=== PATIENT | male | born 1930 | race American Indian/Alaskan Native ===

== ENCOUNTER 2020-01-29 14:45 | Inpatient (IN) | payer MEDICARE, OTHER ==
[2020-01-29] MEDS ORDERED: SODIUM CHLORIDE 0.9% 1000 ML 1,000 ML IV ONE (16:26)
--- NOTE | 2020-01-29 16:28 | Emergency Department Report ---
HPI - General Chief Complaint: Dyspnea/Respdistress Time Seen by Provider: 01/29/20 16:16 - HPI HPI: This is an 89-year-old male, who is known to be positive for Covid 19, who presents to the emergency department with a two-week history of some lightheade dness, generalized weakness, and exertional shortness of breath. The patient's son previously was positive for Covid 19 and lives with the patient. The patient has a history of diabetes. He denies any recent fever but does present with a low-grade fever here. He denies any resting shortness of breath, chest pain, cough, abdominal pain, nausea, vomiting, headache, vision change, numbness or paresthesias. Patient says that he cannot stand for very long or walk far distances as he feels like he will pass out. He denies any tobacco or illicit drug use. ED Past Medical Hx - Past Medical History Previous Medical History?: Yes Hx Diabetes: Yes - Surgical History Past Surgical History?: No - Social History Smoking Status: Never Smoker Substance Use Type: None ED Review of Systems ROS: Stated complaint: PUI Other details as noted in HPI Comment: All other systems reviewed and negative Constitutional: chills, weakness Eyes: denies: eye pain, vision change ENT: denies: ear pain, throat pain Respiratory: SOB with exertion. denies: cough Cardiovascular: denies: chest pain, palpitations Gastrointestinal: denies: abdominal pain, vomiting Genitourinary: denies: dysuria, discharge Musculoskeletal: denies: back pain, joint swelling Skin: denies: rash, lesions Neurological: other (Lightheadedness, dizziness). denies: headache, numbness, paresthesias Physical Exam - Physical Exam Vital Signs: Vital Signs 01/29/20 15:29 Temperature 100.6 F H Pulse Rate 79 Respiratory 16 Rate Blood Pressure 142/68 Blood Pressure 142/68 [Left] O2 Sat by Pulse 91 Oximetry Physical Exam: GENERAL: The patient is well-developed well-nourished. HENT: Normocephalic. Atraumatic. Patient has moist mucous membranes. EYES: Extraocular motions are intact. Pupils equal reactive to light bilaterally. No nystagmus. NECK: Supple. Trachea is midline. CHEST/LUNGS: Rhonchi throughout the chest. There is some tachypnea but no accessory muscle use. There is no respiratory distress noted. HEART/CARDIOVASCULAR: Regular. There is no tachycardia. ABDOMEN: Abdomen is soft, nontender. Patient has normal bowel sounds. There is no abdominal distention. SKIN: Skin is warm and dry. NEURO: The patient is awake, alert, and oriented. The patient is cooperative. The patient has no focal neurologic deficits. Normal speech. Cranial nerves II through XII grossly intact. MUSCULOSKELETAL: There is no tenderness or deformity. There is no evidence of acute injury. ED Course Vital Signs 01/29/20 15:29 Temperature 100.6 F H Pulse Rate 79 Respiratory 16 Rate Blood Pressure 142/68 Blood Pressure 142/68 [Left] O2 Sat by Pulse 91 Oximetry ED Medical Decision Making - Lab Data Result diagrams: 01/29/20 17:03 01/29/20 18:33 - Radiology Data Radiology results: report reviewed CHEST 1 VIEW 01/29/2020 3:59 PM INDICATION / CLINICAL INFORMATION: SOB. COMPARISON: None available. FINDINGS: SUPPORT DEVICES: None. HEART / MEDIASTINUM: No significant abnormality. LUNGS / PLEURA: Suboptimal inspiration with low lung volumes. Patchy parenchymal densities in the right midlung and left lung base. No pneumothorax. ADDITIONAL FINDINGS: No significant additional findings. IMPRESSION: 1. Patchy bilateral pulmonary opacities which may represent pneumonia. - Medical Decision Making This patient presents to the emergency department with complaint of shortness of breath with exertion, lightheadedness/dizziness and increased fatigue and generalized weakness. Also, the patient is noted to be positive for Covid 19. Chest x-ray shows some patchy bilateral opacities concerning for pneumonia. His labs show multiple elevated inflammatory markers. The patient has hypoxia on room air. Patient was given IV steroids, IV fluid resuscitation, IV anti biotics. He will be admitted to the hospital for further evaluation and treatment and was accepted for admission by the hospitalist, Dr. Boswell. Critical Care Time: Yes Critical care time in (mins) excluding proc time.: 35 Critical care attestation.: If time is entered above; I have spent that time in minutes in the direct care of this critically ill patient, excluding procedure time. Due to the immediate potential for life-threatening deterioration due to underlying pulmonary condition, I spent 35 minutes of critical care time with the patient. Critical Care Time: 35 minutes ED Disposition Clinical Impression: COVID-19, Hypoxia Pneumonia Qualifiers: Pneumonia type: due to unspecified organism Laterality: bilateral Lung location: unspecified part of lung Qualified Code(s): J18.9 - Pneumonia, unspecified organism Disposition: -09 OP ADMIT IP TO THIS HOSP Is pt being admited?: Yes Condition: Serious Time of Disposition: 22:55
--- NOTE | 2020-01-29 17:10 | XRay Report ---
CHEST 1 VIEW 01/29/2020 3:59 PM INDICATION / CLINICAL INFORMATION: SOB. COMPARISON: None available. FINDINGS: SUPPORT DEVICES: None. HEART / MEDIASTINUM: No significant abnormality. LUNGS / PLEURA: Suboptimal inspiration with low lung volumes. Patchy parenchymal densities in the rig ht midlung and left lung base. No pneumothorax. ADDITIONAL FINDINGS: No significant additional findings. IMPRESSION: 1. Patchy bilateral pulmonary opacities which may represent pneumonia. Signer Name: Farzana Robertson MD Signed: 01/29/2020 5:05 PM Workstation Name: [id number]
[2020-01-29] MEDS ORDERED: ACETAMINOPHEN 325 MG TAB PO ONE (17:15)
[2020-01-29] MEDS ORDERED: cefTRIAXone/NS 1 GM/50 ML 1 GM/50 ML BAG IV ONE (17:23)
[2020-01-29 17:25] LABS: Basophils % (Auto) 0.2 % (0.0-1.8); Hematocrit 35.5 % (35.5-45.6); Hemoglobin 12.2 gm/dl (11.8-15.2); Lymphocytes # (Auto) 0.5 K/mm3 (1.2-5.4); Lymphocytes % (Auto) 14.9 % (13.4-35.0); Mean Corpuscular HGB Conc 34 % (32-34); Mean Corpuscular Volume 96 fl (84-94); Monocytes # (Auto) 0.2 K/mm3 (0.0-0.8); Monocytes % (Auto) 5.3 % (0.0-7.3); Platelet Count 142 K/mm3 (140-440); Red Cell Distribution Width 13.4 % (13.2-15.2)
[2020-01-29 17:33] LABS: INR 1.09 (0.87-1.13)
[2020-01-29 17:37] LABS: Alanine Aminotransferase 31 units/L (7-56); BUN/Creatinine Ratio 18; Blood Urea Nitrogen 18 mg/dL (9-20); Calcium 8.4 mg/dL (8.4-10.2); Hemolysis Index 69
[2020-01-29 19:08] LABS: C-Reactive Protein 10.2 mg/dL (0.00-1.30)
[2020-01-29] MEDS ORDERED: AZITHROMYCIN 500 MG in SODIUM CHLORIDE 0.9% 250ML 250 ML IV ONE (20:00)
--- NOTE | 2020-01-29 20:32 | History and Physical Report ---
History of Present Illness Date of examination: 01/29/20 Date of admission: 01/29/20 17:53 Chief complaint: Shortness of breath for 1 week History of present illness: 89-year-old male with history of diabetes and recently diagnosed with COVID-19 comes in for 2-week history of lightheadedness generalized weakness and exertional dyspnea. Patient son previously was positive for COVID-19 and lives with his father. Patient with history of diabetes. No recent fever. No resting shortness of breath. No chest pain or cough. Patient states that he cannot stand for a long. Or or walk more than 10-20 steps. He feels as if he is going to pass out. Exposure to coronavirus present. No syncope. No recent travel. Past Medical History Previous Medical History?: Yes Diabetes: Yes Surgical History Past Surgical History?: No Social History Smoking Status: Never Smoker Substance Use Type: None Family history son has coronavirus Review of Systems ROS: Stated complaint: PUI Other details as noted in HPI Comment: All other systems reviewed and negative Constitutional: chills, weakness Eyes: denies: eye pain, vision change ENT: denies: ear pain, throat pain Respiratory: SOB with exertion. denies: cough Cardiovascular: denies: chest pain, palpitations Gastrointestinal: denies: abdominal pain, vomiting Genitourinary: denies: dysuria, discharge Musculoskeletal: denies: back pain, joint swelling Skin: denies: rash, lesions Neurological: other (Lightheadedness, dizziness). denies: headache, numbness, paresthesias Medications and Allergies Allergies Allergy/AdvReac Type Severity Reaction Status Date / Time No Known Allergies Allergy Unverified 01/29/20 18:36 Active Meds: Active Medications Sodium Chloride (Nacl 0.9% 1000 Ml) 1,000 mls @ 125 mls/hr IV ONCE ONE Stop: 01/30/20 00:25 Last Admin: 01/29/20 18:00 Dose: 125 mls/hr Documented by: Azithromycin 500 mg/ Sodium (Chloride) 250 mls @ 250 mls/hr IV ONCE ONE; Protocol Stop: 01/29/20 20:59 Exam - Constitutional Vitals: Temp Pulse Resp BP Pulse Ox 100.6 F H 76 24 146/68 97 01/29/20 15:29 01/29/20 18:16 01/29/20 18:16 01/29/20 18:16 01/29/20 18:16 General appearance: Present: mild distress, well-nourished - EENT Eyes: Present: PERRL ENT: hearing intact, clear oral mucosa - Neck Neck: Present: supple, normal ROM - Respiratory Respiratory effort: normal Respiratory: bilateral: CTA, rales - Cardiovascular Heart rate: 86 Rhythm: regular Heart Sounds: Present: S1 & S2. Absent: rub, click - Extremities Extremities: no ischemia, pulses intact, pulses symmetrical, No edema Peripheral Pulses: within normal limits - Abdominal General gastrointestinal: Present: soft, non-tender, non-distended, normal bowel sounds Male genitourinary: Present: normal - Integumentary Integumentary: Present: clear, warm, dry - Musculoskeletal Musculoskeletal: gait normal, strength equal bilaterally - Psychiatric Psychiatric: appropriate mood/affect, intact judgment & insight - Neurologic Neurologic: CNII-XII intact, moves all extremities HEART Score - HEART Score Troponin: Troponin T 0.014 ng/mL (0.00-0.029) 01/29/20 17:03 Results - Labs CBC & Chem 7: 01/30/20 05:41 01/30/20 05:41 Labs: Laboratory Last Values WBC 3.6 K/mm3 (4.5-11.0) L 01/29/20 17:03 RBC 3.70 M/mm3 (3.65-5.03) 01/29/20 17:03 Hgb 12.2 gm/dl (11.8-15.2) 01/29/20 17:03 Hct 35.5 % (35.5-45.6) 01/29/20 17:03 MCV 96 fl (84-94) H 01/29/20 17:03 MCH 33 pg (28-32) H 01/29/20 17:03 MCHC 34 % (32-34) 01/29/20 17:03 RDW 13.4 % (13.2-15.2) 01/29/20 17:03 Plt Count 142 K/mm3 (140-440) 01/29/20 17:03 Lymph % (Auto) 14.9 % (13.4-35.0) 01/29/20 17:03 [place] % (Auto) 5.3 % (0.0-7.3) 01/29/20 17:03 Eos % (Auto) 0.0 % (0.0-4.3) 01/29/20 17:03 Baso % (Auto) 0.2 % (0.0-1.8) 01/29/20 17:03 Lymph # 0.5 K/mm3 (1.2-5.4) L 01/29/20 17:03 [place] # 0.2 K/mm3 (0.0-0.8) 01/29/20 17:03 Eos # 0.0 K/mm3 (0.0-0.4) 01/29/20 17:03 Baso # 0.0 K/mm3 (0.0-0.1) 01/29/20 17:03 Seg Neutrophils % 79.6 % (40.0-70.0) H 01/29/20 17:03 Seg Neutrophils # 2.9 K/mm3 (1.8-7.7) 01/29/20 17:03 PT 13.9 Sec. (12.2-14.9) 01/29/20 17:03 INR 1.09 (0.87-1.13) 01/29/20 17:03 D-Dimer 2573.78 ng/mlDDU (0-234) H 01/29/20 17:03 Sodium 137 mmol/L (137-145) 01/29/20 17:03 Potassium 4.4 mmol/L (3.6-5.0) 01/29/20 17:03 Chloride 102.2 mmol/L (98-107) 01/29/20 17:03 Carbon Dioxide 22 mmol/L (22-30) 01/29/20 17:03 Anion Gap 17 mmol/L 01/29/20 17:03 BUN 18 mg/dL (9-20) 01/29/20 17:03 Creatinine 1.0 mg/dL (0.8-1.5) 01/29/20 17:03 Estimated GFR > 60 ml/min 01/29/20 17:03 BUN/Creatinine Ratio 18 % 01/29/20 17:03 Glucose 230 mg/dL (75-100) H 01/29/20 18:33 Calcium 8.4 mg/dL (8.4-10.2) 01/29/20 17:03 Ferritin > 2000.0 ng/mL (13.0-400.0) H 01/29/20 18:33 Total Bilirubin 0.80 mg/dL (0.1-1.2) 01/29/20 17:03 AST 76 units/L (5-40) H 01/29/20 17:03 ALT 31 units/L (7-56) 01/29/20 17:03 Alkaline Phosphatase 59 units/L (35-129) 01/29/20 17:03 Lactate Dehydrogenase 930 units/L (91-180) H 01/29/20 18:33 Troponin T 0.014 ng/mL (0.00-0.029) 01/29/20 17:03 C-Reactive Protein 10.20 mg/dL (0.00-1.30) H 01/29/20 18:33 NT-Pro-B Natriuret Pep 497.5 pg/mL (0-900) 01/29/20 17:03 Total Protein 6.6 g/dL (6.3-8.2) 01/29/20 17:03 Albumin 3.0 g/dL (3.9-5) L 01/29/20 17:03 Albumin/Globulin Ratio 0.8 % 01/29/20 17:03 TSH 2.050 mlU/mL (0.270-4.200) 01/29/20 17:03 Microbiology: Microbiology 01/29/20 18:33 Peripheral/Venous Blood Culture - Preliminary Culture in Progress 01/29/20 18:38 Peripheral/Venous Blood Culture - Preliminary Culture in Progress - Imaging and Cardiology EKG: report reviewed (Sinus tachycardia) Imaging and Cardiology: Chest x-ray LUNGS / PLEURA: Suboptimal inspiration with low lung volumes. Patchy parenchymal densities in the right midlung and left lung base. No pneumothorax. ADDITIONAL FINDINGS: No significant additional findings. IMPRESSION: 1. Patchy bilateral pulmonary opacities which may represent pneumonia. Assessment and Plan Advance Directives: Yes (Full code) VTE prophylaxis?: Chemical Plan of care discussed with patient/family: Yes - Patient Problems (1) Bilateral pneumonia Current Visit: Yes Status: Acute Qualifiers: Lung location: unspecified part of lung Plan to address problem: Patient says he is COVID positive Patient started on Rocephin and azithromycin ID consult requested Coronavirus stat ordered Isolation IV Decadron 4 mg every 12 Inflammatory markers are very high (2) COVID-19 Current Visit: Yes Status: Acute Plan to address problem: Patient claims that his COVID-19 positive We will repeat code coronavirus PCR Patient exposed to his son who had coronavirus Not hypoxic at this point of time 2 L nasal cannula oxygen Patient isolated (3) Elevated d-dimer Current Visit: Yes Status: Acute Plan to address problem: Lovenox initiated (4) T2DM (type 2 diabetes mellitus) Current Visit: Yes Status: Chronic Qualifiers: Diabetes mellitus prison insulin use: unspecified 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
[2020-01-29] MEDS ORDERED: ONDANSETRON 4 MG/2 ML INJ IV PRN (20:46)
[2020-01-29] MEDS ORDERED: ACETAMINOPHEN 325 MG TAB PO PRN (20:46)
[2020-01-29] MEDS ORDERED: METOCLOPRAMIDE 10 MG/2 ML INJ IV PRN (20:48)
[2020-01-29] MEDS ORDERED: SODIUM CHLORIDE 0.9% 1000 ML 1,000 ML IV SCH (21:00)
[2020-01-29] MEDS ORDERED: SODIUM CHLORIDE 0.9% 1000 ML 1,000 ML ONE (21:00)
[2020-01-29] MEDS ORDERED: ENOXAPARIN 120 MG/0.8 ML INJ SUB-Q SCH (23:00)
[2020-01-29] MEDS: dexAMETHasone 4 MG/ML VIAL IV SCH (23:28)
[2020-01-29] MEDS: FAMOTIDINE 20 MG TAB PO SCH (23:29)
[2020-01-29] MEDS: INSULIN LISPRO 100 UNIT/ML SUB-Q SCH (23:29)
[2020-01-29] MEDS: oxyCODONE /ACETAMINOPHEN 5-325MG TAB PO PRN (23:29)
[2020-01-29] MEDS: ZINC SULFATE 220 MG CAP PO SCH (23:30)
[2020-01-29] MEDS: AZITHROMYCIN 500 MG in SODIUM CHLORIDE 0.9% 250ML 250 ML IV SCH (23:31)
[2020-01-29] MEDS: cefTRIAXone/NS 2 GM/100 ML 2 GM/100 ML BAG IV SCH (23:31)
[2020-01-30 06:23] LABS: Basophils % (Auto) 0.1 % (0.0-1.8); Hematocrit 35.2 % (35.5-45.6); Hemoglobin 11.7 gm/dl (11.8-15.2); Lymphocytes # (Auto) 0.4 K/mm3 (1.2-5.4); Lymphocytes % (Auto) 8.1 % (13.4-35.0); Mean Corpuscular HGB Conc 33 % (32-34); Mean Corpuscular Volume 94 fl (84-94); Monocytes # (Auto) 0.3 K/mm3 (0.0-0.8); Platelet Count 150 K/mm3 (140-440); Red Blood Count 3.75 M/mm3 (3.65-5.03); Red Cell Distribution Width 13.2 % (13.2-15.2)
[2020-01-30 06:41] LABS: Alanine Aminotransferase 34 units/L (7-56); Albumin 2.9 g/dL (3.9-5); BUN/Creatinine Ratio 20; Blood Urea Nitrogen 18 mg/dL (9-20); Calcium 7.7 mg/dL (8.4-10.2); Hemolysis Index 78
[2020-01-30] MEDS ORDERED: ENOXAPARIN 120 MG/0.8 ML INJ SUB-Q SCH (08:00)
[2020-01-30] MEDS: INSULIN LISPRO 100 UNIT/ML SUB-Q SCH ×4 (08:31→22:12)
[2020-01-30] MEDS: dexAMETHasone 4 MG/ML VIAL IV SCH (09:15)
[2020-01-30] MEDS: FAMOTIDINE 20 MG TAB PO SCH ×2 (09:16→21:29)
[2020-01-30] MEDS: ZINC SULFATE 220 MG CAP PO SCH ×2 (09:16→21:29)
[2020-01-30] MEDS: ENOXAPARIN 100 MG/1 ML INJ SUB-Q SCH ×2 (09:16→21:29)
[2020-01-30] MEDS: AZITHROMYCIN 500 MG in SODIUM CHLORIDE 0.9% 250ML 250 ML IV SCH (09:20)
[2020-01-30] MEDS ORDERED: methylPREDNISolone Sod Succinate 40 MG/1 ML INJ IV SCH (15:00)
--- NOTE | 2020-01-30 15:44 | Consultation ---
History of Present Illness - Reason for Consult Consult date: 01/30/20 COVID Requesting physician: LEIGH DILL - History of Present Illness 89 years old male with history of diabetes mellitus, admitted on 01/29/2020 due to 2-week history of generalized weakness, mild cough, dyspnea on exertion. Patient tested positive for COVID-19 recently. Patient's son also was positive for COVID-19 initially. Patient states that he cannot stand for a long. On arrival, temperature 100.6, HR 77, RR 21, sats down to 91, BP 142/68. Initial WBC 3.6. Hemoglobin 12.2. Platelets 142. D-dimer 2573. Ferritin 2000, CRP 10.2. LDH 930. Procalcitonin 0.18. AST 76. Chest x-ray shows bilateral interstitial infiltrate. Review of Systems: positive in bold print General: fever, chills, malaise, generalized weakness Cutaneous: rash, pruritus Head: headaches or injury Eyes: changes in vision, eye pain, double vision Ears: ear pain, ear discharge, ringing or hearing loss Nose: nose bleeding, stuffiness Mouth & throat: bleeding gums, horseness, no dental problems, or swollen glands Neck: no pain, node enlargement/lumps, tyroid enlargement or tenderness Respiratory: SOB, cough, ORDAZ, wheezing, sputum, hemoptysis, pleuritic chest pain Cardiovascular: chest pain, leg edema, cyanosis, ORDAZ, orthopnea Musculoskeletal: edema, deformities, pain Gastrointestinal: nausea, vomiting, hematemesis, diarrhea, constipation, melena, bright red blood in stools, fecal incontinence, jaundice Genitourinary/Reproductive: frequent urination, dysuria, hematuria, incontinence Neurogical: seizures, headaches, weakness, paresthesias, loss of speech or vision; memory loss, vertigo, tremors, numbness Psychiatric: stable mood; excessive anxiety, sadness or moodiness Medications and Allergies Allergies Allergy/AdvReac Type Severity Reaction Status Date / Time No Known Allergies Allergy Unverified 01/29/20 18:36 Active Meds: Active Medications Acetaminophen (Tylenol) 650 mg PO Q4H PRN PRN Reason: Pain MILD(1-3)/Fever >100.5/GALINDO Enoxaparin Sodium (Enoxaparin) 100 mg SUB-Q Q12HR JUNE Last Admin: 01/30/20 09:16 Dose: 100 mg Documented by: Famotidine (Pepcid) 20 mg PO BID [facility] Last Admin: 01/30/20 09:16 Dose: 20 mg Documented by: Hydromorphone HCl (Dilaudid) 0.5 mg IV Q3H PRN PRN Reason: Pain , Severe (7-10) Ceftriaxone Sodium (Rocephin/Ns 2 Gm/100 Ml) 2 gm in 100 mls @ 200 mls/hr IV Q24H [facility]; Protocol Last Infusion: 01/30/20 04:56 Dose: Infused Documented by: Azithromycin 500 mg/ Sodium (Chloride) 250 mls @ 250 mls/hr IV Q24HR [facility]; Protocol Last Admin: 01/30/20 09:20 Dose: 250 mls/hr Documented by: Insulin Human Lispro (Humalog) 0 unit SUB-Q ACHS [facility]; Protocol Last Admin: 01/30/20 13:18 Dose: 3 unit Documented by: Methylprednisolone Sodium Succinate (Solu-Medrol) 40 mg IV Q8HR [facility] Metoclopramide HCl (Reglan) 10 mg IV Q6H PRN PRN Reason: Nausea And Vomiting Ondansetron HCl (Zofran) 4 mg IV Q8H PRN PRN Reason: Nausea And Vomiting Last Admin: 01/29/20 23:28 Dose: 4 mg Documented by: Oxycodone/Acetaminophen (Percocet 5/325) 1 tab PO Q6H PRN PRN Reason: Pain, Moderate (4-6) Last Admin: 01/29/20 23:29 Dose: 1 tab Documented by: Sodium Chloride (Sodium Chloride Flush Syringe 10 Ml) 10 ml IV BID [facility] Last Admin: 01/30/20 09:17 Dose: 10 ml Documented by: Sodium Chloride (Sodium Chloride Flush Syringe 10 Ml) 10 ml IV PRN PRN PRN Reason: LINE FLUSH Zinc Sulfate (Zinc Sulfate) 220 mg PO BID [facility] Last Admin: 01/30/20 09:16 Dose: 220 mg Documented by: Physical Examination - Physical Exam Narrative exam: Limited given conservation of PPE - Constitutional Vitals: Vital Signs Temp Pulse Resp BP Pulse Ox 98.7 F 78 16 149/73 90 01/30/20 12:42 01/30/20 12:42 01/30/20 12:42 01/30/20 12:42 01/30/20 12:42 Temperature -Last 24 Hours Temperature 98.7 F Temperature 97.4 F Temperature 97.4 F Temperature 98.3 F Results - Labs CBC & Chem 7: 01/30/20 05:41 01/30/20 05:41 Labs: Abnormal lab results 01/29/20 01/29/20 01/29/20 Range/Units 17:03 17:03 17:03 WBC 3.6 L (4.5-11.0) K/mm3 Hgb (11.8-15.2) gm/dl Hct (35.5-45.6) % MCV 96 H (84-94) fl MCH 33 H (28-32) pg Lymph % (Auto) (13.4-35.0) % Lymph # 0.5 L (1.2-5.4) K/mm3 Seg Neutrophils % 79.6 H (40.0-70.0) % D-Dimer 2573.78 H (0-234) ng/mlDDU Carbon Dioxide (22-30) mmol/L Glucose 240 H (75-100) mg/dL POC Glucose (70-105) Hemoglobin A1c (4-6) % Calcium (8.4-10.2) mg/dL Ferritin (13.0-400.0) ng/mL AST 76 H (5-40) units/L Lactate Dehydrogenase (91-180) units/L C-Reactive Protein (0.00-1.30) mg/dL Albumin 3.0 L (3.9-5) g/dL Coronavirus (PCR) (Negative) 01/29/20 01/29/20 01/29/20 Range/Units 18:33 18:33 23:28 WBC (4.5-11.0) K/mm3 Hgb (11.8-15.2) gm/dl Hct (35.5-45.6) % MCV (84-94) fl MCH (28-32) pg Lymph % (Auto) (13.4-35.0) % Lymph # (1.2-5.4) K/mm3 Seg Neutrophils % (40.0-70.0) % D-Dimer (0-234) ng/mlDDU Carbon Dioxide (22-30) mmol/L Glucose 230 H (75-100) mg/dL POC Glucose 253 H (70-105) Hemoglobin A1c (4-6) % Calcium (8.4-10.2) mg/dL Ferritin > 2000.0 H (13.0-400.0) ng/mL AST (5-40) units/L Lactate Dehydrogenase 930 H (91-180) units/L C-Reactive Protein 10.20 H (0.00-1.30) mg/dL Albumin (3.9-5) g/dL Coronavirus (PCR) (Negative) 01/29/20 01/30/20 01/30/20 Range/Units Unknown 05:41 05:41 WBC (4.5-11.0) K/mm3 Hgb 11.7 L (11.8-15.2) gm/dl Hct 35.2 L (35.5-45.6) % MCV (84-94) fl MCH (28-32) pg Lymph % (Auto) 8.1 L (13.4-35.0) % Lymph # 0.4 L (1.2-5.4) K/mm3 Seg Neutrophils % 85.8 H (40.0-70.0) % D-Dimer (0-234) ng/mlDDU Carbon Dioxide 19 L (22-30) mmol/L Glucose 242 H (75-100) mg/dL POC Glucose (70-105) Hemoglobin A1c (4-6) % Calcium 7.7 L (8.4-10.2) mg/dL Ferritin (13.0-400.0) ng/mL AST 79 H (5-40) units/L Lactate Dehydrogenase (91-180) units/L C-Reactive Protein (0.00-1.30) mg/dL Albumin 2.9 L (3.9-5) g/dL Coronavirus (PCR) Positive A (Negative) 01/30/20 01/30/20 01/30/20 Range/Units 05:41 07:55 12:54 WBC (4.5-11.0) K/mm3 Hgb (11.8-15.2) gm/dl Hct (35.5-45.6) % MCV (84-94) fl MCH (28-32) pg Lymph % (Auto) (13.4-35.0) % Lymph # (1.2-5.4) K/mm3 Seg Neutrophils % (40.0-70.0) % D-Dimer (0-234) ng/mlDDU Carbon Dioxide (22-30) mmol/L Glucose (75-100) mg/dL POC Glucose 262 H 232 H (70-105) Hemoglobin A1c 7.3 H (4-6) % Calcium (8.4-10.2) mg/dL Ferritin (13.0-400.0) ng/mL AST (5-40) units/L Lactate Dehydrogenase (91-180) units/L C-Reactive Protein (0.00-1.30) mg/dL Albumin (3.9-5) g/dL Coronavirus (PCR) (Negative) Assessment and Plan Cultures: Blood cultures no growth Assessment: 89 years old male with history of diabetes mellitus, admitted on 01/29/2020 due to 2-week history of generalized weakness, mild cough, dyspnea on exertion: #Sepsis: present on admission with fever, hypoxia; source COVID-19 infection #COVID-19 pneumonia: Admission sats down to 91%. Noted market elevated biom arkers. D-dimer 2573. Ferritin 2000, CRP 10.2. LDH 930. 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 #Mild hypoxia: Currently on room air however drops with activity. Recommendations: No indication for Remdesivir for now, patient without sustained hypoxia Continue Solu-Medrol 40 mg IV every 8 hours Start Tocilizumab IV x1 Consent for convalescent plasma, type and screen Daily markers Stop abx, procal normal Overall prognosis guarded Will follow. Elda Khan MD Infectious Diseases Club Attendant [facility] M [phone] O [phone]
--- NOTE | 2020-01-30 16:30 | Progress Note ---
Assessment and Plan /Sepsis: present on admission with fever, hypoxia; source COVID-19 infection due to COVID-19 pneumonia: /Bilateral pneumonia s/p Rocephin and azithromycin ID consult requested Coronavirus positive cont Isolation IV solumedrol 40mg q8h Inflammatory markers are very high - con to follow / COVID-19 PNA Patient exposed to his son who had coronavirus nasal cannula oxygen to keep O2 sat >94% Patient isolated, ID following follow inflammatory markers /Acute hypoxic Respiratory failure - O2 sat drops with activity - cont nebs, solumedrol, supplemental O2 / Elevated d-dimer Lovenox initiated /Hyperlipidemia, cont statin /T2DM (type 2 diabetes mellitus) consistent carb diet, SSI Coverage for now /DVT prophylaxis Patient on Lovenox and GI prophylaxis 01/29: Positive for COVID 19, follow inflammatory markers, start on iv winifred umedrol. Start Tocilizumab IV x1 Subjective Date of service: 01/30/20 Interval history: Patient seen and examined c/o dry cough and SOB on exertion afebrile, tolerating diet but has nausea Objective - Constitutional Vitals: Vital Signs - 12hr 01/30/20 01/30/20 01/30/20 04:50 04:52 12:42 Temperature 97.4 F L 97.4 F L 98.7 F Pulse Rate 83 77 78 Respiratory 16 16 16 Rate Blood Pressure 130/63 149/73 O2 Sat by Pulse 91 92 90 Oximetry General appearance: Present: no acute distress, well-nourished, other (elderly AAM) - EENT Eyes: PERRL, EOM intact ENT: hearing intact, clear oral mucosa Ears: bilateral: normal - Neck Neck: supple, normal ROM - Respiratory Respiratory effort: normal Respiratory: bilateral: rhonchi - Cardiovascular Rhythm: regular Heart Sounds: Present: S1 & S2. Absent: gallop, rub Extremities: pulses intact, No edema, normal color, Full ROM - Gastrointestinal General gastrointestinal: Present: soft, non-tender, non-distended, normal bowel sounds - Integumentary Integumentary: clear, warm, dry - Musculoskeletal Musculoskeletal: generalized weakness - Neurologic Neurologic: moves all extremities - Psychiatric Psychiatric: memory intact, appropriate mood/affect, intact judgment & insight - Labs CBC & Chem 7: 01/30/20 05:41 01/31/20 12:44 Labs: Abnormal lab results 01/29/20 01/29/20 01/29/20 Range/Units 17:03 17:03 17:03 WBC 3.6 L (4.5-11.0) K/mm3 Hgb (11.8-15.2) gm/dl Hct (35.5-45.6) % MCV 96 H (84-94) fl MCH 33 H (28-32) pg Lymph % (Auto) (13.4-35.0) % Lymph # 0.5 L (1.2-5.4) K/mm3 Seg Neutrophils % 79.6 H (40.0-70.0) % D-Dimer 2573.78 H (0-234) ng/mlDDU Carbon Dioxide (22-30) mmol/L Glucose 240 H (75-100) mg/dL POC Glucose (70-105) Hemoglobin A1c (4-6) % Calcium (8.4-10.2) mg/dL Ferritin (13.0-400.0) ng/mL AST 76 H (5-40) units/L Lactate Dehydrogenase (91-180) units/L C-Reactive Protein (0.00-1.30) mg/dL Albumin 3.0 L (3.9-5) g/dL Coronavirus (PCR) (Negative) 01/29/20 01/29/20 01/29/20 Range/Units 18:33 18:33 23:28 WBC (4.5-11.0) K/mm3 Hgb (11.8-15.2) gm/dl Hct (35.5-45.6) % MCV (84-94) fl MCH (28-32) pg Lymph % (Auto) (13.4-35.0) % Lymph # (1.2-5.4) K/mm3 Seg Neutrophils % (40.0-70.0) % D-Dimer (0-234) ng/mlDDU Carbon Dioxide (22-30) mmol/L Glucose 230 H (75-100) mg/dL POC Glucose 253 H (70-105) Hemoglobin A1c (4-6) % Calcium (8.4-10.2) mg/dL Ferritin > 2000.0 H (13.0-400.0) ng/mL AST (5-40) units/L Lactate Dehydrogenase 930 H (91-180) units/L C-Reactive Protein 10.20 H (0.00-1.30) mg/dL Albumin (3.9-5) g/dL Coronavirus (PCR) (Negative) 01/29/20 01/30/20 01/30/20 Range/Units Unknown 05:41 05:41 WBC (4.5-11.0) K/mm3 Hgb 11.7 L (11.8-15.2) gm/dl Hct 35.2 L (35.5-45.6) % MCV (84-94) fl MCH (28-32) pg Lymph % (Auto) 8.1 L (13.4-35.0) % Lymph # 0.4 L (1.2-5.4) K/mm3 Seg Neutrophils % 85.8 H (40.0-70.0) % D-Dimer (0-234) ng/mlDDU Carbon Dioxide 19 L (22-30) mmol/L Glucose 242 H (75-100) mg/dL POC Glucose (70-105) Hemoglobin A1c (4-6) % Calcium 7.7 L (8.4-10.2) mg/dL Ferritin (13.0-400.0) ng/mL AST 79 H (5-40) units/L Lactate Dehydrogenase (91-180) units/L C-Reactive Protein (0.00-1.30) mg/dL Albumin 2.9 L (3.9-5) g/dL Coronavirus (PCR) Positive A (Negative) 01/30/20 01/30/20 01/30/20 Range/Units 05:41 07:55 12:54 WBC (4.5-11.0) K/mm3 Hgb (11.8-15.2) gm/dl Hct (35.5-45.6) % MCV (84-94) fl MCH (28-32) pg Lymph % (Auto) (13.4-35.0) % Lymph # (1.2-5.4) K/mm3 Seg Neutrophils % (40.0-70.0) % D-Dimer (0-234) ng/mlDDU Carbon Dioxide (22-30) mmol/L Glucose (75-100) mg/dL POC Glucose 262 H 232 H (70-105) Hemoglobin A1c 7.3 H (4-6) % Calcium (8.4-10.2) mg/dL Ferritin (13.0-400.0) ng/mL AST (5-40) units/L Lactate Dehydrogenase (91-180) units/L C-Reactive Protein (0.00-1.30) mg/dL Albumin (3.9-5) g/dL Coronavirus (PCR) (Negative) 01/30/20 Range/Units 16:07 WBC (4.5-11.0) K/mm3 Hgb (11.8-15.2) gm/dl Hct (35.5-45.6) % MCV (84-94) fl MCH (28-32) pg Lymph % (Auto) (13.4-35.0) % Lymph # (1.2-5.4) K/mm3 Seg Neutrophils % (40.0-70.0) % D-Dimer (0-234) ng/mlDDU Carbon Dioxide (22-30) mmol/L Glucose (75-100) mg/dL POC Glucose 211 H (70-105) Hemoglobin A1c (4-6) % Calcium (8.4-10.2) mg/dL Ferritin (13.0-400.0) ng/mL AST (5-40) units/L Lactate Dehydrogenase (91-180) units/L C-Reactive Protein (0.00-1.30) mg/dL Albumin (3.9-5) g/dL Coronavirus (PCR) (Negative) HEART Score - HEART Score Troponin: Troponin T 0.014 ng/mL (0.00-0.029) 01/29/20 17:03
[2020-01-30] MEDS: cefTRIAXone/NS 2 GM/100 ML 2 GM/100 ML BAG IV SCH (21:29)
[2020-01-30] MEDS: methylPREDNISolone Sod Succinate 125 MG/2 ML INJ IV SCH (22:12)
[2020-01-31] MEDS: methylPREDNISolone Sod Succinate 125 MG/2 ML INJ IV SCH ×3 (05:21→21:57)
[2020-01-31] MEDS: INSULIN LISPRO 100 UNIT/ML SUB-Q SCH ×4 (08:54→23:59)
[2020-01-31] MEDS ORDERED: TOCILIZUMAB 400 MG in SODIUM CHLORIDE 0.9% 100 ML IV ONE (10:00)
[2020-01-31] MEDS ORDERED: dexAMETHasone 4 MG/ML VIAL IV SCH (10:00)
[2020-01-31] MEDS: ZINC SULFATE 220 MG CAP PO SCH ×2 (10:15→21:57)
[2020-01-31] MEDS: ENOXAPARIN 100 MG/1 ML INJ SUB-Q SCH ×2 (10:15→21:57)
[2020-01-31] MEDS: FAMOTIDINE 20 MG TAB PO SCH ×2 (10:15→21:57)
--- NOTE | 2020-01-31 10:41 | Progress Note ---
Assessment and Plan Cultures: Blood cultures no growth Assessment: 89 years old male with history of diabetes mellitus, admitted on 01/29/2020 due to 2-week history of generalized weakness, mild cough, dyspnea on exertion: #Sepsis: present on admission with fever, hypoxia; source COVID-19 infection #COVID-19 pneumonia: Admission sats down to 91%. Noted market elevated biomarkers. D-dimer 2573. Ferritin 2000, CRP 10.2. LDH 930. 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 #Acute hypoxemic respiratory failure: Now on 2 L, sats 89 to 90% Recommendations: Start Remdesivir 200 mg IV x1 then 100 g IV x4 days Continue Solu-Medrol 40 mg IV every 8 hours day 2 Start Tocilizumab IV x1 given today Consent for convalescent plasma, type and screen if clinically not better Daily markers, ordered today Continue anticoagulation Dr. Keller will be covering tomorrow until Tuesday, Dr. Calhoun will be covering Tuesday Overall prognosis guarded Will follow. Elda Khan MD Infectious Diseases Membership Director [facility] ([facility]) M [phone] O [phone] Subjective Date of service: 01/31/20 Principal diagnosis: COVID Interval history: Patient feels about the same, still dyspnea on exertion, on nasal cannula 2 L sats 89 to 90%. No fever. Objective - Exam Narrative Exam: Limited given conservation of PPE - Constitutional Vitals: Vital Signs Temp Pulse Resp BP Pulse Ox 98.0 F 62 20 142/75 95 01/31/20 04:52 01/31/20 04:52 01/31/20 04:52 01/31/20 04:52 01/31/20 08:30 Temperature -Last 24 Hours Temperature 98.0 F Temperature 98.7 F Temperature 99.0 F Temperature 98.7 F - Labs CBC & Chem 7: 01/30/20 05:41 01/30/20 05:41 Labs: Abnormal lab results 01/29/20 01/30/20 01/30/20 Range/Units Unknown 12:54 16:07 POC Glucose 232 H 211 H (70-105) Coronavirus (PCR) Positive A (Negative) 01/30/20 01/31/20 Range/Units 21:15 08:42 POC Glucose 285 H 328 H (70-105) Coronavirus (PCR) (Negative)
[2020-01-31] MEDS ORDERED: REMDESIVIR 200 MG in SODIUM CHLORIDE 0.9% 250ML 250 ML IV ONE (12:05)
[2020-01-31] MEDS: SODIUM CHLORIDE 0.9% 50 ML IVPB IV SCH (14:34)
[2020-01-31 15:09] LABS: C-Reactive Protein 5.8 mg/dL (0.00-1.30)
--- NOTE | 2020-02-01 00:06 | Progress Note ---
Assessment and Plan /Sepsis: present on admission with fever, hypoxia; source COVID-19 infection due to COVID-19 pneumonia: /Bilateral pneumonia s/p Rocephin and azithromycin ID consult requested Coronavirus positive cont Isolation Inflammatory markers are very high - con to follow / COVID-19 PNA Patient exposed to his son who had coronavirus nasal cannula oxygen to keep O2 sat >94% Patient isolated, ID following follow inflammatory markers Started Remdesivir Continue Solu-Medrol 40 mg IV every 8 hours. S/p Tocilizumab IV x1 /Acute hypoxic Respiratory failure - O2 sat drops with activity - cont nebs, solumedrol, supplemental O2 / Elevated d-dimer Lovenox initiated /Hyperlipidemia, cont statin /T2DM (type 2 diabetes mellitus) consistent carb diet, SSI Coverage for now /DVT prophylaxis Patient on Lovenox and GI prophylaxis 01/29: Positive for COVID 19, follow inflammatory markers, start on iv solumedrol. Start Tocilizumab IV x1 01/30; Start Remdesivir, Continue Solu-Medrol 40 mg IV every 8 hours. S/p Tocilizumab IV x1. follow inflammatory markers Subjective Date of service: 01/31/20 Principal diagnosis: COVID Interval history: Patient seen and examined c/o dry cough and SOB on exertion afebrile, tolerating diet but has nausea apperas more hypoxic today Objective - Exam Narrative Exam: Limited physical exam due to COVID 19 pandemic and limited PPE Constitutional:alert in NAD Neck: limited due to lack of PPE Oral:limited due to lack of PPE Cardiovascular: limited due to lack of PPE Respiratory: mae rhonchi per NS GI: limited due to lack of PPE Musculoskeletal: limited due to lack of PPE Skin: No rash or abscess Hem/Lymphatic: limited due to lack of PPE Psych: no agitated Neurological: no agitated - Constitutional Vitals: Vital Signs - 12hr 01/31/20 01/31/20 20:00 22:00 Respiratory 20 Rate O2 Sat by Pulse 94 90 Oximetry - Labs CBC & Chem 7: 01/30/20 05:41 01/31/20 12:44 Labs: Abnormal lab results 01/31/20 01/31/20 01/31/20 Range/Units 08:42 12:44 12:44 D-Dimer 795.52 H (0-234) ng/mlDDU Glucose 384 H (75-100) mg/dL POC Glucose 328 H (70-105) Ferritin (13.0-400.0) ng/mL Lactate Dehydrogenase 1393 H (91-180) units/L C-Reactive Protein 5.80 H (0.00-1.30) mg/dL 01/31/20 01/31/20 01/31/20 Range/Units 12:44 16:36 23:46 D-Dimer (0-234) ng/mlDDU Glucose (75-100) mg/dL POC Glucose 384 H 322 H (70-105) Ferritin > 2000.0 H (13.0-400.0) ng/mL Lactate Dehydrogenase (91-180) units/L C-Reactive Protein (0.00-1.30) mg/dL HEART Score - HEART Score Troponin: Troponin T 0.014 ng/mL (0.00-0.029) 01/29/20 17:03
[2020-02-01] MEDS: methylPREDNISolone Sod Succinate 125 MG/2 ML INJ IV SCH ×3 (05:11→23:06)
[2020-02-01] MEDS: INSULIN LISPRO 100 UNIT/ML SUB-Q SCH ×4 (09:14→23:22)
[2020-02-01] MEDS: ENOXAPARIN 100 MG/1 ML INJ SUB-Q SCH ×2 (10:58→23:05)
[2020-02-01] MEDS: FAMOTIDINE 20 MG TAB PO SCH ×2 (10:59→23:04)
[2020-02-01] MEDS: ZINC SULFATE 220 MG CAP PO SCH ×2 (10:59→22:00)
[2020-02-01] MEDS: REMDESIVIR 100 MG in SODIUM CHLORIDE 0.9% 250ML 250 ML IV SCH (12:35)
[2020-02-01] MEDS: SODIUM CHLORIDE 0.9% 50 ML IVPB IV SCH (14:08)
--- NOTE | 2020-02-02 00:24 | Progress Note ---
Assessment and Plan /Sepsis: present on admission with fever, hypoxia; source COVID-19 infection due to COVID-19 pneumonia: /Bilateral pneumonia s/p Rocephin and azithromycin ID consult requested Coronavirus positive cont Isolation Inflammatory markers are very high - con to follow / COVID-19 PNA Patient exposed to his son who had coronavirus nasal cannula oxygen to keep O2 sat >94% Patient isolated, ID following follow inflammatory markers Started Remdesivir Continue Solu-Medrol 40 mg IV every 8 hours. S/p Tocilizumab IV x1 /Acute hypoxic Respiratory failure - O2 sat drops with activity - cont nebs, solumedrol, supplemental O2 / Elevated d-dimer Lovenox initiated /Hyperlipidemia, cont statin /T2DM (type 2 diabetes mellitus) consistent carb diet, SSI Coverage for now /DVT prophylaxis Patient on Lovenox and GI prophylaxis 01/29: Positive for COVID 19, follow inflammatory markers, start on iv solumedrol. Start Tocilizumab IV x1 01/30; Start Remdesivir, Continue Solu-Medrol 40 mg IV every 8 hours. S/p Tocilizumab IV x1. follow inflammatory markers 01/31: cont Remdesivir day 2, Solu-Medrol 40 mg IV every 8 hours. S/p Tocilizum ab IV x1. follow inflammatory markers Brief History: 89 years old male with history of diabetes mellitus, admitted on 01/29/2020 due to 2-week history of generalized weakness, mild cough, dyspnea on exertion. Patient tested positive for COVID-19 recently. Patient's son also was positive for COVID-19 initially. Initial WBC 3.6. Hemoglobin 12.2. Platelets 142. D- dimer 2573. Ferritin 2000, CRP 10.2. LDH 930. Procalcitonin 0.18. AST 76. Chest x-ray shows bilateral interstitial infiltrate. ID following Subjective Date of service: 02/01/20 Principal diagnosis: COVID Interval history: Patient seen and examined c/o dry cough and SOB on exertion afebrile, tolerating diet O2 sat stable with 2L O2 Objective - Exam Narrative Exam: Limited physical exam due to COVID 19 pandemic and limited PPE Constitutional:alert in NAD Neck: limited due to lack of PPE Oral:limited due to lack of PPE Cardiovascular: limited due to lack of PPE Respiratory: mae rhonchi per NS GI: limited due to lack of PPE Musculoskeletal: limited due to lack of PPE Skin: No rash or abscess Hem/Lymphatic: limited due to lack of PPE Psych: no agitated Neurological: no agitated - Constitutional Vitals: Vital Signs - 12hr 02/01/20 02/01/20 02/01/20 16:42 17:03 23:17 Temperature 97.6 F 97.8 F Pulse Rate 70 72 Respiratory 22 18 Rate Blood Pressure 133/69 151/79 O2 Sat by Pulse 85 91 85 Oximetry 02/01/20 02/01/20 23:28 23:34 Temperature 99.9 F H 97.9 F Pulse Rate 123 H 49 L Respiratory 18 18 Rate Blood Pressure 152/97 163/98 O2 Sat by Pulse 98 98 Oximetry - Labs CBC & Chem 7: 01/30/20 05:41 01/31/20 12:44 Labs: Abnormal lab results 02/01/20 02/01/20 02/01/20 Range/Units 08:00 12:48 16:53 POC Glucose 287 H 309 H 362 H (70-105) 02/01/20 Range/Units 23:25 POC Glucose 264 H (70-105) HEART Score - HEART Score Troponin: Troponin T 0.014 ng/mL (0.00-0.029) 01/29/20 17:03
[2020-02-02] MEDS: methylPREDNISolone Sod Succinate 125 MG/2 ML INJ IV SCH ×3 (05:32→22:52)
[2020-02-02 06:04] LABS: Hematocrit 40.7 % (35.5-45.6); Hemoglobin 13.5 gm/dl (11.8-15.2); Mean Corpuscular HGB Conc 33 % (32-34); Mean Corpuscular Volume 94 fl (84-94); Platelet Count 234 K/mm3 (140-440); Red Blood Count 4.35 M/mm3 (3.65-5.03); Red Cell Distribution Width 13.4 % (13.2-15.2)
[2020-02-02 06:18] LABS: BUN/Creatinine Ratio 28; Blood Urea Nitrogen 25 mg/dL (9-20); Calcium 8.2 mg/dL (8.4-10.2); Hemolysis Index 13
[2020-02-02 06:29] LABS: C-Reactive Protein 2.2 mg/dL (0.00-1.30)
[2020-02-02] MEDS: LORazepam 2 MG/ML VIAL IV PRN (08:12)
[2020-02-02] MEDS: FAMOTIDINE 20 MG TAB PO SCH ×2 (09:11→22:53)
[2020-02-02] MEDS: ENOXAPARIN 100 MG/1 ML INJ SUB-Q SCH ×2 (09:11→22:52)
[2020-02-02] MEDS: ZINC SULFATE 220 MG CAP PO SCH (09:12)
[2020-02-02] MEDS: INSULIN LISPRO 100 UNIT/ML SUB-Q SCH ×4 (09:13→22:52)
[2020-02-02] MEDS ORDERED: TERAZOSIN 1 MG PO SCH (10:00)
--- NOTE | 2020-02-02 11:50 | Progress Note ---
Subjective Date of service: 02/02/20 Principal diagnosis: COVID Interval history: A/P: SIRS: present on admission with fever, hypoxia; source COVID-19 infection Blood cultures no growth COVID-19 pneumonia s/p Rocephin and azithromycin ID note reviewed cont. enhanced isolation Inflammatory markers results reviewed - improving Patient exposed to his son who had coronavirus Continue Remdesivir Continue Solu-Medrol 40 mg IV every 8 hours. S/p Tocilizumab IV x1 Acute hypoxic Respiratory failure - O2 sat drops with activity -Patient now on nonrebreather venti mask -We will do a stat ABG - cont nebs, solumedrol, Elevated d-dimer secondary to COVID-19 infection Continue therapeutic Lovenox Hyperlipidemia, cont statin T2DM (type 2 diabetes mellitus) consistent carb diet Accu-Cheks reviewed Poorly controlled Likely worsened by IV steroids Start on basal insulin Continue insulin sliding scale coverage DVT prophylaxis Patient on therapeutic Lovenox and GI prophylaxis 01/29: Positive for COVID 19, follow inflammatory markers, start on iv solumedrol. Start Tocilizumab IV x1 01/30; Start Remdesivir, Continue Solu-Medrol 40 mg IV every 8 hours. S/p Tocilizumab IV x1. follow inflammatory markers 01/31: cont Remdesivir day 2, Solu-Medrol 40 mg IV every 8 hours. S/p Tocili zumab IV x1. follow inflammatory markers 02/01 patient is awake and alert, moderately short of breath, he denies any fever, chills, chest pain and has occasional dry cough. Denies nausea or abdominal p ain. vital signs deteriorated this morning with worsening hypoxemia, now on nonrebreather Ventimask ID note reviewed, lab results reviewed Brief History: 89 years old male with history of diabetes mellitus, admitted on 01/29/2020 due to 2-week history of generalized weakness, mild cough, dyspnea on exertion. Patient tested positive for COVID-19 recently. Patient's son also was positive for COVID-19 initially. Initial WBC 3.6. Hemoglobin 12.2. Platelets 142. D-dimer 2573. Ferritin 2000, CRP 10.2. LDH 930. Procalcitonin 0.18. AST 76. Chest x-ray shows bilateral interstitial infiltrate. ID following Patient seen and examined c/o dry cough and SOB with minimal effort afebrile, tolerating diet 12 point review of systems is essentially unremarkable except as stated above in the history of present illness Objective - Exam Narrative Exam: Constitutional:alert in NAD, on nonrebreather Ventimask Neck: Supple, no JVD Oral: Throat is clear Cardiovascular: Regular rate and rhythm, Respiratory: Diminished breath sounds, no rhonchi or rails GI: Benign Musculoskeletal: Moves all extremities Skin: No rash or abscess Psych: Alert and oriented Neurological: Alert and oriented x 3, moves all extremities, no focal deficit Objective - Constitutional Vitals: Vital Signs - 12hr 02/02/20 02/02/20 02/02/20 05:00 05:16 08:39 Temperature 98.6 F Pulse Rate 49 L Respiratory 20 Rate Blood Pressure 115/76 O2 Sat by Pulse 94 80 L 97 Oximetry - Labs CBC & Chem 7: 02/02/20 05:31 02/02/20 05:31 Labs: Abnormal lab results 02/01/20 02/01/20 02/01/20 Range/Units 12:48 16:53 23:25 D-Dimer (0-234) ng/mlDDU Chloride (98-107) mmol/L BUN (9-20) mg/dL Glucose (75-100) mg/dL POC Glucose 309 H 362 H 264 H (70-105) Calcium (8.4-10.2) mg/dL Ferritin (13.0-400.0) ng/mL Lactate Dehydrogenase (91-180) units/L C-Reactive Protein (0.00-1.30) mg/dL 02/02/20 02/02/20 02/02/20 Range/Units 05:31 05:31 05:31 D-Dimer 416.36 H (0-234) ng/mlDDU Chloride 107.2 H (98-107) mmol/L BUN 25 H (9-20) mg/dL Glucose 304 H (75-100) mg/dL POC Glucose (70-105) Calcium 8.2 L (8.4-10.2) mg/dL Ferritin > 2000.0 H (13.0-400.0) ng/mL Lactate Dehydrogenase (91-180) units/L C-Reactive Protein (0.00-1.30) mg/dL 02/02/20 02/02/20 Range/Units 05:31 09:14 D-Dimer (0-234) ng/mlDDU Chloride (98-107) mmol/L BUN (9-20) mg/dL Glucose (75-100) mg/dL POC Glucose 334 H (70-105) Calcium (8.4-10.2) mg/dL Ferritin (13.0-400.0) ng/mL Lactate Dehydrogenase 1297 H (91-180) units/L C-Reactive Protein 2.20 H (0.00-1.30) mg/dL HEART Score - HEART Score Troponin: Troponin T 0.014 ng/mL (0.00-0.029) 01/29/20 17:03
[2020-02-02] MEDS: PRAZOSIN 1 MG CAP PO SCH ×2 (12:06→22:53)
[2020-02-02] MEDS: REMDESIVIR 100 MG in SODIUM CHLORIDE 0.9% 250ML 250 ML IV SCH (12:06)
[2020-02-02 13:13] LABS: ABG Base Excess -2.7 mmol/L (-2.0-3.0); ABG Methemoglobin 0.8 % (0.0-1.5); ABG Oxygen Saturation 93.6 % (95.0-99.0); ABG PCO2 28.4 mm Hg; ABG PH 7.466 pH Units (7.350-7.450); ABG PO2 60.9 mm Hg (80.0-90.0)
[2020-02-02] MEDS: SODIUM CHLORIDE 0.9% 50 ML IVPB IV SCH (13:27)
--- NOTE | 2020-02-02 18:48 | Progress Note ---
Assessment and Plan Cultures: Blood cultures no growth Assessment: 89 years old male with history of diabetes mellitus, admitted on 01/29/2020 due to 2-week history of generalized weakness, mild cough, dyspnea on exertion: #Sepsis: present on admission with fever, hypoxia; source COVID-19 infection #COVID-19 pneumonia: Admission sats down to 91%. Noted market elevated biomarkers. D-dimer 2573. Ferritin 2000, CRP 10.2. LDH 930. 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 #Acute hypoxemic respiratory failure: Now on nonrebreather Recommendations: Continue Remdesivir to complete 5 days Continue Solu-Medrol 40 mg IV every 8 hours day 4 Completed Actemra 01/31/2020 Recommend getting convalescent plasma if available Daily markers, ordered today -improving despite worsening respiratory status Continue anticoagulation Dr. Calhoun will be covering Tuesday Overall prognosis guarded Will follow. Miller Keller MD [facility] ([facility]) M: [phone] O: [phone] F: [phone] Subjective Date of service: 02/02/20 Principal diagnosis: COVID Interval history: Afebrile with a slightly lower white count. Now on nonrebreather 15 L/min. Objective - Exam Narrative Exam: Physical exam deferred due to PPE conservation strategy. Reviewed in chart. - Constitutional Vitals: Vital Signs Temp Pulse Resp BP Pulse Ox 97.4 F L 57 L 24 111/66 84 02/02/20 11:12 02/02/20 11:12 02/02/20 11:12 02/02/20 12:06 02/02/20 11:12 Temperature -Last 24 Hours Temperature 97.4 F Temperature 98.6 F Temperature 97.9 F Temperature 99.9 F Temperature 97.8 F - Labs CBC & Chem 7: 02/02/20 05:31 02/02/20 05:31 Labs: Abnormal lab results 02/01/20 02/02/20 02/02/20 Range/Units 23:25 05:31 05:31 D-Dimer 416.36 H (0-234) ng/mlDDU ABG pH (7.350-7.450) pH Units ABG pO2 (80.0-90.0) mm Hg ABG O2 Saturation (95.0-99.0) % ABG Base Excess (-2.0-3.0) mmol/L ABG Hemoglobin (14.0-18.0) gm/dl Oxyhemoglobin (95.0-99.0) % Chloride 107.2 H (98-107) mmol/L BUN 25 H (9-20) mg/dL Glucose 304 H (75-100) mg/dL POC Glucose 264 H (70-105) Calcium 8.2 L (8.4-10.2) mg/dL Ferritin (13.0-400.0) ng/mL Lactate Dehydrogenase (91-180) units/L C-Reactive Protein (0.00-1.30) mg/dL 02/02/20 02/02/20 02/02/20 Range/Units 05:31 05:31 09:14 D-Dimer (0-234) ng/mlDDU ABG pH (7.350-7.450) pH Units ABG pO2 (80.0-90.0) mm Hg ABG O2 Saturation (95.0-99.0) % ABG Base Excess (-2.0-3.0) mmol/L ABG Hemoglobin (14.0-18.0) gm/dl Oxyhemoglobin (95.0-99.0) % Chloride (98-107) mmol/L BUN (9-20) mg/dL Glucose (75-100) mg/dL POC Glucose 334 H (70-105) Calcium (8.4-10.2) mg/dL Ferritin > 2000.0 H (13.0-400.0) ng/mL Lactate Dehydrogenase 1297 H (91-180) units/L C-Reactive Protein 2.20 H (0.00-1.30) mg/dL 02/02/20 02/02/20 02/02/20 Range/Units 11:57 12:44 16:35 D-Dimer (0-234) ng/mlDDU ABG pH 7.466 H (7.350-7.450) pH Units ABG pO2 60.9 L (80.0-90.0) mm Hg ABG O2 Saturation 93.6 L (95.0-99.0) % ABG Base Excess -2.7 L (-2.0-3.0) mmol/L ABG Hemoglobin 11.8 L (14.0-18.0) gm/dl Oxyhemoglobin 91.4 L (95.0-99.0) % Chloride (98-107) mmol/L BUN (9-20) mg/dL Glucose (75-100) mg/dL POC Glucose 429 H 300 H (70-105) Calcium (8.4-10.2) mg/dL Ferritin (13.0-400.0) ng/mL Lactate Dehydrogenase (91-180) units/L C-Reactive Protein (0.00-1.30) mg/dL
[2020-02-02] MEDS: INSULIN GLARGINE 100 UNITS/ML SUB-Q SCH (22:53)
[2020-02-03] MEDS: methylPREDNISolone Sod Succinate 125 MG/2 ML INJ IV SCH ×3 (06:15→22:00)
[2020-02-03 07:28] LABS: Hematocrit 41.8 % (35.5-45.6); Hemoglobin 13.8 gm/dl (11.8-15.2); Mean Corpuscular HGB Conc 33 % (32-34); Mean Corpuscular Volume 94 fl (84-94); Platelet Count 247 K/mm3 (140-440); Red Blood Count 4.45 M/mm3 (3.65-5.03); Red Cell Distribution Width 13.4 % (13.2-15.2)
[2020-02-03 07:50] LABS: Alanine Aminotransferase 27 units/L (7-56); BUN/Creatinine Ratio 27; Blood Urea Nitrogen 27 mg/dL (9-20); Calcium 8.1 mg/dL (8.4-10.2); Hemolysis Index 2
[2020-02-03] MEDS: ZINC SULFATE 220 MG CAP PO SCH (09:40)
[2020-02-03] MEDS: PRAZOSIN 1 MG CAP PO SCH ×2 (09:41→22:00)
[2020-02-03] MEDS: LORazepam 2 MG/ML VIAL IV PRN (09:45)
[2020-02-03] MEDS: ENOXAPARIN 100 MG/1 ML INJ SUB-Q SCH ×2 (09:48→22:00)
[2020-02-03] MEDS: FAMOTIDINE 20 MG TAB PO SCH ×2 (09:51→22:00)
[2020-02-03] MEDS: INSULIN LISPRO 100 UNIT/ML SUB-Q SCH ×4 (09:59→23:26)
[2020-02-03 11:51] LABS: Basophils % (Manual) 0 % (0.0-1.8); Eosinophils % (Manual) 0 % (0.0-4.3); Total Cells Counted 100
[2020-02-03 11:52] LABS: Anisocytosis 1+; Macrocytosis 1+; Platelet Estimate Consistent w Auto
--- NOTE | 2020-02-03 12:54 | Progress Note ---
Subjective Date of service: 02/03/20 Principal diagnosis: COVID Interval history: A/P: SIRS: present on admission with fever, hypoxia; source COVID-19 infection Blood cultures no growth COVID-19 pneumonia s/p Rocephin and azithromycin ID note reviewed cont. enhanced isolation Inflammatory markers results reviewed - improving Patient exposed to his son who had coronavirus Continue Remdesivir Continue Solu-Medrol 40 mg IV every 8 hours. S/p Tocilizumab IV x1 Acute hypoxic Respiratory failure - O2 sat drops with activity -Patient is on high flow via nasal cannula Oxygen saturation is 94% - cont nebs, solumedrol, Elevated d-dimer secondary to COVID-19 infection Continue therapeutic Lovenox D-dimer is improving Hyperlipidemia, cont statin T2DM (type 2 diabetes mellitus) consistent carb diet Accu-Cheks reviewed Poorly controlled Likely worsened by IV steroids Start on basal insulin Continue insulin sliding scale coverage DVT prophylaxis Patient on therapeutic Lovenox and GI prophylaxis 01/29: Positive for COVID 19, follow inflammatory markers, start on iv solumedrol. Start Tocilizumab IV x1 01/30; Start Remdesivir, Continue Solu-Medrol 40 mg IV every 8 hours. S/p Tocilizumab IV x1. follow inflammatory markers 01/31: cont Remdesivir day 2, Solu-Medrol 40 mg IV every 8 hours. S/p Tocilizumab IV x1. follow inflammatory markers 02/01 patient is awake and alert, moderately short of breath, he denies any fever, chills, chest pain and has occasional dry cough. Denies nausea or abdominal pain. vital signs deteriorated this morning with worsening hypoxemia, now on nonrebreather Ventimask ID note reviewed, lab results reviewed 02/02 patient was not seen [id number] today, he is now on high flow nasal cannula, no acute events overnight and discussed with RN, lab results reviewed ID note reviewed Brief History: 89 years old male with history of diabetes mellitus, admitted on 01/29/2020 due to 2-week history of generalized weakness, mild cough, dyspnea on exertion. Patient tested positive for COVID-19 recently. Patient's son also was positive for COVID-19 initially. Initial WBC 3.6. Hemoglobin 12.2. Platelets 142. D- dimer 2573. Ferritin 2000, CRP 10.2. LDH 930. Procalcitonin 0.18. AST 76. Chest x-ray shows bilateral interstitial infiltrate. ID following Patient seen and examined c/o dry cough and SOB with minimal effort afebrile, tolerating diet 12 point review of systems is essentially unremarkable except as stated above in the history of present illness Objective - Exam Narrative Exam: Physical examination of the patient was not done today Objective - Constitutional Vitals: Vital Signs - 12hr 02/03/20 02/03/20 02/03/20 03:42 08:17 09:00 Temperature 97.6 F Pulse Rate 65 Respiratory 16 18 Rate Blood Pressure 110/75 O2 Sat by Pulse 94 94 Oximetry 02/03/20 02/03/20 09:41 11:39 Temperature 98.5 F Pulse Rate 60 Respiratory Rate Blood Pressure 112/66 109/57 O2 Sat by Pulse 91 Oximetry - Labs CBC & Chem 7: 02/03/20 06:09 02/03/20 06:09 Labs: Abnormal lab results 02/02/20 02/02/20 02/02/20 Range/Units 12:44 16:35 22:55 Seg Neuts % (Manual) (40.0-70.0) % Lymphocytes % (Manual) (13.4-35.0) % Nucleated RBC % (0.0-0.9) % Lymphocytes # (Manual) (1.2-5.4) K/mm3 ABG pH 7.466 H (7.350-7.450) pH Units ABG pO2 60.9 L (80.0-90.0) mm Hg ABG O2 Saturation 93.6 L (95.0-99.0) % ABG Base Excess -2.7 L (-2.0-3.0) mmol/L ABG Hemoglobin 11.8 L (14.0-18.0) gm/dl Oxyhemoglobin 91.4 L (95.0-99.0) % BUN (9-20) mg/dL Glucose (75-100) mg/dL POC Glucose 300 H 339 H (70-105) Calcium (8.4-10.2) mg/dL Magnesium (1.7-2.3) mg/dL Total Protein (6.3-8.2) g/dL Albumin (3.9-5) g/dL 02/03/20 02/03/20 02/03/20 Range/Units 01:06 06:09 06:09 Seg Neuts % (Manual) 92.0 H (40.0-70.0) % Lymphocytes % (Manual) 3.0 L (13.4-35.0) % Nucleated RBC % 2.0 H (0.0-0.9) % Lymphocytes # (Manual) 0.3 L (1.2-5.4) K/mm3 ABG pH (7.350-7.450) pH Units ABG pO2 (80.0-90.0) mm Hg ABG O2 Saturation (95.0-99.0) % ABG Base Excess (-2.0-3.0) mmol/L ABG Hemoglobin (14.0-18.0) gm/dl Oxyhemoglobin (95.0-99.0) % BUN 27 H (9-20) mg/dL Glucose 348 H (75-100) mg/dL POC Glucose (70-105) Calcium 8.1 L (8.4-10.2) mg/dL Magnesium 2.50 H 2.50 H (1.7-2.3) mg/dL Total Protein 5.4 L (6.3-8.2) g/dL Albumin 3.0 L (3.9-5) g/dL 02/03/20 02/03/20 Range/Units 08:42 11:50 Seg Neuts % (Manual) (40.0-70.0) % Lymphocytes % (Manual) (13.4-35.0) % Nucleated RBC % (0.0-0.9) % Lymphocytes # (Manual) (1.2-5.4) K/mm3 ABG pH (7.350-7.450) pH Units ABG pO2 (80.0-90.0) mm Hg ABG O2 Saturation (95.0-99.0) % ABG Base Excess (-2.0-3.0) mmol/L ABG Hemoglobin (14.0-18.0) gm/dl Oxyhemoglobin (95.0-99.0) % BUN (9-20) mg/dL Glucose (75-100) mg/dL POC Glucose 355 H 345 H (70-105) Calcium (8.4-10.2) mg/dL Magnesium (1.7-2.3) mg/dL Total Protein (6.3-8.2) g/dL Albumin (3.9-5) g/dL HEART Score - HEART Score Troponin: Troponin T 0.014 ng/mL (0.00-0.029) 01/29/20 17:03
[2020-02-03] MEDS: REMDESIVIR 100 MG in SODIUM CHLORIDE 0.9% 250ML 250 ML IV SCH (13:08)
[2020-02-03] MEDS: SODIUM CHLORIDE 0.9% 50 ML IVPB IV SCH (14:33)
[2020-02-03 22:13] LABS: ABG Base Excess -2.4 mmol/L (-2.0-3.0); ABG HCO3 19.1 mmol/L (20.0-26.0); ABG Methemoglobin 0.8 % (0.0-1.5); ABG PCO2 24.7 mm Hg; ABG PH 7.505 pH Units (7.350-7.450); ABG PO2 59.1 mm Hg (80.0-90.0)
[2020-02-03] MEDS: INSULIN GLARGINE 100 UNITS/ML SUB-Q SCH (23:25)
[2020-02-04] MEDS ORDERED: SODIUM CHLORIDE 0.9% 250ML 250 ML IV ONE (02:12)
[2020-02-04] MEDS: methylPREDNISolone Sod Succinate 125 MG/2 ML INJ IV SCH ×2 (05:42→15:03)
[2020-02-04 06:36] LABS: Basophils % (Auto) 0.2 % (0.0-1.8); Eosinophils # (Auto) 0.1 K/mm3 (0.0-0.4); Hematocrit 42.6 % (35.5-45.6); Hemoglobin 13.8 gm/dl (11.8-15.2); Lymphocytes # (Auto) 0.5 K/mm3 (1.2-5.4); Lymphocytes % (Auto) 4.3 % (13.4-35.0); Mean Corpuscular HGB Conc 32 % (32-34); Mean Corpuscular Volume 95 fl (84-94); Monocytes # (Auto) 0.7 K/mm3 (0.0-0.8); Platelet Count 269 K/mm3 (140-440); Red Blood Count 4.47 M/mm3 (3.65-5.03); Red Cell Distribution Width 13.7 % (13.2-15.2)
[2020-02-04 06:48] LABS: BUN/Creatinine Ratio 30; Blood Urea Nitrogen 30 mg/dL (9-20); Calcium 7.8 mg/dL (8.4-10.2); Hemolysis Index 40
[2020-02-04] MEDS: INSULIN LISPRO 100 UNIT/ML SUB-Q SCH ×3 (09:15→18:30)
[2020-02-04] MEDS: FAMOTIDINE 20 MG TAB PO SCH (09:16)
[2020-02-04] MEDS: PRAZOSIN 1 MG CAP PO SCH (09:16)
[2020-02-04] MEDS: ZINC SULFATE 220 MG CAP PO SCH (09:18)
[2020-02-04] MEDS: ENOXAPARIN 100 MG/1 ML INJ SUB-Q SCH (09:19)
[2020-02-04] MEDS: LORazepam 2 MG/ML VIAL IV PRN (10:21)
--- NOTE | 2020-02-04 11:08 | Consultation ---
History of Present Illness Consult date: 02/04/20 Consult reason: other (Abnormal EKG) History of present illness: The patient is an 89-year-old man admitted a week ago with shortness of breath, low-grade pyrexia, bilateral pulmonary infiltrates and a positive coronavirus infection. His current medications include Remdesivir and methylprednisolone. Cardiology consultation is requested for the finding of an abnormal ECG. No cardiac complaints have been reported. A review of the serial ECGs show that his baseline is in normal sinus rhythm with an occasional PVC, narrow QRS complexes, otherwise no acute ST or T wave abnormalities. Subsequently, there was an ECG on February 01, 2 days ago that showed a brief sinus pause, with accelerated junctional or ventricular rhythm with right bundle branch morphology. A review of the patient's laboratory values show a normal TSH at 0. 8. The potassium level was normal, and the patient is not on AV hawa blocking agents. There is no report of past cardiac history or significant prior cardiac work-up in the hospital records. Past History Past Medical History: diabetes, hypertension Medications and Allergies Allergies Allergy/AdvReac Type Severity Reaction Status Date / Time No Known Allergies Allergy Unverified 01/29/20 18:36 Home Medications Medication Instructions Recorded Confirmed Last Taken Type AtorvaSTATin [Lipitor] 40 mg PO QHS 01/31/20 01/31/20 Unknown History Terazosin [Hytrin] 1 mg PO BID 01/31/20 01/31/20 Unknown History glipiZIDE [Glucotrol] 5 mg PO BID 01/31/20 01/31/20 Unknown History metFORMIN [Glucophage] 500 mg PO BID 01/31/20 01/31/20 Unknown History Active Meds: Active Medications Acetaminophen (Tylenol) 650 mg PO Q4H PRN PRN Reason: Pain MILD(1-3)/Fever >100.5/GALINDO Atorvastatin Calcium (Lipitor) 40 mg PO QHS [facility] Last Admin: 02/03/20 22:00 Dose: 40 mg Documented by: Enoxaparin Sodium (Enoxaparin) 100 mg SUB-Q Q12HR [facility] Last Admin: 02/04/20 09:19 Dose: 100 mg Documented by: Famotidine (Pepcid) 20 mg PO BID [facility] Last Admin: 02/04/20 09:16 Dose: 20 mg Documented by: Hydromorphone HCl (Dilaudid) 0.5 mg IV Q3H PRN PRN Reason: Pain , Severe (7-10) REMDESIVIR 100 mg/ Sodium (Chloride) 250 mls @ 500 mls/hr IV Q24H [facility] Stop: 02/04/20 12:29 Last Admin: 02/03/20 13:08 Dose: 500 mls/hr Documented by: Insulin Glargine (Lantus) 10 units SUB-Q QHS [facility] Last Admin: 02/03/20 23:25 Dose: 10 units Documented by: Insulin Human Lispro (Humalog) 0 unit SUB-Q ACHS [facility]; Protocol Last Admin: 02/04/20 09:15 Dose: 8 unit Documented by: Insulin Human Regular (Humulin R) 5 units SUB-Q AC [facility] Lorazepam (Ativan) 1 mg IV Q4H PRN PRN Reason: Anxiety Last Admin: 02/04/20 10:21 Dose: 1 mg Documented by: Methylprednisolone Sodium Succinate (Solu-Medrol) 40 mg IV Q8HR [facility] Last Admin: 02/04/20 05:42 Dose: 40 mg Documented by: Metoclopramide HCl (Reglan) 10 mg IV Q6H PRN PRN Reason: Nausea And Vomiting Ondansetron HCl (Zofran) 4 mg IV Q8H PRN PRN Reason: Nausea And Vomiting Last Admin: 01/29/20 23:28 Dose: 4 mg Documented by: Oxycodone/Acetaminophen (Percocet 5/325) 1 tab PO Q6H PRN PRN Reason: Pain, Moderate (4-6) Last Admin: 01/29/20 23:29 Dose: 1 tab Documented by: Prazosin HCl (Prazosin) 1 mg PO BID [facility] Last Admin: 02/04/20 09:16 Dose: 1 mg Documented by: Sodium Chloride (Sodium Chloride Flush Syringe 10 Ml) 10 ml IV BID [facility] Last Admin: 02/04/20 09:18 Dose: 10 ml Documented by: Sodium Chloride (Sodium Chloride Flush Syringe 10 Ml) 10 ml IV PRN PRN PRN Reason: LINE FLUSH Sodium Chloride (Nacl 0.9%) 50 ml IV Q24H [facility] Stop: 02/04/20 13:01 Last Admin: 02/03/20 14:33 Dose: 50 ml Documented by: Zinc Sulfate (Zinc Sulfate) 220 mg PO QDAY [facility] Last Admin: 02/04/20 09:18 Dose: 220 mg Documented by: Review of Systems Cardiovascular: shortness of breath, no chest pain, no orthopnea, no palpitations, no rapid/irregular heart beat, no edema, no syncope, no lightheadedness Physical Examination Vital Signs Pulse Resp Pulse Ox 77 21 97 01/29/20 15:26 01/29/20 15:26 01/29/20 15:26 Narrative exam: Full physical exam is deferred due to the patient's COVID positive infection. Results 02/04/20 06:06 02/04/20 06:06 Cardiac Enzymes 02/04/20 Range/Units 06:06 Lactate Dehydrogenase 919 H (91-180) units/L CBC 02/04/20 Range/Units 06:06 WBC 10.6 (4.5-11.0) K/mm3 RBC 4.47 (3.65-5.03) M/mm3 Hgb 13.8 (11.8-15.2) gm/dl Hct 42.6 (35.5-45.6) % Plt Count 269 (140-440) K/mm3 Lymph # 0.5 L (1.2-5.4) K/mm3 Jack # 0.7 (0.0-0.8) K/mm3 Eos # 0.1 (0.0-0.4) K/mm3 Baso # 0.0 (0.0-0.1) K/mm3 Comprehensive Metabolic Panel 02/04/20 Range/Units 06:06 Sodium 142 (137-145) mmol/L Potassium 3.8 (3.6-5.0) mmol/L Chloride 107.0 (98-107) mmol/L Carbon Dioxide 21 L (22-30) mmol/L BUN 30 H (9-20) mg/dL Creatinine 1.0 (0.8-1.5) mg/dL Glucose 393 H (75-100) mg/dL Calcium 7.8 L (8.4-10.2) mg/dL EKG interpretations - Telemetry EKG Rhythm: Sinus Rhythm Assessment and Plan - Patient Problems (1) Abnormal ECG Current Visit: Yes Status: Acute Plan to address problem: Patient had a transient sinus pause with accelerated junctional or ventricular rhythm and right bundle branch block morphology. We will continue telemetry monitoring, and conservative cardiac approach to management of this transient bradycardia.
[2020-02-04] MEDS: INSULIN REGULAR, HUMAN 100 UNITS/1 ML SUB-Q SCH ×2 (13:14→18:31)
[2020-02-04] MEDS: REMDESIVIR 100 MG in SODIUM CHLORIDE 0.9% 250ML 250 ML IV SCH (13:15)
--- NOTE | 2020-02-04 14:16 | Progress Note ---
Assessment and Plan Cultures: Blood cultures no growth Assessment: 89 years old male with history of diabetes mellitus, admitted on 01/29/2020 due to 2-week history of generalized weakness, mild cough, dyspnea on exertion: #Sepsis: present on admission with fever, hypoxia; source COVID-19 infection. #COVID-19 pneumonia: elevated biomarkers. D-dimer 2573. Ferritin 2000, CRP 10.2. LDH 930. 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 Completed 5 days of Remdesivir, completed Actemra 01/31/2020. #Acute hypoxemic respiratory failure: on high flow. Recommendations: Completed 5 days of Remdesivir, completed Actemra 01/31/2020 Continue steroids, day 6, consider weaning from tomorrow onwards May consider convalescent plasma monitor markers every 2 days Km Calhoun MD, FACP [facility] C: [phone] O: [phone] F: [phone] Subjective Date of service: 02/04/20 Principal diagnosis: COVID Interval history: No fever. Remains on high flow oxygen. Continues on steroids. Objective - Exam Narrative Exam: Physical Exam (reviewed in chart due to PPE conservation) Constitutional: limited due to PPE conservation strategy Head, Ears, Nose: limited due to PPE conservation strategy Eyes: limited due to PPE conservation strategy Neck: limited due to PPE conservation strategy Oral: limited due to PPE conservation strategy Cardiovascular: limited due to PPE conservation strategy Respiratory: limited due to PPE conservation strategy GI: limited due to PPE conservation strategy Musculoskeletal: limited due to PPE conservation strategy Skin: limited due to PPE conservation strategy Hem/Lymphatic: limited due to PPE conservation strategy Psych: limited due to PPE conservation strategy Neurological: limited due to PPE conservation strategy - Constitutional Vitals: Vital Signs Temp Pulse Resp BP Pulse Ox 97.2 F L 82 18 129/57 93 02/04/20 13:16 02/04/20 13:16 02/04/20 13:16 02/04/20 13:16 02/04/20 13:16 Temperature -Last 24 Hours Temperature 97.2 F Temperature 97.4 F Temperature 97.0 F Temperature 97.3 F Temperature 98.0 F Temperature 98.6 F - Labs CBC & Chem 7: 02/04/20 06:06 02/04/20 06:06 Labs: Abnormal lab results 02/03/20 02/03/20 02/03/20 Range/Units 16:18 22:00 22:04 MCV (84-94) fl Lymph % (Auto) (13.4-35.0) % Lymph # (1.2-5.4) K/mm3 Seg Neutrophils % (40.0-70.0) % Seg Neutrophils # (1.8-7.7) K/mm3 ABG pH 7.505 H (7.350-7.450) pH Units ABG pO2 59.1 L (80.0-90.0) mm Hg ABG HCO3 19.1 L (20.0-26.0) mmol/L ABG O2 Saturation 93.0 L (95.0-99.0) % ABG Base Excess -2.4 L (-2.0-3.0) mmol/L ABG Hemoglobin 13.3 L (14.0-18.0) gm/dl Oxyhemoglobin 91.1 L (95.0-99.0) % Carbon Dioxide (22-30) mmol/L BUN (9-20) mg/dL Glucose (75-100) mg/dL POC Glucose 382 H 309 H (70-105) Calcium (8.4-10.2) mg/dL Magnesium (1.7-2.3) mg/dL Ferritin (13.0-400.0) ng/mL Lactate Dehydrogenase (91-180) units/L 02/04/20 02/04/20 02/04/20 Range/Units 06:06 06:06 06:06 MCV (84-94) fl Lymph % (Auto) (13.4-35.0) % Lymph # (1.2-5.4) K/mm3 Seg Neutrophils % (40.0-70.0) % Seg Neutrophils # (1.8-7.7) K/mm3 ABG pH (7.350-7.450) pH Units ABG pO2 (80.0-90.0) mm Hg ABG HCO3 (20.0-26.0) mmol/L ABG O2 Saturation (95.0-99.0) % ABG Base Excess (-2.0-3.0) mmol/L ABG Hemoglobin (14.0-18.0) gm/dl Oxyhemoglobin (95.0-99.0) % Carbon Dioxide 21 L (22-30) mmol/L BUN 30 H (9-20) mg/dL Glucose 393 H (75-100) mg/dL POC Glucose (70-105) Calcium 7.8 L (8.4-10.2) mg/dL Magnesium 2.70 H (1.7-2.3) mg/dL Ferritin 4214.0 H (13.0-400.0) ng/mL Lactate Dehydrogenase 919 H (91-180) units/L 02/04/20 02/04/20 Range/Units 06:06 08:57 MCV 95 H (84-94) fl Lymph % (Auto) 4.3 L (13.4-35.0) % Lymph # 0.5 L (1.2-5.4) K/mm3 Seg Neutrophils % 87.5 H (40.0-70.0) % Seg Neutrophils # 9.3 H (1.8-7.7) K/mm3 ABG pH (7.350-7.450) pH Units ABG pO2 (80.0-90.0) mm Hg ABG HCO3 (20.0-26.0) mmol/L ABG O2 Saturation (95.0-99.0) % ABG Base Excess (-2.0-3.0) mmol/L ABG Hemoglobin (14.0-18.0) gm/dl Oxyhemoglobin (95.0-99.0) % Carbon Dioxide (22-30) mmol/L BUN (9-20) mg/dL Glucose (75-100) mg/dL POC Glucose 353 H (70-105) Calcium (8.4-10.2) mg/dL Magnesium (1.7-2.3) mg/dL Ferritin (13.0-400.0) ng/mL Lactate Dehydrogenase (91-180) units/L
[2020-02-04] MEDS: SODIUM CHLORIDE 0.9% 50 ML IVPB IV SCH (15:05)
--- NOTE | 2020-02-04 15:12 | Progress Note ---
Assessment and Plan /Acute toxic encephalopathy -Likely due to severe hypoxia and COVID-19 infection -Continue to monitor, provide supportive care -Haldol as needed, sitter in place, placed on restraint /Sepsis: present on admission with fever, hypoxia; source COVID-19 infection due to COVID-19 pneumonia: /Bilateral pneumonia s/p Rocephin and azithromycin ID consult requested Coronavirus positive cont Isolation Inflammatory markers are very high - con to follow / COVID-19 PNA Patient exposed to his son who had coronavirus nasal cannula oxygen to keep O2 sat >94% Patient isolated, ID following follow inflammatory markers Started Remdesivir Continue Solu-Medrol 40 mg IV every 8 hours. S/p Tocilizumab IV x1 /Acute hypoxic Respiratory failure - O2 sat drops with activity - cont nebs, solumedrol, supplemental O2 / Elevated d-dimer Lovenox initiated /Hyperlipidemia, cont statin /T2DM (type 2 diabetes mellitus) consistent carb diet, SSI Coverage for now /DVT prophylaxis Patient on Lovenox and GI prophylaxis 01/29: Positive for COVID 19, follow inflammatory markers, start on iv solumedrol. Start Tocilizumab IV x1 01/30; Start Remdesivir, Continue Solu-Medrol 40 mg IV every 8 hours. S/p Tocilizumab IV x1. follow inflammatory markers 01/31: cont Remdesivir day 2, Solu-Medrol 40 mg IV every 8 hours. S/p Tocilizumab IV x1. follow inflammatory markers 02/01 patient is awake and alert, moderately short of breath, he denies any fever, chills, chest pain and has occasional dry cough. Denies nausea or abdominal pain. vital signs deteriorated this morning with worsening hypoxemia, now on nonrebreather Ventimask ID note reviewed, lab results reviewed 02/02 patient was not seen [id number] today, he is now on high flow nasal cannu la, no acute events overnight and discussed with RN, lab results reviewed ID note reviewed 02/03: appears agitated, ferritin trended up. completed Remdesivir today, completed Tocilizumab IV x1. cont solumedrol iv q8h. transfer to [facility], patient on 100% FiO2 today. cont to follow inflammatory markers Brief History: 89 years old male with history of diabetes mellitus, admitted on 01/29/2020 due to 2-week history of generalized weakness, mild cough, dyspnea on exertion. P atient tested positive for COVID-19 recently. Patient's son also was positive for COVID-19 initially. Initial WBC 3.6. Hemoglobin 12.2. Platelets 142. D- dimer 2573. Ferritin 2000, CRP 10.2. LDH 930. Procalcitonin 0.18. AST 76. Chest x-ray shows bilateral interstitial infiltrate. ID following Subjective Date of service: 02/04/20 Principal diagnosis: COVID Interval history: Patient seen and examined patient is very agitated and wants to get out from bed Remains on high flow o2 Objective - Exam Narrative Exam: Constitutional:alert but confused Neck: supple Oral:no ulcer, dry Cardiovascular: s1 s2 positive Respiratory: mae rhonchi per NS GI: BS positive Musculoskeletal: no joint swelling Skin: No rash or abscess Psych: agitated Neurological: agitated on restraint - Constitutional Vitals: Vital Signs - 12hr 02/04/20 02/04/20 02/04/20 04:56 05:40 09:16 Temperature 97.4 F L Pulse Rate 45 L 55 L 55 L Respiratory 16 18 Rate Blood Pressure 121/59 121/69 O2 Sat by Pulse 93 94 Oximetry 02/04/20 13:16 Temperature 97.2 F L Pulse Rate 82 Respiratory 18 Rate Blood Pressure 129/57 O2 Sat by Pulse 93 Oximetry - Labs CBC & Chem 7: 02/08/20 10:46 02/10/20 12:30 Labs: Abnormal lab results 02/03/20 02/03/20 02/03/20 Range/Units 16:18 22:00 22:04 MCV (84-94) fl Lymph % (Auto) (13.4-35.0) % Lymph # (1.2-5.4) K/mm3 Seg Neutrophils % (40.0-70.0) % Seg Neutrophils # (1.8-7.7) K/mm3 ABG pH 7.505 H (7.350-7.450) pH Units ABG pO2 59.1 L (80.0-90.0) mm Hg ABG HCO3 19.1 L (20.0-26.0) mmol/L ABG O2 Saturation 93.0 L (95.0-99.0) % ABG Base Excess -2.4 L (-2.0-3.0) mmol/L ABG Hemoglobin 13.3 L (14.0-18.0) gm/dl Oxyhemoglobin 91.1 L (95.0-99.0) % Carbon Dioxide (22-30) mmol/L BUN (9-20) mg/dL Glucose (75-100) mg/dL POC Glucose 382 H 309 H (70-105) Calcium (8.4-10.2) mg/dL Magnesium (1.7-2.3) mg/dL Ferritin (13.0-400.0) ng/mL Lactate Dehydrogenase (91-180) units/L 02/04/20 02/04/20 02/04/20 Range/Units 06:06 06:06 06:06 MCV (84-94) fl Lymph % (Auto) (13.4-35.0) % Lymph # (1.2-5.4) K/mm3 Seg Neutrophils % (40.0-70.0) % Seg Neutrophils # (1.8-7.7) K/mm3 ABG pH (7.350-7.450) pH Units ABG pO2 (80.0-90.0) mm Hg ABG HCO3 (20.0-26.0) mmol/L ABG O2 Saturation (95.0-99.0) % ABG Base Excess (-2.0-3.0) mmol/L ABG Hemoglobin (14.0-18.0) gm/dl Oxyhemoglobin (95.0-99.0) % Carbon Dioxide 21 L (22-30) mmol/L BUN 30 H (9-20) mg/dL Glucose 393 H (75-100) mg/dL POC Glucose (70-105) Calcium 7.8 L (8.4-10.2) mg/dL Magnesium 2.70 H (1.7-2.3) mg/dL Ferritin 4214.0 H (13.0-400.0) ng/mL Lactate Dehydrogenase 919 H (91-180) units/L 02/04/20 02/04/20 Range/Units 06:06 08:57 MCV 95 H (84-94) fl Lymph % (Auto) 4.3 L (13.4-35.0) % Lymph # 0.5 L (1.2-5.4) K/mm3 Seg Neutrophils % 87.5 H (40.0-70.0) % Seg Neutrophils # 9.3 H (1.8-7.7) K/mm3 ABG pH (7.350-7.450) pH Units ABG pO2 (80.0-90.0) mm Hg ABG HCO3 (20.0-26.0) mmol/L ABG O2 Saturation (95.0-99.0) % ABG Base Excess (-2.0-3.0) mmol/L ABG Hemoglobin (14.0-18.0) gm/dl Oxyhemoglobin (95.0-99.0) % Carbon Dioxide (22-30) mmol/L BUN (9-20) mg/dL Glucose (75-100) mg/dL POC Glucose 353 H (70-105) Calcium (8.4-10.2) mg/dL Magnesium (1.7-2.3) mg/dL Ferritin (13.0-400.0) ng/mL Lactate Dehydrogenase (91-180) units/L HEART Score - HEART Score Troponin: Troponin T 0.014 ng/mL (0.00-0.029) 01/29/20 17:03
[2020-02-05] MEDS: PRAZOSIN 1 MG CAP PO SCH ×3 (00:17→23:08)
[2020-02-05] MEDS: FAMOTIDINE 20 MG TAB PO SCH ×3 (00:17→22:41)
[2020-02-05] MEDS: INSULIN LISPRO 100 UNIT/ML SUB-Q SCH ×5 (00:18→23:39)
[2020-02-05] MEDS: methylPREDNISolone Sod Succinate 125 MG/2 ML INJ IV SCH ×4 (00:18→23:42)
[2020-02-05] MEDS: INSULIN GLARGINE 100 UNITS/ML SUB-Q SCH (00:18)
[2020-02-05] MEDS: LORazepam 2 MG/ML VIAL IV PRN ×3 (00:19→14:40)
[2020-02-05] MEDS: ENOXAPARIN 100 MG/1 ML INJ SUB-Q SCH ×3 (08:46→22:41)
[2020-02-05] MEDS: INSULIN REGULAR, HUMAN 100 UNITS/1 ML SUB-Q SCH ×3 (10:09→17:50)
[2020-02-05] MEDS: METOPROLOL TARTRATE 5 MG/5 ML INJ IV SCH ×3 (10:12→18:21)
[2020-02-05] MEDS: ZINC SULFATE 220 MG CAP PO SCH (10:12)
--- NOTE | 2020-02-05 13:28 | Progress Note ---
Assessment and Plan (1) Abnormal ECG Current Visit: Yes Status: Acute Plan to address problem: Pt noted to have frequent PVCs and transient sinus bradycardia which has now improved. Will continue to monitor heart rhythm. Subjective Date of service: 02/05/20 Principal diagnosis: COVID Interval history: Pt not personally examined due to ongoing Covid 19 infection Objective Vital Signs Temp Pulse Pulse Resp BP Pulse Ox 02/05/20 12:00 98.0 F 02/05/20 10:21 89 13 136/61 86 02/05/20 10:12 95 H 131/61 02/05/20 10:11 105 H 21 136/61 81 L 02/05/20 10:01 106 H 15 136/61 96 02/05/20 09:51 96 H 22 129/79 79 L 02/05/20 09:41 103 H 21 131/73 96 02/05/20 09:31 108 H 35 H 131/73 89 02/05/20 09:21 95 H 15 131/73 97 02/05/20 09:11 103 H 16 129/79 91 02/05/20 09:00 97.9 F 96 H 18 129/79 95 02/05/20 08:51 109 H 17 131/73 99 02/05/20 08:41 129 H 28 H 131/73 97 02/05/20 08:31 123 H 29 H 131/73 83 L 02/05/20 08:21 120 H 34 H 131/73 85 02/05/20 08:11 116 H 17 131/73 85 02/05/20 08:01 119 H 18 131/73 82 L 02/05/20 07:51 120 H 19 100/70 85 02/05/20 07:41 121 H 26 H 100/70 86 02/05/20 07:31 131 H 11 L 100/70 84 02/05/20 07:21 117 H 26 H 100/70 83 L 02/05/20 07:11 108 H 23 100/70 82 L 02/05/20 07:01 125 H 15 120/67 82 L 02/05/20 06:51 130 H 13 120/67 89 02/05/20 06:41 123 H 25 H 120/67 73 L 02/05/20 06:31 114 H 19 120/67 66 L 02/05/20 06:21 106 H 19 120/67 68 L 02/05/20 06:10 95 H 17 120/67 68 L 02/05/20 06:01 111 H 18 120/67 67 L 02/05/20 05:51 82 16 120/67 98 02/05/20 05:41 70 15 120/67 97 02/05/20 05:31 76 15 120/67 98 02/05/20 05:21 80 21 120/67 97 02/05/20 05:11 85 18 120/67 93 02/05/20 05:01 84 13 120/67 96 02/05/20 04:51 78 18 101/64 95 02/05/20 04:41 82 16 101/64 97 02/05/20 04:31 80 19 101/64 97 02/05/20 04:21 80 20 101/64 96 02/05/20 04:11 97 H 16 101/64 97 02/05/20 04:01 90 16 121/64 96 02/05/20 04:00 112 H 28 H 95 02/05/20 03:51 83 17 101/64 96 02/05/20 03:41 80 19 101/64 97 02/05/20 03:31 80 24 101/64 96 02/05/20 03:21 83 17 101/64 96 02/05/20 03:11 78 21 101/64 97 02/05/20 03:01 77 17 101/64 97 02/05/20 02:51 77 16 120/69 97 02/05/20 02:41 84 19 120/69 98 02/05/20 02:31 81 13 120/69 96 02/05/20 02:26 96 02/05/20 02:21 89 18 120/69 97 02/05/20 02:11 88 22 120/69 98 02/05/20 00:17 125 H 141/96 02/05/20 00:10 97.5 F L 02/04/20 22:42 97.8 F 02/04/20 21:00 112 H 28 H 95 02/04/20 19:43 97 02/04/20 15:00 97 - Physical Examination Narrative exam: Not personally examined - Imaging and Cardiology EKG: report reviewed (Sinus tachycardia)
--- NOTE | 2020-02-05 13:39 | Consultation ---
History of Present Illness Consult date: 02/05/20 Reason for consult: dyspnea, hypoxemia, pneumonia History of present illness: 89-year-old male with history of diabetes and recently diagnosed with COVID-19 comes in for 2-week history of lightheadedness generalized weakness and exertional dyspnea. Patients son was positive for COVID-19 and lives with his father. Patient with history of diabetes. No recent fever. shortness of breath on exertion. No chest pain or cough. Patient states that he cannot stand for a long. Or or walk more than 10-20 steps. He feels as if he is going to pass out. Patient sleeping. Not responding to verbal stimuli. Patient is on Vapotherm, FIO2 100% and o2 saturation running 93%. Patient afebrile. No leukocytosis. Chest xray done on 01/29/20 reported Patchy bilateral pulmonary opacities which may represent pneumonia. OVID-19 pneumonia: elevated biomarkers. D-dimer 2573. Ferritin 2000, CRP 10.2. LDH 930. 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 Completed 5 days of Remdesivir, completed Actemra 01/31/2020 Patients smoking history and alcohol history not known at this time. Past History Past Medical History: diabetes, hypertension Medications and Allergies Allergies Allergy/AdvReac Type Severity Reaction Status Date / Time No Known Allergies Allergy Unverified 01/29/20 18:36 Home Medications Medication Instructions Recorded Confirmed Last Taken Type AtorvaSTATin [Lipitor] 40 mg PO QHS 01/31/20 01/31/20 Unknown History Terazosin [Hytrin] 1 mg PO BID 01/31/20 01/31/20 Unknown History glipiZIDE [Glucotrol] 5 mg PO BID 01/31/20 01/31/20 Unknown History metFORMIN [Glucophage] 500 mg PO BID 01/31/20 01/31/20 Unknown History Active Meds: Active Medications Acetaminophen (Tylenol) 650 mg PO Q4H PRN PRN Reason: Pain MILD(1-3)/Fever >100.5/GALINDO Atorvastatin Calcium (Lipitor) 40 mg PO QHS [facility] Last Admin: 02/05/20 08:46 Dose: Not Given Documented by: Enoxaparin Sodium (Enoxaparin) 100 mg SUB-Q Q12HR [facility] Last Admin: 02/05/20 10:12 Dose: 100 mg Documented by: Famotidine (Pepcid) 20 mg PO BID [facility] Last Admin: 02/05/20 10:11 Dose: 20 mg Documented by: Hydromorphone HCl (Dilaudid) 0.5 mg IV Q3H PRN PRN Reason: Pain , Severe (7-10) Insulin Glargine (Lantus) 14 units SUB-Q QHS [facility] Insulin Human Lispro (Humalog) 0 unit SUB-Q ACHS [facility]; Protocol Last Admin: 02/05/20 09:00 Dose: 6 unit Documented by: Insulin Human Regular (Humulin R) 5 units SUB-Q AC [facility] Last Admin: 02/05/20 10:09 Dose: 5 units Documented by: Lorazepam (Ativan) 1 mg IV Q4H PRN PRN Reason: Anxiety Last Admin: 02/05/20 10:09 Dose: 1 mg Documented by: Methylprednisolone Sodium Succinate (Solu-Medrol) 40 mg IV Q8HR [facility] Metoclopramide HCl (Reglan) 10 mg IV Q6H PRN PRN Reason: Nausea And Vomiting Metoprolol Tartrate (Metoprolol) 5 mg IV Q6HR [facility] Last Admin: 02/05/20 10:12 Dose: 5 mg Documented by: Ondansetron HCl (Zofran) 4 mg IV Q8H PRN PRN Reason: Nausea And Vomiting Last Admin: 01/29/20 23:28 Dose: 4 mg Documented by: Oxycodone/Acetaminophen (Percocet 5/325) 1 tab PO Q6H PRN PRN Reason: Pain, Moderate (4-6) Last Admin: 01/29/20 23:29 Dose: 1 tab Documented by: Prazosin HCl (Prazosin) 1 mg PO BID [facility] Last Admin: 02/05/20 10:11 Dose: 1 mg Documented by: Sodium Chloride (Sodium Chloride Flush Syringe 10 Ml) 10 ml IV BID [facility] Last Admin: 02/05/20 10:12 Dose: 10 ml Documented by: Sodium Chloride (Sodium Chloride Flush Syringe 10 Ml) 10 ml IV PRN PRN PRN Reason: LINE FLUSH Zinc Sulfate (Zinc Sulfate) 220 mg PO QDAY [facility] Last Admin: 02/05/20 10:12 Dose: 220 mg Documented by: Review of Systems All systems: negative Physical Examination Vital signs: Vital Signs Pulse Resp Pulse Ox 77 21 97 01/29/20 15:26 01/29/20 15:26 01/29/20 15:26 General appearance: lethargic, asleep, appears uncomfortable Eyes: non-icteric ENT: oropharynx dry Neck: supple, no JVD Ascultation: Bilateral: rhonchi Cardiovascular: regular rate and rhythm Gastrointestinal: hypoactive bowel sounds, soft, non-tender Integumentary: normal Extremities: no cyanosis, no edema Musculoskeletal: no deformities Gait: other (Is in the bed at this time.) unable to assess other (Unable to assess due to mental status at this time.) Results - Laboratory Findings CBC and BMP: 02/04/20 06:06 02/04/20 06:06 ABG ABG pH 7.505 pH Units (7.350-7.450) H 02/03/20 22:00 ABG pCO2 24.7 mm Hg 02/03/20 22:00 ABG pO2 59.1 mm Hg (80.0-90.0) L 02/03/20 22:00 ABG O2 Saturation 93.0 % (95.0-99.0) L 02/03/20 22:00 PT/INR, D-dimer PT 13.9 Sec. (12.2-14.9) 01/29/20 17:03 INR 1.09 (0.87-1.13) 01/29/20 17:03 D-Dimer 416.36 ng/mlDDU (0-234) H 02/02/20 05:31 Abnormal lab findings: Abnormal Labs 01/29/20 01/29/20 01/29/20 17:03 17:03 17:03 WBC 3.6 L Hgb Hct MCV 96 H MCH 33 H Lymph % (Auto) Lymph # 0.5 L Seg Neutrophils % 79.6 H Seg Neuts % (Manual) Lymphocytes % (Manual) Nucleated RBC % Seg Neutrophils # Lymphocytes # (Manual) D-Dimer 2573.78 H ABG pH ABG pO2 ABG HCO3 ABG O2 Saturation ABG Base Excess ABG Hemoglobin Oxyhemoglobin Chloride Carbon Dioxide BUN Glucose 240 H POC Glucose Hemoglobin A1c Calcium Magnesium Ferritin AST 76 H Lactate Dehydrogenase C-Reactive Protein Total Protein Albumin 3.0 L Coronavirus (PCR) 01/29/20 01/29/20 01/29/20 18:33 18:33 23:28 WBC Hgb Hct MCV MCH Lymph % (Auto) Lymph # Seg Neutrophils % Seg Neuts % (Manual) Lymphocytes % (Manual) Nucleated RBC % Seg Neutrophils # Lymphocytes # (Manual) D-Dimer ABG pH ABG pO2 ABG HCO3 ABG O2 Saturation ABG Base Excess ABG Hemoglobin Oxyhemoglobin Chloride Carbon Dioxide BUN Glucose 230 H POC Glucose 253 H Hemoglobin A1c Calcium Magnesium Ferritin > 2000.0 H AST Lactate Dehydrogenase 930 H C-Reactive Protein 10.20 H Total Protein Albumin Coronavirus (PCR) 01/29/20 01/30/20 01/30/20 Unknown 05:41 05:41 WBC Hgb 11.7 L Hct 35.2 L MCV MCH Lymph % (Auto) 8.1 L Lymph # 0.4 L Seg Neutrophils % 85.8 H Seg Neuts % (Manual) Lymphocytes % (Manual) Nucleated RBC % Seg Neutrophils # Lymphocytes # (Manual) D-Dimer ABG pH ABG pO2 ABG HCO3 ABG O2 Saturation ABG Base Excess ABG Hemoglobin Oxyhemoglobin Chloride Carbon Dioxide 19 L BUN Glucose 242 H POC Glucose Hemoglobin A1c Calcium 7.7 L Magnesium Ferritin AST 79 H Lactate Dehydrogenase C-Reactive Protein Total Protein Albumin 2.9 L Coronavirus (PCR) Positive A 01/30/20 01/30/20 01/30/20 05:41 07:55 12:54 WBC Hgb Hct MCV MCH Lymph % (Auto) Lymph # Seg Neutrophils % Seg Neuts % (Manual) Lymphocytes % (Manual) Nucleated RBC % Seg Neutrophils # Lymphocytes # (Manual) D-Dimer ABG pH ABG pO2 ABG HCO3 ABG O2 Saturation ABG Base Excess ABG Hemoglobin Oxyhemoglobin Chloride Carbon Dioxide BUN Glucose POC Glucose 262 H 232 H Hemoglobin A1c 7.3 H Calcium Magnesium Ferritin AST Lactate Dehydrogenase C-Reactive Protein Total Protein Albumin Coronavirus (PCR) 01/30/20 01/30/20 01/31/20 16:07 21:15 08:42 WBC Hgb Hct MCV MCH Lymph % (Auto) Lymph # Seg Neutrophils % Seg Neuts % (Manual) Lymphocytes % (Manual) Nucleated RBC % Seg Neutrophils # Lymphocytes # (Manual) D-Dimer ABG pH ABG pO2 ABG HCO3 ABG O2 Saturation ABG Base Excess ABG Hemoglobin Oxyhemoglobin Chloride Carbon Dioxide BUN Glucose POC Glucose 211 H 285 H 328 H Hemoglobin A1c Calcium Magnesium Ferritin AST Lactate Dehydrogenase C-Reactive Protein Total Protein Albumin Coronavirus (PCR) 01/31/20 01/31/20 01/31/20 12:44 12:44 12:44 WBC Hgb Hct MCV MCH Lymph % (Auto) Lymph # Seg Neutrophils % Seg Neuts % (Manual) Lymphocytes % (Manual) Nucleated RBC % Seg Neutrophils # Lymphocytes # (Manual) D-Dimer 795.52 H ABG pH ABG pO2 ABG HCO3 ABG O2 Saturation ABG Base Excess ABG Hemoglobin Oxyhemoglobin Chloride Carbon Dioxide BUN Glucose 384 H POC Glucose Hemoglobin A1c Calcium Magnesium Ferritin > 2000.0 H AST Lactate Dehydrogenase 1393 H C-Reactive Protein 5.80 H Total Protein Albumin Coronavirus (PCR) 01/31/20 01/31/20 02/01/20 16:36 23:46 08:00 WBC Hgb Hct MCV MCH Lymph % (Auto) Lymph # Seg Neutrophils % Seg Neuts % (Manual) Lymphocytes % (Manual) Nucleated RBC % Seg Neutrophils # Lymphocytes # (Manual) D-Dimer ABG pH ABG pO2 ABG HCO3 ABG O2 Saturation ABG Base Excess ABG Hemoglobin Oxyhemoglobin Chloride Carbon Dioxide BUN Glucose POC Glucose 384 H 322 H 287 H Hemoglobin A1c Calcium Magnesium Ferritin AST Lactate Dehydrogenase C-Reactive Protein Total Protein Albumin Coronavirus (PCR) 02/01/20 02/01/20 02/01/20 12:48 16:53 23:25 WBC Hgb Hct MCV MCH Lymph % (Auto) Lymph # Seg Neutrophils % Seg Neuts % (Manual) Lymphocytes % (Manual) Nucleated RBC % Seg Neutrophils # Lymphocytes # (Manual) D-Dimer ABG pH ABG pO2 ABG HCO3 ABG O2 Saturation ABG Base Excess ABG Hemoglobin Oxyhemoglobin Chloride Carbon Dioxide BUN Glucose POC Glucose 309 H 362 H 264 H Hemoglobin A1c Calcium Magnesium Ferritin AST Lactate Dehydrogenase C-Reactive Protein Total Protein Albumin Coronavirus (PCR) 02/02/20 02/02/20 02/02/20 05:31 05:31 05:31 WBC Hgb Hct MCV MCH Lymph % (Auto) Lymph # Seg Neutrophils % Seg Neuts % (Manual) Lymphocytes % (Manual) Nucleated RBC % Seg Neutrophils # Lymphocytes # (Manual) D-Dimer 416.36 H ABG pH ABG pO2 ABG HCO3 ABG O2 Saturation ABG Base Excess ABG Hemoglobin Oxyhemoglobin Chloride 107.2 H Carbon Dioxide BUN 25 H Glucose 304 H POC Glucose Hemoglobin A1c Calcium 8.2 L Magnesium Ferritin > 2000.0 H AST Lactate Dehydrogenase C-Reactive Protein Total Protein Albumin Coronavirus (PCR) 02/02/20 02/02/20 02/02/20 05:31 09:14 11:57 WBC Hgb Hct MCV MCH Lymph % (Auto) Lymph # Seg Neutrophils % Seg Neuts % (Manual) Lymphocytes % (Manual) Nucleated RBC % Seg Neutrophils # Lymphocytes # (Manual) D-Dimer ABG pH ABG pO2 ABG HCO3 ABG O2 Saturation ABG Base Excess ABG Hemoglobin Oxyhemoglobin Chloride Carbon Dioxide BUN Glucose POC Glucose 334 H 429 H Hemoglobin A1c Calcium Magnesium Ferritin AST Lactate Dehydrogenase 1297 H C-Reactive Protein 2.20 H Total Protein Albumin Coronavirus (PCR) 02/02/20 02/02/20 02/02/20 12:44 16:35 22:55 WBC Hgb Hct MCV MCH Lymph % (Auto) Lymph # Seg Neutrophils % Seg Neuts % (Manual) Lymphocytes % (Manual) Nucleated RBC % Seg Neutrophils # Lymphocytes # (Manual) D-Dimer ABG pH 7.466 H ABG pO2 60.9 L ABG HCO3 ABG O2 Saturation 93.6 L ABG Base Excess -2.7 L ABG Hemoglobin 11.8 L Oxyhemoglobin 91.4 L Chloride Carbon Dioxide BUN Glucose POC Glucose 300 H 339 H Hemoglobin A1c Calcium Magnesium Ferritin AST Lactate Dehydrogenase C-Reactive Protein Total Protein Albumin Coronavirus (PCR) 02/03/20 02/03/20 02/03/20 01:06 06:09 06:09 WBC Hgb Hct MCV MCH Lymph % (Auto) Lymph # Seg Neutrophils % Seg Neuts % (Manual) 92.0 H Lymphocytes % (Manual) 3.0 L Nucleated RBC % 2.0 H Seg Neutrophils # Lymphocytes # (Manual) 0.3 L D-Dimer ABG pH ABG pO2 ABG HCO3 ABG O2 Saturation ABG Base Excess ABG Hemoglobin Oxyhemoglobin Chloride Carbon Dioxide BUN 27 H Glucose 348 H POC Glucose Hemoglobin A1c Calcium 8.1 L Magnesium 2.50 H 2.50 H Ferritin AST Lactate Dehydrogenase C-Reactive Protein Total Protein 5.4 L Albumin 3.0 L Coronavirus (PCR) 02/03/20 02/03/20 02/03/20 08:42 11:50 16:18 WBC Hgb Hct MCV MCH Lymph % (Auto) Lymph # Seg Neutrophils % Seg Neuts % (Manual) Lymphocytes % (Manual) Nucleated RBC % Seg Neutrophils # Lymphocytes # (Manual) D-Dimer ABG pH ABG pO2 ABG HCO3 ABG O2 Saturation ABG Base Excess ABG Hemoglobin Oxyhemoglobin Chloride Carbon Dioxide BUN Glucose POC Glucose 355 H 345 H 382 H Hemoglobin A1c Calcium Magnesium Ferritin AST Lactate Dehydrogenase C-Reactive Protein Total Protein Albumin Coronavirus (PCR) 02/03/20 02/03/20 02/04/20 22:00 22:04 06:06 WBC Hgb Hct MCV MCH Lymph % (Auto) Lymph # Seg Neutrophils % Seg Neuts % (Manual) Lymphocytes % (Manual) Nucleated RBC % Seg Neutrophils # Lymphocytes # (Manual) D-Dimer ABG pH 7.505 H ABG pO2 59.1 L ABG HCO3 19.1 L ABG O2 Saturation 93.0 L ABG Base Excess -2.4 L ABG Hemoglobin 13.3 L Oxyhemoglobin 91.1 L Chloride Carbon Dioxide BUN Glucose POC Glucose 309 H Hemoglobin A1c Calcium Magnesium Ferritin 4214.0 H AST Lactate Dehydrogenase C-Reactive Protein Total Protein Albumin Coronavirus (PCR) 02/04/20 02/04/20 02/04/20 06:06 06:06 06:06 WBC Hgb Hct MCV 95 H MCH Lymph % (Auto) 4.3 L Lymph # 0.5 L Seg Neutrophils % 87.5 H Seg Neuts % (Manual) Lymphocytes % (Manual) Nucleated RBC % Seg Neutrophils # 9.3 H Lymphocytes # (Manual) D-Dimer ABG pH ABG pO2 ABG HCO3 ABG O2 Saturation ABG Base Excess ABG Hemoglobin Oxyhemoglobin Chloride Carbon Dioxide 21 L BUN 30 H Glucose 393 H POC Glucose Hemoglobin A1c Calcium 7.8 L Magnesium 2.70 H Ferritin AST Lactate Dehydrogenase 919 H C-Reactive Protein Total Protein Albumin Coronavirus (PCR) 02/04/20 02/04/20 02/04/20 08:57 13:12 17:45 WBC Hgb Hct MCV MCH Lymph % (Auto) Lymph # Seg Neutrophils % Seg Neuts % (Manual) Lymphocytes % (Manual) Nucleated RBC % Seg Neutrophils # Lymphocytes # (Manual) D-Dimer ABG pH ABG pO2 ABG HCO3 ABG O2 Saturation ABG Base Excess ABG Hemoglobin Oxyhemoglobin Chloride Carbon Dioxide BUN Glucose POC Glucose 353 H 364 H 292 H Hemoglobin A1c Calcium Magnesium Ferritin AST Lactate Dehydrogenase C-Reactive Protein Total Protein Albumin Coronavirus (PCR) 02/04/20 02/05/20 22:36 08:44 WBC Hgb Hct MCV MCH Lymph % (Auto) Lymph # Seg Neutrophils % Seg Neuts % (Manual) Lymphocytes % (Manual) Nucleated RBC % Seg Neutrophils # Lymphocytes # (Manual) D-Dimer ABG pH ABG pO2 ABG HCO3 ABG O2 Saturation ABG Base Excess ABG Hemoglobin Oxyhemoglobin Chloride Carbon Dioxide BUN Glucose POC Glucose 255 H 313 H Hemoglobin A1c Calcium Magnesium Ferritin AST Lactate Dehydrogenase C-Reactive Protein Total Protein Albumin Coronavirus (PCR) - Diagnostic Findings Chest x-ray: report reviewed, image reviewed Additional studies: CHEST 1 VIEW 01/29/2020 3:59 PM INDICATION / CLINICAL INFORMATION: SOB. COMPARISON: None available. FINDINGS: SUPPORT DEVICES: None. HEART / MEDIASTINUM: No significant abnormality. LUNGS / PLEURA: Suboptimal inspiration with low lung volumes. Patchy parenchymal densities in the right midlung and left lung base. No pneumothorax. ADDITIONAL FINDINGS: No significant additional findings. IMPRESSION: 1. Patchy bilateral pulmonary opacities which may represent pneumonia. Assessment and Plan 89-year-old male with history of diabetes and recently diagnosed with COVID-19 comes in for 2-week history of lightheadedness generalized weakness and exertional dyspnea. Patients son was positive for COVID-19 and lives with his father. Patient with history of diabetes. No recent fever. shortness of breath on exertion. No chest pain or cough. Patient states that he cannot stand for a long. Or or walk more than 10-20 steps. He feels as if he is going to pass out. Patient sleeping. Not responding to verbal stimuli. Patient is on Vapotherm, FIO2 100% and o2 saturation running 93%. Patient afebrile. No leukocytosis. Chest xray done on 01/29/20 reported Patchy bilateral pulmonary opacities which may represent pneumonia. OVID-19 pneumonia: elevated biomarkers. D-dimer 2573. Ferritin 2000, CRP 10.2. LDH 930. 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 Completed 5 days of Remdesivir, completed Actemra 01/31/2020 Patients smoking history and alcohol history not known at this time. I spent direct critical care time of 50 minutes for reviewing the chart, examine the patient, review chest xray, lab work, talking to the nursing staff, respiratory therapy and work out plan of treatment on this critically ill patient. - Patient Problems (1) Acute respiratory failure with hypoxia Current Visit: Yes Status: Acute Plan to address problem: Vapotherm FIO2 100%. Continue Solumedrol. Continue Lovenox. Continue famotidine. (2) Bilateral pneumonia Current Visit: Yes Status: Acute Qualifiers: Lung location: unspecified part of lung Plan to address problem: Antibiotics as per infectious diseases. (3) COVID-19 Current Visit: Yes Status: Acute Plan to address problem: Vapotherm FIO2 100%. Continue Solumedrol. Continue Lovenox. Continue famotidine. Management as per infectious diseases. (4) Elevated d-dimer Current Visit: Yes Status: Acute Plan to address problem: Patient is on S/C Lovenox 100mg S/C q 12 hours. 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
--- NOTE | 2020-02-05 14:07 | Progress Note ---
Assessment and Plan Cultures: Blood cultures no growth Assessment: 89 years old male with history of diabetes mellitus, admitted on 01/29/2020 due to 2-week history of generalized weakness, mild cough, dyspnea on exertion: #Sepsis: present on admission with fever, hypoxia; source COVID-19 infection. #COVID-19 pneumonia: elevated biomarkers. D-dimer 2573. Ferritin 2000, CRP 10.2. LDH 930. 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 Completed 5 days of Remdesivir, completed Actemra 01/31/2020. #Acute hypoxemic respiratory failure: on high flow. Recommendations: Continue steroids, day 7, consider weaning from tomorrow onwards May consider convalescent plasma monitor markers every 2 days continue with anticoagulation given the severe hypoxia and elevated d-dimer Prognosis appears guarded. Km Calhoun MD, FACP [facility] ([facility]) C: [phone] O: [phone] F: [phone] Subjective Date of service: 02/05/20 Principal diagnosis: COVID Interval history: No fever. Remains on high flow oxygen. Moved to [facility]. Objective - Exam Narrative Exam: Physical Exam (reviewed in chart due to PPE conservation) Constitutional: limited due to PPE conservation strategy Head, Ears, Nose: limited due to PPE conservation strategy Eyes: limited due to PPE conservation strategy Neck: limited due to PPE conservation strategy Oral: limited due to PPE conservation strategy Cardiovascular: limited due to PPE conservation strategy Respiratory: limited due to PPE conservation strategy GI: limited due to PPE conservation strategy Musculoskeletal: limited due to PPE conservation strategy Skin: limited due to PPE conservation strategy Hem/Lymphatic: limited due to PPE conservation strategy Psych: limited due to PPE conservation strategy Neurological: limited due to PPE conservation strategy - Constitutional Vitals: Vital Signs Temp Pulse Resp BP Pulse Ox 98.0 F 89 13 136/61 86 02/05/20 12:00 02/05/20 10:21 02/05/20 10:21 02/05/20 10:21 02/05/20 10:21 Temperature -Last 24 Hours Temperature 98.0 F Temperature 97.9 F Temperature 97.5 F Temperature 97.8 F - Labs CBC & Chem 7: 02/04/20 06:06 02/04/20 06:06 Labs: Abnormal lab results 02/04/20 02/04/20 02/04/20 Range/Units 13:12 17:45 22:36 POC Glucose 364 H 292 H 255 H (70-105) 02/05/20 Range/Units 08:44 POC Glucose 313 H (70-105)
--- NOTE | 2020-02-05 17:05 | Progress Note ---
Assessment and Plan /Acute toxic encephalopathy -Likely due to severe hypoxia and COVID-19 infection -Continue to monitor, provide supportive care -Haldol as needed, sitter in place, placed on restraint /Sepsis: present on admission with fever, hypoxia; source COVID-19 infection due to COVID-19 pneumonia: /Bilateral pneumonia s/p Rocephin and azithromycin ID consult requested Coronavirus positive cont Isolation Inflammatory markers are very high - con to follow / COVID-19 PNA Patient exposed to his son who had coronavirus nasal cannula oxygen to keep O2 sat >94% Patient isolated, ID following follow inflammatory markers Started Remdesivir Continue Solu-Medrol 40 mg IV every 8 hours. S/p Tocilizumab IV x1 /Acute hypoxic Respiratory failure - O2 sat drops with activity - cont nebs, solumedrol, supplemental O2 / Elevated d-dimer Lovenox initiated /Hyperlipidemia, cont statin /T2DM (type 2 diabetes mellitus) consistent carb diet, SSI Coverage for now /DVT prophylaxis Patient on Lovenox and GI prophylaxis 01/29: Positive for COVID 19, follow inflammatory markers, start on iv solumedrol. Start Tocilizumab IV x1 01/30; Start Remdesivir, Continue Solu-Medrol 40 mg IV every 8 hours. S/p Tocilizumab IV x1. follow inflammatory markers 01/31: cont Remdesivir day 2, Solu-Medrol 40 mg IV every 8 hours. S/p Tocilizumab IV x1. follow inflammatory markers 02/01 patient is awake and alert, moderately short of breath, he denies any fever, chills, chest pain and has occasional dry cough. Denies nausea or abdominal pain. vital signs deteriorated this morning with worsening hypoxemia, now on nonrebreather Ventimask ID note reviewed, lab results reviewed 02/02 patient was not seen [id number] today, he is now on high flow nasal cannu la, no acute events overnight and discussed with RN, lab results reviewed ID note reviewed 02/03: appears agitated, ferritin trended up. completed Remdesivir today, completed Tocilizumab IV x1. cont solumedrol iv q8h. transfer to [facility], patient on 100% FiO2 today 02/04 patient remains on 90% FiO2, appears very confused and unable to give any consent. Continue IV steroid, will try to get consent for convalescent plasma from family Brief History: 89 years old male with history of diabetes mellitus, admitted on 01/29/2020 due to 2-week history of generalized weakness, mild cough, dyspnea on exertion. Patient tested positive for COVID-19 recently. Patient's son also was positive for COVID-19 initially. Initial WBC 3.6. Hemoglobin 12.2. Platelets 142. D- dimer 2573. Ferritin 2000, CRP 10.2. LDH 930. Procalcitonin 0.18. AST 76. Chest x-ray shows bilateral interstitial infiltrate. ID following Subjective Date of service: 02/05/20 Principal diagnosis: COVID Interval history: Patient seen and examined patient is very agitated and restrained Remains on high flow o2 Objective - Exam Narrative Exam: Constitutional:alert but confused Neck: supple Oral:no ulcer, dry Cardiovascular: s1 s2 positive Respiratory: mae rhonchi per NS GI: BS positive Musculoskeletal: no joint swelling Skin: No rash or abscess Psych: agitated Neurological: agitated on restraint - Constitutional Vitals: Vital Signs - 12hr 02/05/20 02/05/20 02/05/20 05:11 05:21 05:31 Temperature Pulse Rate 85 80 76 Respiratory 18 21 15 Rate Blood Pressure 120/67 120/67 120/67 O2 Sat by Pulse 93 97 98 Oximetry 02/05/20 02/05/20 02/05/20 05:41 05:51 06:01 Temperature Pulse Rate 70 82 111 H Respiratory 15 16 18 Rate Blood Pressure 120/67 120/67 120/67 O2 Sat by Pulse 97 98 67 L Oximetry 02/05/20 02/05/20 02/05/20 06:10 06:21 06:31 Temperature Pulse Rate 95 H 106 H 114 H Respiratory 17 19 19 Rate Blood Pressure 120/67 120/67 120/67 O2 Sat by Pulse 68 L 68 L 66 L Oximetry 02/05/20 02/05/20 02/05/20 06:41 06:51 07:01 Temperature Pulse Rate 123 H 130 H 125 H Respiratory 25 H 13 15 Rate Blood Pressure 120/67 120/67 120/67 O2 Sat by Pulse 73 L 89 82 L Oximetry 02/05/20 02/05/20 02/05/20 07:11 07:21 07:31 Temperature Pulse Rate 108 H 117 H 131 H Respiratory 23 26 H 11 L Rate Blood Pressure 100/70 100/70 100/70 O2 Sat by Pulse 82 L 83 L 84 Oximetry 02/05/20 02/05/20 02/05/20 07:41 07:51 08:01 Temperature Pulse Rate 121 H 120 H 119 H Respiratory 26 H 19 18 Rate Blood Pressure 100/70 100/70 131/73 O2 Sat by Pulse 86 85 82 L Oximetry 02/05/20 02/05/20 02/05/20 08:11 08:21 08:31 Temperature Pulse Rate 116 H 120 H 123 H Respiratory 17 34 H 29 H Rate Blood Pressure 131/73 131/73 131/73 O2 Sat by Pulse 85 85 83 L Oximetry 02/05/20 02/05/20 02/05/20 08:41 08:51 09:00 Temperature 97.9 F Pulse Rate 129 H 109 H 96 H Respiratory 28 H 17 18 Rate Blood Pressure 131/73 131/73 129/79 O2 Sat by Pulse 97 99 95 Oximetry 02/05/20 02/05/20 02/05/20 09:11 09:21 09:25 Temperature Pulse Rate 103 H 95 H Respiratory 16 15 Rate Blood Pressure 129/79 131/73 O2 Sat by Pulse 91 97 88 Oximetry 02/05/20 02/05/20 02/05/20 09:31 09:41 09:51 Temperature Pulse Rate 108 H 103 H 96 H Respiratory 35 H 21 22 Rate Blood Pressure 131/73 131/73 129/79 O2 Sat by Pulse 89 96 79 L Oximetry 02/05/20 02/05/20 02/05/20 10:01 10:11 10:12 Temperature Pulse Rate 106 H 105 H 95 H Respiratory 15 21 Rate Blood Pressure 136/61 136/61 131/61 O2 Sat by Pulse 96 81 L Oximetry 02/05/20 02/05/20 02/05/20 10:21 10:31 10:41 Temperature Pulse Rate 89 83 77 Respiratory 13 16 16 Rate Blood Pressure 136/61 136/61 136/61 O2 Sat by Pulse 86 93 99 Oximetry 02/05/20 02/05/20 02/05/20 10:51 11:00 11:01 Temperature Pulse Rate 66 70 Respiratory 20 19 Rate Blood Pressure 136/61 136/61 O2 Sat by Pulse 84 94 Oximetry 02/05/20 02/05/20 02/05/20 11:11 11:21 11:31 Temperature Pulse Rate 67 67 73 Respiratory 17 20 22 Rate Blood Pressure 129/64 129/64 129/64 O2 Sat by Pulse 99 Oximetry 02/05/20 02/05/20 02/05/20 11:41 11:51 12:00 Temperature 98.0 F Pulse Rate 69 72 Respiratory 27 H 17 Rate Blood Pressure 129/64 129/64 O2 Sat by Pulse 100 100 Oximetry 02/05/20 02/05/20 02/05/20 12:01 12:11 12:20 Temperature Pulse Rate 70 72 70 Respiratory 16 16 15 Rate Blood Pressure 128/66 128/66 128/66 O2 Sat by Pulse 100 98 99 Oximetry 02/05/20 02/05/20 02/05/20 12:30 12:41 12:51 Temperature Pulse Rate 70 70 68 Respiratory 14 14 14 Rate Blood Pressure 128/66 128/66 128/66 O2 Sat by Pulse 100 100 99 Oximetry 02/05/20 02/05/20 02/05/20 13:01 13:11 13:21 Temperature Pulse Rate 72 73 72 Respiratory 14 14 13 Rate Blood Pressure 112/69 112/69 112/69 O2 Sat by Pulse 100 100 100 Oximetry 02/05/20 02/05/20 02/05/20 13:31 13:41 13:51 Temperature Pulse Rate 73 73 79 Respiratory 13 22 16 Rate Blood Pressure 112/69 112/69 112/69 O2 Sat by Pulse 100 100 97 Oximetry 02/05/20 02/05/20 02/05/20 14:01 14:11 14:21 Temperature Pulse Rate 89 93 H 86 Respiratory 22 14 11 L Rate Blood Pressure 112/69 98/73 98/73 O2 Sat by Pulse 84 77 L 98 Oximetry 02/05/20 02/05/20 02/05/20 14:31 14:41 14:51 Temperature Pulse Rate 86 93 H 83 Respiratory 13 20 22 Rate Blood Pressure 98/73 98/73 98/73 O2 Sat by Pulse 92 88 99 Oximetry 02/05/20 15:01 Temperature Pulse Rate 81 Respiratory 19 Rate Blood Pressure 105/73 O2 Sat by Pulse 78 L Oximetry - Labs CBC & Chem 7: 02/08/20 10:46 02/10/20 12:30 Labs: Abnormal lab results 02/04/20 02/04/20 02/04/20 Range/Units 13:12 17:45 22:36 POC Glucose 364 H 292 H 255 H (70-105) 02/05/20 Range/Units 08:44 POC Glucose 313 H (70-105) HEART Score - HEART Score Troponin: Troponin T 0.014 ng/mL (0.00-0.029) 01/29/20 17:03
[2020-02-06] MEDS: METOPROLOL TARTRATE 5 MG/5 ML INJ IV SCH ×3 (06:26→18:24)
[2020-02-06] MEDS: methylPREDNISolone Sod Succinate 125 MG/2 ML INJ IV SCH (06:27)
[2020-02-06] MEDS: INSULIN GLARGINE 100 UNITS/ML SUB-Q SCH ×2 (06:28→22:25)
[2020-02-06] MEDS: FAMOTIDINE 20 MG TAB PO SCH ×2 (09:38→22:28)
[2020-02-06] MEDS: ZINC SULFATE 220 MG CAP PO SCH (09:38)
[2020-02-06] MEDS: INSULIN LISPRO 100 UNIT/ML SUB-Q SCH ×4 (09:38→22:25)
[2020-02-06] MEDS: PRAZOSIN 1 MG CAP PO SCH ×2 (09:38→22:29)
[2020-02-06] MEDS: INSULIN REGULAR, HUMAN 100 UNITS/1 ML SUB-Q SCH ×3 (09:39→18:07)
[2020-02-06] MEDS: ENOXAPARIN 100 MG/1 ML INJ SUB-Q SCH ×2 (09:40→22:26)
--- NOTE | 2020-02-06 11:39 | Progress Note ---
Assessment and Plan - Patient Problems (1) Abnormal ECG Current Visit: Yes Status: Acute Plan to address problem: Abnormal ECG Pt noted to have frequent PVCs and transient sinus bradycardia which has now improved. normal TSH at 0.8 Will continue to monitor heart rhythm. (2) COVID-19 Current Visit: Yes Status: Acute Plan to address problem: positive COVID 19 test Subjective Date of service: 02/06/20 Principal diagnosis: COVID Interval history: Sinus rhythm with occasional PVCs on monitoring and evaluation advisor. Objective Vital Signs Temp Pulse Pulse Resp BP Pulse Ox 02/06/20 11:30 93 H 23 83/57 98 02/06/20 11:20 91 H 16 83/57 100 02/06/20 11:10 86 15 83/57 98 02/06/20 11:00 90 19 108/63 99 02/06/20 10:50 84 15 108/63 98 02/06/20 10:40 83 20 108/63 97 02/06/20 10:30 83 18 108/63 97 02/06/20 10:20 91 H 19 108/63 98 02/06/20 10:10 94 H 21 108/63 98 02/06/20 10:00 99 H 15 123/70 98 02/06/20 09:50 81 18 123/70 89 02/06/20 09:40 93 H 23 123/70 96 02/06/20 09:38 89 123/70 02/06/20 09:30 84 23 123/70 96 02/06/20 09:20 85 24 123/70 96 02/06/20 09:10 84 20 123/70 94 02/06/20 09:00 85 20 134/82 97 02/06/20 08:50 78 16 134/82 98 02/06/20 08:40 86 16 134/82 96 02/06/20 08:30 70 15 134/82 99 02/06/20 08:20 67 14 134/82 99 02/06/20 08:10 68 13 134/82 99 02/06/20 08:00 77 15 130/88 99 02/06/20 07:50 130/88 100 02/06/20 07:40 130/88 99 02/06/20 07:30 130/88 99 02/06/20 07:20 130/88 99 02/06/20 07:10 74 16 130/88 100 02/06/20 07:00 78 14 102/74 98 02/06/20 06:50 78 21 102/74 99 08 06:40 77 16 102/74 96 02/06/20 06:30 87 19 102/74 97 08 06:26 75 102/74 02/06/20 06:20 88 29 H 102/74 86 08 06:10 97 H 16 102/74 89 08 06:00 81 16 66/36 95 02/06/20 05:50 83 22 66/36 94 02/06/20 05:40 91 H 14 66/36 91 02/06/20 05:30 85 19 66/36 93 02/06/20 05:20 84 12 66/36 93 02/06/20 05:10 85 21 66/36 95 02/06/20 05:00 78 17 69/42 90 02/06/20 04:50 85 15 64/26 93 02/06/20 04:40 88 20 64/26 93 02/06/20 04:30 85 18 64/26 96 02/06/20 04:20 79 22 96 02/06/20 04:10 75 15 97 02/06/20 04:00 78 14 L 17 118/52 96 02/06/20 03:51 80 16 118/52 96 02/06/20 03:41 74 16 118/52 94 02/06/20 03:31 80 17 118/52 97 02/06/20 03:21 63 16 118/52 98 02/06/20 03:11 72 16 118/52 97 02/06/20 03:01 75 15 47/29 95 02/06/20 02:51 72 17 47/29 96 02/06/20 02:41 71 14 47/29 95 02/06/20 02:31 70 15 47/29 96 08 02:21 76 16 47/29 95 02/06/20 02:11 72 17 47/29 98 02/06/20 02:01 78 24 112/83 96 02/06/20 01:51 77 15 112/83 97 02/06/20 01:48 99 02/06/20 01:41 75 16 112/83 98 02/06/20 01:31 74 17 112/83 100 02/06/20 01:21 79 18 112/83 99 02/06/20 01:10 80 17 112/83 98 02/06/20 01:01 77 18 112/83 96 02/06/20 00:51 85 22 110/73 98 02/06/20 00:41 80 22 110/73 100 02/06/20 00:31 73 18 110/73 97 02/06/20 00:21 83 17 110/73 97 02/06/20 00:11 78 19 110/73 93 02/06/20 00:01 76 17 110/73 97 02/06/20 00:00 79 18 92 02/05/20 23:51 91 H 18 127/75 94 02/05/20 23:41 85 19 127/75 93 02/05/20 23:31 89 12 127/75 91 02/05/20 23:21 90 16 127/75 86 02/05/20 23:11 89 17 127/75 83 L 02/05/20 23:08 84 127/75 02/05/20 23:01 84 26 H 92/64 02/05/20 22:51 84 15 133/87 91 02/05/20 22:41 84 31 H 133/87 92 02/05/20 22:31 86 22 133/87 02/05/20 22:21 88 28 H 133/87 96 02/05/20 22:11 80 23 133/87 90 02/05/20 22:01 79 16 133/87 100 02/05/20 21:51 87 16 133/87 94 02/05/20 21:41 73 12 133/87 98 02/05/20 21:31 75 18 133/87 89 02/05/20 21:21 79 27 H 133/87 88 02/05/20 21:11 74 15 133/87 97 02/05/20 21:01 79 22 133/87 94 02/05/20 20:51 71 14 146/78 92 02/05/20 20:41 74 17 146/78 95 07 20:31 76 10 L 146/78 100 02/05/20 20:30 100 02/05/20 20:21 64 14 138/70 95 02/05/20 20:11 66 13 138/70 99 02/05/20 20:01 71 13 146/78 89 02/05/20 20:00 67 14 99 02/05/20 19:51 69 14 146/78 99 02/05/20 19:41 68 14 146/78 97 02/05/20 18:21 71 138/104 02/05/20 18:01 85 15 138/104 92 02/05/20 17:51 76 14 135/75 93 02/05/20 17:41 70 15 135/75 88 02/05/20 17:31 66 14 135/75 100 02/05/20 17:21 72 15 135/75 99 02/05/20 17:11 68 15 135/75 100 02/05/20 17:01 77 16 101/64 96 02/05/20 16:51 74 19 101/64 98 02/05/20 16:41 82 16 101/64 72 L 02/05/20 16:31 74 18 101/64 100 02/05/20 16:21 73 18 101/64 92 02/05/20 16:11 80 14 101/64 99 02/05/20 16:01 86 21 105/73 70 L 02/05/20 15:51 80 24 105/73 82 L 02/05/20 15:41 78 21 105/73 79 L 02/05/20 15:31 75 19 105/73 85 07 15:21 77 29 H 105/73 88 02/05/20 15:11 83 15 105/73 86 02/05/20 15:01 81 19 105/73 78 L 02/05/20 14:51 83 22 98/73 99 02/05/20 14:41 93 H 20 98/73 88 02/05/20 14:31 86 13 98/73 92 02/05/20 14:21 86 11 L 98/73 98 02/05/20 14:11 93 H 14 98/73 77 L 02/05/20 14:01 89 22 112/69 84 07 13:51 79 16 112/69 97 07 13:41 73 22 112/69 100 0707 13:31 73 13 112/69 100 07/02/17 13:21 72 13 112/69 100 07/0720 13:11 73 14 112/69 100 07/07 13:01 72 14 112/69 100 07/07/20 12:51 68 14 128/66 99 02/05/20 12:41 70 14 128/66 100 02/05/20 12:30 70 14 128/66 100 02/05/20 12:20 70 15 128/66 99 02/05/20 12:11 72 16 128/66 98 02/05/20 12:01 70 16 128/66 100 02/05/20 12:00 98.0 F 02/05/20 11:51 72 17 129/64 100 02/05/20 11:41 69 27 H 129/64 100 - Physical Examination Narrative exam: Deferred due to COVID isolation protocol. Cardiac: Positive: Irregularly Regular - Imaging and Cardiology EKG: report reviewed (Sinus tachycardia)
--- NOTE | 2020-02-06 12:36 | Progress Note ---
Assessment and Plan 89-year-old male with history of diabetes and recently diagnosed with COVID-19 comes in for 2-week history of lightheadedness generalized weakness and exertional dyspnea. Patients son was positive for COVID-19 and lives with his father. Patient with history of diabetes. No recent fever. shortness of breath on exertion. No chest pain or cough. Patient states that he cannot stand for a long. Or or walk more than 10-20 steps. He feels as if he is going to pass out. Patient sleeping. Not responding to verbal stimuli. Patient is on Vapotherm, FIO2 100% and o2 saturation running 93%. Patient afebrile. No leukocytosis. Chest xray done on 01/29/20 reported Patchy bilateral pulmonary opacities which may represent pneumonia. OVID-19 pneumonia: elevated biomarkers. D-dimer 2573. Ferritin 2000, CRP 10.2. LDH 930. 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 Completed 5 days of Remdesivir, completed Actemra 01/31/2020 Patients smoking history and alcohol history not known at this time. 02/06/20 Patient not responding to verbal stimuli. Patient still on Vapotherm, FIO2 100%. O2 saturation 94%. Weak, No acute respiratory distress. Patient afebrile. No leukocytosis. I spent direct critical care time of 40 minutes for reviewing the chart, examine the patient, review chest xray, lab work, talking to the nursing staff, respiratory therapy and work out plan of treatment on this critically ill patient. - Patient Problems (1) Acute respiratory failure with hypoxia Current Visit: Yes Status: Acute Plan to address problem: Vapotherm FIO2 100%. Continue Solumedrol. Continue Lovenox. Continue famotidine. (2) Bilateral pneumonia Current Visit: Yes Status: Acute Qualifiers: Lung location: unspecified part of lung Plan to address problem: Antibiotics as per infectious diseases. (3) COVID-19 Current Visit: Yes Status: Acute Plan to address problem: Vapotherm FIO2 100%. Continue Solumedrol. Continue Lovenox. Continue famotidine. Management as per infectious diseases. (4) Elevated d-dimer Current Visit: Yes Status: Acute Plan to address problem: Patient is on S/C Lovenox 100mg S/C q 12 hours. 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 Subjective Date of service: 02/06/20 Principal diagnosis: COVID Interval history: Patient not responding to verbal stimuli. Patient still on Vapotherm, FIO2 100%. O2 saturation 94%. Weak, No acute respiratory distress. Patient afebrile. No leukocytosis. Objective Vital Signs - 12hr 02/06/20 02/06/20 02/06/20 00:41 00:51 01:01 Pulse Rate 80 85 77 Pulse Rate [ From Monitor] Respiratory 22 22 18 Rate Blood Pressure 110/73 110/73 112/83 O2 Sat by Pulse 100 98 96 Oximetry 02/06/20 02/06/20 02/06/20 01:10 01:21 01:31 Pulse Rate 80 79 74 Pulse Rate [ From Monitor] Respiratory 17 18 17 Rate Blood Pressure 112/83 112/83 112/83 O2 Sat by Pulse 98 99 100 Oximetry 02/06/20 02/06/20 02/06/20 01:41 01:48 01:51 Pulse Rate 75 77 Pulse Rate [ From Monitor] Respiratory 16 15 Rate Blood Pressure 112/83 112/83 O2 Sat by Pulse 98 99 97 Oximetry 02/06/20 02/06/20 02/06/20 02:01 02:11 02:21 Pulse Rate 78 72 76 Pulse Rate [ From Monitor] Respiratory 24 17 16 Rate Blood Pressure 112/83 47/29 47/29 O2 Sat by Pulse 96 98 95 Oximetry 02/06/20 02/06/20 02/06/20 02:31 02:41 02:51 Pulse Rate 70 71 72 Pulse Rate [ From Monitor] Respiratory 15 14 17 Rate Blood Pressure 47/29 47/29 47/29 O2 Sat by Pulse 96 95 96 Oximetry 02/06/20 02/06/20 02/06/20 03:01 03:11 03:21 Pulse Rate 75 72 63 Pulse Rate [ From Monitor] Respiratory 15 16 16 Rate Blood Pressure 47/29 118/52 118/52 O2 Sat by Pulse 95 97 98 Oximetry 02/06/20 02/06/20 02/06/20 03:31 03:41 03:51 Pulse Rate 80 74 80 Pulse Rate [ From Monitor] Respiratory 17 16 16 Rate Blood Pressure 118/52 118/52 118/52 O2 Sat by Pulse 97 94 96 Oximetry 02/06/20 02/06/20 02/06/20 04:00 04:10 04:20 Pulse Rate 78 75 79 Pulse Rate [ 14 L From Monitor] Respiratory 17 15 22 Rate Blood Pressure 118/52 O2 Sat by Pulse 96 97 96 Oximetry 02/06/20 02/06/20 02/06/20 04:30 04:40 04:50 Pulse Rate 85 88 85 Pulse Rate [ From Monitor] Respiratory 18 20 15 Rate Blood Pressure 64/26 64/26 64/26 O2 Sat by Pulse 96 93 93 Oximetry 02/06/20 02/06/20 02/06/20 05:00 05:10 05:20 Pulse Rate 78 85 84 Pulse Rate [ From Monitor] Respiratory 17 21 12 Rate Blood Pressure 69/42 66/36 66/36 O2 Sat by Pulse 90 95 93 Oximetry 02/06/20 02/06/20 02/06/20 05:30 05:40 05:50 Pulse Rate 85 91 H 83 Pulse Rate [ From Monitor] Respiratory 19 14 22 Rate Blood Pressure 66/36 66/36 66/36 O2 Sat by Pulse 93 91 94 Oximetry 02/06/20 02/06/20 02/06/20 06:00 06:10 06:20 Pulse Rate 81 97 H 88 Pulse Rate [ From Monitor] Respiratory 16 16 29 H Rate Blood Pressure 66/36 102/74 102/74 O2 Sat by Pulse 95 89 86 Oximetry 02/06/20 02/06/20 02/06/20 06:26 06:30 06:40 Pulse Rate 75 87 77 Pulse Rate [ From Monitor] Respiratory 19 16 Rate Blood Pressure 102/74 102/74 102/74 O2 Sat by Pulse 97 96 Oximetry 02/06/20 02/06/20 02/06/20 06:50 07:00 07:10 Pulse Rate 78 78 74 Pulse Rate [ From Monitor] Respiratory 21 14 16 Rate Blood Pressure 102/74 102/74 130/88 O2 Sat by Pulse 99 98 100 Oximetry 02/06/20 02/06/20 02/06/20 07:20 07:30 07:40 Pulse Rate Pulse Rate [ From Monitor] Respiratory Rate Blood Pressure 130/88 130/88 130/88 O2 Sat by Pulse 99 99 99 Oximetry 02/06/20 02/06/20 02/06/20 07:50 08:00 08:10 Pulse Rate 77 68 Pulse Rate [ From Monitor] Respiratory 15 13 Rate Blood Pressure 130/88 130/88 134/82 O2 Sat by Pulse 100 99 99 Oximetry 02/06/20 02/06/20 02/06/20 08:20 08:30 08:40 Pulse Rate 67 70 86 Pulse Rate [ From Monitor] Respiratory 14 15 16 Rate Blood Pressure 134/82 134/82 134/82 O2 Sat by Pulse 99 99 96 Oximetry 02/06/20 02/06/20 02/06/20 08:50 09:00 09:10 Pulse Rate 78 85 84 Pulse Rate [ From Monitor] Respiratory 16 20 20 Rate Blood Pressure 134/82 134/82 123/70 O2 Sat by Pulse 98 97 94 Oximetry 02/06/20 02/06/20 02/06/20 09:20 09:30 09:38 Pulse Rate 85 84 89 Pulse Rate [ From Monitor] Respiratory 24 23 Rate Blood Pressure 123/70 123/70 123/70 O2 Sat by Pulse 96 96 Oximetry 02/06/20 02/06/20 02/06/20 09:40 09:50 10:00 Pulse Rate 93 H 81 99 H Pulse Rate [ From Monitor] Respiratory 23 18 15 Rate Blood Pressure 123/70 123/70 123/70 O2 Sat by Pulse 96 89 98 Oximetry 02/06/20 02/06/20 02/06/20 10:10 10:20 10:30 Pulse Rate 94 H 91 H 83 Pulse Rate [ From Monitor] Respiratory 21 19 18 Rate Blood Pressure 108/63 108/63 108/63 O2 Sat by Pulse 98 98 97 Oximetry 02/06/20 02/06/20 02/06/20 10:40 10:50 11:00 Pulse Rate 83 84 90 Pulse Rate [ From Monitor] Respiratory 20 15 19 Rate Blood Pressure 108/63 108/63 108/63 O2 Sat by Pulse 97 98 99 Oximetry 02/06/20 02/06/20 02/06/20 11:10 11:20 11:30 Pulse Rate 86 91 H 93 H Pulse Rate [ From Monitor] Respiratory 15 16 23 Rate Blood Pressure 83/57 83/57 83/57 O2 Sat by Pulse 98 100 98 Oximetry 02/06/20 02/06/20 02/06/20 11:40 11:50 12:00 Pulse Rate 87 84 82 Pulse Rate [ From Monitor] Respiratory 15 34 H 17 Rate Blood Pressure 83/57 83/57 83/57 O2 Sat by Pulse 100 98 100 Oximetry Constitutional: lethargic, asleep, appears uncomfortable Eyes: non-icteric ENT: oropharynx dry Neck: supple, no JVD Ascultation: Bilateral: rhonchi Cardiovascular: regular rate and rhythm Gastrointestinal: hypoactive bowel sounds, soft, non-tender Integumentary: normal Extremities: no cyanosis, no edema Neurologic: unable to assess Psychiatric: other (Unable to assess due to mental status at this time.) CBC and BMP: 02/04/20 06:06 02/04/20 06:06 ABG, PT/INR, D-dimer: ABG ABG pH 7.505 pH Units (7.350-7.450) H 02/03/20 22:00 ABG pCO2 24.7 mm Hg 02/03/20 22:00 ABG pO2 59.1 mm Hg (80.0-90.0) L 02/03/20 22:00 ABG O2 Saturation 93.0 % (95.0-99.0) L 02/03/20 22:00 PT/INR, D-dimer PT 13.9 Sec. (12.2-14.9) 01/29/20 17:03 INR 1.09 (0.87-1.13) 01/29/20 17:03 D-Dimer 416.36 ng/mlDDU (0-234) H 02/02/20 05:31 Abnormal lab findings: Abnormal Labs 01/29/20 01/29/20 01/29/20 17:03 17:03 17:03 WBC 3.6 L Hgb Hct MCV 96 H MCH 33 H Lymph % (Auto) Lymph # 0.5 L Seg Neutrophils % 79.6 H Seg Neuts % (Manual) Lymphocytes % (Manual) Nucleated RBC % Seg Neutrophils # Lymphocytes # (Manual) D-Dimer 2573.78 H ABG pH ABG pO2 ABG HCO3 ABG O2 Saturation ABG Base Excess ABG Hemoglobin Oxyhemoglobin Chloride Carbon Dioxide BUN Glucose 240 H POC Glucose Hemoglobin A1c Calcium Magnesium Ferritin AST 76 H Lactate Dehydrogenase C-Reactive Protein Total Protein Albumin 3.0 L Coronavirus (PCR) 01/29/20 01/29/20 01/29/20 18:33 18:33 23:28 WBC Hgb Hct MCV MCH Lymph % (Auto) Lymph # Seg Neutrophils % Seg Neuts % (Manual) Lymphocytes % (Manual) Nucleated RBC % Seg Neutrophils # Lymphocytes # (Manual) D-Dimer ABG pH ABG pO2 ABG HCO3 ABG O2 Saturation ABG Base Excess ABG Hemoglobin Oxyhemoglobin Chloride Carbon Dioxide BUN Glucose 230 H POC Glucose 253 H Hemoglobin A1c Calcium Magnesium Ferritin > 2000.0 H AST Lactate Dehydrogenase 930 H C-Reactive Protein 10.20 H Total Protein Albumin Coronavirus (PCR) 01/29/20 01/30/20 01/30/20 Unknown 05:41 05:41 WBC Hgb 11.7 L Hct 35.2 L MCV MCH Lymph % (Auto) 8.1 L Lymph # 0.4 L Seg Neutrophils % 85.8 H Seg Neuts % (Manual) Lymphocytes % (Manual) Nucleated RBC % Seg Neutrophils # Lymphocytes # (Manual) D-Dimer ABG pH ABG pO2 ABG HCO3 ABG O2 Saturation ABG Base Excess ABG Hemoglobin Oxyhemoglobin Chloride Carbon Dioxide 19 L BUN Glucose 242 H POC Glucose Hemoglobin A1c Calcium 7.7 L Magnesium Ferritin AST 79 H Lactate Dehydrogenase C-Reactive Protein Total Protein Albumin 2.9 L Coronavirus (PCR) Positive A 01/30/20 01/30/20 01/30/20 05:41 07:55 12:54 WBC Hgb Hct MCV MCH Lymph % (Auto) Lymph # Seg Neutrophils % Seg Neuts % (Manual) Lymphocytes % (Manual) Nucleated RBC % Seg Neutrophils # Lymphocytes # (Manual) D-Dimer ABG pH ABG pO2 ABG HCO3 ABG O2 Saturation ABG Base Excess ABG Hemoglobin Oxyhemoglobin Chloride Carbon Dioxide BUN Glucose POC Glucose 262 H 232 H Hemoglobin A1c 7.3 H Calcium Magnesium Ferritin AST Lactate Dehydrogenase C-Reactive Protein Total Protein Albumin Coronavirus (PCR) 01/30/20 01/30/20 01/31/20 16:07 21:15 08:42 WBC Hgb Hct MCV MCH Lymph % (Auto) Lymph # Seg Neutrophils % Seg Neuts % (Manual) Lymphocytes % (Manual) Nucleated RBC % Seg Neutrophils # Lymphocytes # (Manual) D-Dimer ABG pH ABG pO2 ABG HCO3 ABG O2 Saturation ABG Base Excess ABG Hemoglobin Oxyhemoglobin Chloride Carbon Dioxide BUN Glucose POC Glucose 211 H 285 H 328 H Hemoglobin A1c Calcium Magnesium Ferritin AST Lactate Dehydrogenase C-Reactive Protein Total Protein Albumin Coronavirus (PCR) 01/31/20 01/31/20 01/31/20 12:44 12:44 12:44 WBC Hgb Hct MCV MCH Lymph % (Auto) Lymph # Seg Neutrophils % Seg Neuts % (Manual) Lymphocytes % (Manual) Nucleated RBC % Seg Neutrophils # Lymphocytes # (Manual) D-Dimer 795.52 H ABG pH ABG pO2 ABG HCO3 ABG O2 Saturation ABG Base Excess ABG Hemoglobin Oxyhemoglobin Chloride Carbon Dioxide BUN Glucose 384 H POC Glucose Hemoglobin A1c Calcium Magnesium Ferritin > 2000.0 H AST Lactate Dehydrogenase 1393 H C-Reactive Protein 5.80 H Total Protein Albumin Coronavirus (PCR) 01/31/20 01/31/20 02/01/20 16:36 23:46 08:00 WBC Hgb Hct MCV MCH Lymph % (Auto) Lymph # Seg Neutrophils % Seg Neuts % (Manual) Lymphocytes % (Manual) Nucleated RBC % Seg Neutrophils # Lymphocytes # (Manual) D-Dimer ABG pH ABG pO2 ABG HCO3 ABG O2 Saturation ABG Base Excess ABG Hemoglobin Oxyhemoglobin Chloride Carbon Dioxide BUN Glucose POC Glucose 384 H 322 H 287 H Hemoglobin A1c Calcium Magnesium Ferritin AST Lactate Dehydrogenase C-Reactive Protein Total Protein Albumin Coronavirus (PCR) 02/01/20 02/01/20 02/01/20 12:48 16:53 23:25 WBC Hgb Hct MCV MCH Lymph % (Auto) Lymph # Seg Neutrophils % Seg Neuts % (Manual) Lymphocytes % (Manual) Nucleated RBC % Seg Neutrophils # Lymphocytes # (Manual) D-Dimer ABG pH ABG pO2 ABG HCO3 ABG O2 Saturation ABG Base Excess ABG Hemoglobin Oxyhemoglobin Chloride Carbon Dioxide BUN Glucose POC Glucose 309 H 362 H 264 H Hemoglobin A1c Calcium Magnesium Ferritin AST Lactate Dehydrogenase C-Reactive Protein Total Protein Albumin Coronavirus (PCR) 02/02/20 02/02/20 02/02/20 05:31 05:31 05:31 WBC Hgb Hct MCV MCH Lymph % (Auto) Lymph # Seg Neutrophils % Seg Neuts % (Manual) Lymphocytes % (Manual) Nucleated RBC % Seg Neutrophils # Lymphocytes # (Manual) D-Dimer 416.36 H ABG pH ABG pO2 ABG HCO3 ABG O2 Saturation ABG Base Excess ABG Hemoglobin Oxyhemoglobin Chloride 107.2 H Carbon Dioxide BUN 25 H Glucose 304 H POC Glucose Hemoglobin A1c Calcium 8.2 L Magnesium Ferritin > 2000.0 H AST Lactate Dehydrogenase C-Reactive Protein Total Protein Albumin Coronavirus (PCR) 02/02/20 02/02/20 02/02/20 05:31 09:14 11:57 WBC Hgb Hct MCV MCH Lymph % (Auto) Lymph # Seg Neutrophils % Seg Neuts % (Manual) Lymphocytes % (Manual) Nucleated RBC % Seg Neutrophils # Lymphocytes # (Manual) D-Dimer ABG pH ABG pO2 ABG HCO3 ABG O2 Saturation ABG Base Excess ABG Hemoglobin Oxyhemoglobin Chloride Carbon Dioxide BUN Glucose POC Glucose 334 H 429 H Hemoglobin A1c Calcium Magnesium Ferritin AST Lactate Dehydrogenase 1297 H C-Reactive Protein 2.20 H Total Protein Albumin Coronavirus (PCR) 02/02/20 02/02/20 02/02/20 12:44 16:35 22:55 WBC Hgb Hct MCV MCH Lymph % (Auto) Lymph # Seg Neutrophils % Seg Neuts % (Manual) Lymphocytes % (Manual) Nucleated RBC % Seg Neutrophils # Lymphocytes # (Manual) D-Dimer ABG pH 7.466 H ABG pO2 60.9 L ABG HCO3 ABG O2 Saturation 93.6 L ABG Base Excess -2.7 L ABG Hemoglobin 11.8 L Oxyhemoglobin 91.4 L Chloride Carbon Dioxide BUN Glucose POC Glucose 300 H 339 H Hemoglobin A1c Calcium Magnesium Ferritin AST Lactate Dehydrogenase C-Reactive Protein Total Protein Albumin Coronavirus (PCR) 02/03/20 02/03/20 02/03/20 01:06 06:09 06:09 WBC Hgb Hct MCV MCH Lymph % (Auto) Lymph # Seg Neutrophils % Seg Neuts % (Manual) 92.0 H Lymphocytes % (Manual) 3.0 L Nucleated RBC % 2.0 H Seg Neutrophils # Lymphocytes # (Manual) 0.3 L D-Dimer ABG pH ABG pO2 ABG HCO3 ABG O2 Saturation ABG Base Excess ABG Hemoglobin Oxyhemoglobin Chloride Carbon Dioxide BUN 27 H Glucose 348 H POC Glucose Hemoglobin A1c Calcium 8.1 L Magnesium 2.50 H 2.50 H Ferritin AST Lactate Dehydrogenase C-Reactive Protein Total Protein 5.4 L Albumin 3.0 L Coronavirus (PCR) 02/03/20 02/03/20 02/03/20 08:42 11:50 16:18 WBC Hgb Hct MCV MCH Lymph % (Auto) Lymph # Seg Neutrophils % Seg Neuts % (Manual) Lymphocytes % (Manual) Nucleated RBC % Seg Neutrophils # Lymphocytes # (Manual) D-Dimer ABG pH ABG pO2 ABG HCO3 ABG O2 Saturation ABG Base Excess ABG Hemoglobin Oxyhemoglobin Chloride Carbon Dioxide BUN Glucose POC Glucose 355 H 345 H 382 H Hemoglobin A1c Calcium Magnesium Ferritin AST Lactate Dehydrogenase C-Reactive Protein Total Protein Albumin Coronavirus (PCR) 02/03/20 02/03/20 02/04/20 22:00 22:04 06:06 WBC Hgb Hct MCV MCH Lymph % (Auto) Lymph # Seg Neutrophils % Seg Neuts % (Manual) Lymphocytes % (Manual) Nucleated RBC % Seg Neutrophils # Lymphocytes # (Manual) D-Dimer ABG pH 7.505 H ABG pO2 59.1 L ABG HCO3 19.1 L ABG O2 Saturation 93.0 L ABG Base Excess -2.4 L ABG Hemoglobin 13.3 L Oxyhemoglobin 91.1 L Chloride Carbon Dioxide BUN Glucose POC Glucose 309 H Hemoglobin A1c Calcium Magnesium Ferritin 4214.0 H AST Lactate Dehydrogenase C-Reactive Protein Total Protein Albumin Coronavirus (PCR) 02/04/20 02/04/20 02/04/20 06:06 06:06 06:06 WBC Hgb Hct MCV 95 H MCH Lymph % (Auto) 4.3 L Lymph # 0.5 L Seg Neutrophils % 87.5 H Seg Neuts % (Manual) Lymphocytes % (Manual) Nucleated RBC % Seg Neutrophils # 9.3 H Lymphocytes # (Manual) D-Dimer ABG pH ABG pO2 ABG HCO3 ABG O2 Saturation ABG Base Excess ABG Hemoglobin Oxyhemoglobin Chloride Carbon Dioxide 21 L BUN 30 H Glucose 393 H POC Glucose Hemoglobin A1c Calcium 7.8 L Magnesium 2.70 H Ferritin AST Lactate Dehydrogenase 919 H C-Reactive Protein Total Protein Albumin Coronavirus (PCR) 02/04/20 02/04/20 02/04/20 08:57 13:12 17:45 WBC Hgb Hct MCV MCH Lymph % (Auto) Lymph # Seg Neutrophils % Seg Neuts % (Manual) Lymphocytes % (Manual) Nucleated RBC % Seg Neutrophils # Lymphocytes # (Manual) D-Dimer ABG pH ABG pO2 ABG HCO3 ABG O2 Saturation ABG Base Excess ABG Hemoglobin Oxyhemoglobin Chloride Carbon Dioxide BUN Glucose POC Glucose 353 H 364 H 292 H Hemoglobin A1c Calcium Magnesium Ferritin AST Lactate Dehydrogenase C-Reactive Protein Total Protein Albumin Coronavirus (PCR) 02/04/20 02/05/20 02/05/20 22:36 08:44 12:53 WBC Hgb Hct MCV MCH Lymph % (Auto) Lymph # Seg Neutrophils % Seg Neuts % (Manual) Lymphocytes % (Manual) Nucleated RBC % Seg Neutrophils # Lymphocytes # (Manual) D-Dimer ABG pH ABG pO2 ABG HCO3 ABG O2 Saturation ABG Base Excess ABG Hemoglobin Oxyhemoglobin Chloride Carbon Dioxide BUN Glucose POC Glucose 255 H 313 H 346 H Hemoglobin A1c Calcium Magnesium Ferritin AST Lactate Dehydrogenase C-Reactive Protein Total Protein Albumin Coronavirus (PCR) 02/05/20 02/05/20 02/06/20 16:55 22:38 01:04 WBC Hgb Hct MCV MCH Lymph % (Auto) Lymph # Seg Neutrophils % Seg Neuts % (Manual) Lymphocytes % (Manual) Nucleated RBC % Seg Neutrophils # Lymphocytes # (Manual) D-Dimer ABG pH ABG pO2 ABG HCO3 ABG O2 Saturation ABG Base Excess ABG Hemoglobin Oxyhemoglobin Chloride Carbon Dioxide BUN Glucose POC Glucose 270 H 106 H 122 H Hemoglobin A1c Calcium Magnesium Ferritin AST Lactate Dehydrogenase C-Reactive Protein Total Protein Albumin Coronavirus (PCR) 02/06/20 02/06/20 09:21 12:27 WBC Hgb Hct MCV MCH Lymph % (Auto) Lymph # Seg Neutrophils % Seg Neuts % (Manual) Lymphocytes % (Manual) Nucleated RBC % Seg Neutrophils # Lymphocytes # (Manual) D-Dimer ABG pH ABG pO2 ABG HCO3 ABG O2 Saturation ABG Base Excess ABG Hemoglobin Oxyhemoglobin Chloride Carbon Dioxide BUN Glucose POC Glucose 227 H 295 H Hemoglobin A1c Calcium Magnesium Ferritin AST Lactate Dehydrogenase C-Reactive Protein Total Protein Albumin Coronavirus (PCR)
[2020-02-06] MEDS: methylPREDNISolone Sod Succinate 40 MG/1 ML INJ IV SCH ×2 (13:23→22:26)
--- NOTE | 2020-02-06 14:04 | Progress Note ---
Assessment and Plan Cultures: Blood cultures no growth Assessment: 89 years old male with history of diabetes mellitus, admitted on 01/29/2020 due to 2-week history of generalized weakness, mild cough, dyspnea on exertion: #Sepsis: present on admission with fever, hypoxia; source COVID-19 infection. #COVID-19 pneumonia: elevated biomarkers. D-dimer 2573. Ferritin 2000, CRP 10.2. LDH 930. 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 Completed 5 days of Remdesivir, completed Actemra 01/31/2020. #Acute hypoxemic respiratory failure: on high flow. Recommendations: Continue steroids, day 8, consider slow weaning Consider enrollment in convalescent plasma study monitor markers every 2 days continue with anticoagulation given the severe hypoxia and elevated d-dimer Prognosis appears guarded. Km Calhoun MD, FACP [facility] C: [phone] O: [phone] F: [phone] Subjective Date of service: 02/06/20 Principal diagnosis: COVID Interval history: No fever. Remains on high flow oxygen in IMCU. Objective - Exam Narrative Exam: Physical Exam (reviewed in chart due to PPE conservation) Constitutional: limited due to PPE conservation strategy Head, Ears, Nose: limited due to PPE conservation strategy Eyes: limited due to PPE conservation strategy Neck: limited due to PPE conservation strategy Oral: limited due to PPE conservation strategy Cardiovascular: limited due to PPE conservation strategy Respiratory: limited due to PPE conservation strategy GI: limited due to PPE conservation strategy Musculoskeletal: limited due to PPE conservation strategy Skin: limited due to PPE conservation strategy Hem/Lymphatic: limited due to PPE conservation strategy Psych: limited due to PPE conservation strategy Neurological: limited due to PPE conservation strategy - Constitutional Vitals: Vital Signs Temp Pulse Resp BP Pulse Ox 98.0 F 83 19 96/58 97 02/05/20 12:00 02/06/20 13:22 02/06/20 13:00 02/06/20 13:22 02/06/20 13:00 - Labs CBC & Chem 7: 02/04/20 06:06 02/04/20 06:06 Labs: Abnormal lab results 02/05/20 02/05/20 02/05/20 Range/Units 12:53 16:55 22:38 POC Glucose 346 H 270 H 106 H (70-105) 02/06/20 02/06/20 02/06/20 Range/Units 01:04 09:21 12:27 POC Glucose 122 H 227 H 295 H (70-105)
[2020-02-06] MEDS: LORazepam 2 MG/ML VIAL IV PRN (15:05)
[2020-02-06 15:51] LABS: C-Reactive Protein 0.5 mg/dL (0.00-1.30)
--- NOTE | 2020-02-06 17:15 | Progress Note ---
Assessment and Plan /Acute toxic encephalopathy -Likely due to severe hypoxia and COVID-19 infection -Continue to monitor, provide supportive care -Haldol as needed, sitter in place, placed on restraint /Sepsis: present on admission with fever, hypoxia; source COVID-19 infection due to COVID-19 pneumonia: /Bilateral pneumonia s/p Rocephin and azithromycin ID consult requested Coronavirus positive cont Isolation Inflammatory markers are very high - con to follow / COVID-19 PNA Patient exposed to his son who had coronavirus nasal cannula oxygen to keep O2 sat >94% Patient isolated, ID following follow inflammatory markers s/p Remdesivir x 5 days, S/p Tocilizumab IV x1 Continue Solu-Medrol 40 mg IV every 8 hours - will wean off ID now recommended for convalescent plasma -waiting on family consent /Acute hypoxic Respiratory failure - O2 sat drops with activity - cont nebs, solumedrol, supplemental O2 / Elevated d-dimer Lovenox initiated /Hyperlipidemia, cont statin /T2DM (type 2 diabetes mellitus) consistent carb diet, SSI Coverage for now /DVT prophylaxis Patient on Lovenox and GI prophylaxis 01/29: Positive for COVID 19, follow inflammatory markers, start on iv solumedrol. Start Tocilizumab IV x1 01/30; Start Remdesivir, Continue Solu-Medrol 40 mg IV every 8 hours. follow inflammatory markers 01/31: cont Remdesivir day 2, Solu-Medrol 40 mg IV every 8 hours. follow inflammatory markers 02/01 patient is awake and alert, moderately short of breath, he denies any fever, chills, chest pain and has occasional dry cough. Denies nausea or abdominal pain. vital signs deteriorated this morning with worsening hypoxemia, now on nonrebreather Ventimask ID note reviewed, lab results reviewed 02/02 patient was not seen [id number] today, he is now on high flow nasal cannula, no acute events overnight and discussed with RN, lab results reviewed ID note reviewed 02/03: appears agitated, ferritin trended up. completed Remdesivir today. cont solumedrol iv q8h. transfer to [facility], patient on 100% FiO2 today 02/04 patient remains on 90% FiO2, appears very confused and unable to give any consent. Continue IV steroid, will try to get consent for convalescent plasma from family 02/05 patient on 70% Fio2 today, waiting on family consent for for convalescent plasma Brief History: 89 years old male with history of diabetes mellitus, admitted on 01/29/2020 due to 2-week history of generalized weakness, mild cough, dyspnea on exertion. Patient tested positive for COVID-19 recently. Patient's son also was positive for COVID-19 initially. Initial WBC 3.6. Hemoglobin 12.2. Platelets 142. D- dimer 2573. Ferritin 2000, CRP 10.2. LDH 930. Procalcitonin 0.18. AST 76. Chest x-ray shows bilateral interstitial infiltrate. ID following Subjective Date of service: 02/06/20 Principal diagnosis: COVID Interval history: Patient seen and examined patient is very agitated and restrained Remains on high flow o2 Objective - Exam Narrative Exam: Constitutional:alert but confused Neck: supple Oral:no ulcer, dry Cardiovascular: s1 s2 positive Respiratory: mae rhonchi per NS GI: BS positive Musculoskeletal: no joint swelling Skin: No rash or abscess Psych: agitated Neurological: agitated on restraint - Constitutional Vitals: Vital Signs - 12hr 02/06/20 02/06/20 02/06/20 05:20 05:30 05:40 Pulse Rate 84 85 91 H Pulse Rate [ From Monitor] Respiratory 12 19 14 Rate Blood Pressure 66/36 66/36 66/36 O2 Sat by Pulse 93 93 91 Oximetry 02/06/20 02/06/20 02/06/20 05:50 06:00 06:10 Pulse Rate 83 81 97 H Pulse Rate [ From Monitor] Respiratory 22 16 16 Rate Blood Pressure 66/36 66/36 102/74 O2 Sat by Pulse 94 95 89 Oximetry 02/06/20 02/06/20 02/06/20 06:20 06:26 06:30 Pulse Rate 88 75 87 Pulse Rate [ From Monitor] Respiratory 29 H 19 Rate Blood Pressure 102/74 102/74 102/74 O2 Sat by Pulse 86 97 Oximetry 02/06/20 02/06/20 02/06/20 06:40 06:50 07:00 Pulse Rate 77 78 78 Pulse Rate [ From Monitor] Respiratory 16 21 14 Rate Blood Pressure 102/74 102/74 102/74 O2 Sat by Pulse 96 99 98 Oximetry 02/06/20 02/06/20 02/06/20 07:10 07:20 07:30 Pulse Rate 74 Pulse Rate [ From Monitor] Respiratory 16 Rate Blood Pressure 130/88 130/88 130/88 O2 Sat by Pulse 100 99 99 Oximetry 02/06/20 02/06/20 02/06/20 07:40 07:50 08:00 Pulse Rate 77 Pulse Rate [ 77 From Monitor] Respiratory 15 Rate Blood Pressure 130/88 130/88 130/88 O2 Sat by Pulse 99 100 90 Oximetry 02/06/20 02/06/20 02/06/20 08:10 08:20 08:30 Pulse Rate 68 67 70 Pulse Rate [ From Monitor] Respiratory 13 14 15 Rate Blood Pressure 134/82 134/82 134/82 O2 Sat by Pulse 99 99 99 Oximetry 02/06/20 02/06/20 02/06/20 08:40 08:50 09:00 Pulse Rate 86 78 85 Pulse Rate [ From Monitor] Respiratory 16 16 20 Rate Blood Pressure 134/82 134/82 134/82 O2 Sat by Pulse 96 98 97 Oximetry 02/06/20 02/06/20 02/06/20 09:10 09:20 09:30 Pulse Rate 84 85 84 Pulse Rate [ From Monitor] Respiratory 20 24 23 Rate Blood Pressure 123/70 123/70 123/70 O2 Sat by Pulse 94 96 96 Oximetry 02/06/20 02/06/20 02/06/20 09:38 09:40 09:50 Pulse Rate 89 93 H 81 Pulse Rate [ From Monitor] Respiratory 23 18 Rate Blood Pressure 123/70 123/70 123/70 O2 Sat by Pulse 96 89 Oximetry 02/06/20 02/06/20 02/06/20 10:00 10:10 10:20 Pulse Rate 99 H 94 H 91 H Pulse Rate [ From Monitor] Respiratory 15 21 19 Rate Blood Pressure 123/70 108/63 108/63 O2 Sat by Pulse 98 98 98 Oximetry 02/06/20 02/06/20 02/06/20 10:30 10:40 10:50 Pulse Rate 83 83 84 Pulse Rate [ From Monitor] Respiratory 18 20 15 Rate Blood Pressure 108/63 108/63 108/63 O2 Sat by Pulse 97 97 98 Oximetry 02/06/20 02/06/20 02/06/20 11:00 11:10 11:20 Pulse Rate 90 86 91 H Pulse Rate [ From Monitor] Respiratory 19 15 16 Rate Blood Pressure 108/63 83/57 83/57 O2 Sat by Pulse 99 98 100 Oximetry 02/06/20 02/06/20 02/06/20 11:30 11:40 11:50 Pulse Rate 93 H 87 84 Pulse Rate [ From Monitor] Respiratory 23 15 34 H Rate Blood Pressure 83/57 83/57 83/57 O2 Sat by Pulse 98 100 98 Oximetry 02/06/20 02/06/20 02/06/20 12:00 12:10 12:20 Pulse Rate 82 89 84 Pulse Rate [ From Monitor] Respiratory 17 21 17 Rate Blood Pressure 83/57 83/57 83/57 O2 Sat by Pulse 100 99 99 Oximetry 02/06/20 02/06/20 02/06/20 12:30 12:40 12:50 Pulse Rate 82 87 80 Pulse Rate [ From Monitor] Respiratory 18 19 19 Rate Blood Pressure 83/57 83/57 83/57 O2 Sat by Pulse 97 96 98 Oximetry 02/06/20 02/06/20 02/06/20 13:00 13:10 13:20 Pulse Rate 81 90 94 H Pulse Rate [ From Monitor] Respiratory 19 21 15 Rate Blood Pressure 83/57 78/62 78/62 O2 Sat by Pulse 97 100 95 Oximetry 02/06/20 02/06/20 02/06/20 13:22 13:30 13:40 Pulse Rate 83 80 77 Pulse Rate [ From Monitor] Respiratory 14 19 Rate Blood Pressure 96/58 96/58 65/24 O2 Sat by Pulse 97 97 Oximetry 02/06/20 02/06/20 02/06/20 13:50 14:00 14:10 Pulse Rate 80 85 101 H Pulse Rate [ 85 From Monitor] Respiratory 18 24 21 Rate Blood Pressure 116/63 116/63 115/70 O2 Sat by Pulse 97 90 95 Oximetry 02/06/20 02/06/20 02/06/20 14:20 14:30 14:40 Pulse Rate 103 H 96 H 118 H Pulse Rate [ From Monitor] Respiratory 21 19 19 Rate Blood Pressure 104/67 104/67 110/67 O2 Sat by Pulse 95 87 74 L Oximetry 02/06/20 02/06/20 02/06/20 14:50 15:00 15:10 Pulse Rate 129 H 129 H 98 H Pulse Rate [ From Monitor] Respiratory 19 10 L 21 Rate Blood Pressure 110/67 110/67 O2 Sat by Pulse 84 94 97 Oximetry 02/06/20 02/06/20 02/06/20 15:20 15:30 15:40 Pulse Rate 96 H 101 H 84 Pulse Rate [ From Monitor] Respiratory 21 19 12 Rate Blood Pressure 109/77 109/77 128/68 O2 Sat by Pulse 95 100 98 Oximetry 02/06/20 02/06/20 02/06/20 15:50 16:00 16:10 Pulse Rate 101 H 86 85 Pulse Rate [ From Monitor] Respiratory 13 15 14 Rate Blood Pressure 118/74 118/74 119/65 O2 Sat by Pulse 99 96 98 Oximetry 02/06/20 02/06/20 02/06/20 16:20 16:30 16:40 Pulse Rate 84 87 104 H Pulse Rate [ From Monitor] Respiratory 17 14 25 H Rate Blood Pressure 118/74 118/74 123/77 O2 Sat by Pulse 95 97 85 Oximetry 02/06/20 02/06/20 16:50 17:00 Pulse Rate 93 H 98 H Pulse Rate [ From Monitor] Respiratory 20 25 H Rate Blood Pressure 129/91 129/91 O2 Sat by Pulse 87 87 Oximetry - Labs CBC & Chem 7: 02/08/20 10:46 02/10/20 12:30 Labs: Abnormal lab results 02/05/20 02/05/20 02/06/20 Range/Units 16:55 22:38 01:04 D-Dimer (0-234) ng/mlDDU Glucose (75-100) mg/dL POC Glucose 270 H 106 H 122 H (70-105) Lactate Dehydrogenase (91-180) units/L 02/06/20 02/06/20 02/06/20 Range/Units 09:21 12:27 15:20 D-Dimer 328.02 H (0-234) ng/mlDDU Glucose (75-100) mg/dL POC Glucose 227 H 295 H (70-105) Lactate Dehydrogenase (91-180) units/L 02/06/20 02/06/20 Range/Units 15:20 16:50 D-Dimer (0-234) ng/mlDDU Glucose 311 H (75-100) mg/dL POC Glucose 258 H (70-105) Lactate Dehydrogenase 719 H (91-180) units/L HEART Score - HEART Score Troponin: Troponin T 0.014 ng/mL (0.00-0.029) 01/29/20 17:03
[2020-02-07] MEDS: METOPROLOL TARTRATE 5 MG/5 ML INJ IV SCH ×4 (06:19→17:00)
[2020-02-07] MEDS: methylPREDNISolone Sod Succinate 40 MG/1 ML INJ IV SCH ×3 (06:22→23:44)
[2020-02-07] MEDS: PRAZOSIN 1 MG CAP PO SCH (09:09)
[2020-02-07] MEDS: ENOXAPARIN 100 MG/1 ML INJ SUB-Q SCH ×2 (09:09→23:45)
[2020-02-07] MEDS: FAMOTIDINE 20 MG TAB PO SCH ×2 (09:10→23:44)
[2020-02-07] MEDS: ZINC SULFATE 220 MG CAP PO SCH (09:10)
[2020-02-07] MEDS: INSULIN REGULAR, HUMAN 100 UNITS/1 ML SUB-Q SCH ×3 (09:12→16:37)
[2020-02-07] MEDS: INSULIN LISPRO 100 UNIT/ML SUB-Q SCH ×4 (09:12→23:46)
--- NOTE | 2020-02-07 12:18 | Progress Note ---
Assessment and Plan - Patient Problems (1) Abnormal ECG Current Visit: Yes Status: Acute Plan to address problem: Abnormal ECG Pt noted to have frequent PVCs and transient sinus bradycardia which has now improved. normal TSH at 0.8 Conservative cardiac management. We will follow intermittently. (2) COVID-19 Current Visit: Yes Status: Acute Plan to address problem: positive COVID 19 test Subjective Date of service: 02/07/20 Principal diagnosis: COVID Interval history: Sinus rhythm with occasional PVCs on stock tracer. Objective Vital Signs Temp Pulse Pulse Resp BP Pulse Ox 02/07/20 11:00 86 15 152/87 98 02/07/20 10:50 85 14 152/87 98 02/07/20 10:40 93 H 14 148/59 96 02/07/20 10:30 85 15 144/68 96 02/07/20 10:20 86 15 144/68 97 02/07/20 10:10 84 15 131/86 100 02/07/20 10:00 89 14 154/85 99 02/07/20 09:50 82 15 154/85 100 02/07/20 09:40 82 14 142/73 100 02/07/20 09:30 84 15 137/68 100 02/07/20 09:20 80 13 137/68 100 02/07/20 09:10 86 15 160/80 100 02/07/20 09:09 92 H 160/80 02/07/20 09:00 85 16 150/89 100 02/07/20 08:50 98 H 16 150/89 100 02/07/20 08:40 106 H 15 133/74 100 02/07/20 08:30 95 H 17 72/37 87 02/07/20 08:20 92 H 20 72/37 100 02/07/20 08:10 83 22 72/37 02/07/20 08:00 97.4 F L 84 84 20 63/34 100 02/07/20 07:50 88 16 63/34 02/07/20 07:40 83 19 83/54 02/07/20 07:30 85 22 90/57 85 02/07/20 07:20 106 H 16 90/57 97 02/07/20 07:10 75 20 98/63 97 02/07/20 07:00 81 18 144/78 96 02/07/20 06:50 69 18 144/78 96 02/07/20 06:40 88 15 97/66 95 02/07/20 06:30 89 18 97/66 92 02/07/20 06:21 83 97/66 02/07/20 06:20 97 H 22 97/66 92 02/07/20 06:19 76 108/52 02/07/20 06:10 93 H 16 69/20 97 02/07/20 06:00 121 H 31 H 67/46 92 02/07/20 05:50 74 19 67/46 95 02/07/20 05:40 98 H 24 84/53 95 02/07/20 05:30 121 H 18 156/70 95 02/07/20 05:20 116 H 16 156/70 95 02/07/20 05:10 88 19 142/83 95 02/07/20 05:00 93 H 26 H 150/90 83 L 02/07/20 04:50 88 17 150/90 94 02/07/20 04:40 77 13 132/82 96 02/07/20 04:30 77 17 132/82 95 02/07/20 04:20 70 15 132/82 95 02/07/20 04:10 79 15 129/72 97 02/07/20 04:00 97.7 F 84 12 118/64 95 02/07/20 03:50 79 13 118/64 96 02/07/20 03:40 83 19 153/72 95 02/07/20 03:30 96 H 15 123/81 94 02/07/20 03:20 108 H 21 123/81 93 02/07/20 03:10 86 19 182/111 92 02/07/20 03:00 101 H 23 117/88 95 02/07/20 02:50 93 H 27 H 125/78 88 02/07/20 02:40 113 H 16 125/78 91 02/07/20 02:30 122 H 21 182/111 95 02/07/20 02:20 108 H 24 182/111 74 L 02/07/20 02:10 80 20 113/77 98 02/07/20 02:00 77 20 125/78 96 02/07/20 01:50 73 15 123/81 97 02/07/20 01:40 77 17 113/77 97 02/07/20 01:30 77 14 103/67 98 02/07/20 01:20 84 20 103/67 96 02/07/20 01:10 105 H 16 98/64 95 02/07/20 01:00 91 H 20 76/16 02/07/20 00:50 107 H 19 76/16 02/07/20 00:40 90 15 147/81 78 L 02/07/20 00:30 110 H 16 147/81 77 L 02/07/20 00:23 97.7 F 02/07/20 00:20 95 H 23 131/72 02/07/20 00:10 89 20 142/100 02/07/20 00:00 111 H 20 140/90 88 02/06/20 23:50 86 41 H 140/90 02/06/20 23:40 94 H 18 166/82 02/06/20 23:30 88 16 166/82 02/06/20 23:20 96 H 22 142/73 02/06/20 23:10 86 23 195/155 02/06/20 23:00 78 16 173/127 02/06/20 22:50 94 H 24 173/127 02/06/20 22:40 101 H 17 139/66 02/06/20 22:30 83 22 112/69 02/06/20 22:29 91 H 121/76 02/06/20 22:20 88 22 121/76 91 02/06/20 22:10 89 23 115/75 81 L 02/06/20 22:00 91 H 90 22 115/75 91 02/06/20 21:50 80 15 112/69 99 02/06/20 21:40 77 17 105/77 98 02/06/20 21:30 76 17 105/77 97 02/06/20 21:20 79 18 103/78 98 02/06/20 21:10 79 19 40/25 93 02/06/20 21:00 85 25 H 40/25 83 L 02/06/20 20:50 82 19 40/17 86 02/06/20 20:40 79 20 138/65 99 02/06/20 20:30 73 15 127/80 100 02/06/20 20:00 97.5 F L 100 02/06/20 19:10 86 14 107/65 02/06/20 19:00 93 H 15 107/65 02/06/20 18:50 83 15 101/65 02/06/20 18:40 125 H 15 96/72 02/06/20 18:30 109 H 24 162/65 02/06/20 18:24 92 H 162/65 02/06/20 18:20 86 17 162/65 02/06/20 18:10 85 15 155/80 02/06/20 18:00 84 18 155/80 02/06/20 17:50 94 H 15 140/98 02/06/20 17:40 92 H 18 99/62 02/06/20 17:30 89 19 123/77 02/06/20 17:20 90 16 123/77 02/06/20 17:10 125 H 17 93/71 02/06/20 17:00 98 H 25 H 129/91 87 02/06/20 16:50 93 H 20 129/91 87 02/06/20 16:40 104 H 25 H 123/77 85 02/06/20 16:30 87 14 118/74 97 02/06/20 16:20 84 17 118/74 95 02/06/20 16:10 85 14 119/65 98 02/06/20 16:00 86 15 118/74 96 02/06/20 15:50 101 H 13 118/74 99 02/06/20 15:40 84 12 128/68 98 02/06/20 15:30 101 H 19 109/77 100 02/06/20 15:20 96 H 21 109/77 95 02/06/20 15:10 98 H 21 97 02/06/20 15:00 129 H 10 L 110/67 94 02/06/20 14:50 129 H 19 110/67 84 02/06/20 14:40 118 H 19 110/67 74 L 02/06/20 14:30 96 H 19 104/67 87 02/06/20 14:20 103 H 21 104/67 95 02/06/20 14:10 101 H 21 115/70 95 02/06/20 14:00 85 85 24 116/63 90 02/06/20 13:50 80 18 116/63 97 02/06/20 13:40 77 19 65/24 97 02/06/20 13:30 80 14 96/58 97 02/06/20 13:22 83 96/58 02/06/20 13:20 94 H 15 78/62 95 02/06/20 13:10 90 21 78/62 100 02/06/20 13:00 81 19 83/57 97 02/06/20 12:50 80 19 83/57 98 02/06/20 12:40 87 19 83/57 96 02/06/20 12:30 82 18 83/57 97 02/06/20 12:20 84 17 83/57 99 - Physical Examination Narrative exam: Deferred due to COVID isolation protocol. - Labs and Meds Cardiac Enzymes 02/06/20 Range/Units 15:20 Lactate Dehydrogenase 719 H (91-180) units/L Comprehensive Metabolic Panel 02/06/20 Range/Units 15:20 Glucose 311 H (75-100) mg/dL - Imaging and Cardiology EKG: report reviewed (Sinus tachycardia)
--- NOTE | 2020-02-07 13:09 | Progress Note ---
Assessment and Plan -Sepsis: present on admission with fever, hypoxia; source COVID-19 infection due to COVID-19 pneumonia: -Acute hypoxic Respiratory failure on HFOT -COVID-19 PNA, elevated inflammatory markers -Bilateral pneumonia -Type2 DM (type 2 diabetes mellitus) -Acute toxic- metabolic encephalopathy on dementia -ABG in am, CXR in am - Wean supplemental oxygen for target O2 sats > 92% - Awake Proning per facility protocol and Lateral decubitus positioning -Fluid conservative measures as tolerated by hemodynamics and renal function - Bronchodilators with pulmonary hygiene per RT - Accuchecks with glycemic control per SSI (Target blood glucose of 140-180 mg/dL; avoid hypoglycemia) - Avoid benzodiazepines, reduce the possibility of delirium - prn analgesia per CPOT score - Maintenance of sleep-wake cycle, avoid delirium -Avoid nephrotoxins, closely monitor renal function - s/p Empiric antibiotics( Ceftriaxone and Azithromycin for CAP ) - Stress ulcer ( while on high flow oxygen adn steroids) & VTE prophylaxis ( Enoxaparin Famotidine) - Mobility protocol, off loading and skin assessment for pressure ulcer prevention - Monitor hemodynamics closely -Supportive transfusions as indicated to keep HgB >7g/dL -Fall precautions -Modified diet with aspiration precautions, needs assistance with feeding -Chronic home medications as clinically indicated COVID SPECIFIC INTERVENTIONS -Airborne, contact isolation for COVID per facility protocols -s/p Remdesivir - On IV solumedrol 40mg Q8h -Markers also significantly elevated and with high flow oxygen, S/p Tocilizumab IV x1 - Continue to trend inflammatory markers per facility protocol -On weight based Enoxaparin -Continue all supportive care -Contact tracing and testing of his contacts -Awaiting consent for COVID convalescent plasma therapy- Primary to obtain consent from family Life threatening condition- COVID 19 infection with acute hypoxemic respiratory failure Mortality/Morbidity- High secondary to comorbid conditions and age Complexity of medical decision making- High CONDITION: CRITICAL PROGNOSIS: GUARDED CODE STATUS: FULL CODE The high probability of a clinically significant, sudden or life-threatening deterioration of the [respiratory & cardiovascular, renal] system(s) required my full and direct attention, intervention and personal management. The aggregate critical care time was [31] minutes without overlap. Time includes spent on; [x] Data Review and interpretation [x] Patient assessment and monitoring of vital signs [x] Documentation [x] Medication orders and management Subjective Date of service: 02/07/20 Principal diagnosis: COVID Interval history: Follow up for; Sepsis, acute hypoxemic resp failure; Bilateral PNA; COVID positive; acute toxic-metabolic encephalopathy Patient seen and examined. Vitals, labs, medications, chart and imaging rev iewed. Respiratory and nursing staff consulted. Remains on high flow oxygen therapy, Vapotherm 30L and 50% with oxygen saturations of 94% Being fed by Tech, On going confusion. No fevers Objective Vital Signs - 12hr 02/07/20 02/07/20 02/07/20 01:10 01:20 01:30 Temperature Pulse Rate 105 H 84 77 Pulse Rate [ From Monitor] Respiratory 16 20 14 Rate Blood Pressure 98/64 103/67 103/67 O2 Sat by Pulse 95 96 98 Oximetry 02/07/20 02/07/20 02/07/20 01:40 01:50 02:00 Temperature Pulse Rate 77 73 77 Pulse Rate [ From Monitor] Respiratory 17 15 20 Rate Blood Pressure 113/77 123/81 125/78 O2 Sat by Pulse 97 97 96 Oximetry 02/07/20 02/07/20 02/07/20 02:10 02:20 02:30 Temperature Pulse Rate 80 108 H 122 H Pulse Rate [ From Monitor] Respiratory 20 24 21 Rate Blood Pressure 113/77 182/111 182/111 O2 Sat by Pulse 98 74 L 95 Oximetry 02/07/20 02/07/20 02/07/20 02:40 02:50 03:00 Temperature Pulse Rate 113 H 93 H 101 H Pulse Rate [ From Monitor] Respiratory 16 27 H 23 Rate Blood Pressure 125/78 125/78 117/88 O2 Sat by Pulse 91 88 95 Oximetry 02/07/20 02/07/20 02/07/20 03:10 03:20 03:30 Temperature Pulse Rate 86 108 H 96 H Pulse Rate [ From Monitor] Respiratory 19 21 15 Rate Blood Pressure 182/111 123/81 123/81 O2 Sat by Pulse 92 93 94 Oximetry 02/07/20 02/07/20 02/07/20 03:40 03:50 04:00 Temperature 97.7 F Pulse Rate 83 79 84 Pulse Rate [ From Monitor] Respiratory 19 13 12 Rate Blood Pressure 153/72 118/64 118/64 O2 Sat by Pulse 95 96 95 Oximetry 02/07/20 02/07/20 02/07/20 04:10 04:20 04:30 Temperature Pulse Rate 79 70 77 Pulse Rate [ From Monitor] Respiratory 15 15 17 Rate Blood Pressure 129/72 132/82 132/82 O2 Sat by Pulse 97 95 95 Oximetry 02/07/20 02/07/20 02/07/20 04:40 04:50 05:00 Temperature Pulse Rate 77 88 93 H Pulse Rate [ From Monitor] Respiratory 13 17 26 H Rate Blood Pressure 132/82 150/90 150/90 O2 Sat by Pulse 96 94 83 L Oximetry 02/07/20 02/07/20 02/07/20 05:10 05:20 05:30 Temperature Pulse Rate 88 116 H 121 H Pulse Rate [ From Monitor] Respiratory 19 16 18 Rate Blood Pressure 142/83 156/70 156/70 O2 Sat by Pulse 95 95 95 Oximetry 02/07/20 02/07/20 02/07/20 05:40 05:50 06:00 Temperature Pulse Rate 98 H 74 121 H Pulse Rate [ From Monitor] Respiratory 24 19 31 H Rate Blood Pressure 84/53 67/46 67/46 O2 Sat by Pulse 95 95 92 Oximetry 02/07/20 02/07/20 02/07/20 06:10 06:19 06:20 Temperature Pulse Rate 93 H 76 97 H Pulse Rate [ From Monitor] Respiratory 16 22 Rate Blood Pressure 69/20 108/52 97/66 O2 Sat by Pulse 97 92 Oximetry 02/07/20 02/07/20 02/07/20 06:21 06:30 06:40 Temperature Pulse Rate 83 89 88 Pulse Rate [ From Monitor] Respiratory 18 15 Rate Blood Pressure 97/66 97/66 97/66 O2 Sat by Pulse 92 95 Oximetry 02/07/20 02/07/20 02/07/20 06:50 07:00 07:10 Temperature Pulse Rate 69 81 75 Pulse Rate [ From Monitor] Respiratory 18 18 20 Rate Blood Pressure 144/78 144/78 98/63 O2 Sat by Pulse 96 96 97 Oximetry 02/07/20 02/07/20 02/07/20 07:20 07:30 07:40 Temperature Pulse Rate 106 H 85 83 Pulse Rate [ From Monitor] Respiratory 16 22 19 Rate Blood Pressure 90/57 90/57 83/54 O2 Sat by Pulse 97 85 Oximetry 02/07/20 02/07/20 02/07/20 07:50 08:00 08:10 Temperature 97.4 F L Pulse Rate 88 84 83 Pulse Rate [ 84 From Monitor] Respiratory 16 20 22 Rate Blood Pressure 63/34 63/34 72/37 O2 Sat by Pulse 100 Oximetry 02/07/20 02/07/20 02/07/20 08:20 08:30 08:40 Temperature Pulse Rate 92 H 95 H 106 H Pulse Rate [ From Monitor] Respiratory 20 17 15 Rate Blood Pressure 72/37 72/37 133/74 O2 Sat by Pulse 100 87 100 Oximetry 02/07/20 02/07/20 02/07/20 08:50 09:00 09:09 Temperature Pulse Rate 98 H 85 92 H Pulse Rate [ From Monitor] Respiratory 16 16 Rate Blood Pressure 150/89 150/89 160/80 O2 Sat by Pulse 100 100 Oximetry 02/07/20 02/07/20 02/07/20 09:10 09:20 09:30 Temperature Pulse Rate 86 80 84 Pulse Rate [ From Monitor] Respiratory 15 13 15 Rate Blood Pressure 160/80 137/68 137/68 O2 Sat by Pulse 100 100 100 Oximetry 02/07/20 02/07/20 02/07/20 09:40 09:50 10:00 Temperature Pulse Rate 82 82 89 Pulse Rate [ From Monitor] Respiratory 14 15 14 Rate Blood Pressure 142/73 154/85 154/85 O2 Sat by Pulse 100 100 99 Oximetry 02/07/20 02/07/20 02/07/20 10:10 10:20 10:30 Temperature Pulse Rate 84 86 85 Pulse Rate [ From Monitor] Respiratory 15 15 15 Rate Blood Pressure 131/86 144/68 144/68 O2 Sat by Pulse 100 97 96 Oximetry 02/07/20 02/07/20 02/07/20 10:40 10:50 11:00 Temperature Pulse Rate 93 H 85 86 Pulse Rate [ From Monitor] Respiratory 14 14 15 Rate Blood Pressure 148/59 152/87 152/87 O2 Sat by Pulse 96 98 98 Oximetry 02/07/20 02/07/20 02/07/20 11:10 11:20 11:30 Temperature Pulse Rate 83 91 H 87 Pulse Rate [ From Monitor] Respiratory 15 14 16 Rate Blood Pressure 135/63 128/57 128/57 O2 Sat by Pulse 100 99 96 Oximetry 02/07/20 02/07/20 02/07/20 11:40 11:50 12:00 Temperature Pulse Rate 82 93 H 96 H Pulse Rate [ From Monitor] Respiratory 14 13 14 Rate Blood Pressure 123/66 129/71 129/71 O2 Sat by Pulse 99 99 97 Oximetry 02/07/20 02/07/20 02/07/20 12:10 12:20 12:30 Temperature Pulse Rate 92 H 82 86 Pulse Rate [ From Monitor] Respiratory 15 14 24 Rate Blood Pressure 131/88 120/55 120/55 O2 Sat by Pulse 98 99 96 Oximetry 02/07/20 12:40 Temperature Pulse Rate 94 H Pulse Rate [ From Monitor] Respiratory 19 Rate Blood Pressure 120/55 O2 Sat by Pulse 97 Oximetry Constitutional: alert, appears uncomfortable, other (intermittent confusion) Eyes: non-icteric ENT: oropharynx dry Neck: supple, no JVD Effort: mildly labored Ascultation: Bilateral: rhonchi Cardiovascular: regular rate and rhythm, other (S1,S2) Gastrointestinal: normoactive bowel sounds, hypoactive bowel sounds, soft, non- tender Integumentary: normal Extremities: no cyanosis, no edema Neurologic: non-focal exam (grossly, moving all extremities), unable to assess Psychiatric: other (Unable to assess due to mental status at this time.) CBC and BMP: 02/08/20 10:46 02/08/20 10:46 ABG, PT/INR, D-dimer: ABG ABG pH 7.505 pH Units (7.350-7.450) H 02/03/20 22:00 ABG pCO2 24.7 mm Hg 02/03/20 22:00 ABG pO2 59.1 mm Hg (80.0-90.0) L 02/03/20 22:00 ABG O2 Saturation 93.0 % (95.0-99.0) L 02/03/20 22:00 PT/INR, D-dimer PT 13.9 Sec. (12.2-14.9) 01/29/20 17:03 INR 1.09 (0.87-1.13) 01/29/20 17:03 D-Dimer 328.02 ng/mlDDU (0-234) H 02/06/20 15:20 Abnormal lab findings: Abnormal Labs 01/29/20 01/29/20 01/29/20 17:03 17:03 17:03 WBC 3.6 L Hgb Hct MCV 96 H MCH 33 H Lymph % (Auto) Lymph # 0.5 L Seg Neutrophils % 79.6 H Seg Neuts % (Manual) Lymphocytes % (Manual) Nucleated RBC % Seg Neutrophils # Lymphocytes # (Manual) D-Dimer 2573.78 H ABG pH ABG pO2 ABG HCO3 ABG O2 Saturation ABG Base Excess ABG Hemoglobin Oxyhemoglobin Chloride Carbon Dioxide BUN Glucose 240 H POC Glucose Hemoglobin A1c Calcium Magnesium Ferritin AST 76 H Lactate Dehydrogenase C-Reactive Protein Total Protein Albumin 3.0 L Coronavirus (PCR) 01/29/20 01/29/20 01/29/20 18:33 18:33 23:28 WBC Hgb Hct MCV MCH Lymph % (Auto) Lymph # Seg Neutrophils % Seg Neuts % (Manual) Lymphocytes % (Manual) Nucleated RBC % Seg Neutrophils # Lymphocytes # (Manual) D-Dimer ABG pH ABG pO2 ABG HCO3 ABG O2 Saturation ABG Base Excess ABG Hemoglobin Oxyhemoglobin Chloride Carbon Dioxide BUN Glucose 230 H POC Glucose 253 H Hemoglobin A1c Calcium Magnesium Ferritin > 2000.0 H AST Lactate Dehydrogenase 930 H C-Reactive Protein 10.20 H Total Protein Albumin Coronavirus (PCR) 01/29/20 01/30/20 01/30/20 Unknown 05:41 05:41 WBC Hgb 11.7 L Hct 35.2 L MCV MCH Lymph % (Auto) 8.1 L Lymph # 0.4 L Seg Neutrophils % 85.8 H Seg Neuts % (Manual) Lymphocytes % (Manual) Nucleated RBC % Seg Neutrophils # Lymphocytes # (Manual) D-Dimer ABG pH ABG pO2 ABG HCO3 ABG O2 Saturation ABG Base Excess ABG Hemoglobin Oxyhemoglobin Chloride Carbon Dioxide 19 L BUN Glucose 242 H POC Glucose Hemoglobin A1c Calcium 7.7 L Magnesium Ferritin AST 79 H Lactate Dehydrogenase C-Reactive Protein Total Protein Albumin 2.9 L Coronavirus (PCR) Positive A 01/30/20 01/30/20 01/30/20 05:41 07:55 12:54 WBC Hgb Hct MCV MCH Lymph % (Auto) Lymph # Seg Neutrophils % Seg Neuts % (Manual) Lymphocytes % (Manual) Nucleated RBC % Seg Neutrophils # Lymphocytes # (Manual) D-Dimer ABG pH ABG pO2 ABG HCO3 ABG O2 Saturation ABG Base Excess ABG Hemoglobin Oxyhemoglobin Chloride Carbon Dioxide BUN Glucose POC Glucose 262 H 232 H Hemoglobin A1c 7.3 H Calcium Magnesium Ferritin AST Lactate Dehydrogenase C-Reactive Protein Total Protein Albumin Coronavirus (PCR) 01/30/20 01/30/20 01/31/20 16:07 21:15 08:42 WBC Hgb Hct MCV MCH Lymph % (Auto) Lymph # Seg Neutrophils % Seg Neuts % (Manual) Lymphocytes % (Manual) Nucleated RBC % Seg Neutrophils # Lymphocytes # (Manual) D-Dimer ABG pH ABG pO2 ABG HCO3 ABG O2 Saturation ABG Base Excess ABG Hemoglobin Oxyhemoglobin Chloride Carbon Dioxide BUN Glucose POC Glucose 211 H 285 H 328 H Hemoglobin A1c Calcium Magnesium Ferritin AST Lactate Dehydrogenase C-Reactive Protein Total Protein Albumin Coronavirus (PCR) 01/31/20 01/31/20 01/31/20 12:44 12:44 12:44 WBC Hgb Hct MCV MCH Lymph % (Auto) Lymph # Seg Neutrophils % Seg Neuts % (Manual) Lymphocytes % (Manual) Nucleated RBC % Seg Neutrophils # Lymphocytes # (Manual) D-Dimer 795.52 H ABG pH ABG pO2 ABG HCO3 ABG O2 Saturation ABG Base Excess ABG Hemoglobin Oxyhemoglobin Chloride Carbon Dioxide BUN Glucose 384 H POC Glucose Hemoglobin A1c Calcium Magnesium Ferritin > 2000.0 H AST Lactate Dehydrogenase 1393 H C-Reactive Protein 5.80 H Total Protein Albumin Coronavirus (PCR) 01/31/20 01/31/20 02/01/20 16:36 23:46 08:00 WBC Hgb Hct MCV MCH Lymph % (Auto) Lymph # Seg Neutrophils % Seg Neuts % (Manual) Lymphocytes % (Manual) Nucleated RBC % Seg Neutrophils # Lymphocytes # (Manual) D-Dimer ABG pH ABG pO2 ABG HCO3 ABG O2 Saturation ABG Base Excess ABG Hemoglobin Oxyhemoglobin Chloride Carbon Dioxide BUN Glucose POC Glucose 384 H 322 H 287 H Hemoglobin A1c Calcium Magnesium Ferritin AST Lactate Dehydrogenase C-Reactive Protein Total Protein Albumin Coronavirus (PCR) 02/01/20 02/01/20 02/01/20 12:48 16:53 23:25 WBC Hgb Hct MCV MCH Lymph % (Auto) Lymph # Seg Neutrophils % Seg Neuts % (Manual) Lymphocytes % (Manual) Nucleated RBC % Seg Neutrophils # Lymphocytes # (Manual) D-Dimer ABG pH ABG pO2 ABG HCO3 ABG O2 Saturation ABG Base Excess ABG Hemoglobin Oxyhemoglobin Chloride Carbon Dioxide BUN Glucose POC Glucose 309 H 362 H 264 H Hemoglobin A1c Calcium Magnesium Ferritin AST Lactate Dehydrogenase C-Reactive Protein Total Protein Albumin Coronavirus (PCR) 02/02/20 02/02/20 02/02/20 05:31 05:31 05:31 WBC Hgb Hct MCV MCH Lymph % (Auto) Lymph # Seg Neutrophils % Seg Neuts % (Manual) Lymphocytes % (Manual) Nucleated RBC % Seg Neutrophils # Lymphocytes # (Manual) D-Dimer 416.36 H ABG pH ABG pO2 ABG HCO3 ABG O2 Saturation ABG Base Excess ABG Hemoglobin Oxyhemoglobin Chloride 107.2 H Carbon Dioxide BUN 25 H Glucose 304 H POC Glucose Hemoglobin A1c Calcium 8.2 L Magnesium Ferritin > 2000.0 H AST Lactate Dehydrogenase C-Reactive Protein Total Protein Albumin Coronavirus (PCR) 02/02/20 02/02/20 02/02/20 05:31 09:14 11:57 WBC Hgb Hct MCV MCH Lymph % (Auto) Lymph # Seg Neutrophils % Seg Neuts % (Manual) Lymphocytes % (Manual) Nucleated RBC % Seg Neutrophils # Lymphocytes # (Manual) D-Dimer ABG pH ABG pO2 ABG HCO3 ABG O2 Saturation ABG Base Excess ABG Hemoglobin Oxyhemoglobin Chloride Carbon Dioxide BUN Glucose POC Glucose 334 H 429 H Hemoglobin A1c Calcium Magnesium Ferritin AST Lactate Dehydrogenase 1297 H C-Reactive Protein 2.20 H Total Protein Albumin Coronavirus (PCR) 02/02/20 02/02/20 02/02/20 12:44 16:35 22:55 WBC Hgb Hct MCV MCH Lymph % (Auto) Lymph # Seg Neutrophils % Seg Neuts % (Manual) Lymphocytes % (Manual) Nucleated RBC % Seg Neutrophils # Lymphocytes # (Manual) D-Dimer ABG pH 7.466 H ABG pO2 60.9 L ABG HCO3 ABG O2 Saturation 93.6 L ABG Base Excess -2.7 L ABG Hemoglobin 11.8 L Oxyhemoglobin 91.4 L Chloride Carbon Dioxide BUN Glucose POC Glucose 300 H 339 H Hemoglobin A1c Calcium Magnesium Ferritin AST Lactate Dehydrogenase C-Reactive Protein Total Protein Albumin Coronavirus (PCR) 02/03/20 02/03/20 02/03/20 01:06 06:09 06:09 WBC Hgb Hct MCV MCH Lymph % (Auto) Lymph # Seg Neutrophils % Seg Neuts % (Manual) 92.0 H Lymphocytes % (Manual) 3.0 L Nucleated RBC % 2.0 H Seg Neutrophils # Lymphocytes # (Manual) 0.3 L D-Dimer ABG pH ABG pO2 ABG HCO3 ABG O2 Saturation ABG Base Excess ABG Hemoglobin Oxyhemoglobin Chloride Carbon Dioxide BUN 27 H Glucose 348 H POC Glucose Hemoglobin A1c Calcium 8.1 L Magnesium 2.50 H 2.50 H Ferritin AST Lactate Dehydrogenase C-Reactive Protein Total Protein 5.4 L Albumin 3.0 L Coronavirus (PCR) 02/03/20 02/03/20 02/03/20 08:42 11:50 16:18 WBC Hgb Hct MCV MCH Lymph % (Auto) Lymph # Seg Neutrophils % Seg Neuts % (Manual) Lymphocytes % (Manual) Nucleated RBC % Seg Neutrophils # Lymphocytes # (Manual) D-Dimer ABG pH ABG pO2 ABG HCO3 ABG O2 Saturation ABG Base Excess ABG Hemoglobin Oxyhemoglobin Chloride Carbon Dioxide BUN Glucose POC Glucose 355 H 345 H 382 H Hemoglobin A1c Calcium Magnesium Ferritin AST Lactate Dehydrogenase C-Reactive Protein Total Protein Albumin Coronavirus (PCR) 02/03/20 02/03/20 02/04/20 22:00 22:04 06:06 WBC Hgb Hct MCV MCH Lymph % (Auto) Lymph # Seg Neutrophils % Seg Neuts % (Manual) Lymphocytes % (Manual) Nucleated RBC % Seg Neutrophils # Lymphocytes # (Manual) D-Dimer ABG pH 7.505 H ABG pO2 59.1 L ABG HCO3 19.1 L ABG O2 Saturation 93.0 L ABG Base Excess -2.4 L ABG Hemoglobin 13.3 L Oxyhemoglobin 91.1 L Chloride Carbon Dioxide BUN Glucose POC Glucose 309 H Hemoglobin A1c Calcium Magnesium Ferritin 4214.0 H AST Lactate Dehydrogenase C-Reactive Protein Total Protein Albumin Coronavirus (PCR) 02/04/20 02/04/20 02/04/20 06:06 06:06 06:06 WBC Hgb Hct MCV 95 H MCH Lymph % (Auto) 4.3 L Lymph # 0.5 L Seg Neutrophils % 87.5 H Seg Neuts % (Manual) Lymphocytes % (Manual) Nucleated RBC % Seg Neutrophils # 9.3 H Lymphocytes # (Manual) D-Dimer ABG pH ABG pO2 ABG HCO3 ABG O2 Saturation ABG Base Excess ABG Hemoglobin Oxyhemoglobin Chloride Carbon Dioxide 21 L BUN 30 H Glucose 393 H POC Glucose Hemoglobin A1c Calcium 7.8 L Magnesium 2.70 H Ferritin AST Lactate Dehydrogenase 919 H C-Reactive Protein Total Protein Albumin Coronavirus (PCR) 02/04/20 02/04/20 02/04/20 08:57 13:12 17:45 WBC Hgb Hct MCV MCH Lymph % (Auto) Lymph # Seg Neutrophils % Seg Neuts % (Manual) Lymphocytes % (Manual) Nucleated RBC % Seg Neutrophils # Lymphocytes # (Manual) D-Dimer ABG pH ABG pO2 ABG HCO3 ABG O2 Saturation ABG Base Excess ABG Hemoglobin Oxyhemoglobin Chloride Carbon Dioxide BUN Glucose POC Glucose 353 H 364 H 292 H Hemoglobin A1c Calcium Magnesium Ferritin AST Lactate Dehydrogenase C-Reactive Protein Total Protein Albumin Coronavirus (PCR) 02/04/20 02/05/20 02/05/20 22:36 08:44 12:53 WBC Hgb Hct MCV MCH Lymph % (Auto) Lymph # Seg Neutrophils % Seg Neuts % (Manual) Lymphocytes % (Manual) Nucleated RBC % Seg Neutrophils # Lymphocytes # (Manual) D-Dimer ABG pH ABG pO2 ABG HCO3 ABG O2 Saturation ABG Base Excess ABG Hemoglobin Oxyhemoglobin Chloride Carbon Dioxide BUN Glucose POC Glucose 255 H 313 H 346 H Hemoglobin A1c Calcium Magnesium Ferritin AST Lactate Dehydrogenase C-Reactive Protein Total Protein Albumin Coronavirus (PCR) 02/05/20 02/05/20 02/06/20 16:55 22:38 01:04 WBC Hgb Hct MCV MCH Lymph % (Auto) Lymph # Seg Neutrophils % Seg Neuts % (Manual) Lymphocytes % (Manual) Nucleated RBC % Seg Neutrophils # Lymphocytes # (Manual) D-Dimer ABG pH ABG pO2 ABG HCO3 ABG O2 Saturation ABG Base Excess ABG Hemoglobin Oxyhemoglobin Chloride Carbon Dioxide BUN Glucose POC Glucose 270 H 106 H 122 H Hemoglobin A1c Calcium Magnesium Ferritin AST Lactate Dehydrogenase C-Reactive Protein Total Protein Albumin Coronavirus (PCR) 02/06/20 02/06/20 02/06/20 09:21 12:27 15:20 WBC Hgb Hct MCV MCH Lymph % (Auto) Lymph # Seg Neutrophils % Seg Neuts % (Manual) Lymphocytes % (Manual) Nucleated RBC % Seg Neutrophils # Lymphocytes # (Manual) D-Dimer 328.02 H ABG pH ABG pO2 ABG HCO3 ABG O2 Saturation ABG Base Excess ABG Hemoglobin Oxyhemoglobin Chloride Carbon Dioxide BUN Glucose POC Glucose 227 H 295 H Hemoglobin A1c Calcium Magnesium Ferritin AST Lactate Dehydrogenase C-Reactive Protein Total Protein Albumin Coronavirus (PCR) 02/06/20 02/06/20 02/06/20 15:20 15:20 16:50 WBC Hgb Hct MCV MCH Lymph % (Auto) Lymph # Seg Neutrophils % Seg Neuts % (Manual) Lymphocytes % (Manual) Nucleated RBC % Seg Neutrophils # Lymphocytes # (Manual) D-Dimer ABG pH ABG pO2 ABG HCO3 ABG O2 Saturation ABG Base Excess ABG Hemoglobin Oxyhemoglobin Chloride Carbon Dioxide BUN Glucose 311 H POC Glucose 258 H Hemoglobin A1c Calcium Magnesium Ferritin < 2000.0 H AST Lactate Dehydrogenase 719 H C-Reactive Protein Total Protein Albumin Coronavirus (PCR) 02/06/20 02/07/20 21:23 10:51 WBC Hgb Hct MCV MCH Lymph % (Auto) Lymph # Seg Neutrophils % Seg Neuts % (Manual) Lymphocytes % (Manual) Nucleated RBC % Seg Neutrophils # Lymphocytes # (Manual) D-Dimer ABG pH ABG pO2 ABG HCO3 ABG O2 Saturation ABG Base Excess ABG Hemoglobin Oxyhemoglobin Chloride Carbon Dioxide BUN Glucose POC Glucose 334 H 309 H Hemoglobin A1c Calcium Magnesium Ferritin AST Lactate Dehydrogenase C-Reactive Protein Total Protein Albumin Coronavirus (PCR)
--- NOTE | 2020-02-07 15:17 | Progress Note ---
Assessment and Plan Cultures: Blood cultures no growth Assessment: 89 years old male with history of diabetes mellitus, admitted on 01/29/2020 due to 2-week history of generalized weakness, mild cough, dyspnea on exertion: #Sepsis: present on admission with fever, hypoxia; source COVID-19 infection. #COVID-19 pneumonia: elevated biomarkers. D-dimer 2573. Ferritin 2000, CRP 10.2. LDH 930. 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 Completed 5 days of Remdesivir, completed Actemra 01/31/2020. #Acute hypoxemic respiratory failure: on high flow. Recommendations: Continue steroids day 9 Awaiting consent from family for enrollment in convalescent plasma study per d/w Dr. López monitor markers every 2 days continue with anticoagulation given the severe hypoxia and elevated d-dimer Prognosis appears guarded. Km Calhoun MD, FACP [facility] ([facility]) C: [phone] O: [phone] F: [phone] Subjective Date of service: 02/07/20 Principal diagnosis: COVID Interval history: No fever. Remains on high flow oxygen in IMCU. Objective - Exam Narrative Exam: Physical Exam (reviewed in chart due to PPE conservation) Constitutional: limited due to PPE conservation strategy Head, Ears, Nose: limited due to PPE conservation strategy Eyes: limited due to PPE conservation strategy Neck: limited due to PPE conservation strategy Oral: limited due to PPE conservation strategy Cardiovascular: limited due to PPE conservation strategy Respiratory: limited due to PPE conservation strategy GI: limited due to PPE conservation strategy Musculoskeletal: limited due to PPE conservation strategy Skin: limited due to PPE conservation strategy Hem/Lymphatic: limited due to PPE conservation strategy Psych: limited due to PPE conservation strategy Neurological: limited due to PPE conservation strategy - Constitutional Vitals: Vital Signs Temp Pulse Resp BP Pulse Ox 97.4 F L 79 19 123/80 97 02/07/20 08:00 02/07/20 13:13 02/07/20 12:40 02/07/20 13:13 02/07/20 12:40 Temperature -Last 24 Hours Temperature 97.4 F Temperature 97.7 F Temperature 97.7 F Temperature 97.5 F - Labs CBC & Chem 7: 02/04/20 06:06 02/06/20 15:20 Labs: Abnormal lab results 07/03/2002/06/20 02/06/20 Range/Units 15:20 15:20 15:20 D-Dimer 328.02 H (0-234) ng/mlDDU Glucose 311 H (75-100) mg/dL POC Glucose (70-105) Ferritin < 2000.0 H (13.0-400.0) ng/mL Lactate Dehydrogenase 719 H (91-180) units/L 02/06/20 02/06/20 02/07/20 Range/Units 16:50 21:23 10:51 D-Dimer (0-234) ng/mlDDU Glucose (75-100) mg/dL POC Glucose 258 H 334 H 309 H (70-105) Ferritin (13.0-400.0) ng/mL Lactate Dehydrogenase (91-180) units/L
--- NOTE | 2020-02-07 15:57 | Progress Note ---
Assessment and Plan /Acute toxic encephalopathy -Likely due to severe hypoxia and COVID-19 infection -Continue to monitor, provide supportive care -Haldol as needed, sitter in place, placed on restraint /Sepsis: present on admission with fever, hypoxia; source COVID-19 infection due to COVID-19 pneumonia: /Bilateral pneumonia s/p Rocephin and azithromycin ID consult requested Coronavirus positive cont Isolation Inflammatory markers are very high - con to follow / COVID-19 PNA Patient exposed to his son who had coronavirus nasal cannula oxygen to keep O2 sat >94% Patient isolated, ID following follow inflammatory markers s/p Remdesivir x 5 days, S/p Tocilizumab IV x1 Continue Solu-Medrol 40 mg IV every 8 hours - will wean off ID now recommended for convalescent plasma -waiting on family consent /Acute hypoxic Respiratory failure - O2 sat drops with activity - cont nebs, solumedrol, supplemental O2 / Elevated d-dimer Lovenox initiated /Hyperlipidemia, cont statin /T2DM (type 2 diabetes mellitus) consistent carb diet, SSI Coverage for now /DVT prophylaxis Patient on Lovenox and GI prophylaxis 01/29: Positive for COVID 19, follow inflammatory markers, start on iv solumedrol. Start Tocilizumab IV x1 01/30; Start Remdesivir, Continue Solu-Medrol 40 mg IV every 8 hours. follow inflammatory markers 01/31: cont Remdesivir day 2, Solu-Medrol 40 mg IV every 8 hours. follow inflammatory markers 02/01 patient is awake and alert, moderately short of breath, he denies any fever, chills, chest pain and has occasional dry cough. Denies nausea or abdominal pain. vital signs deteriorated this morning with worsening hypoxemia, now on nonrebreather Ventimask ID note reviewed, lab results reviewed 02/02 patient was not seen [id number] today, he is now on high flow nasal cannula, no acute events overnight and discussed with RN, lab results reviewed ID note reviewed 02/03: appears agitated, ferritin trended up. completed Remdesivir today. cont solumedrol iv q8h. transfer to [facility], patient on 100% FiO2 today 02/04 patient remains on 90% FiO2, appears very confused and unable to give any consent. Continue IV steroid, will try to get consent for convalescent plasma from family 02/05 patient on 70% Fio2 today, waiting on family consent for for convalescent plasma 02/06 spoke with patient's son directly and he is not willing to give consent for convalescent plasma and requested that his sister who lives in [place] will give the consent. Waiting on patient daughter to call back to give the consent. We will order for type and screen. Patient on 50% FiO2 today. Brief History: 89 years old male with history of diabetes mellitus, admitted on 01/29/2020 due to 2-week history of generalized weakness, mild cough, dyspnea on exertion. Patient tested positive for COVID-19 recently. Patient's son also was positive for COVID-19 initially. Initial WBC 3.6. Hemoglobin 12.2. Platelets 142. D- dimer 2573. Ferritin 2000, CRP 10.2. LDH 930. Procalcitonin 0.18. AST 76. Chest x-ray shows bilateral interstitial infiltrate. ID following Subjective Date of service: 02/07/20 Principal diagnosis: COVID Interval history: Patient seen and examined patient is very agitated and restrained Remains on high flow o2 Objective - Exam Narrative Exam: Constitutional:alert but confused Neck: supple Oral:no ulcer, dry Cardiovascular: s1 s2 positive Respiratory: mae rhonchi per NS GI: BS positive Musculoskeletal: no joint swelling Skin: No rash or abscess Psych: agitated Neurological: agitated on restraint - Constitutional Vitals: Vital Signs - 12hr 02/07/20 02/07/20 02/07/20 04:00 04:10 04:20 Temperature 97.7 F Pulse Rate 84 79 70 Pulse Rate [ From Monitor] Respiratory 12 15 15 Rate Blood Pressure 118/64 129/72 132/82 O2 Sat by Pulse 95 97 95 Oximetry 02/07/20 02/07/20 02/07/20 04:30 04:40 04:50 Temperature Pulse Rate 77 77 88 Pulse Rate [ From Monitor] Respiratory 17 13 17 Rate Blood Pressure 132/82 132/82 150/90 O2 Sat by Pulse 95 96 94 Oximetry 02/07/20 02/07/20 02/07/20 05:00 05:10 05:20 Temperature Pulse Rate 93 H 88 116 H Pulse Rate [ From Monitor] Respiratory 26 H 19 16 Rate Blood Pressure 150/90 142/83 156/70 O2 Sat by Pulse 83 L 95 95 Oximetry 02/07/20 02/07/20 02/07/20 05:30 05:40 05:50 Temperature Pulse Rate 121 H 98 H 74 Pulse Rate [ From Monitor] Respiratory 18 24 19 Rate Blood Pressure 156/70 84/53 67/46 O2 Sat by Pulse 95 95 95 Oximetry 02/07/20 02/07/20 02/07/20 06:00 06:10 06:19 Temperature Pulse Rate 121 H 93 H 76 Pulse Rate [ From Monitor] Respiratory 31 H 16 Rate Blood Pressure 67/46 69/20 108/52 O2 Sat by Pulse 92 97 Oximetry 02/07/20 02/07/20 02/07/20 06:20 06:21 06:30 Temperature Pulse Rate 97 H 83 89 Pulse Rate [ From Monitor] Respiratory 22 18 Rate Blood Pressure 97/66 97/66 97/66 O2 Sat by Pulse 92 92 Oximetry 02/07/20 02/07/20 02/07/20 06:40 06:50 07:00 Temperature Pulse Rate 88 69 81 Pulse Rate [ From Monitor] Respiratory 15 18 18 Rate Blood Pressure 97/66 144/78 144/78 O2 Sat by Pulse 95 96 96 Oximetry 02/07/20 02/07/20 02/07/20 07:10 07:20 07:30 Temperature Pulse Rate 75 106 H 85 Pulse Rate [ From Monitor] Respiratory 20 16 22 Rate Blood Pressure 98/63 90/57 90/57 O2 Sat by Pulse 97 97 85 Oximetry 02/07/20 02/07/20 02/07/20 07:40 07:50 08:00 Temperature 97.4 F L Pulse Rate 83 88 84 Pulse Rate [ 84 From Monitor] Respiratory 19 16 20 Rate Blood Pressure 83/54 63/34 63/34 O2 Sat by Pulse 100 Oximetry 02/07/20 02/07/20 02/07/20 08:10 08:20 08:30 Temperature Pulse Rate 83 92 H 95 H Pulse Rate [ From Monitor] Respiratory 22 20 17 Rate Blood Pressure 72/37 72/37 72/37 O2 Sat by Pulse 100 87 Oximetry 02/07/20 02/07/20 02/07/20 08:40 08:50 09:00 Temperature Pulse Rate 106 H 98 H 85 Pulse Rate [ From Monitor] Respiratory 15 16 16 Rate Blood Pressure 133/74 150/89 150/89 O2 Sat by Pulse 100 100 100 Oximetry 02/07/20 02/07/20 02/07/20 09:09 09:10 09:20 Temperature Pulse Rate 92 H 86 80 Pulse Rate [ From Monitor] Respiratory 15 13 Rate Blood Pressure 160/80 160/80 137/68 O2 Sat by Pulse 100 100 Oximetry 02/07/20 02/07/20 02/07/20 09:30 09:40 09:50 Temperature Pulse Rate 84 82 82 Pulse Rate [ From Monitor] Respiratory 15 14 15 Rate Blood Pressure 137/68 142/73 154/85 O2 Sat by Pulse 100 100 100 Oximetry 02/07/20 02/07/20 02/07/20 10:00 10:10 10:20 Temperature Pulse Rate 89 84 86 Pulse Rate [ From Monitor] Respiratory 14 15 15 Rate Blood Pressure 154/85 131/86 144/68 O2 Sat by Pulse 99 100 97 Oximetry 02/07/20 02/07/20 02/07/20 10:30 10:40 10:50 Temperature Pulse Rate 85 93 H 85 Pulse Rate [ From Monitor] Respiratory 15 14 14 Rate Blood Pressure 144/68 148/59 152/87 O2 Sat by Pulse 96 96 98 Oximetry 02/07/20 02/07/20 02/07/20 11:00 11:10 11:20 Temperature Pulse Rate 86 83 91 H Pulse Rate [ From Monitor] Respiratory 15 15 14 Rate Blood Pressure 152/87 135/63 128/57 O2 Sat by Pulse 98 100 99 Oximetry 02/07/20 02/07/20 02/07/20 11:30 11:40 11:50 Temperature Pulse Rate 87 82 93 H Pulse Rate [ From Monitor] Respiratory 16 14 13 Rate Blood Pressure 128/57 123/66 129/71 O2 Sat by Pulse 96 99 99 Oximetry 02/07/20 02/07/20 02/07/20 12:00 12:10 12:20 Temperature 97.5 F L Pulse Rate 96 H 92 H 82 Pulse Rate [ From Monitor] Respiratory 14 15 14 Rate Blood Pressure 129/71 131/88 120/55 O2 Sat by Pulse 97 98 99 Oximetry 02/07/20 02/07/20 02/07/20 12:30 12:40 13:13 Temperature Pulse Rate 86 94 H 79 Pulse Rate [ From Monitor] Respiratory 24 19 Rate Blood Pressure 120/55 120/55 123/80 O2 Sat by Pulse 96 97 Oximetry - Labs CBC & Chem 7: 02/08/20 10:46 02/10/20 12:30 Labs: Abnormal lab results 02/06/20 02/06/20 02/06/20 Range/Units 15:20 16:50 21:23 POC Glucose 258 H 334 H (70-105) Ferritin < 2000.0 H (13.0-400.0) ng/mL 02/07/20 Range/Units 10:51 POC Glucose 309 H (70-105) Ferritin (13.0-400.0) ng/mL HEART Score - HEART Score Troponin: Troponin T 0.014 ng/mL (0.00-0.029) 01/29/20 17:03
[2020-02-07] MEDS: LORazepam 2 MG/ML VIAL IV PRN ×2 (16:35→23:45)
[2020-02-07] MEDS: oxyCODONE /ACETAMINOPHEN 5-325MG TAB PO PRN (16:54)
[2020-02-08] MEDS: INSULIN GLARGINE 100 UNITS/ML SUB-Q SCH ×2 (00:13→23:07)
[2020-02-08] MEDS: METOPROLOL TARTRATE 5 MG/5 ML INJ IV SCH ×3 (02:44→15:28)
[2020-02-08] MEDS: PRAZOSIN 1 MG CAP PO SCH ×3 (02:44→23:07)
[2020-02-08] MEDS: HYDROmorphone 1 MG/1 ML INJ IV PRN (06:09)
[2020-02-08] MEDS: methylPREDNISolone Sod Succinate 40 MG/1 ML INJ IV SCH ×3 (06:10→23:07)
[2020-02-08] MEDS: ZINC SULFATE 220 MG CAP PO SCH (10:14)
[2020-02-08] MEDS: FAMOTIDINE 20 MG TAB PO SCH ×2 (10:14→23:06)
[2020-02-08] MEDS: INSULIN LISPRO 100 UNIT/ML SUB-Q SCH ×4 (10:14→23:07)
[2020-02-08] MEDS: ENOXAPARIN 100 MG/1 ML INJ SUB-Q SCH ×2 (10:14→23:05)
[2020-02-08] MEDS: INSULIN REGULAR, HUMAN 100 UNITS/1 ML SUB-Q SCH ×3 (10:14→17:10)
--- NOTE | 2020-02-08 10:29 | Progress Note ---
Assessment and Plan - Patient Problems (1) Abnormal ECG Current Visit: Yes Status: Acute Plan to address problem: Abnormal ECG Pt noted to have frequent PVCs and transient sinus bradycardia which has now improved. normal TSH at 0.8 Conservative cardiac management. We will follow intermittently. (2) COVID-19 Current Visit: Yes Status: Acute Plan to address problem: positive COVID 19 test Subjective Date of service: 02/08/20 Principal diagnosis: COVID Interval history: No cardiac issues reported. Sinus rhythm with PVCs on pants maker. Objective Vital Signs Temp Pulse Resp BP Pulse Ox 02/08/20 10:15 134/70 02/08/20 08:00 96 02/08/20 06:51 99.0 F 85 20 162/84 92 02/07/20 21:05 99.0 F 79 16 110/66 99 02/07/20 18:07 72 20 131/90 95 02/07/20 17:30 78 29 H 143/116 96 02/07/20 17:15 87 20 121/74 95 02/07/20 17:00 93 H 39 H 130/92 96 02/07/20 16:46 93 H 17 86/42 02/07/20 16:31 114/87 02/07/20 16:16 91 H 19 121/92 97 02/07/20 16:00 111/84 96 02/07/20 15:45 111/84 100 02/07/20 15:30 127/76 99 02/07/20 15:16 127/76 99 02/07/20 15:00 79 16 136/68 99 02/07/20 14:46 80 22 129/76 100 02/07/20 14:30 77 18 157/73 100 02/07/20 14:16 74 17 132/79 100 02/07/20 14:00 156/76 99 02/07/20 13:46 156/76 93 02/07/20 13:30 88 20 131/71 100 02/07/20 13:15 84 13 131/71 100 02/07/20 13:13 79 123/80 02/07/20 13:00 82 17 130/65 99 02/07/20 12:45 85 22 130/65 99 02/07/20 12:40 94 H 19 120/55 97 02/07/20 12:30 86 24 120/55 96 02/07/20 12:20 82 14 120/55 99 02/07/20 12:10 92 H 15 131/88 98 02/07/20 12:00 97.5 F L 96 H 14 129/71 99 02/07/20 11:50 93 H 13 129/71 99 02/07/20 11:40 82 14 123/66 99 02/07/20 11:30 87 16 128/57 96 02/07/20 11:20 91 H 14 128/57 99 02/07/20 11:10 83 15 135/63 100 02/07/20 11:00 86 15 152/87 98 02/07/20 10:50 85 14 152/87 98 02/07/20 10:40 93 H 14 148/59 96 02/07/20 10:30 85 15 144/68 96 - Physical Examination Narrative exam: Deferred due to COVID isolation protocol. - Imaging and Cardiology EKG: report reviewed (Sinus tachycardia)
[2020-02-08 11:17] LABS: Hematocrit 45.5 % (35.5-45.6); Hemoglobin 14.5 gm/dl (11.8-15.2); Mean Corpuscular HGB Conc 32 % (32-34); Mean Corpuscular Volume 98 fl (84-94); Platelet Count 234 K/mm3 (140-440); Red Blood Count 4.64 M/mm3 (3.65-5.03); Red Cell Distribution Width 14.7 % (13.2-15.2)
[2020-02-08 11:36] LABS: BUN/Creatinine Ratio 36; Blood Urea Nitrogen 36 mg/dL (9-20); Calcium 8.3 mg/dL (8.4-10.2); Hemolysis Index 26
[2020-02-08 11:42] LABS: C-Reactive Protein 0.3 mg/dL (0.00-1.30)
--- NOTE | 2020-02-08 12:17 | Progress Note ---
Assessment and Plan -Sepsis: present on admission with fever, hypoxia; source COVID-19 infection due to COVID-19 pneumonia: -Acute hypoxic Respiratory failure on HFOT -COVID-19 PNA, elevated inflammatory markers -Bilateral pneumonia -Type2 DM (type 2 diabetes mellitus) -Acute toxic- metabolic encephalopathy on dementia -ABG prn CXRprn - Wean supplemental oxygen for target O2 sats > 92% - Awake Proning per facility protocol and Lateral decubitus positioning -Fluid conservative measures as tolerated by hemodynamics and renal function - Bronchodilators with pulmonary hygiene per RT - Accuchecks with glycemic control per SSI (Target blood glucose of 140-180 mg/dL; avoid hypoglycemia) - Avoid benzodiazepines, reduce the possibility of delirium - prn analgesia per CPOT score - Maintenance of sleep-wake cycle, avoid delirium -Avoid nephrotoxins, closely monitor renal function - s/p Empiric antibiotics( Ceftriaxone and Azithromycin for CAP ) - Stress ulcer ( while on high flow oxygen adn steroids) & VTE prophylaxis ( Enoxaparin Famotidine) - Mobility protocol, off loading and skin assessment for pressure ulcer pre vention - Monitor hemodynamics closely -Supportive transfusions as indicated to keep HgB >7g/dL -Fall precautions -Modified diet with aspiration precautions, needs assistance with feeding -Chronic home medications as clinically indicated COVID SPECIFIC INTERVENTIONS -Airborne, contact isolation for COVID per facility protocols -s/p Remdesivir - On IV solumedrol 40mg Q8h -Markers also significantly elevated and with high flow oxygen, S/p Tocilizumab IV x1 - Continue to trend inflammatory markers per facility protocol -On weight based Enoxaparin -Continue all supportive care -Contact tracing and testing of his contacts -Awaiting consent for COVID convalescent plasma therapy- Primary to obtain consent from family Life threatening condition- COVID 19 infection with acute hypoxemic respiratory failure Mortality/Morbidity- High secondary to comorbid conditions and age Complexity of medical decision making- High CONDITION: CRITICAL PROGNOSIS: GUARDED CODE STATUS: FULL CODE The high probability of a clinically significant, sudden or life-threatening deterioration of the [respiratory & cardiovascular, renal] system(s) required my full and direct attention, intervention and personal management. The aggregate critical care time was [31] minutes without overlap. Time includes spent on; [x] Data Review and interpretation [x] Patient assessment and monitoring of vital signs [x] Documentation [x] Medication orders and management Subjective Date of service: 02/08/20 Principal diagnosis: COVID Interval history: Follow up for; Sepsis, acute hypoxemic resp failure; Bilateral PNA; COVID positive; acute toxic-metabolic encephalopathy Patient seen and examined. Vitals, labs, medications, chart and imaging reviewed . Respiratory and nursing staff consulted. Remains on high flow oxygen therapy, Vapotherm 30L and 50% with oxygen saturations of 94% On going confusion, trying to get out of bed No fevers Objective Vital Signs - 12hr 02/08/20 02/08/20 02/08/20 06:51 08:00 10:15 Temperature 99.0 F Pulse Rate 85 Respiratory 20 Rate Blood Pressure 162/84 134/70 O2 Sat by Pulse 92 96 Oximetry Constitutional: alert, appears uncomfortable, other (intermittent confusion) Eyes: non-icteric ENT: oropharynx dry Neck: supple, no JVD Effort: mildly labored Ascultation: Bilateral: rhonchi Cardiovascular: regular rate and rhythm, other (S1,S2) Gastrointestinal: normoactive bowel sounds, hypoactive bowel sounds, soft, non- tender Integumentary: normal Extremities: no cyanosis, no edema Neurologic: non-focal exam (grossly, moving all extremities), unable to assess Psychiatric: other (Unable to assess due to mental status at this time.) CBC and BMP: 02/08/20 10:46 02/08/20 10:46 ABG, PT/INR, D-dimer: ABG ABG pH 7.505 pH Units (7.350-7.450) H 02/03/20 22:00 ABG pCO2 24.7 mm Hg 02/03/20 22:00 ABG pO2 59.1 mm Hg (80.0-90.0) L 02/03/20 22:00 ABG O2 Saturation 93.0 % (95.0-99.0) L 02/03/20 22:00 PT/INR, D-dimer PT 13.9 Sec. (12.2-14.9) 01/29/20 17:03 INR 1.09 (0.87-1.13) 01/29/20 17:03 D-Dimer 261.46 ng/mlDDU (0-234) H 02/08/20 10:46 Abnormal lab findings: Abnormal Labs 01/29/20 01/29/2001/28/20 17:03 17:03 17:03 WBC 3.6 L Hgb Hct MCV 96 H MCH 33 H Lymph % (Auto) Lymph # 0.5 L Seg Neutrophils % 79.6 H Seg Neuts % (Manual) Lymphocytes % (Manual) Nucleated RBC % Seg Neutrophils # Lymphocytes # (Manual) D-Dimer 2573.78 H ABG pH ABG pO2 ABG HCO3 ABG O2 Saturation ABG Base Excess ABG Hemoglobin Oxyhemoglobin Sodium Potassium Chloride Carbon Dioxide BUN Glucose 240 H POC Glucose Hemoglobin A1c Calcium Magnesium Ferritin AST 76 H Lactate Dehydrogenase C-Reactive Protein Total Protein Albumin 3.0 L Coronavirus (PCR) 01/29/20 01/29/20 01/29/20 18:33 18:33 23:28 WBC Hgb Hct MCV MCH Lymph % (Auto) Lymph # Seg Neutrophils % Seg Neuts % (Manual) Lymphocytes % (Manual) Nucleated RBC % Seg Neutrophils # Lymphocytes # (Manual) D-Dimer ABG pH ABG pO2 ABG HCO3 ABG O2 Saturation ABG Base Excess ABG Hemoglobin Oxyhemoglobin Sodium Potassium Chloride Carbon Dioxide BUN Glucose 230 H POC Glucose 253 H Hemoglobin A1c Calcium Magnesium Ferritin > 2000.0 H AST Lactate Dehydrogenase 930 H C-Reactive Protein 10.20 H Total Protein Albumin Coronavirus (PCR) 01/29/20 01/30/20 01/30/20 Unknown 05:41 05:41 WBC Hgb 11.7 L Hct 35.2 L MCV MCH Lymph % (Auto) 8.1 L Lymph # 0.4 L Seg Neutrophils % 85.8 H Seg Neuts % (Manual) Lymphocytes % (Manual) Nucleated RBC % Seg Neutrophils # Lymphocytes # (Manual) D-Dimer ABG pH ABG pO2 ABG HCO3 ABG O2 Saturation ABG Base Excess ABG Hemoglobin Oxyhemoglobin Sodium Potassium Chloride Carbon Dioxide 19 L BUN Glucose 242 H POC Glucose Hemoglobin A1c Calcium 7.7 L Magnesium Ferritin AST 79 H Lactate Dehydrogenase C-Reactive Protein Total Protein Albumin 2.9 L Coronavirus (PCR) Positive A 01/30/20 01/30/20 01/30/20 05:41 07:55 12:54 WBC Hgb Hct MCV MCH Lymph % (Auto) Lymph # Seg Neutrophils % Seg Neuts % (Manual) Lymphocytes % (Manual) Nucleated RBC % Seg Neutrophils # Lymphocytes # (Manual) D-Dimer ABG pH ABG pO2 ABG HCO3 ABG O2 Saturation ABG Base Excess ABG Hemoglobin Oxyhemoglobin Sodium Potassium Chloride Carbon Dioxide BUN Glucose POC Glucose 262 H 232 H Hemoglobin A1c 7.3 H Calcium Magnesium Ferritin AST Lactate Dehydrogenase C-Reactive Protein Total Protein Albumin Coronavirus (PCR) 01/30/20 01/30/20 01/31/20 16:07 21:15 08:42 WBC Hgb Hct MCV MCH Lymph % (Auto) Lymph # Seg Neutrophils % Seg Neuts % (Manual) Lymphocytes % (Manual) Nucleated RBC % Seg Neutrophils # Lymphocytes # (Manual) D-Dimer ABG pH ABG pO2 ABG HCO3 ABG O2 Saturation ABG Base Excess ABG Hemoglobin Oxyhemoglobin Sodium Potassium Chloride Carbon Dioxide BUN Glucose POC Glucose 211 H 285 H 328 H Hemoglobin A1c Calcium Magnesium Ferritin AST Lactate Dehydrogenase C-Reactive Protein Total Protein Albumin Coronavirus (PCR) 01/31/20 01/31/20 01/31/20 12:44 12:44 12:44 WBC Hgb Hct MCV MCH Lymph % (Auto) Lymph # Seg Neutrophils % Seg Neuts % (Manual) Lymphocytes % (Manual) Nucleated RBC % Seg Neutrophils # Lymphocytes # (Manual) D-Dimer 795.52 H ABG pH ABG pO2 ABG HCO3 ABG O2 Saturation ABG Base Excess ABG Hemoglobin Oxyhemoglobin Sodium Potassium Chloride Carbon Dioxide BUN Glucose 384 H POC Glucose Hemoglobin A1c Calcium Magnesium Ferritin > 2000.0 H AST Lactate Dehydrogenase 1393 H C-Reactive Protein 5.80 H Total Protein Albumin Coronavirus (PCR) 01/31/20 01/31/20 02/01/20 16:36 23:46 08:00 WBC Hgb Hct MCV MCH Lymph % (Auto) Lymph # Seg Neutrophils % Seg Neuts % (Manual) Lymphocytes % (Manual) Nucleated RBC % Seg Neutrophils # Lymphocytes # (Manual) D-Dimer ABG pH ABG pO2 ABG HCO3 ABG O2 Saturation ABG Base Excess ABG Hemoglobin Oxyhemoglobin Sodium Potassium Chloride Carbon Dioxide BUN Glucose POC Glucose 384 H 322 H 287 H Hemoglobin A1c Calcium Magnesium Ferritin AST Lactate Dehydrogenase C-Reactive Protein Total Protein Albumin Coronavirus (PCR) 02/01/20 02/01/20 02/01/20 12:48 16:53 23:25 WBC Hgb Hct MCV MCH Lymph % (Auto) Lymph # Seg Neutrophils % Seg Neuts % (Manual) Lymphocytes % (Manual) Nucleated RBC % Seg Neutrophils # Lymphocytes # (Manual) D-Dimer ABG pH ABG pO2 ABG HCO3 ABG O2 Saturation ABG Base Excess ABG Hemoglobin Oxyhemoglobin Sodium Potassium Chloride Carbon Dioxide BUN Glucose POC Glucose 309 H 362 H 264 H Hemoglobin A1c Calcium Magnesium Ferritin AST Lactate Dehydrogenase C-Reactive Protein Total Protein Albumin Coronavirus (PCR) 02/02/20 02/02/20 02/02/20 05:31 05:31 05:31 WBC Hgb Hct MCV MCH Lymph % (Auto) Lymph # Seg Neutrophils % Seg Neuts % (Manual) Lymphocytes % (Manual) Nucleated RBC % Seg Neutrophils # Lymphocytes # (Manual) D-Dimer 416.36 H ABG pH ABG pO2 ABG HCO3 ABG O2 Saturation ABG Base Excess ABG Hemoglobin Oxyhemoglobin Sodium Potassium Chloride 107.2 H Carbon Dioxide BUN 25 H Glucose 304 H POC Glucose Hemoglobin A1c Calcium 8.2 L Magnesium Ferritin > 2000.0 H AST Lactate Dehydrogenase C-Reactive Protein Total Protein Albumin Coronavirus (PCR) 02/02/20 02/02/20 02/02/20 05:31 09:14 11:57 WBC Hgb Hct MCV MCH Lymph % (Auto) Lymph # Seg Neutrophils % Seg Neuts % (Manual) Lymphocytes % (Manual) Nucleated RBC % Seg Neutrophils # Lymphocytes # (Manual) D-Dimer ABG pH ABG pO2 ABG HCO3 ABG O2 Saturation ABG Base Excess ABG Hemoglobin Oxyhemoglobin Sodium Potassium Chloride Carbon Dioxide BUN Glucose POC Glucose 334 H 429 H Hemoglobin A1c Calcium Magnesium Ferritin AST Lactate Dehydrogenase 1297 H C-Reactive Protein 2.20 H Total Protein Albumin Coronavirus (PCR) 02/02/20 02/02/20 02/02/20 12:44 16:35 22:55 WBC Hgb Hct MCV MCH Lymph % (Auto) Lymph # Seg Neutrophils % Seg Neuts % (Manual) Lymphocytes % (Manual) Nucleated RBC % Seg Neutrophils # Lymphocytes # (Manual) D-Dimer ABG pH 7.466 H ABG pO2 60.9 L ABG HCO3 ABG O2 Saturation 93.6 L ABG Base Excess -2.7 L ABG Hemoglobin 11.8 L Oxyhemoglobin 91.4 L Sodium Potassium Chloride Carbon Dioxide BUN Glucose POC Glucose 300 H 339 H Hemoglobin A1c Calcium Magnesium Ferritin AST Lactate Dehydrogenase C-Reactive Protein Total Protein Albumin Coronavirus (PCR) 02/03/20 02/03/20 02/03/20 01:06 06:09 06:09 WBC Hgb Hct MCV MCH Lymph % (Auto) Lymph # Seg Neutrophils % Seg Neuts % (Manual) 92.0 H Lymphocytes % (Manual) 3.0 L Nucleated RBC % 2.0 H Seg Neutrophils # Lymphocytes # (Manual) 0.3 L D-Dimer ABG pH ABG pO2 ABG HCO3 ABG O2 Saturation ABG Base Excess ABG Hemoglobin Oxyhemoglobin Sodium Potassium Chloride Carbon Dioxide BUN 27 H Glucose 348 H POC Glucose Hemoglobin A1c Calcium 8.1 L Magnesium 2.50 H 2.50 H Ferritin AST Lactate Dehydrogenase C-Reactive Protein Total Protein 5.4 L Albumin 3.0 L Coronavirus (PCR) 02/03/20 02/03/20 02/03/20 08:42 11:50 16:18 WBC Hgb Hct MCV MCH Lymph % (Auto) Lymph # Seg Neutrophils % Seg Neuts % (Manual) Lymphocytes % (Manual) Nucleated RBC % Seg Neutrophils # Lymphocytes # (Manual) D-Dimer ABG pH ABG pO2 ABG HCO3 ABG O2 Saturation ABG Base Excess ABG Hemoglobin Oxyhemoglobin Sodium Potassium Chloride Carbon Dioxide BUN Glucose POC Glucose 355 H 345 H 382 H Hemoglobin A1c Calcium Magnesium Ferritin AST Lactate Dehydrogenase C-Reactive Protein Total Protein Albumin Coronavirus (PCR) 02/03/20 02/03/20 02/04/20 22:00 22:04 06:06 WBC Hgb Hct MCV MCH Lymph % (Auto) Lymph # Seg Neutrophils % Seg Neuts % (Manual) Lymphocytes % (Manual) Nucleated RBC % Seg Neutrophils # Lymphocytes # (Manual) D-Dimer ABG pH 7.505 H ABG pO2 59.1 L ABG HCO3 19.1 L ABG O2 Saturation 93.0 L ABG Base Excess -2.4 L ABG Hemoglobin 13.3 L Oxyhemoglobin 91.1 L Sodium Potassium Chloride Carbon Dioxide BUN Glucose POC Glucose 309 H Hemoglobin A1c Calcium Magnesium Ferritin 4214.0 H AST Lactate Dehydrogenase C-Reactive Protein Total Protein Albumin Coronavirus (PCR) 02/04/20 02/04/20 02/04/20 06:06 06:06 06:06 WBC Hgb Hct MCV 95 H MCH Lymph % (Auto) 4.3 L Lymph # 0.5 L Seg Neutrophils % 87.5 H Seg Neuts % (Manual) Lymphocytes % (Manual) Nucleated RBC % Seg Neutrophils # 9.3 H Lymphocytes # (Manual) D-Dimer ABG pH ABG pO2 ABG HCO3 ABG O2 Saturation ABG Base Excess ABG Hemoglobin Oxyhemoglobin Sodium Potassium Chloride Carbon Dioxide 21 L BUN 30 H Glucose 393 H POC Glucose Hemoglobin A1c Calcium 7.8 L Magnesium 2.70 H Ferritin AST Lactate Dehydrogenase 919 H C-Reactive Protein Total Protein Albumin Coronavirus (PCR) 02/04/20 02/04/20 02/04/20 08:57 13:12 17:45 WBC Hgb Hct MCV MCH Lymph % (Auto) Lymph # Seg Neutrophils % Seg Neuts % (Manual) Lymphocytes % (Manual) Nucleated RBC % Seg Neutrophils # Lymphocytes # (Manual) D-Dimer ABG pH ABG pO2 ABG HCO3 ABG O2 Saturation ABG Base Excess ABG Hemoglobin Oxyhemoglobin Sodium Potassium Chloride Carbon Dioxide BUN Glucose POC Glucose 353 H 364 H 292 H Hemoglobin A1c Calcium Magnesium Ferritin AST Lactate Dehydrogenase C-Reactive Protein Total Protein Albumin Coronavirus (PCR) 02/04/20 02/05/20 02/05/20 22:36 08:44 12:53 WBC Hgb Hct MCV MCH Lymph % (Auto) Lymph # Seg Neutrophils % Seg Neuts % (Manual) Lymphocytes % (Manual) Nucleated RBC % Seg Neutrophils # Lymphocytes # (Manual) D-Dimer ABG pH ABG pO2 ABG HCO3 ABG O2 Saturation ABG Base Excess ABG Hemoglobin Oxyhemoglobin Sodium Potassium Chloride Carbon Dioxide BUN Glucose POC Glucose 255 H 313 H 346 H Hemoglobin A1c Calcium Magnesium Ferritin AST Lactate Dehydrogenase C-Reactive Protein Total Protein Albumin Coronavirus (PCR) 02/05/20 02/05/20 02/06/20 16:55 22:38 01:04 WBC Hgb Hct MCV MCH Lymph % (Auto) Lymph # Seg Neutrophils % Seg Neuts % (Manual) Lymphocytes % (Manual) Nucleated RBC % Seg Neutrophils # Lymphocytes # (Manual) D-Dimer ABG pH ABG pO2 ABG HCO3 ABG O2 Saturation ABG Base Excess ABG Hemoglobin Oxyhemoglobin Sodium Potassium Chloride Carbon Dioxide BUN Glucose POC Glucose 270 H 106 H 122 H Hemoglobin A1c Calcium Magnesium Ferritin AST Lactate Dehydrogenase C-Reactive Protein Total Protein Albumin Coronavirus (PCR) 02/06/20 02/06/20 02/06/20 09:21 12:27 15:20 WBC Hgb Hct MCV MCH Lymph % (Auto) Lymph # Seg Neutrophils % Seg Neuts % (Manual) Lymphocytes % (Manual) Nucleated RBC % Seg Neutrophils # Lymphocytes # (Manual) D-Dimer 328.02 H ABG pH ABG pO2 ABG HCO3 ABG O2 Saturation ABG Base Excess ABG Hemoglobin Oxyhemoglobin Sodium Potassium Chloride Carbon Dioxide BUN Glucose POC Glucose 227 H 295 H Hemoglobin A1c Calcium Magnesium Ferritin AST Lactate Dehydrogenase C-Reactive Protein Total Protein Albumin Coronavirus (PCR) 02/06/20 02/06/20 02/06/20 15:20 15:20 16:50 WBC Hgb Hct MCV MCH Lymph % (Auto) Lymph # Seg Neutrophils % Seg Neuts % (Manual) Lymphocytes % (Manual) Nucleated RBC % Seg Neutrophils # Lymphocytes # (Manual) D-Dimer ABG pH ABG pO2 ABG HCO3 ABG O2 Saturation ABG Base Excess ABG Hemoglobin Oxyhemoglobin Sodium Potassium Chloride Carbon Dioxide BUN Glucose 311 H POC Glucose 258 H Hemoglobin A1c Calcium Magnesium Ferritin < 2000.0 H AST Lactate Dehydrogenase 719 H C-Reactive Protein Total Protein Albumin Coronavirus (PCR) 02/06/20 02/07/20 02/07/20 21:23 08:22 10:51 WBC Hgb Hct MCV MCH Lymph % (Auto) Lymph # Seg Neutrophils % Seg Neuts % (Manual) Lymphocytes % (Manual) Nucleated RBC % Seg Neutrophils # Lymphocytes # (Manual) D-Dimer ABG pH ABG pO2 ABG HCO3 ABG O2 Saturation ABG Base Excess ABG Hemoglobin Oxyhemoglobin Sodium Potassium Chloride Carbon Dioxide BUN Glucose POC Glucose 334 H 281 H 309 H Hemoglobin A1c Calcium Magnesium Ferritin AST Lactate Dehydrogenase C-Reactive Protein Total Protein Albumin Coronavirus (PCR) 02/07/20 02/07/20 02/08/20 16:27 22:40 07:44 WBC Hgb Hct MCV MCH Lymph % (Auto) Lymph # Seg Neutrophils % Seg Neuts % (Manual) Lymphocytes % (Manual) Nucleated RBC % Seg Neutrophils # Lymphocytes # (Manual) D-Dimer ABG pH ABG pO2 ABG HCO3 ABG O2 Saturation ABG Base Excess ABG Hemoglobin Oxyhemoglobin Sodium Potassium Chloride Carbon Dioxide BUN Glucose POC Glucose 288 H 278 H 267 H Hemoglobin A1c Calcium Magnesium Ferritin AST Lactate Dehydrogenase C-Reactive Protein Total Protein Albumin Coronavirus (PCR) 02/08/20 02/08/20 02/08/20 10:46 10:46 10:46 WBC Hgb Hct MCV 98 H MCH Lymph % (Auto) Lymph # Seg Neutrophils % Seg Neuts % (Manual) Lymphocytes % (Manual) Nucleated RBC % Seg Neutrophils # Lymphocytes # (Manual) D-Dimer 261.46 H ABG pH ABG pO2 ABG HCO3 ABG O2 Saturation ABG Base Excess ABG Hemoglobin Oxyhemoglobin Sodium 148 H Potassium 3.5 L Chloride 112.2 H Carbon Dioxide BUN 36 H Glucose 356 H POC Glucose Hemoglobin A1c Calcium 8.3 L Magnesium Ferritin AST Lactate Dehydrogenase C-Reactive Protein Total Protein Albumin Coronavirus (PCR) 02/08/20 10:46 WBC Hgb Hct MCV MCH Lymph % (Auto) Lymph # Seg Neutrophils % Seg Neuts % (Manual) Lymphocytes % (Manual) Nucleated RBC % Seg Neutrophils # Lymphocytes # (Manual) D-Dimer ABG pH ABG pO2 ABG HCO3 ABG O2 Saturation ABG Base Excess ABG Hemoglobin Oxyhemoglobin Sodium Potassium Chloride Carbon Dioxide BUN Glucose 351 H POC Glucose Hemoglobin A1c Calcium Magnesium Ferritin AST Lactate Dehydrogenase 671 H C-Reactive Protein Total Protein Albumin Coronavirus (PCR)
--- NOTE | 2020-02-08 13:02 | XRay Report ---
CHEST 1 VIEW INDICATION / CLINICAL INFORMATION: COVID PNEumonia, Acute hypxic resp failure. COMPARISON: 01/29/2020 FINDINGS: SUPPORT DEVICES: None. HEART / MEDIASTINUM: Unchanged LUNGS / PLEURA: There is mild improvement in bilateral pulmonary opacities on the right. There is sli ght worsening on the left.. No pneumothorax. ADDITIONAL FINDINGS: No significant additional findings. IMPRESSION: There is some improvement in pulmonary opacities on the right and slight worsening on the left. Signer Name: Rohan Arcos MD Signed: 02/08/2020 12:58 PM Workstation Name: [id number]
[2020-02-08] MEDS: LORazepam 2 MG/ML VIAL IV PRN ×3 (13:05→23:06)
[2020-02-08 13:56] LABS: Band Neutrophils # (Manual) 0.1 K/mm3; Basophils % (Manual) 0 % (0.0-1.8); Eosinophils % (Manual) 0 % (0.0-4.3); Myelocytes # (Manual) 0.1 K/mm3; Platelet Estimate Consistent w Auto; RBC Morphology Normal; Total Cells Counted 100
[2020-02-08 14:50] LABS: ABG Base Excess 0.2 mmol/L (-2.0-3.0); ABG HCO3 23.8 mmol/L (20.0-26.0); ABG PCO2 35.9 mm Hg; ABG PH 7.44 pH Units (7.350-7.450); ABG PO2 65.3 mm Hg (80.0-90.0)
[2020-02-08 14:54] LABS: ABG Methemoglobin 0.4 % (0.0-1.5); ABG Oxygen Saturation 94.1 % (95.0-99.0)
--- NOTE | 2020-02-08 16:25 | Progress Note ---
Assessment and Plan /Acute toxic encephalopathy -Likely due to severe hypoxia and COVID-19 infection -Continue to monitor, provide supportive care -Haldol as needed, sitter in place, placed on restraint /Sepsis: present on admission with fever, hypoxia; source COVID-19 infection due to COVID-19 pneumonia: /Bilateral pneumonia s/p Rocephin and azithromycin ID consult requested Coronavirus positive cont Isolation Inflammatory markers are very high - con to follow / COVID-19 PNA Patient exposed to his son who had coronavirus nasal cannula oxygen to keep O2 sat >94% Patient isolated, ID following follow inflammatory markers s/p Remdesivir x 5 days, S/p Tocilizumab IV x1 Continue Solu-Medrol 40 mg IV every 8 hours - will wean off ID now recommended for convalescent plasma -waiting on family consent /Acute hypoxic Respiratory failure - O2 sat drops with activity - cont nebs, solumedrol, supplemental O2 / Elevated d-dimer Lovenox initiated /Hyperlipidemia, cont statin /T2DM (type 2 diabetes mellitus) consistent carb diet, SSI Coverage for now /DVT prophylaxis Patient on Lovenox and GI prophylaxis 01/29: Positive for COVID 19, follow inflammatory markers, start on iv solumedrol. Start Tocilizumab IV x1 01/30; Start Remdesivir, Continue Solu-Medrol 40 mg IV every 8 hours. follow inflammatory markers 01/31: cont Remdesivir day 2, Solu-Medrol 40 mg IV every 8 hours. follow inflammatory markers 02/01 patient is awake and alert, moderately short of breath, he denies any fever, chills, chest pain and has occasional dry cough. Denies nausea or abdominal pain. vital signs deteriorated this morning with worsening hypoxemia, now on nonrebreather Ventimask ID note reviewed, lab results reviewed 02/02 patient was not seen [id number] today, he is now on high flow nasal cannula, no acute events overnight and discussed with RN, lab results reviewed ID note reviewed 02/03: appears agitated, ferritin trended up. completed Remdesivir today. cont solumedrol iv q8h. transfer to [facility], patient on 100% FiO2 today 02/04 patient remains on 90% FiO2, appears very confused and unable to give any consent. Continue IV steroid, will try to get consent for convalescent plasma from family 02/05 patient on 70% Fio2 today, waiting on family consent for for convalescent plasma 02/06 spoke with patient's son directly and he is not willing to give consent for convalescent plasma and requested that his sister who lives in [place] will give the consent. Waiting on patient daughter to call back to give the consent. We will order for type and screen. Patient on 50% FiO2 today. 02/07: On 60% FiO2. obtained consent from daughter. requested for convalescent plasma Brief History: 89 years old male with history of diabetes mellitus, admitted on 01/29/2020 due to 2-week history of generalized weakness, mild cough, dyspnea on exertion. Patient tested positive for COVID-19 recently. Patient's son also was positive for COVID-19 initially. Initial WBC 3.6. Hemoglobin 12.2. Platelets 142. D- dimer 2573. Ferritin 2000, CRP 10.2. LDH 930. Procalcitonin 0.18. AST 76. Chest x-ray shows bilateral interstitial infiltrate. ID following Subjective Date of service: 02/08/20 Principal diagnosis: COVID Interval history: Patient seen and examined patient is very agitated and restrained Remains on high flow o2 Objective - Exam Narrative Exam: Constitutional:alert but confused Neck: supple Oral:no ulcer, dry Cardiovascular: s1 s2 positive Respiratory: mae rhonchi per NS GI: BS positive Musculoskeletal: no joint swelling Skin: No rash or abscess Psych: agitated Neurological: agitated on restraint - Constitutional Vitals: Vital Signs - 12hr 02/08/20 02/08/20 02/08/20 06:51 08:00 10:15 Temperature 99.0 F Pulse Rate 85 Respiratory 20 Rate Blood Pressure 162/84 134/70 O2 Sat by Pulse 92 96 Oximetry 02/08/20 12:04 Temperature 98.0 F Pulse Rate 80 Respiratory 20 Rate Blood Pressure 173/94 O2 Sat by Pulse 89 Oximetry - Labs CBC & Chem 7: 02/08/20 10:46 02/10/20 12:30 Labs: Abnormal lab results 02/07/20 02/07/20 02/07/20 Range/Units 08:22 16:27 22:40 MCV (84-94) fl Seg Neuts % (Manual) (40.0-70.0) % Lymphocytes % (Manual) (13.4-35.0) % Seg Neutrophils # Man (1.8-7.7) K/mm3 Lymphocytes # (Manual) (1.2-5.4) K/mm3 D-Dimer (0-234) ng/mlDDU ABG pO2 (80.0-90.0) mm Hg ABG O2 Saturation (95.0-99.0) % ABG Hemoglobin (14.0-18.0) gm/dl Oxyhemoglobin (95.0-99.0) % Sodium (137-145) mmol/L Potassium (3.6-5.0) mmol/L Chloride (98-107) mmol/L BUN (9-20) mg/dL Glucose (75-100) mg/dL POC Glucose 281 H 288 H 278 H (70-105) Calcium (8.4-10.2) mg/dL Lactate Dehydrogenase (91-180) units/L 02/08/20 02/08/20 02/08/20 Range/Units 07:44 10:46 10:46 MCV 98 H (84-94) fl Seg Neuts % (Manual) 97.0 H (40.0-70.0) % Lymphocytes % (Manual) 0 L (13.4-35.0) % Seg Neutrophils # Man 10.2 H (1.8-7.7) K/mm3 Lymphocytes # (Manual) 0.0 L (1.2-5.4) K/mm3 D-Dimer (0-234) ng/mlDDU ABG pO2 (80.0-90.0) mm Hg ABG O2 Saturation (95.0-99.0) % ABG Hemoglobin (14.0-18.0) gm/dl Oxyhemoglobin (95.0-99.0) % Sodium 148 H (137-145) mmol/L Potassium 3.5 L (3.6-5.0) mmol/L Chloride 112.2 H (98-107) mmol/L BUN 36 H (9-20) mg/dL Glucose 356 H (75-100) mg/dL POC Glucose 267 H (70-105) Calcium 8.3 L (8.4-10.2) mg/dL Lactate Dehydrogenase (91-180) units/L 02/08/20 02/08/20 02/08/20 Range/Units 10:46 10:46 12:22 MCV (84-94) fl Seg Neuts % (Manual) (40.0-70.0) % Lymphocytes % (Manual) (13.4-35.0) % Seg Neutrophils # Man (1.8-7.7) K/mm3 Lymphocytes # (Manual) (1.2-5.4) K/mm3 D-Dimer 261.46 H (0-234) ng/mlDDU ABG pO2 (80.0-90.0) mm Hg ABG O2 Saturation (95.0-99.0) % ABG Hemoglobin (14.0-18.0) gm/dl Oxyhemoglobin (95.0-99.0) % Sodium (137-145) mmol/L Potassium (3.6-5.0) mmol/L Chloride (98-107) mmol/L BUN (9-20) mg/dL Glucose 351 H (75-100) mg/dL POC Glucose 358 H (70-105) Calcium (8.4-10.2) mg/dL Lactate Dehydrogenase 671 H (91-180) units/L 02/08/20 Range/Units 14:00 MCV (84-94) fl Seg Neuts % (Manual) (40.0-70.0) % Lymphocytes % (Manual) (13.4-35.0) % Seg Neutrophils # Man (1.8-7.7) K/mm3 Lymphocytes # (Manual) (1.2-5.4) K/mm3 D-Dimer (0-234) ng/mlDDU ABG pO2 65.3 L (80.0-90.0) mm Hg ABG O2 Saturation 94.1 L (95.0-99.0) % ABG Hemoglobin 12.8 L (14.0-18.0) gm/dl Oxyhemoglobin 92.3 L (95.0-99.0) % Sodium (137-145) mmol/L Potassium (3.6-5.0) mmol/L Chloride (98-107) mmol/L BUN (9-20) mg/dL Glucose (75-100) mg/dL POC Glucose (70-105) Calcium (8.4-10.2) mg/dL Lactate Dehydrogenase (91-180) units/L HEART Score - HEART Score Troponin: Troponin T 0.014 ng/mL (0.00-0.029) 01/29/20 17:03
[2020-02-08] MEDS: oxyCODONE /ACETAMINOPHEN 5-325MG TAB PO PRN (23:06)
[2020-02-08] MEDS: METOPROLOL TARTRATE 50 MG TAB PO SCH (23:07)
[2020-02-09] MEDS: methylPREDNISolone Sod Succinate 40 MG/1 ML INJ IV SCH ×3 (05:07→22:04)
[2020-02-09] MEDS: LORazepam 2 MG/ML VIAL IV PRN ×3 (05:07→22:05)
[2020-02-09] MEDS: oxyCODONE /ACETAMINOPHEN 5-325MG TAB PO PRN ×2 (05:07→22:05)
--- NOTE | 2020-02-09 09:23 | Progress Note ---
Assessment and Plan 1. Abnormal resting EKG 2. Type 2 diabetes mellitus 3. Essential hypertension 4. COVID 19+ viral pneumonia Plan. Cardiac mcdonald stable rhythm sinus with occasional PVCs. Hemodynamically stable echocardiogram when more stable before discharge Subjective Date of service: 02/09/20 Principal diagnosis: COVID Interval history: No cardiac symptoms Objective Vital Signs Temp Pulse Resp BP Pulse Ox 02/09/20 05:20 96.8 F L 122 H 18 122/76 94 02/09/20 03:19 98 02/08/20 22:41 97.8 F 127 H 20 121/77 96 02/08/20 22:38 97 02/08/20 16:04 97.4 F L 85 20 141/72 94 02/08/20 12:04 98.0 F 80 20 173/94 89 02/08/20 10:15 134/70 - Physical Examination General: No Apparent Distress Neck: Positive: trachea midline. Negative: JVD/HJR Cardiac: Positive: Regular Rate, S1/S2, PMI, Laterally Displaced Lungs: Positive: clear to auscultation Extremities: Absent: edema - Labs and Meds Cardiac Enzymes 02/08/20 Range/Units 10:46 Lactate Dehydrogenase 671 H (91-180) units/L CBC 02/08/20 Range/Units 10:46 WBC 10.5 (4.5-11.0) K/mm3 RBC 4.64 (3.65-5.03) M/mm3 Hgb 14.5 (11.8-15.2) gm/dl Hct 45.5 (35.5-45.6) % Plt Count 234 (140-440) K/mm3 Comprehensive Metabolic Panel 02/08/20 02/08/20 Range/Units 10:46 10:46 Sodium 148 H (137-145) mmol/L Potassium 3.5 L (3.6-5.0) mmol/L Chloride 112.2 H (98-107) mmol/L Carbon Dioxide 24 (22-30) mmol/L BUN 36 H (9-20) mg/dL Creatinine 1.0 (0.8-1.5) mg/dL Glucose 356 H 351 H (75-100) mg/dL Calcium 8.3 L (8.4-10.2) mg/dL - Imaging and Cardiology EKG: report reviewed (Sinus tachycardia)
[2020-02-09] MEDS: INSULIN LISPRO 100 UNIT/ML SUB-Q SCH ×4 (11:15→23:53)
[2020-02-09] MEDS: INSULIN REGULAR, HUMAN 100 UNITS/1 ML SUB-Q SCH ×3 (11:15→17:33)
[2020-02-09] MEDS: ENOXAPARIN 100 MG/1 ML INJ SUB-Q SCH ×2 (13:15→22:04)
[2020-02-09] MEDS: FAMOTIDINE 20 MG TAB PO SCH ×2 (13:23→22:04)
[2020-02-09] MEDS: METOPROLOL TARTRATE 50 MG TAB PO SCH ×2 (13:23→23:59)
[2020-02-09] MEDS: PRAZOSIN 1 MG CAP PO SCH (13:24)
[2020-02-09] MEDS: ZINC SULFATE 220 MG CAP PO SCH (13:24)
--- NOTE | 2020-02-09 14:25 | Progress Note ---
Assessment and Plan /Acute toxic encephalopathy -Likely due to severe hypoxia and COVID-19 infection -Continue to monitor, provide supportive care -Haldol as needed, sitter in place, placed on restraint /Sepsis: present on admission with fever, hypoxia; source COVID-19 infection due to COVID-19 pneumonia: /Bilateral pneumonia s/p Rocephin and azithromycin ID consult requested Coronavirus positive cont Isolation Inflammatory markers are very high - con to follow / COVID-19 PNA Patient exposed to his son who had coronavirus nasal cannula oxygen to keep O2 sat >94% Patient isolated, ID following follow inflammatory markers s/p Remdesivir x 5 days, S/p Tocilizumab IV x1 Continue Solu-Medrol 40 mg IV every 8 hours - will wean off ID now recommended for convalescent plasma -waiting on family consent /Acute hypoxic Respiratory failure - O2 sat drops with activity - cont nebs, solumedrol, supplemental O2 / Elevated d-dimer Lovenox initiated /Hyperlipidemia, cont statin /T2DM (type 2 diabetes mellitus) consistent carb diet, SSI Coverage for now /DVT prophylaxis Patient on Lovenox and GI prophylaxis 01/29: Positive for COVID 19, follow inflammatory markers, start on iv solumedrol. Start Tocilizumab IV x1 01/30; Start Remdesivir, Continue Solu-Medrol 40 mg IV every 8 hours. follow inflammatory markers 01/31: cont Remdesivir day 2, Solu-Medrol 40 mg IV every 8 hours. follow inflammatory markers 02/01 patient is awake and alert, moderately short of breath, he denies any fever, chills, chest pain and has occasional dry cough. Denies nausea or abdominal pain. vital signs deteriorated this morning with worsening hypoxemia, now on nonrebreather Ventimask ID note reviewed, lab results reviewed 02/02 patient was not seen [id number] today, he is now on high flow nasal cannula, no acute events overnight and discussed with RN, lab results reviewed ID note reviewed 02/03: appears agitated, ferritin trended up. completed Remdesivir today. cont solumedrol iv q8h. transfer to [facility], patient on 100% FiO2 today 02/04 patient remains on 90% FiO2, appears very confused and unable to give any consent. Continue IV steroid, will try to get consent for convalescent plasma from family 02/05 patient on 70% Fio2 today, waiting on family consent for for convalescent plasma 02/06 spoke with patient's son directly and he is not willing to give consent for convalescent plasma and requested that his sister who lives in [place] will give the consent. Waiting on patient daughter to call back to give the consent. We will order for type and screen. Patient on 50% FiO2 today. 02/07: On 60% FiO2. obtained consent from daughter. requested for convalescent plasma 02/08: on 50% FiO2. requested for convalescent plasma - code [id number], waiting on shipment from [facility] Brief History: 89 years old male with history of diabetes mellitus, admitted on 01/29/2020 due to 2-week history of generalized weakness, mild cough, dyspnea on exertion. Patient tested positive for COVID-19 recently. Patient's son also was positive for COVID-19 initially. Initial WBC 3.6. Hemoglobin 12.2. Platelets 142. D- dimer 2573. Ferritin 2000, CRP 10.2. LDH 930. Procalcitonin 0.18. AST 76. Chest x-ray shows bilateral interstitial infiltrate. ID following Subjective Date of service: 02/09/20 Principal diagnosis: COVID Interval history: Patient seen and examined patient is very agitated and restrained Remains on high flow o2 Objective - Exam Narrative Exam: Constitutional:alert but confused Neck: supple Oral:no ulcer, dry Cardiovascular: s1 s2 positive Respiratory: mae rhonchi per NS GI: BS positive Musculoskeletal: no joint swelling Skin: No rash or abscess Psych: agitated Neurological: agitated on restraint - Constitutional Vitals: Vital Signs - 12hr 02/09/20 02/09/20 02/09/20 03:19 05:20 12:15 Temperature 96.8 F L 98.2 F Pulse Rate 122 H Respiratory 18 22 Rate Blood Pressure 122/76 160/86 O2 Sat by Pulse 98 94 91 Oximetry - Labs CBC & Chem 7: 02/08/20 10:46 02/10/20 12:30 Labs: Abnormal lab results 02/08/20 02/08/20 02/08/20 Range/Units 10:46 14:00 17:02 ABG pO2 65.3 L (80.0-90.0) mm Hg ABG O2 Saturation 94.1 L (95.0-99.0) % ABG Hemoglobin 12.8 L (14.0-18.0) gm/dl Oxyhemoglobin 92.3 L (95.0-99.0) % POC Glucose 331 H (70-105) Ferritin 1611.0 H (13.0-400.0) ng/mL 02/09/20 02/09/20 Range/Units 08:45 12:27 ABG pO2 (80.0-90.0) mm Hg ABG O2 Saturation (95.0-99.0) % ABG Hemoglobin (14.0-18.0) gm/dl Oxyhemoglobin (95.0-99.0) % POC Glucose 160 H 262 H (70-105) Ferritin (13.0-400.0) ng/mL HEART Score - HEART Score Troponin: Troponin T 0.014 ng/mL (0.00-0.029) 01/29/20 17:03
--- NOTE | 2020-02-09 16:00 | Progress Note ---
Assessment and Plan Cultures: Blood cultures no growth Assessment: 89 years old male with history of diabetes mellitus, admitted on 01/29/2020 due to 2-week history of generalized weakness, mild cough, dyspnea on exertion: #Sepsis: present on admission with fever, hypoxia; source COVID-19 infection. #COVID-19 pneumonia: elevated biomarkers. D-dimer 2573. Ferritin 2000, CRP 10.2. LDH 930. 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 Completed 5 days of Remdesivir, completed Actemra 01/31/2020. #Acute hypoxemic respiratory failure: on high flow. Recommendations: Continue steroids day 11, consider tapering Awaiting convalescent plasma, appreciate assistance of Dr. López monitor markers every 2 days continue with anticoagulation given the severe hypoxia and elevated d-dimer Prognosis appears guarded. Km Calhoun MD, FACP [facility] C: [phone] O: [phone] F: [phone] Subjective Date of service: 02/09/20 Principal diagnosis: COVID Interval history: No fever. Remains on oxygen. Awaiting plasma. Objective - Exam Narrative Exam: Physical Exam (reviewed in chart due to PPE conservation) Constitutional: limited due to PPE conservation strategy Head, Ears, Nose: limited due to PPE conservation strategy Eyes: limited due to PPE conservation strategy Neck: limited due to PPE conservation strategy Oral: limited due to PPE conservation strategy Cardiovascular: limited due to PPE conservation strategy Respiratory: limited due to PPE conservation strategy GI: limited due to PPE conservation strategy Musculoskeletal: limited due to PPE conservation strategy Skin: limited due to PPE conservation strategy Hem/Lymphatic: limited due to PPE conservation strategy Psych: limited due to PPE conservation strategy Neurological: limited due to PPE conservation strategy - Constitutional Vitals: Vital Signs Temp Pulse Resp BP Pulse Ox 98.2 F 122 H 22 160/86 91 02/09/20 12:15 02/09/20 05:20 02/09/20 12:15 02/09/20 12:15 02/09/20 12:15 Temperature -Last 24 Hours Temperature 98.2 F Temperature 96.8 F Temperature 97.8 F Temperature 97.4 F - Labs CBC & Chem 7: 02/08/20 10:46 02/08/20 10:46 Labs: Abnormal lab results 02/08/20 02/08/20 02/09/20 Range/Units 10:46 17:02 08:45 POC Glucose 331 H 160 H (70-105) Ferritin 1611.0 H (13.0-400.0) ng/mL 02/09/20 Range/Units 12:27 POC Glucose 262 H (70-105) Ferritin (13.0-400.0) ng/mL
--- NOTE | 2020-02-09 20:16 | Progress Note ---
Assessment and Plan Patient not responding to verbal stimuli. Patient still on high flow O2, FIO2 60%. O2 saturation 96%. Weak, No acute respiratory distress. Patient afebrile. No leukocytosis. Chest xray 02/08/20 reported There is some improvement in pulmonary opacities on the right and slight worsening on the left. Recommend to place him on Vapotherm, FIO2 50%. - Patient Problems (1) Acute respiratory failure with hypoxia Current Visit: Yes Status: Acute Plan to address problem: Recommend Vapotherm FIO2 50%. Continue Solumedrol. Continue Lovenox. Continue famotidine. (2) Bilateral pneumonia Current Visit: Yes Status: Acute Qualifiers: Lung location: unspecified part of lung Plan to address problem: Antibiotics as per infectious diseases. (3) COVID-19 Current Visit: Yes Status: Acute Plan to address problem: Vapotherm FIO2 100%. Continue Solumedrol. Continue Lovenox. Continue famotidine. Management as per infectious diseases. (4) Elevated d-dimer Current Visit: Yes Status: Acute Plan to address problem: Patient is on S/C Lovenox 100mg S/C q 12 hours. (5) T2DM (type 2 diabetes mellitus) Current Visit: Yes Status: Chronic Qualifiers: Diabetes mellitus long term care pharmacist insulin use: unspecified long term care pharmacist insulin use s tatus Plan to address problem: Management as per primary care. Subjective Date of service: 02/09/20 Principal diagnosis: COVID Interval history: Patient not responding to verbal stimuli. Patient still on high flow O2, FIO2 60%. O2 saturation 96%. Weak, No acute respiratory distress. Patient afebrile. No leukocytosis. Chest xray 02/08/20 reported There is some improvement in pulm onary opacities on the right and slight worsening on the left. Recommend to place him on Vapotherm, FIO2 50%. Objective Vital Signs - 12hr 02/09/20 02/09/20 12:15 17:08 Temperature 98.2 F 98.4 F Pulse Rate 86 Respiratory 22 19 Rate Blood Pressure 160/86 O2 Sat by Pulse 91 100 Oximetry Constitutional: no acute distress, lethargic Eyes: non-icteric ENT: oropharynx dry Neck: supple, no JVD Effort: mildly labored Ascultation: Bilateral: rhonchi Cardiovascular: regular rate and rhythm, other (S1,S2) Gastrointestinal: normoactive bowel sounds, hypoactive bowel sounds, soft, non- tender Integumentary: normal Extremities: no cyanosis, no edema Neurologic: non-focal exam (grossly, moving all extremities), unable to assess Psychiatric: other (Unable to assess due to mental status at this time.) CBC and BMP: 02/08/20 10:46 02/08/20 10:46 ABG, PT/INR, D-dimer: ABG ABG pH 7.440 pH Units (7.350-7.450) 02/08/20 14:00 ABG pCO2 35.9 mm Hg 02/08/20 14:00 ABG pO2 65.3 mm Hg (80.0-90.0) L 02/08/20 14:00 ABG O2 Saturation 94.1 % (95.0-99.0) L 02/08/20 14:00 PT/INR, D-dimer PT 13.9 Sec. (12.2-14.9) 01/29/20 17:03 INR 1.09 (0.87-1.13) 01/29/20 17:03 D-Dimer 261.46 ng/mlDDU (0-234) H 02/08/20 10:46 Abnormal lab findings: Abnormal Labs 01/29/20 01/29/20 01/29/20 17:03 17:03 17:03 WBC 3.6 L Hgb Hct MCV 96 H MCH 33 H Lymph % (Auto) Lymph # 0.5 L Seg Neutrophils % 79.6 H Seg Neuts % (Manual) Lymphocytes % (Manual) Nucleated RBC % Seg Neutrophils # Seg Neutrophils # Man Lymphocytes # (Manual) D-Dimer 2573.78 H ABG pH ABG pO2 ABG HCO3 ABG O2 Saturation ABG Base Excess ABG Hemoglobin Oxyhemoglobin Sodium Potassium Chloride Carbon Dioxide BUN Glucose 240 H POC Glucose Hemoglobin A1c Calcium Magnesium Ferritin AST 76 H Lactate Dehydrogenase C-Reactive Protein Total Protein Albumin 3.0 L Coronavirus (PCR) 01/29/20 01/29/20 01/29/20 18:33 18:33 23:28 WBC Hgb Hct MCV MCH Lymph % (Auto) Lymph # Seg Neutrophils % Seg Neuts % (Manual) Lymphocytes % (Manual) Nucleated RBC % Seg Neutrophils # Seg Neutrophils # Man Lymphocytes # (Manual) D-Dimer ABG pH ABG pO2 ABG HCO3 ABG O2 Saturation ABG Base Excess ABG Hemoglobin Oxyhemoglobin Sodium Potassium Chloride Carbon Dioxide BUN Glucose 230 H POC Glucose 253 H Hemoglobin A1c Calcium Magnesium Ferritin > 2000.0 H AST Lactate Dehydrogenase 930 H C-Reactive Protein 10.20 H Total Protein Albumin Coronavirus (PCR) 01/29/20 01/30/20 01/30/20 Unknown 05:41 05:41 WBC Hgb 11.7 L Hct 35.2 L MCV MCH Lymph % (Auto) 8.1 L Lymph # 0.4 L Seg Neutrophils % 85.8 H Seg Neuts % (Manual) Lymphocytes % (Manual) Nucleated RBC % Seg Neutrophils # Seg Neutrophils # Man Lymphocytes # (Manual) D-Dimer ABG pH ABG pO2 ABG HCO3 ABG O2 Saturation ABG Base Excess ABG Hemoglobin Oxyhemoglobin Sodium Potassium Chloride Carbon Dioxide 19 L BUN Glucose 242 H POC Glucose Hemoglobin A1c Calcium 7.7 L Magnesium Ferritin AST 79 H Lactate Dehydrogenase C-Reactive Protein Total Protein Albumin 2.9 L Coronavirus (PCR) Positive A 01/30/20 01/30/20 01/30/20 05:41 07:55 12:54 WBC Hgb Hct MCV MCH Lymph % (Auto) Lymph # Seg Neutrophils % Seg Neuts % (Manual) Lymphocytes % (Manual) Nucleated RBC % Seg Neutrophils # Seg Neutrophils # Man Lymphocytes # (Manual) D-Dimer ABG pH ABG pO2 ABG HCO3 ABG O2 Saturation ABG Base Excess ABG Hemoglobin Oxyhemoglobin Sodium Potassium Chloride Carbon Dioxide BUN Glucose POC Glucose 262 H 232 H Hemoglobin A1c 7.3 H Calcium Magnesium Ferritin AST Lactate Dehydrogenase C-Reactive Protein Total Protein Albumin Coronavirus (PCR) 01/30/20 01/30/20 01/31/20 16:07 21:15 08:42 WBC Hgb Hct MCV MCH Lymph % (Auto) Lymph # Seg Neutrophils % Seg Neuts % (Manual) Lymphocytes % (Manual) Nucleated RBC % Seg Neutrophils # Seg Neutrophils # Man Lymphocytes # (Manual) D-Dimer ABG pH ABG pO2 ABG HCO3 ABG O2 Saturation ABG Base Excess ABG Hemoglobin Oxyhemoglobin Sodium Potassium Chloride Carbon Dioxide BUN Glucose POC Glucose 211 H 285 H 328 H Hemoglobin A1c Calcium Magnesium Ferritin AST Lactate Dehydrogenase C-Reactive Protein Total Protein Albumin Coronavirus (PCR) 01/31/20 01/31/20 01/31/20 12:44 12:44 12:44 WBC Hgb Hct MCV MCH Lymph % (Auto) Lymph # Seg Neutrophils % Seg Neuts % (Manual) Lymphocytes % (Manual) Nucleated RBC % Seg Neutrophils # Seg Neutrophils # Man Lymphocytes # (Manual) D-Dimer 795.52 H ABG pH ABG pO2 ABG HCO3 ABG O2 Saturation ABG Base Excess ABG Hemoglobin Oxyhemoglobin Sodium Potassium Chloride Carbon Dioxide BUN Glucose 384 H POC Glucose Hemoglobin A1c Calcium Magnesium Ferritin > 2000.0 H AST Lactate Dehydrogenase 1393 H C-Reactive Protein 5.80 H Total Protein Albumin Coronavirus (PCR) 01/31/20 01/31/20 02/01/20 16:36 23:46 08:00 WBC Hgb Hct MCV MCH Lymph % (Auto) Lymph # Seg Neutrophils % Seg Neuts % (Manual) Lymphocytes % (Manual) Nucleated RBC % Seg Neutrophils # Seg Neutrophils # Man Lymphocytes # (Manual) D-Dimer ABG pH ABG pO2 ABG HCO3 ABG O2 Saturation ABG Base Excess ABG Hemoglobin Oxyhemoglobin Sodium Potassium Chloride Carbon Dioxide BUN Glucose POC Glucose 384 H 322 H 287 H Hemoglobin A1c Calcium Magnesium Ferritin AST Lactate Dehydrogenase C-Reactive Protein Total Protein Albumin Coronavirus (PCR) 02/01/20 02/01/20 02/01/20 12:48 16:53 23:25 WBC Hgb Hct MCV MCH Lymph % (Auto) Lymph # Seg Neutrophils % Seg Neuts % (Manual) Lymphocytes % (Manual) Nucleated RBC % Seg Neutrophils # Seg Neutrophils # Man Lymphocytes # (Manual) D-Dimer ABG pH ABG pO2 ABG HCO3 ABG O2 Saturation ABG Base Excess ABG Hemoglobin Oxyhemoglobin Sodium Potassium Chloride Carbon Dioxide BUN Glucose POC Glucose 309 H 362 H 264 H Hemoglobin A1c Calcium Magnesium Ferritin AST Lactate Dehydrogenase C-Reactive Protein Total Protein Albumin Coronavirus (PCR) 02/02/20 02/02/20 02/02/20 05:31 05:31 05:31 WBC Hgb Hct MCV MCH Lymph % (Auto) Lymph # Seg Neutrophils % Seg Neuts % (Manual) Lymphocytes % (Manual) Nucleated RBC % Seg Neutrophils # Seg Neutrophils # Man Lymphocytes # (Manual) D-Dimer 416.36 H ABG pH ABG pO2 ABG HCO3 ABG O2 Saturation ABG Base Excess ABG Hemoglobin Oxyhemoglobin Sodium Potassium Chloride 107.2 H Carbon Dioxide BUN 25 H Glucose 304 H POC Glucose Hemoglobin A1c Calcium 8.2 L Magnesium Ferritin > 2000.0 H AST Lactate Dehydrogenase C-Reactive Protein Total Protein Albumin Coronavirus (PCR) 02/02/20 02/02/20 02/02/20 05:31 09:14 11:57 WBC Hgb Hct MCV MCH Lymph % (Auto) Lymph # Seg Neutrophils % Seg Neuts % (Manual) Lymphocytes % (Manual) Nucleated RBC % Seg Neutrophils # Seg Neutrophils # Man Lymphocytes # (Manual) D-Dimer ABG pH ABG pO2 ABG HCO3 ABG O2 Saturation ABG Base Excess ABG Hemoglobin Oxyhemoglobin Sodium Potassium Chloride Carbon Dioxide BUN Glucose POC Glucose 334 H 429 H Hemoglobin A1c Calcium Magnesium Ferritin AST Lactate Dehydrogenase 1297 H C-Reactive Protein 2.20 H Total Protein Albumin Coronavirus (PCR) 02/02/20 02/02/20 02/02/20 12:44 16:35 22:55 WBC Hgb Hct MCV MCH Lymph % (Auto) Lymph # Seg Neutrophils % Seg Neuts % (Manual) Lymphocytes % (Manual) Nucleated RBC % Seg Neutrophils # Seg Neutrophils # Man Lymphocytes # (Manual) D-Dimer ABG pH 7.466 H ABG pO2 60.9 L ABG HCO3 ABG O2 Saturation 93.6 L ABG Base Excess -2.7 L ABG Hemoglobin 11.8 L Oxyhemoglobin 91.4 L Sodium Potassium Chloride Carbon Dioxide BUN Glucose POC Glucose 300 H 339 H Hemoglobin A1c Calcium Magnesium Ferritin AST Lactate Dehydrogenase C-Reactive Protein Total Protein Albumin Coronavirus (PCR) 02/03/20 02/03/20 02/03/20 01:06 06:09 06:09 WBC Hgb Hct MCV MCH Lymph % (Auto) Lymph # Seg Neutrophils % Seg Neuts % (Manual) 92.0 H Lymphocytes % (Manual) 3.0 L Nucleated RBC % 2.0 H Seg Neutrophils # Seg Neutrophils # Man Lymphocytes # (Manual) 0.3 L D-Dimer ABG pH ABG pO2 ABG HCO3 ABG O2 Saturation ABG Base Excess ABG Hemoglobin Oxyhemoglobin Sodium Potassium Chloride Carbon Dioxide BUN 27 H Glucose 348 H POC Glucose Hemoglobin A1c Calcium 8.1 L Magnesium 2.50 H 2.50 H Ferritin AST Lactate Dehydrogenase C-Reactive Protein Total Protein 5.4 L Albumin 3.0 L Coronavirus (PCR) 02/03/20 02/03/20 02/03/20 08:42 11:50 16:18 WBC Hgb Hct MCV MCH Lymph % (Auto) Lymph # Seg Neutrophils % Seg Neuts % (Manual) Lymphocytes % (Manual) Nucleated RBC % Seg Neutrophils # Seg Neutrophils # Man Lymphocytes # (Manual) D-Dimer ABG pH ABG pO2 ABG HCO3 ABG O2 Saturation ABG Base Excess ABG Hemoglobin Oxyhemoglobin Sodium Potassium Chloride Carbon Dioxide BUN Glucose POC Glucose 355 H 345 H 382 H Hemoglobin A1c Calcium Magnesium Ferritin AST Lactate Dehydrogenase C-Reactive Protein Total Protein Albumin Coronavirus (PCR) 02/03/20 02/03/20 02/04/20 22:00 22:04 06:06 WBC Hgb Hct MCV MCH Lymph % (Auto) Lymph # Seg Neutrophils % Seg Neuts % (Manual) Lymphocytes % (Manual) Nucleated RBC % Seg Neutrophils # Seg Neutrophils # Man Lymphocytes # (Manual) D-Dimer ABG pH 7.505 H ABG pO2 59.1 L ABG HCO3 19.1 L ABG O2 Saturation 93.0 L ABG Base Excess -2.4 L ABG Hemoglobin 13.3 L Oxyhemoglobin 91.1 L Sodium Potassium Chloride Carbon Dioxide BUN Glucose POC Glucose 309 H Hemoglobin A1c Calcium Magnesium Ferritin 4214.0 H AST Lactate Dehydrogenase C-Reactive Protein Total Protein Albumin Coronavirus (PCR) 02/04/20 02/04/20 02/04/20 06:06 06:06 06:06 WBC Hgb Hct MCV 95 H MCH Lymph % (Auto) 4.3 L Lymph # 0.5 L Seg Neutrophils % 87.5 H Seg Neuts % (Manual) Lymphocytes % (Manual) Nucleated RBC % Seg Neutrophils # 9.3 H Seg Neutrophils # Man Lymphocytes # (Manual) D-Dimer ABG pH ABG pO2 ABG HCO3 ABG O2 Saturation ABG Base Excess ABG Hemoglobin Oxyhemoglobin Sodium Potassium Chloride Carbon Dioxide 21 L BUN 30 H Glucose 393 H POC Glucose Hemoglobin A1c Calcium 7.8 L Magnesium 2.70 H Ferritin AST Lactate Dehydrogenase 919 H C-Reactive Protein Total Protein Albumin Coronavirus (PCR) 02/04/20 02/04/20 02/04/20 08:57 13:12 17:45 WBC Hgb Hct MCV MCH Lymph % (Auto) Lymph # Seg Neutrophils % Seg Neuts % (Manual) Lymphocytes % (Manual) Nucleated RBC % Seg Neutrophils # Seg Neutrophils # Man Lymphocytes # (Manual) D-Dimer ABG pH ABG pO2 ABG HCO3 ABG O2 Saturation ABG Base Excess ABG Hemoglobin Oxyhemoglobin Sodium Potassium Chloride Carbon Dioxide BUN Glucose POC Glucose 353 H 364 H 292 H Hemoglobin A1c Calcium Magnesium Ferritin AST Lactate Dehydrogenase C-Reactive Protein Total Protein Albumin Coronavirus (PCR) 02/04/20 02/05/20 02/05/20 22:36 08:44 12:53 WBC Hgb Hct MCV MCH Lymph % (Auto) Lymph # Seg Neutrophils % Seg Neuts % (Manual) Lymphocytes % (Manual) Nucleated RBC % Seg Neutrophils # Seg Neutrophils # Man Lymphocytes # (Manual) D-Dimer ABG pH ABG pO2 ABG HCO3 ABG O2 Saturation ABG Base Excess ABG Hemoglobin Oxyhemoglobin Sodium Potassium Chloride Carbon Dioxide BUN Glucose POC Glucose 255 H 313 H 346 H Hemoglobin A1c Calcium Magnesium Ferritin AST Lactate Dehydrogenase C-Reactive Protein Total Protein Albumin Coronavirus (PCR) 02/05/20 02/05/20 02/06/20 16:55 22:38 01:04 WBC Hgb Hct MCV MCH Lymph % (Auto) Lymph # Seg Neutrophils % Seg Neuts % (Manual) Lymphocytes % (Manual) Nucleated RBC % Seg Neutrophils # Seg Neutrophils # Man Lymphocytes # (Manual) D-Dimer ABG pH ABG pO2 ABG HCO3 ABG O2 Saturation ABG Base Excess ABG Hemoglobin Oxyhemoglobin Sodium Potassium Chloride Carbon Dioxide BUN Glucose POC Glucose 270 H 106 H 122 H Hemoglobin A1c Calcium Magnesium Ferritin AST Lactate Dehydrogenase C-Reactive Protein Total Protein Albumin Coronavirus (PCR) 02/06/20 02/06/20 02/06/20 09:21 12:27 15:20 WBC Hgb Hct MCV MCH Lymph % (Auto) Lymph # Seg Neutrophils % Seg Neuts % (Manual) Lymphocytes % (Manual) Nucleated RBC % Seg Neutrophils # Seg Neutrophils # Man Lymphocytes # (Manual) D-Dimer 328.02 H ABG pH ABG pO2 ABG HCO3 ABG O2 Saturation ABG Base Excess ABG Hemoglobin Oxyhemoglobin Sodium Potassium Chloride Carbon Dioxide BUN Glucose POC Glucose 227 H 295 H Hemoglobin A1c Calcium Magnesium Ferritin AST Lactate Dehydrogenase C-Reactive Protein Total Protein Albumin Coronavirus (PCR) 02/06/20 02/06/20 02/06/20 15:20 15:20 16:50 WBC Hgb Hct MCV MCH Lymph % (Auto) Lymph # Seg Neutrophils % Seg Neuts % (Manual) Lymphocytes % (Manual) Nucleated RBC % Seg Neutrophils # Seg Neutrophils # Man Lymphocytes # (Manual) D-Dimer ABG pH ABG pO2 ABG HCO3 ABG O2 Saturation ABG Base Excess ABG Hemoglobin Oxyhemoglobin Sodium Potassium Chloride Carbon Dioxide BUN Glucose 311 H POC Glucose 258 H Hemoglobin A1c Calcium Magnesium Ferritin < 2000.0 H AST Lactate Dehydrogenase 719 H C-Reactive Protein Total Protein Albumin Coronavirus (PCR) 02/06/20 02/07/20 02/07/20 21:23 08:22 10:51 WBC Hgb Hct MCV MCH Lymph % (Auto) Lymph # Seg Neutrophils % Seg Neuts % (Manual) Lymphocytes % (Manual) Nucleated RBC % Seg Neutrophils # Seg Neutrophils # Man Lymphocytes # (Manual) D-Dimer ABG pH ABG pO2 ABG HCO3 ABG O2 Saturation ABG Base Excess ABG Hemoglobin Oxyhemoglobin Sodium Potassium Chloride Carbon Dioxide BUN Glucose POC Glucose 334 H 281 H 309 H Hemoglobin A1c Calcium Magnesium Ferritin AST Lactate Dehydrogenase C-Reactive Protein Total Protein Albumin Coronavirus (PCR) 02/07/20 02/07/20 02/08/20 16:27 22:40 07:44 WBC Hgb Hct MCV MCH Lymph % (Auto) Lymph # Seg Neutrophils % Seg Neuts % (Manual) Lymphocytes % (Manual) Nucleated RBC % Seg Neutrophils # Seg Neutrophils # Man Lymphocytes # (Manual) D-Dimer ABG pH ABG pO2 ABG HCO3 ABG O2 Saturation ABG Base Excess ABG Hemoglobin Oxyhemoglobin Sodium Potassium Chloride Carbon Dioxide BUN Glucose POC Glucose 288 H 278 H 267 H Hemoglobin A1c Calcium Magnesium Ferritin AST Lactate Dehydrogenase C-Reactive Protein Total Protein Albumin Coronavirus (PCR) 02/08/20 02/08/20 02/08/20 10:46 10:46 10:46 WBC Hgb Hct MCV 98 H MCH Lymph % (Auto) Lymph # Seg Neutrophils % Seg Neuts % (Manual) 97.0 H Lymphocytes % (Manual) 0 L Nucleated RBC % Seg Neutrophils # Seg Neutrophils # Man 10.2 H Lymphocytes # (Manual) 0.0 L D-Dimer 261.46 H ABG pH ABG pO2 ABG HCO3 ABG O2 Saturation ABG Base Excess ABG Hemoglobin Oxyhemoglobin Sodium 148 H Potassium 3.5 L Chloride 112.2 H Carbon Dioxide BUN 36 H Glucose 356 H POC Glucose Hemoglobin A1c Calcium 8.3 L Magnesium Ferritin AST Lactate Dehydrogenase C-Reactive Protein Total Protein Albumin Coronavirus (PCR) 02/08/20 02/08/20 02/08/20 10:46 10:46 12:22 WBC Hgb Hct MCV MCH Lymph % (Auto) Lymph # Seg Neutrophils % Seg Neuts % (Manual) Lymphocytes % (Manual) Nucleated RBC % Seg Neutrophils # Seg Neutrophils # Man Lymphocytes # (Manual) D-Dimer ABG pH ABG pO2 ABG HCO3 ABG O2 Saturation ABG Base Excess ABG Hemoglobin Oxyhemoglobin Sodium Potassium Chloride Carbon Dioxide BUN Glucose 351 H POC Glucose 358 H Hemoglobin A1c Calcium Magnesium Ferritin 1611.0 H AST Lactate Dehydrogenase 671 H C-Reactive Protein Total Protein Albumin Coronavirus (PCR) 02/08/20 02/08/20 02/09/20 14:00 17:02 08:45 WBC Hgb Hct MCV MCH Lymph % (Auto) Lymph # Seg Neutrophils % Seg Neuts % (Manual) Lymphocytes % (Manual) Nucleated RBC % Seg Neutrophils # Seg Neutrophils # Man Lymphocytes # (Manual) D-Dimer ABG pH ABG pO2 65.3 L ABG HCO3 ABG O2 Saturation 94.1 L ABG Base Excess ABG Hemoglobin 12.8 L Oxyhemoglobin 92.3 L Sodium Potassium Chloride Carbon Dioxide BUN Glucose POC Glucose 331 H 160 H Hemoglobin A1c Calcium Magnesium Ferritin AST Lactate Dehydrogenase C-Reactive Protein Total Protein Albumin Coronavirus (PCR) 02/09/20 02/09/20 12:27 17:22 WBC Hgb Hct MCV MCH Lymph % (Auto) Lymph # Seg Neutrophils % Seg Neuts % (Manual) Lymphocytes % (Manual) Nucleated RBC % Seg Neutrophils # Seg Neutrophils # Man Lymphocytes # (Manual) D-Dimer ABG pH ABG pO2 ABG HCO3 ABG O2 Saturation ABG Base Excess ABG Hemoglobin Oxyhemoglobin Sodium Potassium Chloride Carbon Dioxide BUN Glucose POC Glucose 262 H 237 H Hemoglobin A1c Calcium Magnesium Ferritin AST Lactate Dehydrogenase C-Reactive Protein Total Protein Albumin Coronavirus (PCR) Chest x-ray: report reviewed, image reviewed Additional Studies: CHEST 1 VIEW 02/08/20 INDICATION / CLINICAL INFORMATION: COVID PNEumonia, Acute hypxic resp failure. COMPARISON: 01/29/2020 FINDINGS: SUPPORT DEVICES: None. HEART / MEDIASTINUM: Unchanged LUNGS / PLEURA: There is mild improvement in bilateral pulmonary opacities on the right. There is slight worsening on the left.. No pneumothorax. ADDITIONAL FINDINGS: No significant additional findings. IMPRESSION: There is some improvement in pulmonary opacities on the right and slight worsening on the left.
[2020-02-09] MEDS: INSULIN GLARGINE 100 UNITS/ML SUB-Q SCH (23:53)
[2020-02-10] MEDS: HYDROmorphone 1 MG/1 ML INJ IV PRN (05:10)
[2020-02-10] MEDS: methylPREDNISolone Sod Succinate 40 MG/1 ML INJ IV SCH ×3 (05:10→23:52)
[2020-02-10] MEDS: LORazepam 2 MG/ML VIAL IV PRN ×3 (05:10→23:52)
[2020-02-10] MEDS: INSULIN LISPRO 100 UNIT/ML SUB-Q SCH ×4 (09:00→23:54)
[2020-02-10] MEDS ORDERED: LIPASE 10,500/PROTEASE 25,000/AMYLASE 43,750 (UNITS) DR CAP FEEDTUBE PRN (09:27)
[2020-02-10] MEDS ORDERED: SODIUM BICARBONATE 325 MG TAB FEEDTUBE PRN (09:27)
[2020-02-10] MEDS ORDERED: SIMPLE SYRUP 15 ML FEEDTUBE PRN ×2 (09:27)
--- NOTE | 2020-02-10 09:58 | Progress Note ---
Assessment and Plan 1. Abnormal resting EKG 2. Type 2 diabetes mellitus 3. Essential hypertension 4. COVID 19+ viral pneumonia ( Patient not examined today ) Plan. Cardiac mcdonald stable rhythm sinus with occasional PVCs. Hemodynamically stable echocardiogram when more stable before discharge Subjective Date of service: 02/10/20 Principal diagnosis: COVID Interval history: No cardiac symptoms Objective Vital Signs Temp Pulse Resp BP Pulse Ox 02/10/20 02:00 96 02/09/20 23:48 96 02/09/20 22:59 99.5 F 76 20 152/73 97 02/09/20 17:30 96 02/09/20 17:08 98.4 F 86 19 100 02/09/20 12:30 97 02/09/20 12:15 98.2 F 22 160/86 91 - Physical Examination General: No Apparent Distress Neck: Positive: trachea midline. Negative: JVD/HJR Extremities: Absent: edema - Imaging and Cardiology EKG: report reviewed (Sinus tachycardia)
[2020-02-10] MEDS: INSULIN REGULAR, HUMAN 100 UNITS/1 ML SUB-Q SCH ×3 (12:52→18:32)
[2020-02-10] MEDS: ENOXAPARIN 100 MG/1 ML INJ SUB-Q SCH ×2 (12:53→23:52)
[2020-02-10] MEDS: METOPROLOL TARTRATE 50 MG TAB PO SCH ×2 (13:20→23:53)
[2020-02-10] MEDS: FAMOTIDINE 20 MG TAB PO SCH ×2 (13:21→23:52)
[2020-02-10] MEDS: PRAZOSIN 1 MG CAP PO SCH ×3 (13:21→23:55)
[2020-02-10] MEDS: ZINC SULFATE 220 MG CAP PO SCH (13:21)
--- NOTE | 2020-02-10 13:40 | Progress Note ---
Assessment and Plan Patient still confused.Patient not responding to verbal stimuli. Patient still on high flow O2, FIO2 60%. O2 saturation 93%. Weak, No acute respiratory distress. Patient afebrile. No leukocytosis. Chest xray 02/08/20 reported There is some improvement in pulmonary opacities on the right and slight worsening on the left. - Patient Problems (1) Acute respiratory failure with hypoxia Current Visit: Yes Status: Acute Plan to address problem: Continue High flow O2.. Continue Solumedrol. Continue Lovenox. Continue famotidine. (2) Bilateral pneumonia Current Visit: Yes Status: Acute Qualifiers: Lung location: unspecified part of lung Plan to address problem: Antibiotics as per infectious diseases. (3) COVID-19 Current Visit: Yes Status: Acute Plan to address problem: High flow O2, FIO2 60%.. Continue Solumedrol. Continue Lovenox. Continue famotidine. Management as per infectious diseases. (4) Elevated d-dimer Current Visit: Yes Status: Acute Plan to address problem: Patient is on S/C Lovenox 100mg S/C q 12 hours. (5) T2DM (type 2 diabetes mellitus) Current Visit: Yes Status: Chronic Qualifiers: Diabetes mellitus intermediate frame tender insulin use: unspecified intermediate frame tender insulin use status Plan to address problem: Management as per primary care. Subjective Date of service: 02/10/20 Principal diagnosis: COVID Interval history: Patient still confused.Patient not responding to verbal stimuli. Patient still on high flow O2, FIO2 60%. O2 saturation 93%. Weak, No acute respiratory distres s. Patient afebrile. No leukocytosis. Chest xray 02/08/20 reported There is some improvement in pulmonary opacities on the right and slight worsening on the left. Objective Vital Signs - 12hr 02/10/20 02/10/20 02/10/20 02:00 10:56 11:47 Temperature 98.3 F Pulse Rate 89 Respiratory 19 Rate Blood Pressure 152/79 O2 Sat by Pulse 96 93 94 Oximetry 02/10/20 02/10/20 13:20 13:21 Temperature Pulse Rate 89 89 Respiratory Rate Blood Pressure 152/79 152/79 O2 Sat by Pulse Oximetry Constitutional: no acute distress, lethargic Eyes: non-icteric ENT: oropharynx dry Neck: supple, no JVD Effort: mildly labored Ascultation: Bilateral: rhonchi Cardiovascular: regular rate and rhythm, other (S1,S2) Gastrointestinal: normoactive bowel sounds, hypoactive bowel sounds, soft, non- tender Integumentary: normal Extremities: no cyanosis, no edema Neurologic: non-focal exam (grossly, moving all extremities), unable to assess Psychiatric: other (Unable to assess due to mental status at this time.) CBC and BMP: 02/08/20 10:46 02/10/20 12:30 ABG, PT/INR, D-dimer: ABG ABG pH 7.440 pH Units (7.350-7.450) 02/08/20 14:00 ABG pCO2 35.9 mm Hg 02/08/20 14:00 ABG pO2 65.3 mm Hg (80.0-90.0) L 02/08/20 14:00 ABG O2 Saturation 94.1 % (95.0-99.0) L 02/08/20 14:00 PT/INR, D-dimer PT 13.9 Sec. (12.2-14.9) 01/29/20 17:03 INR 1.09 (0.87-1.13) 01/29/20 17:03 D-Dimer 261.46 ng/mlDDU (0-234) H 02/08/20 10:46 Abnormal lab findings: Abnormal Labs 01/29/20 01/29/20 01/29/20 17:03 17:03 17:03 WBC 3.6 L Hgb Hct MCV 96 H MCH 33 H Lymph % (Auto) Lymph # 0.5 L Seg Neutrophils % 79.6 H Seg Neuts % (Manual) Lymphocytes % (Manual) Nucleated RBC % Seg Neutrophils # Seg Neutrophils # Man Lymphocytes # (Manual) D-Dimer 2573.78 H ABG pH ABG pO2 ABG HCO3 ABG O2 Saturation ABG Base Excess ABG Hemoglobin Oxyhemoglobin Sodium Potassium Chloride Carbon Dioxide BUN Glucose 240 H POC Glucose Hemoglobin A1c Calcium Magnesium Ferritin AST 76 H Lactate Dehydrogenase C-Reactive Protein Total Protein Albumin 3.0 L Coronavirus (PCR) 01/29/20 01/29/20 01/29/20 18:33 18:33 23:28 WBC Hgb Hct MCV MCH Lymph % (Auto) Lymph # Seg Neutrophils % Seg Neuts % (Manual) Lymphocytes % (Manual) Nucleated RBC % Seg Neutrophils # Seg Neutrophils # Man Lymphocytes # (Manual) D-Dimer ABG pH ABG pO2 ABG HCO3 ABG O2 Saturation ABG Base Excess ABG Hemoglobin Oxyhemoglobin Sodium Potassium Chloride Carbon Dioxide BUN Glucose 230 H POC Glucose 253 H Hemoglobin A1c Calcium Magnesium Ferritin > 2000.0 H AST Lactate Dehydrogenase 930 H C-Reactive Protein 10.20 H Total Protein Albumin Coronavirus (PCR) 01/29/20 01/30/20 01/30/20 Unknown 05:41 05:41 WBC Hgb 11.7 L Hct 35.2 L MCV MCH Lymph % (Auto) 8.1 L Lymph # 0.4 L Seg Neutrophils % 85.8 H Seg Neuts % (Manual) Lymphocytes % (Manual) Nucleated RBC % Seg Neutrophils # Seg Neutrophils # Man Lymphocytes # (Manual) D-Dimer ABG pH ABG pO2 ABG HCO3 ABG O2 Saturation ABG Base Excess ABG Hemoglobin Oxyhemoglobin Sodium Potassium Chloride Carbon Dioxide 19 L BUN Glucose 242 H POC Glucose Hemoglobin A1c Calcium 7.7 L Magnesium Ferritin AST 79 H Lactate Dehydrogenase C-Reactive Protein Total Protein Albumin 2.9 L Coronavirus (PCR) Positive A 01/30/20 01/30/20 01/30/20 05:41 07:55 12:54 WBC Hgb Hct MCV MCH Lymph % (Auto) Lymph # Seg Neutrophils % Seg Neuts % (Manual) Lymphocytes % (Manual) Nucleated RBC % Seg Neutrophils # Seg Neutrophils # Man Lymphocytes # (Manual) D-Dimer ABG pH ABG pO2 ABG HCO3 ABG O2 Saturation ABG Base Excess ABG Hemoglobin Oxyhemoglobin Sodium Potassium Chloride Carbon Dioxide BUN Glucose POC Glucose 262 H 232 H Hemoglobin A1c 7.3 H Calcium Magnesium Ferritin AST Lactate Dehydrogenase C-Reactive Protein Total Protein Albumin Coronavirus (PCR) 01/30/20 01/30/20 01/31/20 16:07 21:15 08:42 WBC Hgb Hct MCV MCH Lymph % (Auto) Lymph # Seg Neutrophils % Seg Neuts % (Manual) Lymphocytes % (Manual) Nucleated RBC % Seg Neutrophils # Seg Neutrophils # Man Lymphocytes # (Manual) D-Dimer ABG pH ABG pO2 ABG HCO3 ABG O2 Saturation ABG Base Excess ABG Hemoglobin Oxyhemoglobin Sodium Potassium Chloride Carbon Dioxide BUN Glucose POC Glucose 211 H 285 H 328 H Hemoglobin A1c Calcium Magnesium Ferritin AST Lactate Dehydrogenase C-Reactive Protein Total Protein Albumin Coronavirus (PCR) 0701/31/20 01/31/20 12:44 12:44 12:44 WBC Hgb Hct MCV MCH Lymph % (Auto) Lymph # Seg Neutrophils % Seg Neuts % (Manual) Lymphocytes % (Manual) Nucleated RBC % Seg Neutrophils # Seg Neutrophils # Man Lymphocytes # (Manual) D-Dimer 795.52 H ABG pH ABG pO2 ABG HCO3 ABG O2 Saturation ABG Base Excess ABG Hemoglobin Oxyhemoglobin Sodium Potassium Chloride Carbon Dioxide BUN Glucose 384 H POC Glucose Hemoglobin A1c Calcium Magnesium Ferritin > 2000.0 H AST Lactate Dehydrogenase 1393 H C-Reactive Protein 5.80 H Total Protein Albumin Coronavirus (PCR) 01/31/20 01/31/20 02/01/20 16:36 23:46 08:00 WBC Hgb Hct MCV MCH Lymph % (Auto) Lymph # Seg Neutrophils % Seg Neuts % (Manual) Lymphocytes % (Manual) Nucleated RBC % Seg Neutrophils # Seg Neutrophils # Man Lymphocytes # (Manual) D-Dimer ABG pH ABG pO2 ABG HCO3 ABG O2 Saturation ABG Base Excess ABG Hemoglobin Oxyhemoglobin Sodium Potassium Chloride Carbon Dioxide BUN Glucose POC Glucose 384 H 322 H 287 H Hemoglobin A1c Calcium Magnesium Ferritin AST Lactate Dehydrogenase C-Reactive Protein Total Protein Albumin Coronavirus (PCR) 02/01/20 02/01/20 02/01/20 12:48 16:53 23:25 WBC Hgb Hct MCV MCH Lymph % (Auto) Lymph # Seg Neutrophils % Seg Neuts % (Manual) Lymphocytes % (Manual) Nucleated RBC % Seg Neutrophils # Seg Neutrophils # Man Lymphocytes # (Manual) D-Dimer ABG pH ABG pO2 ABG HCO3 ABG O2 Saturation ABG Base Excess ABG Hemoglobin Oxyhemoglobin Sodium Potassium Chloride Carbon Dioxide BUN Glucose POC Glucose 309 H 362 H 264 H Hemoglobin A1c Calcium Magnesium Ferritin AST Lactate Dehydrogenase C-Reactive Protein Total Protein Albumin Coronavirus (PCR) 02/02/20 02/02/20 02/02/20 05:31 05:31 05:31 WBC Hgb Hct MCV MCH Lymph % (Auto) Lymph # Seg Neutrophils % Seg Neuts % (Manual) Lymphocytes % (Manual) Nucleated RBC % Seg Neutrophils # Seg Neutrophils # Man Lymphocytes # (Manual) D-Dimer 416.36 H ABG pH ABG pO2 ABG HCO3 ABG O2 Saturation ABG Base Excess ABG Hemoglobin Oxyhemoglobin Sodium Potassium Chloride 107.2 H Carbon Dioxide BUN 25 H Glucose 304 H POC Glucose Hemoglobin A1c Calcium 8.2 L Magnesium Ferritin > 2000.0 H AST Lactate Dehydrogenase C-Reactive Protein Total Protein Albumin Coronavirus (PCR) 02/02/20 02/02/20 02/02/20 05:31 09:14 11:57 WBC Hgb Hct MCV MCH Lymph % (Auto) Lymph # Seg Neutrophils % Seg Neuts % (Manual) Lymphocytes % (Manual) Nucleated RBC % Seg Neutrophils # Seg Neutrophils # Man Lymphocytes # (Manual) D-Dimer ABG pH ABG pO2 ABG HCO3 ABG O2 Saturation ABG Base Excess ABG Hemoglobin Oxyhemoglobin Sodium Potassium Chloride Carbon Dioxide BUN Glucose POC Glucose 334 H 429 H Hemoglobin A1c Calcium Magnesium Ferritin AST Lactate Dehydrogenase 1297 H C-Reactive Protein 2.20 H Total Protein Albumin Coronavirus (PCR) 02/02/20 02/02/20 02/02/20 12:44 16:35 22:55 WBC Hgb Hct MCV MCH Lymph % (Auto) Lymph # Seg Neutrophils % Seg Neuts % (Manual) Lymphocytes % (Manual) Nucleated RBC % Seg Neutrophils # Seg Neutrophils # Man Lymphocytes # (Manual) D-Dimer ABG pH 7.466 H ABG pO2 60.9 L ABG HCO3 ABG O2 Saturation 93.6 L ABG Base Excess -2.7 L ABG Hemoglobin 11.8 L Oxyhemoglobin 91.4 L Sodium Potassium Chloride Carbon Dioxide BUN Glucose POC Glucose 300 H 339 H Hemoglobin A1c Calcium Magnesium Ferritin AST Lactate Dehydrogenase C-Reactive Protein Total Protein Albumin Coronavirus (PCR) 02/03/20 02/03/20 02/03/20 01:06 06:09 06:09 WBC Hgb Hct MCV MCH Lymph % (Auto) Lymph # Seg Neutrophils % Seg Neuts % (Manual) 92.0 H Lymphocytes % (Manual) 3.0 L Nucleated RBC % 2.0 H Seg Neutrophils # Seg Neutrophils # Man Lymphocytes # (Manual) 0.3 L D-Dimer ABG pH ABG pO2 ABG HCO3 ABG O2 Saturation ABG Base Excess ABG Hemoglobin Oxyhemoglobin Sodium Potassium Chloride Carbon Dioxide BUN 27 H Glucose 348 H POC Glucose Hemoglobin A1c Calcium 8.1 L Magnesium 2.50 H 2.50 H Ferritin AST Lactate Dehydrogenase C-Reactive Protein Total Protein 5.4 L Albumin 3.0 L Coronavirus (PCR) 02/03/20 02/03/20 02/03/20 08:42 11:50 16:18 WBC Hgb Hct MCV MCH Lymph % (Auto) Lymph # Seg Neutrophils % Seg Neuts % (Manual) Lymphocytes % (Manual) Nucleated RBC % Seg Neutrophils # Seg Neutrophils # Man Lymphocytes # (Manual) D-Dimer ABG pH ABG pO2 ABG HCO3 ABG O2 Saturation ABG Base Excess ABG Hemoglobin Oxyhemoglobin Sodium Potassium Chloride Carbon Dioxide BUN Glucose POC Glucose 355 H 345 H 382 H Hemoglobin A1c Calcium Magnesium Ferritin AST Lactate Dehydrogenase C-Reactive Protein Total Protein Albumin Coronavirus (PCR) 02/03/20 02/03/20 02/04/20 22:00 22:04 06:06 WBC Hgb Hct MCV MCH Lymph % (Auto) Lymph # Seg Neutrophils % Seg Neuts % (Manual) Lymphocytes % (Manual) Nucleated RBC % Seg Neutrophils # Seg Neutrophils # Man Lymphocytes # (Manual) D-Dimer ABG pH 7.505 H ABG pO2 59.1 L ABG HCO3 19.1 L ABG O2 Saturation 93.0 L ABG Base Excess -2.4 L ABG Hemoglobin 13.3 L Oxyhemoglobin 91.1 L Sodium Potassium Chloride Carbon Dioxide BUN Glucose POC Glucose 309 H Hemoglobin A1c Calcium Magnesium Ferritin 4214.0 H AST Lactate Dehydrogenase C-Reactive Protein Total Protein Albumin Coronavirus (PCR) 02/04/20 02/04/20 02/04/20 06:06 06:06 06:06 WBC Hgb Hct MCV 95 H MCH Lymph % (Auto) 4.3 L Lymph # 0.5 L Seg Neutrophils % 87.5 H Seg Neuts % (Manual) Lymphocytes % (Manual) Nucleated RBC % Seg Neutrophils # 9.3 H Seg Neutrophils # Man Lymphocytes # (Manual) D-Dimer ABG pH ABG pO2 ABG HCO3 ABG O2 Saturation ABG Base Excess ABG Hemoglobin Oxyhemoglobin Sodium Potassium Chloride Carbon Dioxide 21 L BUN 30 H Glucose 393 H POC Glucose Hemoglobin A1c Calcium 7.8 L Magnesium 2.70 H Ferritin AST Lactate Dehydrogenase 919 H C-Reactive Protein Total Protein Albumin Coronavirus (PCR) 02/04/20 02/04/20 02/04/20 08:57 13:12 17:45 WBC Hgb Hct MCV MCH Lymph % (Auto) Lymph # Seg Neutrophils % Seg Neuts % (Manual) Lymphocytes % (Manual) Nucleated RBC % Seg Neutrophils # Seg Neutrophils # Man Lymphocytes # (Manual) D-Dimer ABG pH ABG pO2 ABG HCO3 ABG O2 Saturation ABG Base Excess ABG Hemoglobin Oxyhemoglobin Sodium Potassium Chloride Carbon Dioxide BUN Glucose POC Glucose 353 H 364 H 292 H Hemoglobin A1c Calcium Magnesium Ferritin AST Lactate Dehydrogenase C-Reactive Protein Total Protein Albumin Coronavirus (PCR) 02/04/20 02/05/20 02/05/20 22:36 08:44 12:53 WBC Hgb Hct MCV MCH Lymph % (Auto) Lymph # Seg Neutrophils % Seg Neuts % (Manual) Lymphocytes % (Manual) Nucleated RBC % Seg Neutrophils # Seg Neutrophils # Man Lymphocytes # (Manual) D-Dimer ABG pH ABG pO2 ABG HCO3 ABG O2 Saturation ABG Base Excess ABG Hemoglobin Oxyhemoglobin Sodium Potassium Chloride Carbon Dioxide BUN Glucose POC Glucose 255 H 313 H 346 H Hemoglobin A1c Calcium Magnesium Ferritin AST Lactate Dehydrogenase C-Reactive Protein Total Protein Albumin Coronavirus (PCR) 02/05/20 02/05/20 02/06/20 16:55 22:38 01:04 WBC Hgb Hct MCV MCH Lymph % (Auto) Lymph # Seg Neutrophils % Seg Neuts % (Manual) Lymphocytes % (Manual) Nucleated RBC % Seg Neutrophils # Seg Neutrophils # Man Lymphocytes # (Manual) D-Dimer ABG pH ABG pO2 ABG HCO3 ABG O2 Saturation ABG Base Excess ABG Hemoglobin Oxyhemoglobin Sodium Potassium Chloride Carbon Dioxide BUN Glucose POC Glucose 270 H 106 H 122 H Hemoglobin A1c Calcium Magnesium Ferritin AST Lactate Dehydrogenase C-Reactive Protein Total Protein Albumin Coronavirus (PCR) 02/06/20 02/06/20 02/06/20 09:21 12:27 15:20 WBC Hgb Hct MCV MCH Lymph % (Auto) Lymph # Seg Neutrophils % Seg Neuts % (Manual) Lymphocytes % (Manual) Nucleated RBC % Seg Neutrophils # Seg Neutrophils # Man Lymphocytes # (Manual) D-Dimer 328.02 H ABG pH ABG pO2 ABG HCO3 ABG O2 Saturation ABG Base Excess ABG Hemoglobin Oxyhemoglobin Sodium Potassium Chloride Carbon Dioxide BUN Glucose POC Glucose 227 H 295 H Hemoglobin A1c Calcium Magnesium Ferritin AST Lactate Dehydrogenase C-Reactive Protein Total Protein Albumin Coronavirus (PCR) 02/06/20 02/06/20 02/06/20 15:20 15:20 16:50 WBC Hgb Hct MCV MCH Lymph % (Auto) Lymph # Seg Neutrophils % Seg Neuts % (Manual) Lymphocytes % (Manual) Nucleated RBC % Seg Neutrophils # Seg Neutrophils # Man Lymphocytes # (Manual) D-Dimer ABG pH ABG pO2 ABG HCO3 ABG O2 Saturation ABG Base Excess ABG Hemoglobin Oxyhemoglobin Sodium Potassium Chloride Carbon Dioxide BUN Glucose 311 H POC Glucose 258 H Hemoglobin A1c Calcium Magnesium Ferritin < 2000.0 H AST Lactate Dehydrogenase 719 H C-Reactive Protein Total Protein Albumin Coronavirus (PCR) 02/06/20 02/07/20 02/07/20 21:23 08:22 10:51 WBC Hgb Hct MCV MCH Lymph % (Auto) Lymph # Seg Neutrophils % Seg Neuts % (Manual) Lymphocytes % (Manual) Nucleated RBC % Seg Neutrophils # Seg Neutrophils # Man Lymphocytes # (Manual) D-Dimer ABG pH ABG pO2 ABG HCO3 ABG O2 Saturation ABG Base Excess ABG Hemoglobin Oxyhemoglobin Sodium Potassium Chloride Carbon Dioxide BUN Glucose POC Glucose 334 H 281 H 309 H Hemoglobin A1c Calcium Magnesium Ferritin AST Lactate Dehydrogenase C-Reactive Protein Total Protein Albumin Coronavirus (PCR) 02/07/20 02/07/20 02/08/20 16:27 22:40 07:44 WBC Hgb Hct MCV MCH Lymph % (Auto) Lymph # Seg Neutrophils % Seg Neuts % (Manual) Lymphocytes % (Manual) Nucleated RBC % Seg Neutrophils # Seg Neutrophils # Man Lymphocytes # (Manual) D-Dimer ABG pH ABG pO2 ABG HCO3 ABG O2 Saturation ABG Base Excess ABG Hemoglobin Oxyhemoglobin Sodium Potassium Chloride Carbon Dioxide BUN Glucose POC Glucose 288 H 278 H 267 H Hemoglobin A1c Calcium Magnesium Ferritin AST Lactate Dehydrogenase C-Reactive Protein Total Protein Albumin Coronavirus (PCR) 02/08/20 02/08/20 02/08/20 10:46 10:46 10:46 WBC Hgb Hct MCV 98 H MCH Lymph % (Auto) Lymph # Seg Neutrophils % Seg Neuts % (Manual) 97.0 H Lymphocytes % (Manual) 0 L Nucleated RBC % Seg Neutrophils # Seg Neutrophils # Man 10.2 H Lymphocytes # (Manual) 0.0 L D-Dimer 261.46 H ABG pH ABG pO2 ABG HCO3 ABG O2 Saturation ABG Base Excess ABG Hemoglobin Oxyhemoglobin Sodium 148 H Potassium 3.5 L Chloride 112.2 H Carbon Dioxide BUN 36 H Glucose 356 H POC Glucose Hemoglobin A1c Calcium 8.3 L Magnesium Ferritin AST Lactate Dehydrogenase C-Reactive Protein Total Protein Albumin Coronavirus (PCR) 02/08/20 02/08/20 02/08/20 10:46 10:46 12:22 WBC Hgb Hct MCV MCH Lymph % (Auto) Lymph # Seg Neutrophils % Seg Neuts % (Manual) Lymphocytes % (Manual) Nucleated RBC % Seg Neutrophils # Seg Neutrophils # Man Lymphocytes # (Manual) D-Dimer ABG pH ABG pO2 ABG HCO3 ABG O2 Saturation ABG Base Excess ABG Hemoglobin Oxyhemoglobin Sodium Potassium Chloride Carbon Dioxide BUN Glucose 351 H POC Glucose 358 H Hemoglobin A1c Calcium Magnesium Ferritin 1611.0 H AST Lactate Dehydrogenase 671 H C-Reactive Protein Total Protein Albumin Coronavirus (PCR) 02/08/20 02/08/20 02/09/20 14:00 17:02 08:45 WBC Hgb Hct MCV MCH Lymph % (Auto) Lymph # Seg Neutrophils % Seg Neuts % (Manual) Lymphocytes % (Manual) Nucleated RBC % Seg Neutrophils # Seg Neutrophils # Man Lymphocytes # (Manual) D-Dimer ABG pH ABG pO2 65.3 L ABG HCO3 ABG O2 Saturation 94.1 L ABG Base Excess ABG Hemoglobin 12.8 L Oxyhemoglobin 92.3 L Sodium Potassium Chloride Carbon Dioxide BUN Glucose POC Glucose 331 H 160 H Hemoglobin A1c Calcium Magnesium Ferritin AST Lactate Dehydrogenase C-Reactive Protein Total Protein Albumin Coronavirus (PCR) 02/09/20 02/09/20 02/09/20 12:27 17:22 23:11 WBC Hgb Hct MCV MCH Lymph % (Auto) Lymph # Seg Neutrophils % Seg Neuts % (Manual) Lymphocytes % (Manual) Nucleated RBC % Seg Neutrophils # Seg Neutrophils # Man Lymphocytes # (Manual) D-Dimer ABG pH ABG pO2 ABG HCO3 ABG O2 Saturation ABG Base Excess ABG Hemoglobin Oxyhemoglobin Sodium Potassium Chloride Carbon Dioxide BUN Glucose POC Glucose 262 H 237 H 140 H Hemoglobin A1c Calcium Magnesium Ferritin AST Lactate Dehydrogenase C-Reactive Protein Total Protein Albumin Coronavirus (PCR) 02/10/20 02/10/20 08:30 12:00 WBC Hgb Hct MCV MCH Lymph % (Auto) Lymph # Seg Neutrophils % Seg Neuts % (Manual) Lymphocytes % (Manual) Nucleated RBC % Seg Neutrophils # Seg Neutrophils # Man Lymphocytes # (Manual) D-Dimer ABG pH ABG pO2 ABG HCO3 ABG O2 Saturation ABG Base Excess ABG Hemoglobin Oxyhemoglobin Sodium Potassium Chloride Carbon Dioxide BUN Glucose POC Glucose 216 H 252 H Hemoglobin A1c Calcium Magnesium Ferritin AST Lactate Dehydrogenase C-Reactive Protein Total Protein Albumin Coronavirus (PCR)
[2020-02-10 13:51] LABS: C-Reactive Protein 0.3 mg/dL (0.00-1.30)
--- NOTE | 2020-02-10 21:22 | Progress Note ---
Assessment and Plan /Acute toxic encephalopathy -Likely due to severe hypoxia and COVID-19 infection -Continue to monitor, provide supportive care -Haldol as needed, sitter in place, placed on restraint /Sepsis: present on admission with fever, hypoxia; source COVID-19 infection due to COVID-19 pneumonia: /Bilateral pneumonia s/p Rocephin and azithromycin ID consult requested Coronavirus positive cont Isolation Inflammatory markers are very high - con to follow / COVID-19 PNA Patient exposed to his son who had coronavirus nasal cannula oxygen to keep O2 sat >94% Patient isolated, ID following follow inflammatory markers s/p Remdesivir x 5 days, S/p Tocilizumab IV x1 Continue Solu-Medrol 40 mg IV every 8 hours - will wean off ID now recommended for convalescent plasma -waiting on family consent /Acute hypoxic Respiratory failure - O2 sat drops with activity - cont nebs, solumedrol, supplemental O2 / Elevated d-dimer Lovenox initiated /Hyperlipidemia, cont statin /T2DM (type 2 diabetes mellitus) consistent carb diet, SSI Coverage for now /DVT prophylaxis Patient on Lovenox and GI prophylaxis 01/29: Positive for COVID 19, follow inflammatory markers, start on iv solumedrol. Start Tocilizumab IV x1 01/30; Start Remdesivir, Continue Solu-Medrol 40 mg IV every 8 hours. follow inflammatory markers 01/31: cont Remdesivir day 2, Solu-Medrol 40 mg IV every 8 hours. follow inflammatory markers 02/01 patient is awake and alert, moderately short of breath, he denies any fever, chills, chest pain and has occasional dry cough. Denies nausea or abdominal pain. vital signs deteriorated this morning with worsening hypoxemia, now on nonrebreather Ventimask ID note reviewed, lab results reviewed 02/02 patient was not seen [id number] today, he is now on high flow nasal cannula, no acute events overnight and discussed with RN, lab results reviewed ID note reviewed 02/03: appears agitated, ferritin trended up. completed Remdesivir today. cont solumedrol iv q8h. transfer to [facility], patient on 100% FiO2 today 02/04 patient remains on 90% FiO2, appears very confused and unable to give any consent. Continue IV steroid, will try to get consent for convalescent plasma from family 02/05 patient on 70% Fio2 today, waiting on family consent for for convalescent plasma 02/06 spoke with patient's son directly and he is not willing to give consent for convalescent plasma and requested that his sister who lives in [place] will give the consent. Waiting on patient daughter to call back to give the consent. We will order for type and screen. Patient on 50% FiO2 today. 02/07: On 60% FiO2. obtained consent from daughter. requested for convalescent plasma 02/08: on 50% FiO2. requested for convalescent plasma - code [id number], waiting on shipment from [facility] 02/09: waiting on convalescent plasma - waiting on shipment from [facility], patient on 60% FiO2, remains confused Brief History: 89 years old male with history of diabetes mellitus, admitted on 01/29/2020 due to 2-week history of generalized weakness, mild cough, dyspnea on exertion. Patient tested positive for COVID-19 recently. Patient's son also was positive for COVID-19 initially. Initial WBC 3.6. Hemoglobin 12.2. Platelets 142. D- dimer 2573. Ferritin 2000, CRP 10.2. LDH 930. Procalcitonin 0.18. AST 76. Chest x-ray shows bilateral interstitial infiltrate. ID following Subjective Date of service: 02/10/20 Principal diagnosis: COVID Interval history: Patient seen and examined patient is very agitated and restrained Remains on high flow o2 Objective - Exam Narrative Exam: Constitutional:alert but confused Neck: supple Oral:no ulcer, dry Cardiovascular: s1 s2 positive Respiratory: mae rhonchi per NS GI: BS positive Musculoskeletal: no joint swelling Skin: No rash or abscess Psych: agitated Neurological: agitated on restraint - Constitutional Vitals: Vital Signs - 12hr 02/10/20 02/10/20 02/10/20 10:56 11:47 13:20 Temperature 98.3 F Pulse Rate 89 89 Respiratory 19 Rate Blood Pressure 152/79 152/79 O2 Sat by Pulse 93 94 Oximetry 02/10/20 02/10/20 02/10/20 13:21 14:00 16:18 Temperature 98.0 F Pulse Rate 89 126 H Respiratory 20 Rate Blood Pressure 152/79 119/72 O2 Sat by Pulse 92 90 Oximetry - Labs CBC & Chem 7: 02/08/20 10:46 02/10/20 12:30 Labs: Abnormal lab results 02/09/20 02/10/20 02/10/20 Range/Units 23:11 08:30 12:00 Glucose (75-100) mg/dL POC Glucose 140 H 216 H 252 H (70-105) Ferritin (13.0-400.0) ng/mL Lactate Dehydrogenase (91-180) units/L 02/10/20 02/10/20 02/10/20 Range/Units 12:30 12:30 16:32 Glucose 330 H (75-100) mg/dL POC Glucose 245 H (70-105) Ferritin 1728.0 H (13.0-400.0) ng/mL Lactate Dehydrogenase 642 H (91-180) units/L HEART Score - HEART Score Troponin: Troponin T 0.014 ng/mL (0.00-0.029) 01/29/20 17:03
[2020-02-10] MEDS: oxyCODONE /ACETAMINOPHEN 5-325MG TAB PO PRN (23:53)
[2020-02-10] MEDS: INSULIN GLARGINE 100 UNITS/ML SUB-Q SCH (23:54)
[2020-02-11] MEDS: HYDROmorphone 1 MG/1 ML INJ IV PRN ×2 (05:15→22:26)
[2020-02-11] MEDS: methylPREDNISolone Sod Succinate 40 MG/1 ML INJ IV SCH (05:16)
[2020-02-11] MEDS: LORazepam 2 MG/ML VIAL IV PRN ×3 (05:16→22:28)
[2020-02-11] MEDS: INSULIN LISPRO 100 UNIT/ML SUB-Q SCH ×4 (09:41→22:27)
[2020-02-11] MEDS: INSULIN REGULAR, HUMAN 100 UNITS/1 ML SUB-Q SCH ×3 (09:41→17:45)
[2020-02-11] MEDS: METOPROLOL TARTRATE 50 MG TAB PO SCH ×2 (09:42→22:28)
[2020-02-11] MEDS: FAMOTIDINE 20 MG TAB PO SCH ×2 (09:42→22:26)
[2020-02-11] MEDS: ENOXAPARIN 100 MG/1 ML INJ SUB-Q SCH ×2 (09:43→22:26)
--- NOTE | 2020-02-11 13:41 | Progress Note ---
Assessment and Plan Patient still confused.Patient not responding to verbal stimuli. Patient still on high flow O2 10 litres and O2 saturation 96%. Weak, No acute respiratory distress. Patient afebrile. No leukocytosis. Chest xray 02/08/20 reported There is some improvement in pulmonary opacities on the right and slight worsening on the left. - Patient Problems (1) Acute respiratory failure with hypoxia Current Visit: Yes Status: Acute Plan to address problem: Continue High flow O2.. Continue Solumedrol. Continue Lovenox. Continue famotidine. (2) Bilateral pneumonia Current Visit: Yes Status: Acute Qualifiers: Lung location: unspecified part of lung Plan to address problem: Antibiotics as per infectious diseases. (3) COVID-19 Current Visit: Yes Status: Acute Plan to address problem: High flow O2, FIO2 60%.. Continue Solumedrol. Continue Lovenox. Continue famotidine. Management as per infectious diseases. (4) Elevated d-dimer Current Visit: Yes Status: Acute Plan to address problem: Patient is on S/C Lovenox 100mg S/C q 12 hours. (5) T2DM (type 2 diabetes mellitus) Current Visit: Yes Status: Chronic Qualifiers: Diabetes mellitus [employer] insulin use: unspecified [employer] insulin use status Plan to address problem: Management as per primary care. Subjective Date of service: 02/11/20 Principal diagnosis: COVID Interval history: Patient still confused.Patient not responding to verbal stimuli. Patient still on high flow O2, 10 litres and O2 saturation 96%. Weak, No acute respiratory distress. Patient afebrile. No leukocytosis. Chest xray 02/08/20 reported There is some improvement in pulmonary opacities on the right and slight worsening on the left. Objective Vital Signs - 12hr 02/11/20 02/11/20 02/11/20 03:01 06:38 08:00 Temperature 97.8 F Pulse Rate 77 Respiratory 16 Rate Blood Pressure 123/77 O2 Sat by Pulse 94 97 95 Oximetry 02/11/20 02/11/20 02/11/20 08:53 09:42 11:37 Temperature 97.5 F L 97.3 F L Pulse Rate 86 77 91 H Respiratory 20 20 Rate Blood Pressure 113/63 123/77 132/74 O2 Sat by Pulse 94 96 Oximetry Constitutional: no acute distress, lethargic, asleep Eyes: non-icteric ENT: oropharynx dry Neck: supple, no JVD Effort: mildly labored Ascultation: Bilateral: rhonchi Cardiovascular: regular rate and rhythm, other (S1,S2) Gastrointestinal: normoactive bowel sounds, hypoactive bowel sounds, soft, non- tender Integumentary: normal Extremities: no cyanosis, no edema Neurologic: non-focal exam (grossly, moving all extremities), unable to assess Psychiatric: other (Unable to assess due to mental status at this time.) CBC and BMP: 02/11/20 13:47 02/11/20 13:47 ABG, PT/INR, D-dimer: ABG ABG pH 7.440 pH Units (7.350-7.450) 02/08/20 14:00 ABG pCO2 35.9 mm Hg 02/08/20 14:00 ABG pO2 65.3 mm Hg (80.0-90.0) L 02/08/20 14:00 ABG O2 Saturation 94.1 % (95.0-99.0) L 02/08/20 14:00 PT/INR, D-dimer PT 13.9 Sec. (12.2-14.9) 01/29/20 17:03 INR 1.09 (0.87-1.13) 01/29/20 17:03 D-Dimer 154.77 ng/mlDDU (0-234) 02/10/20 12:30 Abnormal lab findings: Abnormal Labs 01/29/20 01/29/20 01/29/20 17:03 17:03 17:03 WBC 3.6 L Hgb Hct MCV 96 H MCH 33 H Lymph % (Auto) Lymph # 0.5 L Seg Neutrophils % 79.6 H Seg Neuts % (Manual) Lymphocytes % (Manual) Nucleated RBC % Seg Neutrophils # Seg Neutrophils # Man Lymphocytes # (Manual) D-Dimer 2573.78 H ABG pH ABG pO2 ABG HCO3 ABG O2 Saturation ABG Base Excess ABG Hemoglobin Oxyhemoglobin Sodium Potassium Chloride Carbon Dioxide BUN Glucose 240 H POC Glucose Hemoglobin A1c Calcium Magnesium Ferritin AST 76 H Lactate Dehydrogenase C-Reactive Protein Total Protein Albumin 3.0 L Coronavirus (PCR) 01/29/20 01/29/20 01/29/20 18:33 18:33 23:28 WBC Hgb Hct MCV MCH Lymph % (Auto) Lymph # Seg Neutrophils % Seg Neuts % (Manual) Lymphocytes % (Manual) Nucleated RBC % Seg Neutrophils # Seg Neutrophils # Man Lymphocytes # (Manual) D-Dimer ABG pH ABG pO2 ABG HCO3 ABG O2 Saturation ABG Base Excess ABG Hemoglobin Oxyhemoglobin Sodium Potassium Chloride Carbon Dioxide BUN Glucose 230 H POC Glucose 253 H Hemoglobin A1c Calcium Magnesium Ferritin > 2000.0 H AST Lactate Dehydrogenase 930 H C-Reactive Protein 10.20 H Total Protein Albumin Coronavirus (PCR) 01/29/20 01/30/20 01/30/20 Unknown 05:41 05:41 WBC Hgb 11.7 L Hct 35.2 L MCV MCH Lymph % (Auto) 8.1 L Lymph # 0.4 L Seg Neutrophils % 85.8 H Seg Neuts % (Manual) Lymphocytes % (Manual) Nucleated RBC % Seg Neutrophils # Seg Neutrophils # Man Lymphocytes # (Manual) D-Dimer ABG pH ABG pO2 ABG HCO3 ABG O2 Saturation ABG Base Excess ABG Hemoglobin Oxyhemoglobin Sodium Potassium Chloride Carbon Dioxide 19 L BUN Glucose 242 H POC Glucose Hemoglobin A1c Calcium 7.7 L Magnesium Ferritin AST 79 H Lactate Dehydrogenase C-Reactive Protein Total Protein Albumin 2.9 L Coronavirus (PCR) Positive A 01/30/20 01/30/20 01/30/20 05:41 07:55 12:54 WBC Hgb Hct MCV MCH Lymph % (Auto) Lymph # Seg Neutrophils % Seg Neuts % (Manual) Lymphocytes % (Manual) Nucleated RBC % Seg Neutrophils # Seg Neutrophils # Man Lymphocytes # (Manual) D-Dimer ABG pH ABG pO2 ABG HCO3 ABG O2 Saturation ABG Base Excess ABG Hemoglobin Oxyhemoglobin Sodium Potassium Chloride Carbon Dioxide BUN Glucose POC Glucose 262 H 232 H Hemoglobin A1c 7.3 H Calcium Magnesium Ferritin AST Lactate Dehydrogenase C-Reactive Protein Total Protein Albumin Coronavirus (PCR) 01/30/20 01/30/20 01/31/20 16:07 21:15 08:42 WBC Hgb Hct MCV MCH Lymph % (Auto) Lymph # Seg Neutrophils % Seg Neuts % (Manual) Lymphocytes % (Manual) Nucleated RBC % Seg Neutrophils # Seg Neutrophils # Man Lymphocytes # (Manual) D-Dimer ABG pH ABG pO2 ABG HCO3 ABG O2 Saturation ABG Base Excess ABG Hemoglobin Oxyhemoglobin Sodium Potassium Chloride Carbon Dioxide BUN Glucose POC Glucose 211 H 285 H 328 H Hemoglobin A1c Calcium Magnesium Ferritin AST Lactate Dehydrogenase C-Reactive Protein Total Protein Albumin Coronavirus (PCR) 01/31/20 01/31/20 01/31/20 12:44 12:44 12:44 WBC Hgb Hct MCV MCH Lymph % (Auto) Lymph # Seg Neutrophils % Seg Neuts % (Manual) Lymphocytes % (Manual) Nucleated RBC % Seg Neutrophils # Seg Neutrophils # Man Lymphocytes # (Manual) D-Dimer 795.52 H ABG pH ABG pO2 ABG HCO3 ABG O2 Saturation ABG Base Excess ABG Hemoglobin Oxyhemoglobin Sodium Potassium Chloride Carbon Dioxide BUN Glucose 384 H POC Glucose Hemoglobin A1c Calcium Magnesium Ferritin > 2000.0 H AST Lactate Dehydrogenase 1393 H C-Reactive Protein 5.80 H Total Protein Albumin Coronavirus (PCR) 01/31/20 01/31/20 02/01/20 16:36 23:46 08:00 WBC Hgb Hct MCV MCH Lymph % (Auto) Lymph # Seg Neutrophils % Seg Neuts % (Manual) Lymphocytes % (Manual) Nucleated RBC % Seg Neutrophils # Seg Neutrophils # Man Lymphocytes # (Manual) D-Dimer ABG pH ABG pO2 ABG HCO3 ABG O2 Saturation ABG Base Excess ABG Hemoglobin Oxyhemoglobin Sodium Potassium Chloride Carbon Dioxide BUN Glucose POC Glucose 384 H 322 H 287 H Hemoglobin A1c Calcium Magnesium Ferritin AST Lactate Dehydrogenase C-Reactive Protein Total Protein Albumin Coronavirus (PCR) 02/01/20 02/01/20 02/01/20 12:48 16:53 23:25 WBC Hgb Hct MCV MCH Lymph % (Auto) Lymph # Seg Neutrophils % Seg Neuts % (Manual) Lymphocytes % (Manual) Nucleated RBC % Seg Neutrophils # Seg Neutrophils # Man Lymphocytes # (Manual) D-Dimer ABG pH ABG pO2 ABG HCO3 ABG O2 Saturation ABG Base Excess ABG Hemoglobin Oxyhemoglobin Sodium Potassium Chloride Carbon Dioxide BUN Glucose POC Glucose 309 H 362 H 264 H Hemoglobin A1c Calcium Magnesium Ferritin AST Lactate Dehydrogenase C-Reactive Protein Total Protein Albumin Coronavirus (PCR) 02/02/20 02/02/20 02/02/20 05:31 05:31 05:31 WBC Hgb Hct MCV MCH Lymph % (Auto) Lymph # Seg Neutrophils % Seg Neuts % (Manual) Lymphocytes % (Manual) Nucleated RBC % Seg Neutrophils # Seg Neutrophils # Man Lymphocytes # (Manual) D-Dimer 416.36 H ABG pH ABG pO2 ABG HCO3 ABG O2 Saturation ABG Base Excess ABG Hemoglobin Oxyhemoglobin Sodium Potassium Chloride 107.2 H Carbon Dioxide BUN 25 H Glucose 304 H POC Glucose Hemoglobin A1c Calcium 8.2 L Magnesium Ferritin > 2000.0 H AST Lactate Dehydrogenase C-Reactive Protein Total Protein Albumin Coronavirus (PCR) 02/02/20 02/02/20 02/02/20 05:31 09:14 11:57 WBC Hgb Hct MCV MCH Lymph % (Auto) Lymph # Seg Neutrophils % Seg Neuts % (Manual) Lymphocytes % (Manual) Nucleated RBC % Seg Neutrophils # Seg Neutrophils # Man Lymphocytes # (Manual) D-Dimer ABG pH ABG pO2 ABG HCO3 ABG O2 Saturation ABG Base Excess ABG Hemoglobin Oxyhemoglobin Sodium Potassium Chloride Carbon Dioxide BUN Glucose POC Glucose 334 H 429 H Hemoglobin A1c Calcium Magnesium Ferritin AST Lactate Dehydrogenase 1297 H C-Reactive Protein 2.20 H Total Protein Albumin Coronavirus (PCR) 02/02/20 02/02/20 02/02/20 12:44 16:35 22:55 WBC Hgb Hct MCV MCH Lymph % (Auto) Lymph # Seg Neutrophils % Seg Neuts % (Manual) Lymphocytes % (Manual) Nucleated RBC % Seg Neutrophils # Seg Neutrophils # Man Lymphocytes # (Manual) D-Dimer ABG pH 7.466 H ABG pO2 60.9 L ABG HCO3 ABG O2 Saturation 93.6 L ABG Base Excess -2.7 L ABG Hemoglobin 11.8 L Oxyhemoglobin 91.4 L Sodium Potassium Chloride Carbon Dioxide BUN Glucose POC Glucose 300 H 339 H Hemoglobin A1c Calcium Magnesium Ferritin AST Lactate Dehydrogenase C-Reactive Protein Total Protein Albumin Coronavirus (PCR) 02/03/20 02/03/20 02/03/20 01:06 06:09 06:09 WBC Hgb Hct MCV MCH Lymph % (Auto) Lymph # Seg Neutrophils % Seg Neuts % (Manual) 92.0 H Lymphocytes % (Manual) 3.0 L Nucleated RBC % 2.0 H Seg Neutrophils # Seg Neutrophils # Man Lymphocytes # (Manual) 0.3 L D-Dimer ABG pH ABG pO2 ABG HCO3 ABG O2 Saturation ABG Base Excess ABG Hemoglobin Oxyhemoglobin Sodium Potassium Chloride Carbon Dioxide BUN 27 H Glucose 348 H POC Glucose Hemoglobin A1c Calcium 8.1 L Magnesium 2.50 H 2.50 H Ferritin AST Lactate Dehydrogenase C-Reactive Protein Total Protein 5.4 L Albumin 3.0 L Coronavirus (PCR) 02/03/20 02/03/20 02/03/20 08:42 11:50 16:18 WBC Hgb Hct MCV MCH Lymph % (Auto) Lymph # Seg Neutrophils % Seg Neuts % (Manual) Lymphocytes % (Manual) Nucleated RBC % Seg Neutrophils # Seg Neutrophils # Man Lymphocytes # (Manual) D-Dimer ABG pH ABG pO2 ABG HCO3 ABG O2 Saturation ABG Base Excess ABG Hemoglobin Oxyhemoglobin Sodium Potassium Chloride Carbon Dioxide BUN Glucose POC Glucose 355 H 345 H 382 H Hemoglobin A1c Calcium Magnesium Ferritin AST Lactate Dehydrogenase C-Reactive Protein Total Protein Albumin Coronavirus (PCR) 02/03/20 02/03/20 02/04/20 22:00 22:04 06:06 WBC Hgb Hct MCV MCH Lymph % (Auto) Lymph # Seg Neutrophils % Seg Neuts % (Manual) Lymphocytes % (Manual) Nucleated RBC % Seg Neutrophils # Seg Neutrophils # Man Lymphocytes # (Manual) D-Dimer ABG pH 7.505 H ABG pO2 59.1 L ABG HCO3 19.1 L ABG O2 Saturation 93.0 L ABG Base Excess -2.4 L ABG Hemoglobin 13.3 L Oxyhemoglobin 91.1 L Sodium Potassium Chloride Carbon Dioxide BUN Glucose POC Glucose 309 H Hemoglobin A1c Calcium Magnesium Ferritin 4214.0 H AST Lactate Dehydrogenase C-Reactive Protein Total Protein Albumin Coronavirus (PCR) 02/04/20 02/04/20 02/04/20 06:06 06:06 06:06 WBC Hgb Hct MCV 95 H MCH Lymph % (Auto) 4.3 L Lymph # 0.5 L Seg Neutrophils % 87.5 H Seg Neuts % (Manual) Lymphocytes % (Manual) Nucleated RBC % Seg Neutrophils # 9.3 H Seg Neutrophils # Man Lymphocytes # (Manual) D-Dimer ABG pH ABG pO2 ABG HCO3 ABG O2 Saturation ABG Base Excess ABG Hemoglobin Oxyhemoglobin Sodium Potassium Chloride Carbon Dioxide 21 L BUN 30 H Glucose 393 H POC Glucose Hemoglobin A1c Calcium 7.8 L Magnesium 2.70 H Ferritin AST Lactate Dehydrogenase 919 H C-Reactive Protein Total Protein Albumin Coronavirus (PCR) 02/04/20 02/04/20 02/04/20 08:57 13:12 17:45 WBC Hgb Hct MCV MCH Lymph % (Auto) Lymph # Seg Neutrophils % Seg Neuts % (Manual) Lymphocytes % (Manual) Nucleated RBC % Seg Neutrophils # Seg Neutrophils # Man Lymphocytes # (Manual) D-Dimer ABG pH ABG pO2 ABG HCO3 ABG O2 Saturation ABG Base Excess ABG Hemoglobin Oxyhemoglobin Sodium Potassium Chloride Carbon Dioxide BUN Glucose POC Glucose 353 H 364 H 292 H Hemoglobin A1c Calcium Magnesium Ferritin AST Lactate Dehydrogenase C-Reactive Protein Total Protein Albumin Coronavirus (PCR) 02/04/20 02/05/20 02/05/20 22:36 08:44 12:53 WBC Hgb Hct MCV MCH Lymph % (Auto) Lymph # Seg Neutrophils % Seg Neuts % (Manual) Lymphocytes % (Manual) Nucleated RBC % Seg Neutrophils # Seg Neutrophils # Man Lymphocytes # (Manual) D-Dimer ABG pH ABG pO2 ABG HCO3 ABG O2 Saturation ABG Base Excess ABG Hemoglobin Oxyhemoglobin Sodium Potassium Chloride Carbon Dioxide BUN Glucose POC Glucose 255 H 313 H 346 H Hemoglobin A1c Calcium Magnesium Ferritin AST Lactate Dehydrogenase C-Reactive Protein Total Protein Albumin Coronavirus (PCR) 02/05/20 02/05/20 02/06/20 16:55 22:38 01:04 WBC Hgb Hct MCV MCH Lymph % (Auto) Lymph # Seg Neutrophils % Seg Neuts % (Manual) Lymphocytes % (Manual) Nucleated RBC % Seg Neutrophils # Seg Neutrophils # Man Lymphocytes # (Manual) D-Dimer ABG pH ABG pO2 ABG HCO3 ABG O2 Saturation ABG Base Excess ABG Hemoglobin Oxyhemoglobin Sodium Potassium Chloride Carbon Dioxide BUN Glucose POC Glucose 270 H 106 H 122 H Hemoglobin A1c Calcium Magnesium Ferritin AST Lactate Dehydrogenase C-Reactive Protein Total Protein Albumin Coronavirus (PCR) 02/06/20 02/06/20 02/06/20 09:21 12:27 15:20 WBC Hgb Hct MCV MCH Lymph % (Auto) Lymph # Seg Neutrophils % Seg Neuts % (Manual) Lymphocytes % (Manual) Nucleated RBC % Seg Neutrophils # Seg Neutrophils # Man Lymphocytes # (Manual) D-Dimer 328.02 H ABG pH ABG pO2 ABG HCO3 ABG O2 Saturation ABG Base Excess ABG Hemoglobin Oxyhemoglobin Sodium Potassium Chloride Carbon Dioxide BUN Glucose POC Glucose 227 H 295 H Hemoglobin A1c Calcium Magnesium Ferritin AST Lactate Dehydrogenase C-Reactive Protein Total Protein Albumin Coronavirus (PCR) 02/06/20 02/06/20 02/06/20 15:20 15:20 16:50 WBC Hgb Hct MCV MCH Lymph % (Auto) Lymph # Seg Neutrophils % Seg Neuts % (Manual) Lymphocytes % (Manual) Nucleated RBC % Seg Neutrophils # Seg Neutrophils # Man Lymphocytes # (Manual) D-Dimer ABG pH ABG pO2 ABG HCO3 ABG O2 Saturation ABG Base Excess ABG Hemoglobin Oxyhemoglobin Sodium Potassium Chloride Carbon Dioxide BUN Glucose 311 H POC Glucose 258 H Hemoglobin A1c Calcium Magnesium Ferritin < 2000.0 H AST Lactate Dehydrogenase 719 H C-Reactive Protein Total Protein Albumin Coronavirus (PCR) 02/06/20 02/07/20 02/07/20 21:23 08:22 10:51 WBC Hgb Hct MCV MCH Lymph % (Auto) Lymph # Seg Neutrophils % Seg Neuts % (Manual) Lymphocytes % (Manual) Nucleated RBC % Seg Neutrophils # Seg Neutrophils # Man Lymphocytes # (Manual) D-Dimer ABG pH ABG pO2 ABG HCO3 ABG O2 Saturation ABG Base Excess ABG Hemoglobin Oxyhemoglobin Sodium Potassium Chloride Carbon Dioxide BUN Glucose POC Glucose 334 H 281 H 309 H Hemoglobin A1c Calcium Magnesium Ferritin AST Lactate Dehydrogenase C-Reactive Protein Total Protein Albumin Coronavirus (PCR) 02/07/20 02/07/20 02/08/20 16:27 22:40 07:44 WBC Hgb Hct MCV MCH Lymph % (Auto) Lymph # Seg Neutrophils % Seg Neuts % (Manual) Lymphocytes % (Manual) Nucleated RBC % Seg Neutrophils # Seg Neutrophils # Man Lymphocytes # (Manual) D-Dimer ABG pH ABG pO2 ABG HCO3 ABG O2 Saturation ABG Base Excess ABG Hemoglobin Oxyhemoglobin Sodium Potassium Chloride Carbon Dioxide BUN Glucose POC Glucose 288 H 278 H 267 H Hemoglobin A1c Calcium Magnesium Ferritin AST Lactate Dehydrogenase C-Reactive Protein Total Protein Albumin Coronavirus (PCR) 02/08/20 02/08/20 02/08/20 10:46 10:46 10:46 WBC Hgb Hct MCV 98 H MCH Lymph % (Auto) Lymph # Seg Neutrophils % Seg Neuts % (Manual) 97.0 H Lymphocytes % (Manual) 0 L Nucleated RBC % Seg Neutrophils # Seg Neutrophils # Man 10.2 H Lymphocytes # (Manual) 0.0 L D-Dimer 261.46 H ABG pH ABG pO2 ABG HCO3 ABG O2 Saturation ABG Base Excess ABG Hemoglobin Oxyhemoglobin Sodium 148 H Potassium 3.5 L Chloride 112.2 H Carbon Dioxide BUN 36 H Glucose 356 H POC Glucose Hemoglobin A1c Calcium 8.3 L Magnesium Ferritin AST Lactate Dehydrogenase C-Reactive Protein Total Protein Albumin Coronavirus (PCR) 02/08/20 02/08/20 02/08/20 10:46 10:46 12:22 WBC Hgb Hct MCV MCH Lymph % (Auto) Lymph # Seg Neutrophils % Seg Neuts % (Manual) Lymphocytes % (Manual) Nucleated RBC % Seg Neutrophils # Seg Neutrophils # Man Lymphocytes # (Manual) D-Dimer ABG pH ABG pO2 ABG HCO3 ABG O2 Saturation ABG Base Excess ABG Hemoglobin Oxyhemoglobin Sodium Potassium Chloride Carbon Dioxide BUN Glucose 351 H POC Glucose 358 H Hemoglobin A1c Calcium Magnesium Ferritin 1611.0 H AST Lactate Dehydrogenase 671 H C-Reactive Protein Total Protein Albumin Coronavirus (PCR) 02/08/20 02/08/20 02/09/20 14:00 17:02 08:45 WBC Hgb Hct MCV MCH Lymph % (Auto) Lymph # Seg Neutrophils % Seg Neuts % (Manual) Lymphocytes % (Manual) Nucleated RBC % Seg Neutrophils # Seg Neutrophils # Man Lymphocytes # (Manual) D-Dimer ABG pH ABG pO2 65.3 L ABG HCO3 ABG O2 Saturation 94.1 L ABG Base Excess ABG Hemoglobin 12.8 L Oxyhemoglobin 92.3 L Sodium Potassium Chloride Carbon Dioxide BUN Glucose POC Glucose 331 H 160 H Hemoglobin A1c Calcium Magnesium Ferritin AST Lactate Dehydrogenase C-Reactive Protein Total Protein Albumin Coronavirus (PCR) 02/09/20 02/09/20 02/09/20 12:27 17:22 23:11 WBC Hgb Hct MCV MCH Lymph % (Auto) Lymph # Seg Neutrophils % Seg Neuts % (Manual) Lymphocytes % (Manual) Nucleated RBC % Seg Neutrophils # Seg Neutrophils # Man Lymphocytes # (Manual) D-Dimer ABG pH ABG pO2 ABG HCO3 ABG O2 Saturation ABG Base Excess ABG Hemoglobin Oxyhemoglobin Sodium Potassium Chloride Carbon Dioxide BUN Glucose POC Glucose 262 H 237 H 140 H Hemoglobin A1c Calcium Magnesium Ferritin AST Lactate Dehydrogenase C-Reactive Protein Total Protein Albumin Coronavirus (PCR) 02/10/20 02/10/20 02/10/20 08:30 12:00 12:30 WBC Hgb Hct MCV MCH Lymph % (Auto) Lymph # Seg Neutrophils % Seg Neuts % (Manual) Lymphocytes % (Manual) Nucleated RBC % Seg Neutrophils # Seg Neutrophils # Man Lymphocytes # (Manual) D-Dimer ABG pH ABG pO2 ABG HCO3 ABG O2 Saturation ABG Base Excess ABG Hemoglobin Oxyhemoglobin Sodium Potassium Chloride Carbon Dioxide BUN Glucose 330 H POC Glucose 216 H 252 H Hemoglobin A1c Calcium Magnesium Ferritin AST Lactate Dehydrogenase 642 H C-Reactive Protein Total Protein Albumin Coronavirus (PCR) 02/10/20 02/10/20 02/10/20 12:30 16:32 23:38 WBC Hgb Hct MCV MCH Lymph % (Auto) Lymph # Seg Neutrophils % Seg Neuts % (Manual) Lymphocytes % (Manual) Nucleated RBC % Seg Neutrophils # Seg Neutrophils # Man Lymphocytes # (Manual) D-Dimer ABG pH ABG pO2 ABG HCO3 ABG O2 Saturation ABG Base Excess ABG Hemoglobin Oxyhemoglobin Sodium Potassium Chloride Carbon Dioxide BUN Glucose POC Glucose 245 H 196 H Hemoglobin A1c Calcium Magnesium Ferritin 1728.0 H AST Lactate Dehydrogenase C-Reactive Protein Total Protein Albumin Coronavirus (PCR) 02/11/20 02/11/20 08:07 11:41 WBC Hgb Hct MCV MCH Lymph % (Auto) Lymph # Seg Neutrophils % Seg Neuts % (Manual) Lymphocytes % (Manual) Nucleated RBC % Seg Neutrophils # Seg Neutrophils # Man Lymphocytes # (Manual) D-Dimer ABG pH ABG pO2 ABG HCO3 ABG O2 Saturation ABG Base Excess ABG Hemoglobin Oxyhemoglobin Sodium Potassium Chloride Carbon Dioxide BUN Glucose POC Glucose 300 H 286 H Hemoglobin A1c Calcium Magnesium Ferritin AST Lactate Dehydrogenase C-Reactive Protein Total Protein Albumin Coronavirus (PCR)
[2020-02-11 14:37] LABS: BUN/Creatinine Ratio 40; Blood Urea Nitrogen 40 mg/dL (9-20); Calcium 7.9 mg/dL (8.4-10.2); Hemolysis Index 7
[2020-02-11 15:06] LABS: Hematocrit 43.8 % (35.5-45.6); Hemoglobin 13.9 gm/dl (11.8-15.2); Mean Corpuscular HGB Conc 32 % (32-34); Mean Corpuscular Volume 98 fl (84-94); Platelet Count 168 K/mm3 (140-440); Red Blood Count 4.47 M/mm3 (3.65-5.03); Red Cell Distribution Width 15.7 % (13.2-15.2)
--- NOTE | 2020-02-11 15:50 | Progress Note ---
Assessment and Plan Cultures: Blood cultures no growth Assessment: 89 years old male with history of diabetes mellitus, admitted on 01/29/2020 due to 2-week history of generalized weakness, mild cough, dyspnea on exertion: #Sepsis: present on admission with fever, hypoxia; source COVID-19 infection. #COVID-19 pneumonia: elevated biomarkers. D-dimer 2573. Ferritin 2000, CRP 10.2. LDH 930. 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 Completed 5 days of Remdesivir, completed Actemra 01/31/2020. #Acute hypoxemic respiratory failure: on high flow. Recommendations: Continue steroid taper Awaiting convalescent plasma, appreciate assistance of Dr. López monitor markers every 2 days continue with anticoagulation given the severe hypoxia and elevated d-dimer Prognosis appears quite guarded. Km Calhoun MD, FACP [facility] ([facility]) C: [phone] O: [phone] F: [phone] Subjective Date of service: 02/11/20 Principal diagnosis: COVID Interval history: No fever. Remains on high flow oxygen. Awaiting plasma. Objective - Exam Narrative Exam: Physical Exam (reviewed in chart due to PPE conservation) Constitutional: limited due to PPE conservation strategy Head, Ears, Nose: limited due to PPE conservation strategy Eyes: limited due to PPE conservation strategy Neck: limited due to PPE conservation strategy Oral: limited due to PPE conservation strategy Cardiovascular: limited due to PPE conservation strategy Respiratory: limited due to PPE conservation strategy GI: limited due to PPE conservation strategy Musculoskeletal: limited due to PPE conservation strategy Skin: limited due to PPE conservation strategy Hem/Lymphatic: limited due to PPE conservation strategy Psych: limited due to PPE conservation strategy Neurological: limited due to PPE conservation strategy - Constitutional Vitals: Vital Signs Temp Pulse Resp BP Pulse Ox 97.3 F L 91 H 20 132/74 96 02/11/20 11:37 02/11/20 11:37 02/11/20 11:37 02/11/20 11:37 02/11/20 14:00 Temperature -Last 24 Hours Temperature 97.3 F Temperature 97.5 F Temperature 97.8 F Temperature 99.0 F Temperature 98.0 F - Labs CBC & Chem 7: 02/11/20 13:47 02/11/20 13:47 Labs: Abnormal lab results 07/07/2002/10/20 02/11/20 Range/Units 16:32 23:38 08:07 MCV (84-94) fl RDW (13.2-15.2) % Sodium (137-145) mmol/L Chloride (98-107) mmol/L BUN (9-20) mg/dL Glucose (75-100) mg/dL POC Glucose 245 H 196 H 300 H (70-105) Calcium (8.4-10.2) mg/dL 02/11/20 02/11/20 02/11/20 Range/Units 11:41 13:47 13:47 MCV 98 H (84-94) fl RDW 15.7 H (13.2-15.2) % Sodium 158 H D (137-145) mmol/L Chloride 119.7 H (98-107) mmol/L BUN 40 H (9-20) mg/dL Glucose 287 H (75-100) mg/dL POC Glucose 286 H (70-105) Calcium 7.9 L (8.4-10.2) mg/dL
[2020-02-11] MEDS: PRAZOSIN 1 MG CAP PO SCH ×2 (16:39→22:28)
[2020-02-11] MEDS: ZINC SULFATE 220 MG CAP PO SCH (16:39)
--- NOTE | 2020-02-11 17:21 | Progress Note ---
Assessment and Plan /Acute toxic encephalopathy -Likely due to severe hypoxia and COVID-19 infection -Continue to monitor, provide supportive care -Haldol as needed, sitter in place, placed on restraint /Sepsis: present on admission with fever, hypoxia; source COVID-19 infection due to COVID-19 pneumonia: /Bilateral pneumonia s/p Rocephin and azithromycin ID consult requested Coronavirus positive cont Isolation Inflammatory markers are very high - con to follow / COVID-19 PNA Patient exposed to his son who had coronavirus nasal cannula oxygen to keep O2 sat >94% Patient isolated, ID following follow inflammatory markers s/p Remdesivir x 5 days, S/p Tocilizumab IV x1 Continue Solu-Medrol 40 mg IV every 8 hours - will wean off ID now recommended for convalescent plasma -waiting on family consent /Acute hypoxic Respiratory failure - O2 sat drops with activity - cont nebs, solumedrol, supplemental O2 / Elevated d-dimer Lovenox initiated /Hyperlipidemia, cont statin /T2DM (type 2 diabetes mellitus) consistent carb diet, SSI Coverage for now /DVT prophylaxis Patient on Lovenox and GI prophylaxis 01/29: Positive for COVID 19, follow inflammatory markers, start on iv solumedrol. Start Tocilizumab IV x1 01/30; Start Remdesivir, Continue Solu-Medrol 40 mg IV every 8 hours. follow inflammatory markers 01/31: cont Remdesivir day 2, Solu-Medrol 40 mg IV every 8 hours. follow inflammatory markers 02/01 patient is awake and alert, moderately short of breath, he denies any fever, chills, chest pain and has occasional dry cough. Denies nausea or abdominal pain. vital signs deteriorated this morning with worsening hypoxemia, now on nonrebreather Ventimask ID note reviewed, lab results reviewed 02/02 patient was not seen [id number] today, he is now on high flow nasal cannula, no acute events overnight and discussed with RN, lab results reviewed ID note reviewed 02/03: appears agitated, ferritin trended up. completed Remdesivir today. cont solumedrol iv q8h. transfer to [facility], patient on 100% FiO2 today 02/04 patient remains on 90% FiO2, appears very confused and unable to give any consent. Continue IV steroid, will try to get consent for convalescent plasma from family 02/05 patient on 70% Fio2 today, waiting on family consent for for convalescent plasma 02/06 spoke with patient's son directly and he is not willing to give consent for convalescent plasma and requested that his sister who lives in [place] will give the consent. Waiting on patient daughter to call back to give the consent. We will order for type and screen. Patient on 50% FiO2 today. 02/07: On 60% FiO2. obtained consent from daughter. requested for convalescent plasma 02/08: on 50% FiO2. requested for convalescent plasma - code [id number], waiting on shipment from [facility] 02/09: waiting on convalescent plasma - waiting on shipment from [facility], patient on 60% FiO2, remains confused 02/10: waiting on convalescent plasma from [facility]. Called daughter but didn't get any response Brief History: 89 years old male with history of diabetes mellitus, admitted on 01/29/2020 due to 2-week history of generalized weakness, mild cough, dyspnea on exertion. Patient tested positive for COVID-19 recently. Patient's son also was positive for COVID-19 initially. Initial WBC 3.6. Hemoglobin 12.2. Platelets 142. D- dimer 2573. Ferritin 2000, CRP 10.2. LDH 930. Procalcitonin 0.18. AST 76. Chest x-ray shows bilateral interstitial infiltrate. ID following Subjective Date of service: 02/11/20 Principal diagnosis: COVID Interval history: Patient seen and examined patient is agitated and restrained Remains supplemental O2 waiting on convalescent plasma from [facility] Objective - Exam Narrative Exam: Constitutional:alert but confused Neck: supple Oral:no ulcer, dry Cardiovascular: s1 s2 positive Respiratory: mae rhonchi per NS GI: BS positive Musculoskeletal: no joint swelling Skin: No rash or abscess Psych: agitated Neurological: agitated on restraint - Constitutional Vitals: Vital Signs - 12hr 02/11/20 02/11/20 02/11/20 06:38 08:00 08:53 Temperature 97.8 F 97.5 F L Pulse Rate 77 86 Respiratory 16 20 Rate Blood Pressure 123/77 113/63 O2 Sat by Pulse 97 95 94 Oximetry 02/11/20 02/11/20 02/11/20 09:42 11:37 14:00 Temperature 97.3 F L Pulse Rate 77 91 H Respiratory 20 Rate Blood Pressure 123/77 132/74 O2 Sat by Pulse 96 96 Oximetry - Labs CBC & Chem 7: 02/17/20 09:03 02/19/20 05:38 Labs: Abnormal lab results 02/10/20 02/11/20 02/11/20 Range/Units 23:38 08:07 11:41 MCV (84-94) fl RDW (13.2-15.2) % Sodium (137-145) mmol/L Chloride (98-107) mmol/L BUN (9-20) mg/dL Glucose (75-100) mg/dL POC Glucose 196 H 300 H 286 H (70-105) Calcium (8.4-10.2) mg/dL 02/11/20 02/11/20 02/11/20 Range/Units 13:47 13:47 17:17 MCV 98 H (84-94) fl RDW 15.7 H (13.2-15.2) % Sodium 158 H D (137-145) mmol/L Chloride 119.7 H (98-107) mmol/L BUN 40 H (9-20) mg/dL Glucose 287 H (75-100) mg/dL POC Glucose 288 H (70-105) Calcium 7.9 L (8.4-10.2) mg/dL HEART Score - HEART Score Troponin: Troponin T 0.014 ng/mL (0.00-0.029) 01/29/20 17:03
[2020-02-11] MEDS ORDERED: D5W/0.9% NACL 1,000 ML IV SCH (19:00)
[2020-02-11] MEDS: INSULIN GLARGINE 100 UNITS/ML SUB-Q SCH (22:25)
[2020-02-12] MEDS: methylPREDNISolone Sod Succinate 40 MG/1 ML INJ IV SCH (02:58)
[2020-02-12] MEDS: LORazepam 2 MG/ML VIAL IV PRN ×2 (06:32→22:45)
[2020-02-12] MEDS: HYDROmorphone 1 MG/1 ML INJ IV PRN ×2 (06:33→22:44)
[2020-02-12] MEDS: INSULIN REGULAR, HUMAN 100 UNITS/1 ML SUB-Q SCH ×3 (08:45→17:14)
[2020-02-12] MEDS: INSULIN LISPRO 100 UNIT/ML SUB-Q SCH ×4 (08:45→22:46)
[2020-02-12] MEDS: ENOXAPARIN 100 MG/1 ML INJ SUB-Q SCH ×2 (09:15→22:44)
[2020-02-12] MEDS: ZINC SULFATE 220 MG CAP PO SCH (09:16)
[2020-02-12] MEDS: METOPROLOL TARTRATE 50 MG TAB PO SCH ×2 (09:16→22:45)
[2020-02-12] MEDS: PRAZOSIN 1 MG CAP PO SCH ×2 (09:16→22:46)
[2020-02-12] MEDS: FAMOTIDINE 20 MG TAB PO SCH ×2 (09:17→22:43)
[2020-02-12] MEDS ORDERED: methylPREDNISolone Sod Succinate 40 MG/1 ML INJ IV SCH (10:00)
[2020-02-12] MEDS: D5W/0.2% NACL 1,000 ML IV SCH ×2 (12:29→22:43)
--- NOTE | 2020-02-12 13:40 | Progress Note ---
Assessment and Plan Patient awake and still confused.Patient is on Vapotherm, FIO2 100% and O2 saturation 92%. Patient afebrile. No leukocytosis. Chest xray 02/08/20 reported There is some improvement in pulmonary opacities on the right and slight worsening on the left. - Patient Problems (1) Acute respiratory failure with hypoxia Current Visit: Yes Status: Acute Plan to address problem: Continue Vapotherm 100%. Continue Solumedrol. Continue Lovenox. Continue famotidine. (2) Bilateral pneumonia Current Visit: Yes Status: Acute Qualifiers: Lung location: unspecified part of lung Plan to address problem: Antibiotics as per infectious diseases. (3) COVID-19 Current Visit: Yes Status: Acute Plan to address problem: On vapotherm, FIO2 100%. Continue Solumedrol. Continue Lovenox. Continue famotidine. Management as per infectious diseases. (4) Elevated d-dimer Current Visit: Yes Status: Acute Plan to address problem: Patient is on S/C Lovenox 100mg S/C q 12 hours. 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 Subjective Date of service: 02/12/20 Principal diagnosis: COVID Interval history: Patient awake and still confused.Patient is on Vapotherm, FIO2 100% and O2 saturation 92%. Patient afebrile. No leukocytosis. Chest xray 02/08/20 reported There is some improvement in pulmonary opacities on the right and slight worsening on the left. Objective Vital Signs - 12hr 02/12/20 02/12/20 02/12/20 02:00 06:08 08:00 Temperature 98.1 F Pulse Rate 78 Respiratory Rate Blood Pressure 146/67 O2 Sat by Pulse 100 95 93 Oximetry 02/12/20 10:46 Temperature 97.4 F L Pulse Rate 90 Respiratory 20 Rate Blood Pressure 149/81 O2 Sat by Pulse 88 Oximetry Constitutional: no acute distress, lethargic, asleep Eyes: non-icteric ENT: oropharynx dry Neck: supple, no JVD Effort: mildly labored Ascultation: Bilateral: rhonchi Cardiovascular: regular rate and rhythm, other (S1,S2) Gastrointestinal: normoactive bowel sounds, hypoactive bowel sounds, soft, non- tender Integumentary: normal Extremities: no cyanosis, no edema Neurologic: non-focal exam (grossly, moving all extremities), unable to assess Psychiatric: other (Unable to assess due to mental status at this time.) CBC and BMP: 02/11/20 13:47 02/11/20 13:47 ABG, PT/INR, D-dimer: ABG ABG pH 7.440 pH Units (7.350-7.450) 02/08/20 14:00 ABG pCO2 35.9 mm Hg 02/08/20 14:00 ABG pO2 65.3 mm Hg (80.0-90.0) L 02/08/20 14:00 ABG O2 Saturation 94.1 % (95.0-99.0) L 02/08/20 14:00 PT/INR, D-dimer PT 13.9 Sec. (12.2-14.9) 01/29/20 17:03 INR 1.09 (0.87-1.13) 01/29/20 17:03 D-Dimer 154.77 ng/mlDDU (0-234) 02/10/20 12:30 Abnormal lab findings: Abnormal Labs 01/29/20 01/29/20 01/29/20 17:03 17:03 17:03 WBC 3.6 L Hgb Hct MCV 96 H MCH 33 H RDW Lymph % (Auto) Lymph # 0.5 L Seg Neutrophils % 79.6 H Seg Neuts % (Manual) Lymphocytes % (Manual) Nucleated RBC % Seg Neutrophils # Seg Neutrophils # Man Lymphocytes # (Manual) D-Dimer 2573.78 H ABG pH ABG pO2 ABG HCO3 ABG O2 Saturation ABG Base Excess ABG Hemoglobin Oxyhemoglobin Sodium Potassium Chloride Carbon Dioxide BUN Glucose 240 H POC Glucose Hemoglobin A1c Calcium Magnesium Ferritin AST 76 H Lactate Dehydrogenase C-Reactive Protein Total Protein Albumin 3.0 L Coronavirus (PCR) 01/29/20 01/29/20 01/29/20 18:33 18:33 23:28 WBC Hgb Hct MCV MCH RDW Lymph % (Auto) Lymph # Seg Neutrophils % Seg Neuts % (Manual) Lymphocytes % (Manual) Nucleated RBC % Seg Neutrophils # Seg Neutrophils # Man Lymphocytes # (Manual) D-Dimer ABG pH ABG pO2 ABG HCO3 ABG O2 Saturation ABG Base Excess ABG Hemoglobin Oxyhemoglobin Sodium Potassium Chloride Carbon Dioxide BUN Glucose 230 H POC Glucose 253 H Hemoglobin A1c Calcium Magnesium Ferritin > 2000.0 H AST Lactate Dehydrogenase 930 H C-Reactive Protein 10.20 H Total Protein Albumin Coronavirus (PCR) 01/29/20 01/30/20 01/30/20 Unknown 05:41 05:41 WBC Hgb 11.7 L Hct 35.2 L MCV MCH RDW Lymph % (Auto) 8.1 L Lymph # 0.4 L Seg Neutrophils % 85.8 H Seg Neuts % (Manual) Lymphocytes % (Manual) Nucleated RBC % Seg Neutrophils # Seg Neutrophils # Man Lymphocytes # (Manual) D-Dimer ABG pH ABG pO2 ABG HCO3 ABG O2 Saturation ABG Base Excess ABG Hemoglobin Oxyhemoglobin Sodium Potassium Chloride Carbon Dioxide 19 L BUN Glucose 242 H POC Glucose Hemoglobin A1c Calcium 7.7 L Magnesium Ferritin AST 79 H Lactate Dehydrogenase C-Reactive Protein Total Protein Albumin 2.9 L Coronavirus (PCR) Positive A 01/30/20 01/30/20 01/30/20 05:41 07:55 12:54 WBC Hgb Hct MCV MCH RDW Lymph % (Auto) Lymph # Seg Neutrophils % Seg Neuts % (Manual) Lymphocytes % (Manual) Nucleated RBC % Seg Neutrophils # Seg Neutrophils # Man Lymphocytes # (Manual) D-Dimer ABG pH ABG pO2 ABG HCO3 ABG O2 Saturation ABG Base Excess ABG Hemoglobin Oxyhemoglobin Sodium Potassium Chloride Carbon Dioxide BUN Glucose POC Glucose 262 H 232 H Hemoglobin A1c 7.3 H Calcium Magnesium Ferritin AST Lactate Dehydrogenase C-Reactive Protein Total Protein Albumin Coronavirus (PCR) 01/30/20 01/30/20 01/31/20 16:07 21:15 08:42 WBC Hgb Hct MCV MCH RDW Lymph % (Auto) Lymph # Seg Neutrophils % Seg Neuts % (Manual) Lymphocytes % (Manual) Nucleated RBC % Seg Neutrophils # Seg Neutrophils # Man Lymphocytes # (Manual) D-Dimer ABG pH ABG pO2 ABG HCO3 ABG O2 Saturation ABG Base Excess ABG Hemoglobin Oxyhemoglobin Sodium Potassium Chloride Carbon Dioxide BUN Glucose POC Glucose 211 H 285 H 328 H Hemoglobin A1c Calcium Magnesium Ferritin AST Lactate Dehydrogenase C-Reactive Protein Total Protein Albumin Coronavirus (PCR) 01/31/20 01/31/20 01/31/20 12:44 12:44 12:44 WBC Hgb Hct MCV MCH RDW Lymph % (Auto) Lymph # Seg Neutrophils % Seg Neuts % (Manual) Lymphocytes % (Manual) Nucleated RBC % Seg Neutrophils # Seg Neutrophils # Man Lymphocytes # (Manual) D-Dimer 795.52 H ABG pH ABG pO2 ABG HCO3 ABG O2 Saturation ABG Base Excess ABG Hemoglobin Oxyhemoglobin Sodium Potassium Chloride Carbon Dioxide BUN Glucose 384 H POC Glucose Hemoglobin A1c Calcium Magnesium Ferritin > 2000.0 H AST Lactate Dehydrogenase 1393 H C-Reactive Protein 5.80 H Total Protein Albumin Coronavirus (PCR) 01/31/20 01/31/20 02/01/20 16:36 23:46 08:00 WBC Hgb Hct MCV MCH RDW Lymph % (Auto) Lymph # Seg Neutrophils % Seg Neuts % (Manual) Lymphocytes % (Manual) Nucleated RBC % Seg Neutrophils # Seg Neutrophils # Man Lymphocytes # (Manual) D-Dimer ABG pH ABG pO2 ABG HCO3 ABG O2 Saturation ABG Base Excess ABG Hemoglobin Oxyhemoglobin Sodium Potassium Chloride Carbon Dioxide BUN Glucose POC Glucose 384 H 322 H 287 H Hemoglobin A1c Calcium Magnesium Ferritin AST Lactate Dehydrogenase C-Reactive Protein Total Protein Albumin Coronavirus (PCR) 02/01/20 02/01/20 02/01/20 12:48 16:53 23:25 WBC Hgb Hct MCV MCH RDW Lymph % (Auto) Lymph # Seg Neutrophils % Seg Neuts % (Manual) Lymphocytes % (Manual) Nucleated RBC % Seg Neutrophils # Seg Neutrophils # Man Lymphocytes # (Manual) D-Dimer ABG pH ABG pO2 ABG HCO3 ABG O2 Saturation ABG Base Excess ABG Hemoglobin Oxyhemoglobin Sodium Potassium Chloride Carbon Dioxide BUN Glucose POC Glucose 309 H 362 H 264 H Hemoglobin A1c Calcium Magnesium Ferritin AST Lactate Dehydrogenase C-Reactive Protein Total Protein Albumin Coronavirus (PCR) 02/02/20 02/02/20 02/02/20 05:31 05:31 05:31 WBC Hgb Hct MCV MCH RDW Lymph % (Auto) Lymph # Seg Neutrophils % Seg Neuts % (Manual) Lymphocytes % (Manual) Nucleated RBC % Seg Neutrophils # Seg Neutrophils # Man Lymphocytes # (Manual) D-Dimer 416.36 H ABG pH ABG pO2 ABG HCO3 ABG O2 Saturation ABG Base Excess ABG Hemoglobin Oxyhemoglobin Sodium Potassium Chloride 107.2 H Carbon Dioxide BUN 25 H Glucose 304 H POC Glucose Hemoglobin A1c Calcium 8.2 L Magnesium Ferritin > 2000.0 H AST Lactate Dehydrogenase C-Reactive Protein Total Protein Albumin Coronavirus (PCR) 02/02/20 02/02/20 02/02/20 05:31 09:14 11:57 WBC Hgb Hct MCV MCH RDW Lymph % (Auto) Lymph # Seg Neutrophils % Seg Neuts % (Manual) Lymphocytes % (Manual) Nucleated RBC % Seg Neutrophils # Seg Neutrophils # Man Lymphocytes # (Manual) D-Dimer ABG pH ABG pO2 ABG HCO3 ABG O2 Saturation ABG Base Excess ABG Hemoglobin Oxyhemoglobin Sodium Potassium Chloride Carbon Dioxide BUN Glucose POC Glucose 334 H 429 H Hemoglobin A1c Calcium Magnesium Ferritin AST Lactate Dehydrogenase 1297 H C-Reactive Protein 2.20 H Total Protein Albumin Coronavirus (PCR) 02/02/20 02/02/20 02/02/20 12:44 16:35 22:55 WBC Hgb Hct MCV MCH RDW Lymph % (Auto) Lymph # Seg Neutrophils % Seg Neuts % (Manual) Lymphocytes % (Manual) Nucleated RBC % Seg Neutrophils # Seg Neutrophils # Man Lymphocytes # (Manual) D-Dimer ABG pH 7.466 H ABG pO2 60.9 L ABG HCO3 ABG O2 Saturation 93.6 L ABG Base Excess -2.7 L ABG Hemoglobin 11.8 L Oxyhemoglobin 91.4 L Sodium Potassium Chloride Carbon Dioxide BUN Glucose POC Glucose 300 H 339 H Hemoglobin A1c Calcium Magnesium Ferritin AST Lactate Dehydrogenase C-Reactive Protein Total Protein Albumin Coronavirus (PCR) 02/03/20 02/03/20 02/03/20 01:06 06:09 06:09 WBC Hgb Hct MCV MCH RDW Lymph % (Auto) Lymph # Seg Neutrophils % Seg Neuts % (Manual) 92.0 H Lymphocytes % (Manual) 3.0 L Nucleated RBC % 2.0 H Seg Neutrophils # Seg Neutrophils # Man Lymphocytes # (Manual) 0.3 L D-Dimer ABG pH ABG pO2 ABG HCO3 ABG O2 Saturation ABG Base Excess ABG Hemoglobin Oxyhemoglobin Sodium Potassium Chloride Carbon Dioxide BUN 27 H Glucose 348 H POC Glucose Hemoglobin A1c Calcium 8.1 L Magnesium 2.50 H 2.50 H Ferritin AST Lactate Dehydrogenase C-Reactive Protein Total Protein 5.4 L Albumin 3.0 L Coronavirus (PCR) 02/03/20 02/03/20 02/03/20 08:42 11:50 16:18 WBC Hgb Hct MCV MCH RDW Lymph % (Auto) Lymph # Seg Neutrophils % Seg Neuts % (Manual) Lymphocytes % (Manual) Nucleated RBC % Seg Neutrophils # Seg Neutrophils # Man Lymphocytes # (Manual) D-Dimer ABG pH ABG pO2 ABG HCO3 ABG O2 Saturation ABG Base Excess ABG Hemoglobin Oxyhemoglobin Sodium Potassium Chloride Carbon Dioxide BUN Glucose POC Glucose 355 H 345 H 382 H Hemoglobin A1c Calcium Magnesium Ferritin AST Lactate Dehydrogenase C-Reactive Protein Total Protein Albumin Coronavirus (PCR) 02/03/20 02/03/20 02/04/20 22:00 22:04 06:06 WBC Hgb Hct MCV MCH RDW Lymph % (Auto) Lymph # Seg Neutrophils % Seg Neuts % (Manual) Lymphocytes % (Manual) Nucleated RBC % Seg Neutrophils # Seg Neutrophils # Man Lymphocytes # (Manual) D-Dimer ABG pH 7.505 H ABG pO2 59.1 L ABG HCO3 19.1 L ABG O2 Saturation 93.0 L ABG Base Excess -2.4 L ABG Hemoglobin 13.3 L Oxyhemoglobin 91.1 L Sodium Potassium Chloride Carbon Dioxide BUN Glucose POC Glucose 309 H Hemoglobin A1c Calcium Magnesium Ferritin 4214.0 H AST Lactate Dehydrogenase C-Reactive Protein Total Protein Albumin Coronavirus (PCR) 02/04/20 02/04/20 02/04/20 06:06 06:06 06:06 WBC Hgb Hct MCV 95 H MCH RDW Lymph % (Auto) 4.3 L Lymph # 0.5 L Seg Neutrophils % 87.5 H Seg Neuts % (Manual) Lymphocytes % (Manual) Nucleated RBC % Seg Neutrophils # 9.3 H Seg Neutrophils # Man Lymphocytes # (Manual) D-Dimer ABG pH ABG pO2 ABG HCO3 ABG O2 Saturation ABG Base Excess ABG Hemoglobin Oxyhemoglobin Sodium Potassium Chloride Carbon Dioxide 21 L BUN 30 H Glucose 393 H POC Glucose Hemoglobin A1c Calcium 7.8 L Magnesium 2.70 H Ferritin AST Lactate Dehydrogenase 919 H C-Reactive Protein Total Protein Albumin Coronavirus (PCR) 02/04/20 02/04/20 02/04/20 08:57 13:12 17:45 WBC Hgb Hct MCV MCH RDW Lymph % (Auto) Lymph # Seg Neutrophils % Seg Neuts % (Manual) Lymphocytes % (Manual) Nucleated RBC % Seg Neutrophils # Seg Neutrophils # Man Lymphocytes # (Manual) D-Dimer ABG pH ABG pO2 ABG HCO3 ABG O2 Saturation ABG Base Excess ABG Hemoglobin Oxyhemoglobin Sodium Potassium Chloride Carbon Dioxide BUN Glucose POC Glucose 353 H 364 H 292 H Hemoglobin A1c Calcium Magnesium Ferritin AST Lactate Dehydrogenase C-Reactive Protein Total Protein Albumin Coronavirus (PCR) 02/04/20 02/05/20 02/05/20 22:36 08:44 12:53 WBC Hgb Hct MCV MCH RDW Lymph % (Auto) Lymph # Seg Neutrophils % Seg Neuts % (Manual) Lymphocytes % (Manual) Nucleated RBC % Seg Neutrophils # Seg Neutrophils # Man Lymphocytes # (Manual) D-Dimer ABG pH ABG pO2 ABG HCO3 ABG O2 Saturation ABG Base Excess ABG Hemoglobin Oxyhemoglobin Sodium Potassium Chloride Carbon Dioxide BUN Glucose POC Glucose 255 H 313 H 346 H Hemoglobin A1c Calcium Magnesium Ferritin AST Lactate Dehydrogenase C-Reactive Protein Total Protein Albumin Coronavirus (PCR) 02/05/20 02/05/20 02/06/20 16:55 22:38 01:04 WBC Hgb Hct MCV MCH RDW Lymph % (Auto) Lymph # Seg Neutrophils % Seg Neuts % (Manual) Lymphocytes % (Manual) Nucleated RBC % Seg Neutrophils # Seg Neutrophils # Man Lymphocytes # (Manual) D-Dimer ABG pH ABG pO2 ABG HCO3 ABG O2 Saturation ABG Base Excess ABG Hemoglobin Oxyhemoglobin Sodium Potassium Chloride Carbon Dioxide BUN Glucose POC Glucose 270 H 106 H 122 H Hemoglobin A1c Calcium Magnesium Ferritin AST Lactate Dehydrogenase C-Reactive Protein Total Protein Albumin Coronavirus (PCR) 02/06/20 02/06/20 02/06/20 09:21 12:27 15:20 WBC Hgb Hct MCV MCH RDW Lymph % (Auto) Lymph # Seg Neutrophils % Seg Neuts % (Manual) Lymphocytes % (Manual) Nucleated RBC % Seg Neutrophils # Seg Neutrophils # Man Lymphocytes # (Manual) D-Dimer 328.02 H ABG pH ABG pO2 ABG HCO3 ABG O2 Saturation ABG Base Excess ABG Hemoglobin Oxyhemoglobin Sodium Potassium Chloride Carbon Dioxide BUN Glucose POC Glucose 227 H 295 H Hemoglobin A1c Calcium Magnesium Ferritin AST Lactate Dehydrogenase C-Reactive Protein Total Protein Albumin Coronavirus (PCR) 02/06/20 02/06/20 02/06/20 15:20 15:20 16:50 WBC Hgb Hct MCV MCH RDW Lymph % (Auto) Lymph # Seg Neutrophils % Seg Neuts % (Manual) Lymphocytes % (Manual) Nucleated RBC % Seg Neutrophils # Seg Neutrophils # Man Lymphocytes # (Manual) D-Dimer ABG pH ABG pO2 ABG HCO3 ABG O2 Saturation ABG Base Excess ABG Hemoglobin Oxyhemoglobin Sodium Potassium Chloride Carbon Dioxide BUN Glucose 311 H POC Glucose 258 H Hemoglobin A1c Calcium Magnesium Ferritin < 2000.0 H AST Lactate Dehydrogenase 719 H C-Reactive Protein Total Protein Albumin Coronavirus (PCR) 02/06/20 02/07/20 02/07/20 21:23 08:22 10:51 WBC Hgb Hct MCV MCH RDW Lymph % (Auto) Lymph # Seg Neutrophils % Seg Neuts % (Manual) Lymphocytes % (Manual) Nucleated RBC % Seg Neutrophils # Seg Neutrophils # Man Lymphocytes # (Manual) D-Dimer ABG pH ABG pO2 ABG HCO3 ABG O2 Saturation ABG Base Excess ABG Hemoglobin Oxyhemoglobin Sodium Potassium Chloride Carbon Dioxide BUN Glucose POC Glucose 334 H 281 H 309 H Hemoglobin A1c Calcium Magnesium Ferritin AST Lactate Dehydrogenase C-Reactive Protein Total Protein Albumin Coronavirus (PCR) 02/07/20 02/07/20 02/08/20 16:27 22:40 07:44 WBC Hgb Hct MCV MCH RDW Lymph % (Auto) Lymph # Seg Neutrophils % Seg Neuts % (Manual) Lymphocytes % (Manual) Nucleated RBC % Seg Neutrophils # Seg Neutrophils # Man Lymphocytes # (Manual) D-Dimer ABG pH ABG pO2 ABG HCO3 ABG O2 Saturation ABG Base Excess ABG Hemoglobin Oxyhemoglobin Sodium Potassium Chloride Carbon Dioxide BUN Glucose POC Glucose 288 H 278 H 267 H Hemoglobin A1c Calcium Magnesium Ferritin AST Lactate Dehydrogenase C-Reactive Protein Total Protein Albumin Coronavirus (PCR) 02/08/20 02/08/20 02/08/20 10:46 10:46 10:46 WBC Hgb Hct MCV 98 H MCH RDW Lymph % (Auto) Lymph # Seg Neutrophils % Seg Neuts % (Manual) 97.0 H Lymphocytes % (Manual) 0 L Nucleated RBC % Seg Neutrophils # Seg Neutrophils # Man 10.2 H Lymphocytes # (Manual) 0.0 L D-Dimer 261.46 H ABG pH ABG pO2 ABG HCO3 ABG O2 Saturation ABG Base Excess ABG Hemoglobin Oxyhemoglobin Sodium 148 H Potassium 3.5 L Chloride 112.2 H Carbon Dioxide BUN 36 H Glucose 356 H POC Glucose Hemoglobin A1c Calcium 8.3 L Magnesium Ferritin AST Lactate Dehydrogenase C-Reactive Protein Total Protein Albumin Coronavirus (PCR) 02/08/20 02/08/20 02/08/20 10:46 10:46 12:22 WBC Hgb Hct MCV MCH RDW Lymph % (Auto) Lymph # Seg Neutrophils % Seg Neuts % (Manual) Lymphocytes % (Manual) Nucleated RBC % Seg Neutrophils # Seg Neutrophils # Man Lymphocytes # (Manual) D-Dimer ABG pH ABG pO2 ABG HCO3 ABG O2 Saturation ABG Base Excess ABG Hemoglobin Oxyhemoglobin Sodium Potassium Chloride Carbon Dioxide BUN Glucose 351 H POC Glucose 358 H Hemoglobin A1c Calcium Magnesium Ferritin 1611.0 H AST Lactate Dehydrogenase 671 H C-Reactive Protein Total Protein Albumin Coronavirus (PCR) 02/08/20 02/08/20 02/09/20 14:00 17:02 08:45 WBC Hgb Hct MCV MCH RDW Lymph % (Auto) Lymph # Seg Neutrophils % Seg Neuts % (Manual) Lymphocytes % (Manual) Nucleated RBC % Seg Neutrophils # Seg Neutrophils # Man Lymphocytes # (Manual) D-Dimer ABG pH ABG pO2 65.3 L ABG HCO3 ABG O2 Saturation 94.1 L ABG Base Excess ABG Hemoglobin 12.8 L Oxyhemoglobin 92.3 L Sodium Potassium Chloride Carbon Dioxide BUN Glucose POC Glucose 331 H 160 H Hemoglobin A1c Calcium Magnesium Ferritin AST Lactate Dehydrogenase C-Reactive Protein Total Protein Albumin Coronavirus (PCR) 02/09/20 02/09/20 02/09/20 12:27 17:22 23:11 WBC Hgb Hct MCV MCH RDW Lymph % (Auto) Lymph # Seg Neutrophils % Seg Neuts % (Manual) Lymphocytes % (Manual) Nucleated RBC % Seg Neutrophils # Seg Neutrophils # Man Lymphocytes # (Manual) D-Dimer ABG pH ABG pO2 ABG HCO3 ABG O2 Saturation ABG Base Excess ABG Hemoglobin Oxyhemoglobin Sodium Potassium Chloride Carbon Dioxide BUN Glucose POC Glucose 262 H 237 H 140 H Hemoglobin A1c Calcium Magnesium Ferritin AST Lactate Dehydrogenase C-Reactive Protein Total Protein Albumin Coronavirus (PCR) 02/10/20 02/10/20 02/10/20 08:30 12:00 12:30 WBC Hgb Hct MCV MCH RDW Lymph % (Auto) Lymph # Seg Neutrophils % Seg Neuts % (Manual) Lymphocytes % (Manual) Nucleated RBC % Seg Neutrophils # Seg Neutrophils # Man Lymphocytes # (Manual) D-Dimer ABG pH ABG pO2 ABG HCO3 ABG O2 Saturation ABG Base Excess ABG Hemoglobin Oxyhemoglobin Sodium Potassium Chloride Carbon Dioxide BUN Glucose 330 H POC Glucose 216 H 252 H Hemoglobin A1c Calcium Magnesium Ferritin AST Lactate Dehydrogenase 642 H C-Reactive Protein Total Protein Albumin Coronavirus (PCR) 02/10/20 02/10/20 02/10/20 12:30 16:32 23:38 WBC Hgb Hct MCV MCH RDW Lymph % (Auto) Lymph # Seg Neutrophils % Seg Neuts % (Manual) Lymphocytes % (Manual) Nucleated RBC % Seg Neutrophils # Seg Neutrophils # Man Lymphocytes # (Manual) D-Dimer ABG pH ABG pO2 ABG HCO3 ABG O2 Saturation ABG Base Excess ABG Hemoglobin Oxyhemoglobin Sodium Potassium Chloride Carbon Dioxide BUN Glucose POC Glucose 245 H 196 H Hemoglobin A1c Calcium Magnesium Ferritin 1728.0 H AST Lactate Dehydrogenase C-Reactive Protein Total Protein Albumin Coronavirus (PCR) 02/11/20 02/11/20 02/11/20 08:07 11:41 13:47 WBC Hgb Hct MCV 98 H MCH RDW 15.7 H Lymph % (Auto) Lymph # Seg Neutrophils % Seg Neuts % (Manual) Lymphocytes % (Manual) Nucleated RBC % Seg Neutrophils # Seg Neutrophils # Man Lymphocytes # (Manual) D-Dimer ABG pH ABG pO2 ABG HCO3 ABG O2 Saturation ABG Base Excess ABG Hemoglobin Oxyhemoglobin Sodium Potassium Chloride Carbon Dioxide BUN Glucose POC Glucose 300 H 286 H Hemoglobin A1c Calcium Magnesium Ferritin AST Lactate Dehydrogenase C-Reactive Protein Total Protein Albumin Coronavirus (PCR) 02/11/20 02/11/20 02/11/20 13:47 17:17 21:17 WBC Hgb Hct MCV MCH RDW Lymph % (Auto) Lymph # Seg Neutrophils % Seg Neuts % (Manual) Lymphocytes % (Manual) Nucleated RBC % Seg Neutrophils # Seg Neutrophils # Man Lymphocytes # (Manual) D-Dimer ABG pH ABG pO2 ABG HCO3 ABG O2 Saturation ABG Base Excess ABG Hemoglobin Oxyhemoglobin Sodium 158 H D Potassium Chloride 119.7 H Carbon Dioxide BUN 40 H Glucose 287 H POC Glucose 288 H 283 H Hemoglobin A1c Calcium 7.9 L Magnesium Ferritin AST Lactate Dehydrogenase C-Reactive Protein Total Protein Albumin Coronavirus (PCR) 02/12/20 02/12/20 02/12/20 06:01 08:37 10:58 WBC Hgb Hct MCV MCH RDW Lymph % (Auto) Lymph # Seg Neutrophils % Seg Neuts % (Manual) Lymphocytes % (Manual) Nucleated RBC % Seg Neutrophils # Seg Neutrophils # Man Lymphocytes # (Manual) D-Dimer ABG pH ABG pO2 ABG HCO3 ABG O2 Saturation ABG Base Excess ABG Hemoglobin Oxyhemoglobin Sodium Potassium Chloride Carbon Dioxide BUN Glucose POC Glucose 273 H 313 H 288 H Hemoglobin A1c Calcium Magnesium Ferritin AST Lactate Dehydrogenase C-Reactive Protein Total Protein Albumin Coronavirus (PCR)
--- NOTE | 2020-02-12 17:14 | Progress Note ---
Assessment and Plan /Acute toxic encephalopathy -Likely due to severe hypoxia and COVID-19 infection -Continue to monitor, provide supportive care -Haldol as needed, sitter in place, placed on restraint /Sepsis: present on admission with fever, hypoxia; source COVID-19 infection due to COVID-19 pneumonia: /Bilateral pneumonia s/p Rocephin and azithromycin ID consult requested Coronavirus positive cont Isolation Inflammatory markers are very high - con to follow / COVID-19 PNA Patient exposed to his son who had coronavirus nasal cannula oxygen to keep O2 sat >94% Patient isolated, ID following follow inflammatory markers s/p Remdesivir x 5 days, S/p Tocilizumab IV x1 s/p Solu-Medrol 40 mg IV every 8 hours - now taper off ID now recommended for convalescent plasma -waiting on family consent /Acute hypoxic Respiratory failure - O2 sat drops with activity - cont nebs, solumedrol, supplemental O2 / Elevated d-dimer Lovenox initiated /Hyperlipidemia, cont statin /T2DM (type 2 diabetes mellitus) consistent carb diet, SSI Coverage for now /hypernatremia, due to lacking proper oral hydration -cont iv fluid /DVT prophylaxis Patient on Lovenox and GI prophylaxis 01/29: Positive for COVID 19, follow inflammatory markers, start on iv winifred umedrol. Start Tocilizumab IV x1 01/30; Start Remdesivir, Continue Solu-Medrol 40 mg IV every 8 hours. follow inflammatory markers 01/31: cont Remdesivir day 2, Solu-Medrol 40 mg IV every 8 hours. follow inflammatory markers 02/01 patient is awake and alert, moderately short of breath, he denies any fever, chills, chest pain and has occasional dry cough. Denies nausea or abdominal pain. vital signs deteriorated this morning with worsening hypoxemia, now on nonrebreather Ventimask ID note reviewed, lab results reviewed 02/02 patient was not seen [id number] today, he is now on high flow nasal cannula, no acute events overnight and discussed with RN, lab results reviewed ID note reviewed 02/03: appears agitated, ferritin trended up. completed Remdesivir today. cont solumedrol iv q8h. transfer to [facility], patient on 100% FiO2 today 02/04 patient remains on 90% FiO2, appears very confused and unable to give any consent. Continue IV steroid, will try to get consent for convalescent plasma from family 02/05 patient on 70% Fio2 today, waiting on family consent for for convalescent plasma 02/06 spoke with patient's son directly and he is not willing to give consent for convalescent plasma and requested that his sister who lives in [place] will give the consent. Waiting on patient daughter to call back to give the consent. We will order for type and screen. Patient on 50% FiO2 today. 02/07: On 60% FiO2. obtained consent from daughter. requested for convalescent plasma 02/08: on 50% FiO2. requested for convalescent plasma - code [id number], waiting on shipment from [facility] 02/09: waiting on convalescent plasma - waiting on shipment from [facility], patient on 60% FiO2, remains confused 02/10: waiting on convalescent plasma from [facility]. Called daughter but didn't get any response - updated son 02/11: Patient remains on 6L O2. reordered covid 19. change iv fluid to d5 1/2 NS for hypernatremia Brief History: 89 years old male with history of diabetes mellitus, admitted on 01/29/2020 due to 2-week history of generalized weakness, mild cough, dyspnea on exertion. Patient tested positive for COVID-19 recently. Patient's son also was positive for COVID-19 initially. Initial WBC 3.6. Hemoglobin 12.2. Platelets 142. D- dimer 2573. Ferritin 2000, CRP 10.2. LDH 930. Procalcitonin 0.18. AST 76. Chest x-ray shows bilateral interstitial infiltrate. ID following Subjective Date of service: 02/12/20 Principal diagnosis: COVID Interval history: Patient seen and examined patient is agitated and restrained Patient remains on 6L o2. reordered covid 19 Objective - Exam Narrative Exam: Constitutional:alert but confused Neck: supple Oral:no ulcer, dry Cardiovascular: s1 s2 positive Respiratory: mae rhonchi per NS GI: BS positive Musculoskeletal: no joint swelling Skin: No rash or abscess Psych: agitated Neurological: agitated on restraint - Constitutional Vitals: Vital Signs - 12hr 02/12/20 02/12/20 02/12/20 06:08 08:00 10:46 Temperature 98.1 F 97.4 F L Pulse Rate 78 90 Respiratory 20 Rate Blood Pressure 146/67 149/81 O2 Sat by Pulse 95 93 88 Oximetry 02/12/20 14:00 Temperature Pulse Rate Respiratory Rate Blood Pressure O2 Sat by Pulse 92 Oximetry - Labs CBC & Chem 7: 02/17/20 09:03 02/19/20 05:38 Labs: Abnormal lab results 02/11/20 02/12/20 02/12/20 Range/Units 21:17 06:01 08:37 POC Glucose 283 H 273 H 313 H (70-105) 02/12/20 02/12/20 Range/Units 10:58 16:24 POC Glucose 288 H 192 H (70-105) HEART Score - HEART Score Troponin: Troponin T 0.014 ng/mL (0.00-0.029) 01/29/20 17:03
[2020-02-12] MEDS: INSULIN GLARGINE 100 UNITS/ML SUB-Q SCH (22:45)
[2020-02-13 02:03] LABS: BUN/Creatinine Ratio 32; Blood Urea Nitrogen 32 mg/dL (9-20); Calcium 7.6 mg/dL (8.4-10.2); Hemolysis Index 11
[2020-02-13] MEDS: HYDROmorphone 1 MG/1 ML INJ IV PRN (05:50)
--- NOTE | 2020-02-13 09:43 | Consultation ---
History of Present Illness - Reason for Consult Consult date: 02/13/20 hypernatremia - History of Present Illness The patient is an 89 YO male with history significant for DM type 2, HTN and recently diagnosed with COVID-19 who presented to [facility] ED 01/28 with 2 week history of lightheadedness, generalized weakness and exertional dyspnea. Patient was not able to provide any history at this time and there was no family memeber at the bedside. His son previously was positive for COVID-19 and lives with his father. CXR showed b/l pulmonary opacities. Admitted with hypoxic respiratory failure. Currently he in HFNC O2 and followed by pulmonary. Sodium level is 162. Nephrology consulted for further evaluation. Past History Past Medical History: diabetes, hypertension Medications and Allergies Allergies Allergy/AdvReac Type Severity Reaction Status Date / Time No Known Allergies Allergy Unverified 01/29/20 18:36 Home Medications Medication Instructions Recorded Confirmed Last Taken Type AtorvaSTATin [Lipitor] 40 mg PO QHS 01/31/20 01/31/20 Unknown History Terazosin [Hytrin] 1 mg PO BID 01/31/20 01/31/20 Unknown History glipiZIDE [Glucotrol] 5 mg PO BID 01/31/20 01/31/20 Unknown History metFORMIN [Glucophage] 500 mg PO BID 01/31/20 01/31/20 Unknown History Active Meds: Active Medications Acetaminophen (Tylenol) 650 mg PO Q4H PRN PRN Reason: Pain MILD(1-3)/Fever >100.5/GALINDO Lipase/Protease/Amylase (Pancreaze Dr 10,500 Unit) 1 each FEEDTUBE PRN PRN PRN Reason: For Clogged Feeding Tube Atorvastatin Calcium (Lipitor) 40 mg PO QHS [facility] Last Admin: 02/12/20 22:45 Dose: 40 mg Documented by: Enoxaparin Sodium (Enoxaparin) 100 mg SUB-Q Q12HR [facility] Last Admin: 02/12/20 22:44 Dose: 100 mg Documented by: Famotidine (Pepcid) 20 mg PO BID [facility] Last Admin: 02/12/20 22:43 Dose: 20 mg Documented by: Hydromorphone HCl (Dilaudid) 0.5 mg IV Q3H PRN PRN Reason: Pain , Severe (7-10) Last Admin: 02/13/20 05:50 Dose: 0.5 mg Documented by: Dextrose (D5w) 1,000 mls @ 100 mls/hr IV DIRECT [facility] Insulin Glargine (Lantus) 14 units SUB-Q QHS [facility] Last Admin: 02/12/20 22:45 Dose: Not Given Documented by: Insulin Human Lispro (Humalog) 0 unit SUB-Q [facility]; Protocol Last Admin: 02/12/20 22:46 Dose: Not Given Documented by: Insulin Human Regular (Humulin R) 5 units SUB-Q [facility] Last Admin: 02/12/20 17:14 Dose: 5 units Documented by: Insulin Human Regular (Humulin R) 0 units SUB-Q [facility]; Protocol Lorazepam (Ativan) 1 mg IV Q4H PRN PRN Reason: Anxiety Last Admin: 02/12/20 22:45 Dose: 1 mg Documented by: Methylprednisolone Sodium Succinate (Solu-Medrol) 20 mg IV Q24HR [facility] Metoclopramide HCl (Reglan) 10 mg IV Q6H PRN PRN Reason: Nausea And Vomiting Metoprolol Tartrate (Metoprolol) 50 mg PO BID [facility] Last Admin: 02/12/20 22:45 Dose: 50 mg Documented by: Ondansetron HCl (Zofran) 4 mg IV Q8H PRN PRN Reason: Nausea And Vomiting Last Admin: 01/29/20 23:28 Dose: 4 mg Documented by: Oxycodone/Acetaminophen (Percocet 5/325) 1 tab PO Q6H PRN PRN Reason: Pain, Moderate (4-6) Last Admin: 02/10/20 23:53 Dose: 1 tab Documented by: Prazosin HCl (Prazosin) 1 mg PO BID [facility] Last Admin: 02/12/20 22:46 Dose: Not Given Documented by: Simple Syrup (Simple Syrup) 15 ml FEEDTUBE PRN PRN PRN Reason: Hypoglycemia Simple Syrup (Simple Syrup) 30 ml FEEDTUBE PRN PRN PRN Reason: Hypoglycemia Sodium Bicarbonate (Sodium Bicarbonate) 325 mg FEEDTUBE PRN PRN PRN Reason: For Clogged Feeding Tube Sodium Chloride (Sodium Chloride Flush Syringe 10 Ml) 10 ml IV BID [facility] Last Admin: 02/12/20 22:46 Dose: 10 ml Documented by: Sodium Chloride (Sodium Chloride Flush Syringe 10 Ml) 10 ml IV PRN PRN PRN Reason: LINE FLUSH Zinc Sulfate (Zinc Sulfate) 220 mg PO QDAY JUNE Last Admin: 02/12/20 09:16 Dose: 220 mg Documented by: Review of Systems ROS unobtainable: due to mental status Exam - Vital Signs Vital signs: Vital Signs Pulse Resp Pulse Ox 77 21 97 01/29/20 15:26 01/29/20 15:26 01/29/20 15:26 - General Appearance General appearance: well-developed, well-nourished, other (on HFNC O2) EENT: ATNC Neck: Present: trachea midline Respiratory: Clear to Ascultation Heart: regular, S1S2, no murmurs Gastrointestinal: Present: normoactive bowel sounds. Absent: tenderness, distended Integumentary: no rash, warm and dry Neurologic: other (opens eyes, not following command) Results - Lab Results 02/11/20 13:47 02/14/20 05:25 Most recent lab results ABG pH 7.440 pH Units (7.350-7.450) 02/08/20 14:00 ABG pCO2 35.9 mm Hg 02/08/20 14:00 ABG pO2 65.3 mm Hg (80.0-90.0) L 02/08/20 14:00 ABG HCO3 23.8 mmol/L (20.0-26.0) 02/08/20 14:00 ABG O2 Saturation 94.1 % (95.0-99.0) L 02/08/20 14:00 Calcium 7.6 mg/dL (8.4-10.2) L 02/13/20 00:32 Magnesium 2.70 mg/dL (1.7-2.3) H 02/04/20 06:06 Assessment and Plan 1. Hypernatremia: Secondary to dehydration. Ua and Ur. Osm ordered. IV fluids changed to D5W. Monitor Sodium level. 2. FEN: Monitor lytes and volume status. 3. Acute hypoxic Respiratory failure: On HFNC O2. Cont nebs and Solumedrol. Followed by Pulmonary. 4. Bilateral pneumonia: S/p Rocephin and azithromycin. COVID-19 positive. Follow Inflammatory markers. Followed by ID. 5. Acute toxic metabolic encephalopathy. 6. Elevated d-dimer. 7. Type 2 diabetes mellitus.
[2020-02-13] MEDS: INSULIN REGULAR, HUMAN 100 UNITS/1 ML SUB-Q SCH ×6 (09:56→23:47)
[2020-02-13] MEDS: INSULIN LISPRO 100 UNIT/ML SUB-Q SCH ×4 (09:56→23:46)
[2020-02-13] MEDS: METOPROLOL TARTRATE 50 MG TAB PO SCH ×2 (09:57→22:17)
[2020-02-13] MEDS: ENOXAPARIN 100 MG/1 ML INJ SUB-Q SCH ×2 (09:57→22:16)
[2020-02-13] MEDS: ZINC SULFATE 220 MG CAP PO SCH (10:00)
[2020-02-13] MEDS: methylPREDNISolone Sod Succinate 40 MG/1 ML INJ IV SCH (10:00)
[2020-02-13] MEDS: FAMOTIDINE 20 MG TAB PO SCH ×2 (10:00→22:16)
[2020-02-13] MEDS: PRAZOSIN 1 MG CAP PO SCH ×2 (10:01→22:17)
[2020-02-13] MEDS: DEXTROSE 5% IN WATER 1,000 ML IV SCH ×2 (10:36→22:30)
--- NOTE | 2020-02-13 13:42 | Progress Note ---
Assessment and Plan /Acute toxic encephalopathy -Likely due to severe hypoxia and COVID-19 infection -Continue to monitor, provide supportive care -Haldol as needed, sitter in place, placed on restraint /Sepsis: present on admission with fever, hypoxia; source COVID-19 infection due to COVID-19 pneumonia: /Bilateral pneumonia s/p Rocephin and azithromycin ID consult requested Coronavirus positive cont Isolation Inflammatory markers are very high - con to follow / COVID-19 PNA COVID +ve 01/28 and 02/12 Patient exposed to his son who had coronavirus nasal cannula oxygen to keep O2 sat >94% Patient isolated, ID following follow inflammatory markers s/p Remdesivir x 5 days, S/p Tocilizumab IV x1 s/p Solu-Medrol 40 mg IV every 8 hours - now taper off ID now recommended for convalescent plasma -[facility] /Acute hypoxic Respiratory failure - O2 sat drops with activity - cont nebs, solumedrol, supplemental O2 / Elevated d-dimer Lovenox initiated /Hyperlipidemia, cont statin /T2DM (type 2 diabetes mellitus) consistent carb diet, SSI Coverage for now /hypernatremia, due to lacking proper oral hydration -cont iv fluid /DVT prophylaxis Patient on Lovenox and GI prophylaxis 01/29: Positive for COVID 19, follow inflammatory markers, start on iv solumedrol. Start Tocilizumab IV x1 01/30; Start Remdesivir, Continue Solu-Medrol 40 mg IV every 8 hours. follow inflammatory markers 01/31: cont Remdesivir day 2, Solu-Medrol 40 mg IV every 8 hours. follow inflammatory markers 02/01 patient is awake and alert, moderately short of breath, he denies any fever, chills, chest pain and has occasional dry cough. Denies nausea or abdominal pain. vital signs deteriorated this morning with worsening hypoxemia, now on nonrebreather Ventimask ID note reviewed, lab results reviewed 02/02 patient was not seen [id number] today, he is now on high flow nasal cannula, no acute events overnight and discussed with RN, lab results reviewed ID note reviewed 02/03: appears agitated, ferritin trended up. completed Remdesivir today. cont solumedrol iv q8h. transfer to [facility], patient on 100% FiO2 today 02/04 patient remains on 90% FiO2, appears very confused and unable to give any consent. Continue IV steroid, will try to get consent for convalescent plasma from family 02/05 patient on 70% Fio2 today, waiting on family consent for for convalescent plasma 02/06 spoke with patient's son directly and he is not willing to give consent for convalescent plasma and requested that his sister who lives in [place] will give the consent. Waiting on patient daughter to call back to give the consent. We will order for type and screen. Patient on 50% FiO2 today. 02/07: On 60% FiO2. obtained consent from daughter. requested for convalescent plasma 02/08: on 50% FiO2. requested for convalescent plasma - code [id number], waiting on shipment from [facility] 02/09: waiting on convalescent plasma - waiting on shipment from [facility], patient on 60% FiO2, remains confused 02/10: [facility]escent [facility] Called daughter but didn't get any response - updated son 02/11: Patient remains on 6L o2. reordered covid 19. change iv fluid to d5 1/2 NS for hypernatremia 02/12: Na 162 today, change fluid to d5w, nephrology consulted. waiting on convalescent plasma from [facility]. repeat covid test still positive Brief History: 89 years old male with history of diabetes mellitus, admitted on 01/29/2020 due to 2-week history of generalized weakness, mild cough, dyspnea on exertion. Patient tested positive for COVID-19 recently. Patient's son also was positive for COVID-19 initially. Initial WBC 3.6. Hemoglobin 12.2. Platelets 142. D- dimer 2573. Ferritin 2000, CRP 10.2. LDH 930. Procalcitonin 0.18. AST 76. Chest x-ray shows bilateral interstitial infiltrate. ID following Subjective Date of service: 02/13/20 Principal diagnosis: COVID Interval history: Patient seen and examined patient is agitated and restrained Remains on 6L o2 Repeat covid test still positive Objective - Exam Narrative Exam: Constitutional:alert but confused Neck: supple Oral:no ulcer, dry Cardiovascular: s1 s2 positive Respiratory: mae rhonchi per NS GI: BS positive Musculoskeletal: no joint swelling Skin: No rash or abscess Psych: agitated Neurological: agitated on restraint - Constitutional Vitals: Vital Signs - 12hr 07/15/20 07/15/20 07/15/20 04:50 04:51 09:57 Temperature 97.5 F L Pulse Rate 77 82 81 Respiratory 16 16 Rate Blood Pressure 144/56 112/57 O2 Sat by Pulse 90 99 Oximetry - Labs CBC & Chem 7: 02/11/20 13:47 02/13/20 14:33 Labs: Abnormal lab results 02/12/20 02/12/20 02/13/20 Range/Units 16:24 22:23 00:32 Sodium 162 H* (137-145) mmol/L Potassium 3.2 L (3.6-5.0) mmol/L Chloride 125.4 H (98-107) mmol/L BUN 32 H (9-20) mg/dL Glucose 132 H (75-100) mg/dL POC Glucose 192 H 145 H (70-105) Calcium 7.6 L (8.4-10.2) mg/dL 02/13/20 02/13/20 Range/Units 09:06 11:22 Sodium (137-145) mmol/L Potassium (3.6-5.0) mmol/L Chloride (98-107) mmol/L BUN (9-20) mg/dL Glucose (75-100) mg/dL POC Glucose 221 H 319 H (70-105) Calcium (8.4-10.2) mg/dL HEART Score - HEART Score Troponin: Troponin T 0.014 ng/mL (0.00-0.029) 01/29/20 17:03
[2020-02-13 15:22] LABS: BUN/Creatinine Ratio 27; Blood Urea Nitrogen 30 mg/dL (9-20); Calcium 7.5 mg/dL (8.4-10.2); Hemolysis Index 6
[2020-02-13] MEDS: LORazepam 2 MG/ML VIAL IV PRN ×2 (16:12→22:17)
--- NOTE | 2020-02-13 20:43 | Progress Note ---
Assessment and Plan Patient awake and still confused.Patient is on Vapotherm, FIO2 100% and O2 saturation 93%. Patient afebrile. No leukocytosis. Chest xray 02/08/20 reported There is some improvement in pulmonary opacities on the right and slight worsening on the left. - Patient Problems (1) Acute respiratory failure with hypoxia Current Visit: Yes Status: Acute Plan to address problem: Continue Vapotherm 100%. Continue Solumedrol. Continue Lovenox. Continue famotidine. (2) Bilateral pneumonia Current Visit: Yes Status: Acute Qualifiers: Lung location: unspecified part of lung Plan to address problem: Antibiotics as per infectious diseases. (3) COVID-19 Current Visit: Yes Status: Acute Plan to address problem: On vapotherm, FIO2 100%. Continue Solumedrol. Continue Lovenox. Continue famotidine. Management as per infectious diseases. (4) Elevated d-dimer Current Visit: Yes Status: Acute Plan to address problem: Patient is on S/C Lovenox 100mg S/C q 12 hours. 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 Subjective Date of service: 02/13/20 Principal diagnosis: COVID Interval history: Patient awake and still confused.Patient is on Vapotherm, FIO2 100% and O2 saturation 93%. Patient afebrile. No leukocytosis. Chest xray 02/08/20 reported There is some improvement in pulmonary opacities on the right and slight worsening on the left. Objective Vital Signs - 12hr 02/13/20 02/13/20 02/13/20 09:57 11:15 14:17 Temperature 97.3 F L Pulse Rate 81 81 Respiratory 20 Rate Blood Pressure 112/57 136/72 O2 Sat by Pulse 88 95 Oximetry 02/13/20 16:22 Temperature 97.7 F Pulse Rate 80 Respiratory 24 Rate Blood Pressure 105/59 O2 Sat by Pulse 90 Oximetry Constitutional: no acute distress, lethargic, asleep Eyes: non-icteric ENT: oropharynx dry Neck: supple, no JVD Effort: mildly labored Ascultation: Bilateral: rhonchi Cardiovascular: regular rate and rhythm, other (S1,S2) Gastrointestinal: normoactive bowel sounds, hypoactive bowel sounds, soft, non- tender Integumentary: normal Extremities: no cyanosis, no edema Neurologic: non-focal exam (grossly, moving all extremities), unable to assess Psychiatric: other (Unable to assess due to mental status at this time.) CBC and BMP: 02/11/20 13:47 02/13/20 14:33 ABG, PT/INR, D-dimer: ABG ABG pH 7.440 pH Units (7.350-7.450) 02/08/20 14:00 ABG pCO2 35.9 mm Hg 02/08/20 14:00 ABG pO2 65.3 mm Hg (80.0-90.0) L 02/08/20 14:00 ABG O2 Saturation 94.1 % (95.0-99.0) L 02/08/20 14:00 PT/INR, D-dimer PT 13.9 Sec. (12.2-14.9) 01/29/20 17:03 INR 1.09 (0.87-1.13) 01/29/20 17:03 D-Dimer 154.77 ng/mlDDU (0-234) 02/10/20 12:30 Abnormal lab findings: Abnormal Labs 01/29/20 01/29/20 01/29/20 17:03 17:03 17:03 WBC 3.6 L Hgb Hct MCV 96 H MCH 33 H RDW Lymph % (Auto) Lymph # 0.5 L Seg Neutrophils % 79.6 H Seg Neuts % (Manual) Lymphocytes % (Manual) Nucleated RBC % Seg Neutrophils # Seg Neutrophils # Man Lymphocytes # (Manual) D-Dimer 2573.78 H ABG pH ABG pO2 ABG HCO3 ABG O2 Saturation ABG Base Excess ABG Hemoglobin Oxyhemoglobin Sodium Potassium Chloride Carbon Dioxide BUN Glucose 240 H POC Glucose Hemoglobin A1c Calcium Magnesium Ferritin AST 76 H Lactate Dehydrogenase C-Reactive Protein Total Protein Albumin 3.0 L Coronavirus (PCR) 01/29/20 01/29/20 01/29/20 18:33 18:33 23:28 WBC Hgb Hct MCV MCH RDW Lymph % (Auto) Lymph # Seg Neutrophils % Seg Neuts % (Manual) Lymphocytes % (Manual) Nucleated RBC % Seg Neutrophils # Seg Neutrophils # Man Lymphocytes # (Manual) D-Dimer ABG pH ABG pO2 ABG HCO3 ABG O2 Saturation ABG Base Excess ABG Hemoglobin Oxyhemoglobin Sodium Potassium Chloride Carbon Dioxide BUN Glucose 230 H POC Glucose 253 H Hemoglobin A1c Calcium Magnesium Ferritin > 2000.0 H AST Lactate Dehydrogenase 930 H C-Reactive Protein 10.20 H Total Protein Albumin Coronavirus (PCR) 01/29/20 01/30/20 01/30/20 Unknown 05:41 05:41 WBC Hgb 11.7 L Hct 35.2 L MCV MCH RDW Lymph % (Auto) 8.1 L Lymph # 0.4 L Seg Neutrophils % 85.8 H Seg Neuts % (Manual) Lymphocytes % (Manual) Nucleated RBC % Seg Neutrophils # Seg Neutrophils # Man Lymphocytes # (Manual) D-Dimer ABG pH ABG pO2 ABG HCO3 ABG O2 Saturation ABG Base Excess ABG Hemoglobin Oxyhemoglobin Sodium Potassium Chloride Carbon Dioxide 19 L BUN Glucose 242 H POC Glucose Hemoglobin A1c Calcium 7.7 L Magnesium Ferritin AST 79 H Lactate Dehydrogenase C-Reactive Protein Total Protein Albumin 2.9 L Coronavirus (PCR) Positive A 01/30/20 01/30/20 01/30/20 05:41 07:55 12:54 WBC Hgb Hct MCV MCH RDW Lymph % (Auto) Lymph # Seg Neutrophils % Seg Neuts % (Manual) Lymphocytes % (Manual) Nucleated RBC % Seg Neutrophils # Seg Neutrophils # Man Lymphocytes # (Manual) D-Dimer ABG pH ABG pO2 ABG HCO3 ABG O2 Saturation ABG Base Excess ABG Hemoglobin Oxyhemoglobin Sodium Potassium Chloride Carbon Dioxide BUN Glucose POC Glucose 262 H 232 H Hemoglobin A1c 7.3 H Calcium Magnesium Ferritin AST Lactate Dehydrogenase C-Reactive Protein Total Protein Albumin Coronavirus (PCR) 01/30/20 01/30/20 01/31/20 16:07 21:15 08:42 WBC Hgb Hct MCV MCH RDW Lymph % (Auto) Lymph # Seg Neutrophils % Seg Neuts % (Manual) Lymphocytes % (Manual) Nucleated RBC % Seg Neutrophils # Seg Neutrophils # Man Lymphocytes # (Manual) D-Dimer ABG pH ABG pO2 ABG HCO3 ABG O2 Saturation ABG Base Excess ABG Hemoglobin Oxyhemoglobin Sodium Potassium Chloride Carbon Dioxide BUN Glucose POC Glucose 211 H 285 H 328 H Hemoglobin A1c Calcium Magnesium Ferritin AST Lactate Dehydrogenase C-Reactive Protein Total Protein Albumin Coronavirus (PCR) 01/31/20 01/31/20 01/31/20 12:44 12:44 12:44 WBC Hgb Hct MCV MCH RDW Lymph % (Auto) Lymph # Seg Neutrophils % Seg Neuts % (Manual) Lymphocytes % (Manual) Nucleated RBC % Seg Neutrophils # Seg Neutrophils # Man Lymphocytes # (Manual) D-Dimer 795.52 H ABG pH ABG pO2 ABG HCO3 ABG O2 Saturation ABG Base Excess ABG Hemoglobin Oxyhemoglobin Sodium Potassium Chloride Carbon Dioxide BUN Glucose 384 H POC Glucose Hemoglobin A1c Calcium Magnesium Ferritin > 2000.0 H AST Lactate Dehydrogenase 1393 H C-Reactive Protein 5.80 H Total Protein Albumin Coronavirus (PCR) 01/31/20 01/31/20 02/01/20 16:36 23:46 08:00 WBC Hgb Hct MCV MCH RDW Lymph % (Auto) Lymph # Seg Neutrophils % Seg Neuts % (Manual) Lymphocytes % (Manual) Nucleated RBC % Seg Neutrophils # Seg Neutrophils # Man Lymphocytes # (Manual) D-Dimer ABG pH ABG pO2 ABG HCO3 ABG O2 Saturation ABG Base Excess ABG Hemoglobin Oxyhemoglobin Sodium Potassium Chloride Carbon Dioxide BUN Glucose POC Glucose 384 H 322 H 287 H Hemoglobin A1c Calcium Magnesium Ferritin AST Lactate Dehydrogenase C-Reactive Protein Total Protein Albumin Coronavirus (PCR) 02/01/20 02/01/20 02/01/20 12:48 16:53 23:25 WBC Hgb Hct MCV MCH RDW Lymph % (Auto) Lymph # Seg Neutrophils % Seg Neuts % (Manual) Lymphocytes % (Manual) Nucleated RBC % Seg Neutrophils # Seg Neutrophils # Man Lymphocytes # (Manual) D-Dimer ABG pH ABG pO2 ABG HCO3 ABG O2 Saturation ABG Base Excess ABG Hemoglobin Oxyhemoglobin Sodium Potassium Chloride Carbon Dioxide BUN Glucose POC Glucose 309 H 362 H 264 H Hemoglobin A1c Calcium Magnesium Ferritin AST Lactate Dehydrogenase C-Reactive Protein Total Protein Albumin Coronavirus (PCR) 02/02/20 02/02/20 02/02/20 05:31 05:31 05:31 WBC Hgb Hct MCV MCH RDW Lymph % (Auto) Lymph # Seg Neutrophils % Seg Neuts % (Manual) Lymphocytes % (Manual) Nucleated RBC % Seg Neutrophils # Seg Neutrophils # Man Lymphocytes # (Manual) D-Dimer 416.36 H ABG pH ABG pO2 ABG HCO3 ABG O2 Saturation ABG Base Excess ABG Hemoglobin Oxyhemoglobin Sodium Potassium Chloride 107.2 H Carbon Dioxide BUN 25 H Glucose 304 H POC Glucose Hemoglobin A1c Calcium 8.2 L Magnesium Ferritin > 2000.0 H AST Lactate Dehydrogenase C-Reactive Protein Total Protein Albumin Coronavirus (PCR) 02/02/20 02/02/20 02/02/20 05:31 09:14 11:57 WBC Hgb Hct MCV MCH RDW Lymph % (Auto) Lymph # Seg Neutrophils % Seg Neuts % (Manual) Lymphocytes % (Manual) Nucleated RBC % Seg Neutrophils # Seg Neutrophils # Man Lymphocytes # (Manual) D-Dimer ABG pH ABG pO2 ABG HCO3 ABG O2 Saturation ABG Base Excess ABG Hemoglobin Oxyhemoglobin Sodium Potassium Chloride Carbon Dioxide BUN Glucose POC Glucose 334 H 429 H Hemoglobin A1c Calcium Magnesium Ferritin AST Lactate Dehydrogenase 1297 H C-Reactive Protein 2.20 H Total Protein Albumin Coronavirus (PCR) 02/02/20 02/02/20 02/02/20 12:44 16:35 22:55 WBC Hgb Hct MCV MCH RDW Lymph % (Auto) Lymph # Seg Neutrophils % Seg Neuts % (Manual) Lymphocytes % (Manual) Nucleated RBC % Seg Neutrophils # Seg Neutrophils # Man Lymphocytes # (Manual) D-Dimer ABG pH 7.466 H ABG pO2 60.9 L ABG HCO3 ABG O2 Saturation 93.6 L ABG Base Excess -2.7 L ABG Hemoglobin 11.8 L Oxyhemoglobin 91.4 L Sodium Potassium Chloride Carbon Dioxide BUN Glucose POC Glucose 300 H 339 H Hemoglobin A1c Calcium Magnesium Ferritin AST Lactate Dehydrogenase C-Reactive Protein Total Protein Albumin Coronavirus (PCR) 02/03/20 02/03/20 02/03/20 01:06 06:09 06:09 WBC Hgb Hct MCV MCH RDW Lymph % (Auto) Lymph # Seg Neutrophils % Seg Neuts % (Manual) 92.0 H Lymphocytes % (Manual) 3.0 L Nucleated RBC % 2.0 H Seg Neutrophils # Seg Neutrophils # Man Lymphocytes # (Manual) 0.3 L D-Dimer ABG pH ABG pO2 ABG HCO3 ABG O2 Saturation ABG Base Excess ABG Hemoglobin Oxyhemoglobin Sodium Potassium Chloride Carbon Dioxide BUN 27 H Glucose 348 H POC Glucose Hemoglobin A1c Calcium 8.1 L Magnesium 2.50 H 2.50 H Ferritin AST Lactate Dehydrogenase C-Reactive Protein Total Protein 5.4 L Albumin 3.0 L Coronavirus (PCR) 02/03/20 02/03/20 02/03/20 08:42 11:50 16:18 WBC Hgb Hct MCV MCH RDW Lymph % (Auto) Lymph # Seg Neutrophils % Seg Neuts % (Manual) Lymphocytes % (Manual) Nucleated RBC % Seg Neutrophils # Seg Neutrophils # Man Lymphocytes # (Manual) D-Dimer ABG pH ABG pO2 ABG HCO3 ABG O2 Saturation ABG Base Excess ABG Hemoglobin Oxyhemoglobin Sodium Potassium Chloride Carbon Dioxide BUN Glucose POC Glucose 355 H 345 H 382 H Hemoglobin A1c Calcium Magnesium Ferritin AST Lactate Dehydrogenase C-Reactive Protein Total Protein Albumin Coronavirus (PCR) 02/03/20 02/03/20 02/04/20 22:00 22:04 06:06 WBC Hgb Hct MCV MCH RDW Lymph % (Auto) Lymph # Seg Neutrophils % Seg Neuts % (Manual) Lymphocytes % (Manual) Nucleated RBC % Seg Neutrophils # Seg Neutrophils # Man Lymphocytes # (Manual) D-Dimer ABG pH 7.505 H ABG pO2 59.1 L ABG HCO3 19.1 L ABG O2 Saturation 93.0 L ABG Base Excess -2.4 L ABG Hemoglobin 13.3 L Oxyhemoglobin 91.1 L Sodium Potassium Chloride Carbon Dioxide BUN Glucose POC Glucose 309 H Hemoglobin A1c Calcium Magnesium Ferritin 4214.0 H AST Lactate Dehydrogenase C-Reactive Protein Total Protein Albumin Coronavirus (PCR) 02/04/20 02/04/20 02/04/20 06:06 06:06 06:06 WBC Hgb Hct MCV 95 H MCH RDW Lymph % (Auto) 4.3 L Lymph # 0.5 L Seg Neutrophils % 87.5 H Seg Neuts % (Manual) Lymphocytes % (Manual) Nucleated RBC % Seg Neutrophils # 9.3 H Seg Neutrophils # Man Lymphocytes # (Manual) D-Dimer ABG pH ABG pO2 ABG HCO3 ABG O2 Saturation ABG Base Excess ABG Hemoglobin Oxyhemoglobin Sodium Potassium Chloride Carbon Dioxide 21 L BUN 30 H Glucose 393 H POC Glucose Hemoglobin A1c Calcium 7.8 L Magnesium 2.70 H Ferritin AST Lactate Dehydrogenase 919 H C-Reactive Protein Total Protein Albumin Coronavirus (PCR) 02/04/20 02/04/20 02/04/20 08:57 13:12 17:45 WBC Hgb Hct MCV MCH RDW Lymph % (Auto) Lymph # Seg Neutrophils % Seg Neuts % (Manual) Lymphocytes % (Manual) Nucleated RBC % Seg Neutrophils # Seg Neutrophils # Man Lymphocytes # (Manual) D-Dimer ABG pH ABG pO2 ABG HCO3 ABG O2 Saturation ABG Base Excess ABG Hemoglobin Oxyhemoglobin Sodium Potassium Chloride Carbon Dioxide BUN Glucose POC Glucose 353 H 364 H 292 H Hemoglobin A1c Calcium Magnesium Ferritin AST Lactate Dehydrogenase C-Reactive Protein Total Protein Albumin Coronavirus (PCR) 02/04/20 02/05/20 02/05/20 22:36 08:44 12:53 WBC Hgb Hct MCV MCH RDW Lymph % (Auto) Lymph # Seg Neutrophils % Seg Neuts % (Manual) Lymphocytes % (Manual) Nucleated RBC % Seg Neutrophils # Seg Neutrophils # Man Lymphocytes # (Manual) D-Dimer ABG pH ABG pO2 ABG HCO3 ABG O2 Saturation ABG Base Excess ABG Hemoglobin Oxyhemoglobin Sodium Potassium Chloride Carbon Dioxide BUN Glucose POC Glucose 255 H 313 H 346 H Hemoglobin A1c Calcium Magnesium Ferritin AST Lactate Dehydrogenase C-Reactive Protein Total Protein Albumin Coronavirus (PCR) 02/05/20 02/05/20 02/06/20 16:55 22:38 01:04 WBC Hgb Hct MCV MCH RDW Lymph % (Auto) Lymph # Seg Neutrophils % Seg Neuts % (Manual) Lymphocytes % (Manual) Nucleated RBC % Seg Neutrophils # Seg Neutrophils # Man Lymphocytes # (Manual) D-Dimer ABG pH ABG pO2 ABG HCO3 ABG O2 Saturation ABG Base Excess ABG Hemoglobin Oxyhemoglobin Sodium Potassium Chloride Carbon Dioxide BUN Glucose POC Glucose 270 H 106 H 122 H Hemoglobin A1c Calcium Magnesium Ferritin AST Lactate Dehydrogenase C-Reactive Protein Total Protein Albumin Coronavirus (PCR) 02/06/20 02/06/20 02/06/20 09:21 12:27 15:20 WBC Hgb Hct MCV MCH RDW Lymph % (Auto) Lymph # Seg Neutrophils % Seg Neuts % (Manual) Lymphocytes % (Manual) Nucleated RBC % Seg Neutrophils # Seg Neutrophils # Man Lymphocytes # (Manual) D-Dimer 328.02 H ABG pH ABG pO2 ABG HCO3 ABG O2 Saturation ABG Base Excess ABG Hemoglobin Oxyhemoglobin Sodium Potassium Chloride Carbon Dioxide BUN Glucose POC Glucose 227 H 295 H Hemoglobin A1c Calcium Magnesium Ferritin AST Lactate Dehydrogenase C-Reactive Protein Total Protein Albumin Coronavirus (PCR) 02/06/20 02/06/20 02/06/20 15:20 15:20 16:50 WBC Hgb Hct MCV MCH RDW Lymph % (Auto) Lymph # Seg Neutrophils % Seg Neuts % (Manual) Lymphocytes % (Manual) Nucleated RBC % Seg Neutrophils # Seg Neutrophils # Man Lymphocytes # (Manual) D-Dimer ABG pH ABG pO2 ABG HCO3 ABG O2 Saturation ABG Base Excess ABG Hemoglobin Oxyhemoglobin Sodium Potassium Chloride Carbon Dioxide BUN Glucose 311 H POC Glucose 258 H Hemoglobin A1c Calcium Magnesium Ferritin < 2000.0 H AST Lactate Dehydrogenase 719 H C-Reactive Protein Total Protein Albumin Coronavirus (PCR) 02/06/20 02/07/20 02/07/20 21:23 08:22 10:51 WBC Hgb Hct MCV MCH RDW Lymph % (Auto) Lymph # Seg Neutrophils % Seg Neuts % (Manual) Lymphocytes % (Manual) Nucleated RBC % Seg Neutrophils # Seg Neutrophils # Man Lymphocytes # (Manual) D-Dimer ABG pH ABG pO2 ABG HCO3 ABG O2 Saturation ABG Base Excess ABG Hemoglobin Oxyhemoglobin Sodium Potassium Chloride Carbon Dioxide BUN Glucose POC Glucose 334 H 281 H 309 H Hemoglobin A1c Calcium Magnesium Ferritin AST Lactate Dehydrogenase C-Reactive Protein Total Protein Albumin Coronavirus (PCR) 02/07/20 02/07/20 02/08/20 16:27 22:40 07:44 WBC Hgb Hct MCV MCH RDW Lymph % (Auto) Lymph # Seg Neutrophils % Seg Neuts % (Manual) Lymphocytes % (Manual) Nucleated RBC % Seg Neutrophils # Seg Neutrophils # Man Lymphocytes # (Manual) D-Dimer ABG pH ABG pO2 ABG HCO3 ABG O2 Saturation ABG Base Excess ABG Hemoglobin Oxyhemoglobin Sodium Potassium Chloride Carbon Dioxide BUN Glucose POC Glucose 288 H 278 H 267 H Hemoglobin A1c Calcium Magnesium Ferritin AST Lactate Dehydrogenase C-Reactive Protein Total Protein Albumin Coronavirus (PCR) 02/08/20 02/08/20 02/08/20 10:46 10:46 10:46 WBC Hgb Hct MCV 98 H MCH RDW Lymph % (Auto) Lymph # Seg Neutrophils % Seg Neuts % (Manual) 97.0 H Lymphocytes % (Manual) 0 L Nucleated RBC % Seg Neutrophils # Seg Neutrophils # Man 10.2 H Lymphocytes # (Manual) 0.0 L D-Dimer 261.46 H ABG pH ABG pO2 ABG HCO3 ABG O2 Saturation ABG Base Excess ABG Hemoglobin Oxyhemoglobin Sodium 148 H Potassium 3.5 L Chloride 112.2 H Carbon Dioxide BUN 36 H Glucose 356 H POC Glucose Hemoglobin A1c Calcium 8.3 L Magnesium Ferritin AST Lactate Dehydrogenase C-Reactive Protein Total Protein Albumin Coronavirus (PCR) 02/08/20 02/08/20 02/08/20 10:46 10:46 12:22 WBC Hgb Hct MCV MCH RDW Lymph % (Auto) Lymph # Seg Neutrophils % Seg Neuts % (Manual) Lymphocytes % (Manual) Nucleated RBC % Seg Neutrophils # Seg Neutrophils # Man Lymphocytes # (Manual) D-Dimer ABG pH ABG pO2 ABG HCO3 ABG O2 Saturation ABG Base Excess ABG Hemoglobin Oxyhemoglobin Sodium Potassium Chloride Carbon Dioxide BUN Glucose 351 H POC Glucose 358 H Hemoglobin A1c Calcium Magnesium Ferritin 1611.0 H AST Lactate Dehydrogenase 671 H C-Reactive Protein Total Protein Albumin Coronavirus (PCR) 02/08/20 02/08/20 02/09/20 14:00 17:02 08:45 WBC Hgb Hct MCV MCH RDW Lymph % (Auto) Lymph # Seg Neutrophils % Seg Neuts % (Manual) Lymphocytes % (Manual) Nucleated RBC % Seg Neutrophils # Seg Neutrophils # Man Lymphocytes # (Manual) D-Dimer ABG pH ABG pO2 65.3 L ABG HCO3 ABG O2 Saturation 94.1 L ABG Base Excess ABG Hemoglobin 12.8 L Oxyhemoglobin 92.3 L Sodium Potassium Chloride Carbon Dioxide BUN Glucose POC Glucose 331 H 160 H Hemoglobin A1c Calcium Magnesium Ferritin AST Lactate Dehydrogenase C-Reactive Protein Total Protein Albumin Coronavirus (PCR) 02/09/20 02/09/20 02/09/20 12:27 17:22 23:11 WBC Hgb Hct MCV MCH RDW Lymph % (Auto) Lymph # Seg Neutrophils % Seg Neuts % (Manual) Lymphocytes % (Manual) Nucleated RBC % Seg Neutrophils # Seg Neutrophils # Man Lymphocytes # (Manual) D-Dimer ABG pH ABG pO2 ABG HCO3 ABG O2 Saturation ABG Base Excess ABG Hemoglobin Oxyhemoglobin Sodium Potassium Chloride Carbon Dioxide BUN Glucose POC Glucose 262 H 237 H 140 H Hemoglobin A1c Calcium Magnesium Ferritin AST Lactate Dehydrogenase C-Reactive Protein Total Protein Albumin Coronavirus (PCR) 02/10/20 02/10/20 02/10/20 08:30 12:00 12:30 WBC Hgb Hct MCV MCH RDW Lymph % (Auto) Lymph # Seg Neutrophils % Seg Neuts % (Manual) Lymphocytes % (Manual) Nucleated RBC % Seg Neutrophils # Seg Neutrophils # Man Lymphocytes # (Manual) D-Dimer ABG pH ABG pO2 ABG HCO3 ABG O2 Saturation ABG Base Excess ABG Hemoglobin Oxyhemoglobin Sodium Potassium Chloride Carbon Dioxide BUN Glucose 330 H POC Glucose 216 H 252 H Hemoglobin A1c Calcium Magnesium Ferritin AST Lactate Dehydrogenase 642 H C-Reactive Protein Total Protein Albumin Coronavirus (PCR) 02/10/20 02/10/20 02/10/20 12:30 16:32 23:38 WBC Hgb Hct MCV MCH RDW Lymph % (Auto) Lymph # Seg Neutrophils % Seg Neuts % (Manual) Lymphocytes % (Manual) Nucleated RBC % Seg Neutrophils # Seg Neutrophils # Man Lymphocytes # (Manual) D-Dimer ABG pH ABG pO2 ABG HCO3 ABG O2 Saturation ABG Base Excess ABG Hemoglobin Oxyhemoglobin Sodium Potassium Chloride Carbon Dioxide BUN Glucose POC Glucose 245 H 196 H Hemoglobin A1c Calcium Magnesium Ferritin 1728.0 H AST Lactate Dehydrogenase C-Reactive Protein Total Protein Albumin Coronavirus (PCR) 02/11/20 02/11/20 02/11/20 08:07 11:41 13:47 WBC Hgb Hct MCV 98 H MCH RDW 15.7 H Lymph % (Auto) Lymph # Seg Neutrophils % Seg Neuts % (Manual) Lymphocytes % (Manual) Nucleated RBC % Seg Neutrophils # Seg Neutrophils # Man Lymphocytes # (Manual) D-Dimer ABG pH ABG pO2 ABG HCO3 ABG O2 Saturation ABG Base Excess ABG Hemoglobin Oxyhemoglobin Sodium Potassium Chloride Carbon Dioxide BUN Glucose POC Glucose 300 H 286 H Hemoglobin A1c Calcium Magnesium Ferritin AST Lactate Dehydrogenase C-Reactive Protein Total Protein Albumin Coronavirus (PCR) 02/11/20 02/11/20 02/11/20 13:47 17:17 21:17 WBC Hgb Hct MCV MCH RDW Lymph % (Auto) Lymph # Seg Neutrophils % Seg Neuts % (Manual) Lymphocytes % (Manual) Nucleated RBC % Seg Neutrophils # Seg Neutrophils # Man Lymphocytes # (Manual) D-Dimer ABG pH ABG pO2 ABG HCO3 ABG O2 Saturation ABG Base Excess ABG Hemoglobin Oxyhemoglobin Sodium 158 H D Potassium Chloride 119.7 H Carbon Dioxide BUN 40 H Glucose 287 H POC Glucose 288 H 283 H Hemoglobin A1c Calcium 7.9 L Magnesium Ferritin AST Lactate Dehydrogenase C-Reactive Protein Total Protein Albumin Coronavirus (PCR) 02/12/20 02/12/20 02/12/20 06:01 08:37 10:58 WBC Hgb Hct MCV MCH RDW Lymph % (Auto) Lymph # Seg Neutrophils % Seg Neuts % (Manual) Lymphocytes % (Manual) Nucleated RBC % Seg Neutrophils # Seg Neutrophils # Man Lymphocytes # (Manual) D-Dimer ABG pH ABG pO2 ABG HCO3 ABG O2 Saturation ABG Base Excess ABG Hemoglobin Oxyhemoglobin Sodium Potassium Chloride Carbon Dioxide BUN Glucose POC Glucose 273 H 313 H 288 H Hemoglobin A1c Calcium Magnesium Ferritin AST Lactate Dehydrogenase C-Reactive Protein Total Protein Albumin Coronavirus (PCR) 02/12/20 02/12/20 02/12/20 16:24 22:23 Unknown WBC Hgb Hct MCV MCH RDW Lymph % (Auto) Lymph # Seg Neutrophils % Seg Neuts % (Manual) Lymphocytes % (Manual) Nucleated RBC % Seg Neutrophils # Seg Neutrophils # Man Lymphocytes # (Manual) D-Dimer ABG pH ABG pO2 ABG HCO3 ABG O2 Saturation ABG Base Excess ABG Hemoglobin Oxyhemoglobin Sodium Potassium Chloride Carbon Dioxide BUN Glucose POC Glucose 192 H 145 H Hemoglobin A1c Calcium Magnesium Ferritin AST Lactate Dehydrogenase C-Reactive Protein Total Protein Albumin Coronavirus (PCR) Positive A 02/13/20 02/13/20 02/13/20 00:32 09:06 11:22 WBC Hgb Hct MCV MCH RDW Lymph % (Auto) Lymph # Seg Neutrophils % Seg Neuts % (Manual) Lymphocytes % (Manual) Nucleated RBC % Seg Neutrophils # Seg Neutrophils # Man Lymphocytes # (Manual) D-Dimer ABG pH ABG pO2 ABG HCO3 ABG O2 Saturation ABG Base Excess ABG Hemoglobin Oxyhemoglobin Sodium 162 H* Potassium 3.2 L Chloride 125.4 H Carbon Dioxide BUN 32 H Glucose 132 H POC Glucose 221 H 319 H Hemoglobin A1c Calcium 7.6 L Magnesium Ferritin AST Lactate Dehydrogenase C-Reactive Protein Total Protein Albumin Coronavirus (PCR) 02/13/20 02/13/20 14:33 16:18 WBC Hgb Hct MCV MCH RDW Lymph % (Auto) Lymph # Seg Neutrophils % Seg Neuts % (Manual) Lymphocytes % (Manual) Nucleated RBC % Seg Neutrophils # Seg Neutrophils # Man Lymphocytes # (Manual) D-Dimer ABG pH ABG pO2 ABG HCO3 ABG O2 Saturation ABG Base Excess ABG Hemoglobin Oxyhemoglobin Sodium 154 H Potassium Chloride 117.5 H Carbon Dioxide BUN 30 H Glucose 415 H POC Glucose 351 H Hemoglobin A1c Calcium 7.5 L Magnesium Ferritin AST Lactate Dehydrogenase C-Reactive Protein Total Protein Albumin Coronavirus (PCR)
[2020-02-13] MEDS: INSULIN GLARGINE 100 UNITS/ML SUB-Q SCH (22:16)
[2020-02-14 06:36] LABS: BUN/Creatinine Ratio 28; Blood Urea Nitrogen 28 mg/dL (9-20); Calcium 7.7 mg/dL (8.4-10.2); Hemolysis Index 15
[2020-02-14] MEDS ORDERED: POTASSIUM PHOSPHATE IV ONE (08:30)
[2020-02-14] MEDS ORDERED: D5W IV ONE (08:30)
--- NOTE | 2020-02-14 08:32 | Progress Note ---
Assessment and Plan 1. Hypernatremia: Secondary to dehydration. Ur studies resultsnoted. Continue IV D5W, Sodium level is improving. Monitor Sodium level. 2. FEN: Replete K and Phos. Monitor lytes and volume status. 3. Acute hypoxic Respiratory failure: On HFNC O2. Cont nebs and Solumedrol. Followed by Pulmonary. 4. Bilateral pneumonia: S/p Rocephin and azithromycin. COVID-19 positive. Follow Inflammatory markers. Followed by ID. 5. Acute toxic metabolic encephalopathy. 6. Elevated d-dimer. 7. Type 2 diabetes mellitus. - Subjective: Patient was seen and examined at the bedside. - General Appearance General appearance: well-developed, well-nourished, on restrains, on HFNC O2 HEENT: ATNC Neck: trachea midline Respiratory: Clear to Ascultation Heart: regular, S1S2, no murmurs Gastrointestinal: soft, normoactive bowel sounds, not tender Integumentary: no rash, warm and dry Neurologic: alert, moving extremities, not following command : condom catheter Subjective Date of service: 02/14/20 Principal diagnosis: COVID Objective - Vital Signs Vital signs: Vital Signs - 12hr 02/13/20 02/13/20 02/14/20 22:50 23:23 03:22 Temperature 97.7 F Pulse Rate 74 Respiratory 16 Rate Blood Pressure 89/44 O2 Sat by Pulse 93 95 99 Oximetry 02/14/20 02/14/20 05:59 08:09 Temperature 99.0 F Pulse Rate 87 Respiratory 16 Rate Blood Pressure 139/73 O2 Sat by Pulse 92 100 Oximetry - Lab 02/11/20 13:47 02/14/20 05:25 Most recent lab results ABG pH 7.440 pH Units (7.350-7.450) 02/08/20 14:00 ABG pCO2 35.9 mm Hg 02/08/20 14:00 ABG pO2 65.3 mm Hg (80.0-90.0) L 02/08/20 14:00 ABG HCO3 23.8 mmol/L (20.0-26.0) 02/08/20 14:00 ABG O2 Saturation 94.1 % (95.0-99.0) L 02/08/20 14:00 Calcium 7.7 mg/dL (8.4-10.2) L 02/14/20 05:25 Phosphorus 2.00 mg/dL (2.5-4.5) L 02/14/20 05:25 Magnesium 2.70 mg/dL (1.7-2.3) H 02/04/20 06:06 Medications & Allergies - Medications Allergies/Adverse Reactions: Allergies No Known Allergies Allergy (Unverified 01/29/20 18:36) Home Medications: Home Medications Medication Instructions Recorded Confirmed Last Taken Type AtorvaSTATin [Lipitor] 40 mg PO QHS 01/31/20 01/31/20 Unknown History Terazosin [Hytrin] 1 mg PO BID 01/31/20 01/31/20 Unknown History glipiZIDE [Glucotrol] 5 mg PO BID 01/31/20 01/31/20 Unknown History metFORMIN [Glucophage] 500 mg PO BID 01/31/20 01/31/20 Unknown History Active Medications: Generic Name Dose Route Start Last Admin Trade Name Freq PRN Reason Stop Dose Admin Acetaminophen 650 mg 01/29/20 20:46 Tylenol PO Q4H PRN Pain MILD(1-3)/Fever >100.5/GALINDO Lipase/Protease/Amylase 1 each 02/10/20 09:[address] 10,500 Unit FEEDTUBE PRN PRN For Clogged Feeding Tube Atorvastatin Calcium 40 mg 02/02/20 22:00 02/13/20 22:18 Lipitor PO 40 mg QHS JUNE Administration Famotidine 20 mg 01/29/20 22:00 02/13/20 22:16 Pepcid PO 20 mg BID JUNE Administration Hydromorphone HCl 0.5 mg 01/29/20 20:48 02/13/20 05:50 Dilaudid IV 0.5 mg Q3H PRN Administration Pain , Severe (7-10) Dextrose 1,000 mls @ 75 mls/hr 02/13/20 10:00 02/13/20 22:30 D5w IV 100 mls/hr DIRECT JUNE Administration Insulin Glargine 20 units 02/13/20 22:00 02/13/20 22:16 Lantus SUB-Q 20 units QHS JUNE Administration Insulin Human Lispro 0 unit 01/29/20 22:00 02/13/20 23:46 Humalog SUB-Q 2 unit ACHS JUNE Administration Protocol Insulin Human Regular 5 units 02/04/20 11:30 02/13/20 17:38 Humulin R SUB-Q 5 units AC JUNE Administration Insulin Human Regular 0 units 02/13/20 11:30 02/13/20 23:47 Humulin R SUB-Q 2 units ACHS JUNE Administration Protocol Lorazepam 1 mg 02/02/20 07:55 02/13/20 22:17 Ativan IV 1 mg Q4H PRN Administration Anxiety Methylprednisolone Sodium Succinate 20 mg 02/12/20 16:27 02/13/20 10:00 Solu-Medrol IV 20 mg Q24HR JUNE Administration Metoclopramide HCl 10 mg 01/29/20 20:48 Reglan IV Q6H PRN Nausea And Vomiting Metoprolol Tartrate 50 mg 02/08/20 22:00 02/13/20 22:17 Metoprolol PO 50 mg BID JUNE Administration Ondansetron HCl 4 mg 01/29/20 20:46 01/29/20 23:28 Zofran IV 4 mg Q8H PRN Administration Nausea And Vomiting Oxycodone/Acetaminophen 1 tab 01/29/20 20:48 02/10/20 23:53 Percocet 5/325 PO 1 tab Q6H PRN Administration Pain, Moderate (4-6) Prazosin HCl 1 mg 02/02/20 10:00 02/13/20 22:17 Prazosin PO 1 mg BID JUNE Administration Simple Syrup 15 ml 02/10/20 09:27 Simple Syrup FEEDTUBE PRN PRN Hypoglycemia Simple Syrup 30 ml 02/10/20 09:27 Simple Syrup FEEDTUBE PRN PRN Hypoglycemia Sodium Bicarbonate 325 mg 02/10/20 09:27 Sodium Bicarbonate FEEDTUBE PRN PRN For Clogged Feeding Tube Sodium Chloride 10 ml 01/29/20 22:00 02/13/20 22:17 Sodium Chloride Flush Syringe 10 Ml IV 10 ml BID JUNE Administration Sodium Chloride 10 ml 01/29/20 20:46 Sodium Chloride Flush Syringe 10 Ml IV PRN PRN LINE FLUSH Zinc Sulfate 220 mg 02/03/20 10:00 02/13/20 10:00 Zinc Sulfate PO 220 mg QDAY JUNE Administration
[2020-02-14] MEDS ORDERED: POTASSIUM PHOSPHATE 30 MMOL in DEXTROSE 5% IN WATER 500 ML IV ONE (09:30)
[2020-02-14] MEDS: INSULIN LISPRO 100 UNIT/ML SUB-Q SCH ×4 (10:04→22:13)
[2020-02-14] MEDS: INSULIN REGULAR, HUMAN 100 UNITS/1 ML SUB-Q SCH ×7 (10:05→22:12)
[2020-02-14] MEDS: METOPROLOL TARTRATE 50 MG TAB PO SCH ×2 (10:05→22:14)
[2020-02-14] MEDS: methylPREDNISolone Sod Succinate 40 MG/1 ML INJ IV SCH (10:06)
[2020-02-14] MEDS: PRAZOSIN 1 MG CAP PO SCH ×2 (10:06→22:14)
[2020-02-14] MEDS: FAMOTIDINE 20 MG TAB PO SCH ×2 (10:06→22:14)
[2020-02-14] MEDS: ZINC SULFATE 220 MG CAP PO SCH (10:06)
--- NOTE | 2020-02-14 10:39 | Progress Note ---
Assessment and Plan - Patient Problems (1) Abnormal ECG Current Visit: Yes Status: Acute Plan to address problem: Patient had asymptomatic, consecutive ventricular ectopy on routine telemetry monitoring. Otherwise, cardiac status is stable, and continued telemetry monitoring shows a stable sinus rhythm with no further significant ectopy. The patient is on management of COVID-19 infection, cardiac status is stable and asymptomatic, will follow intermittently. Subjective Date of service: 02/14/20 Principal diagnosis: COVID Interval history: Patient has no new cardiac complaints. On telemetry, there is a stable sinus rhythm at 80. He is undergoing management for COVID-19 infection. Objective Vital Signs Temp Pulse Resp BP Pulse Ox 02/14/20 10:06 110/65 02/14/20 10:05 86 110/65 02/14/20 08:09 100 02/14/20 08:00 94 02/14/20 05:59 99.0 F 87 16 139/73 92 02/14/20 03:22 99 02/13/20 23:23 97.7 F 74 16 89/44 95 02/13/20 22:50 93 02/13/20 16:22 97.7 F 80 24 105/59 90 02/13/20 14:17 95 02/13/20 11:15 97.3 F L 81 20 136/72 88 - Physical Examination Narrative exam: Full physical exam is deferred due to the patient's COVID positive infection. Extremities: Absent: edema - Labs and Meds Comprehensive Metabolic Panel 02/13/20 02/14/20 Range/Units 14:33 05:25 Sodium 154 H 156 H (137-145) mmol/L Potassium 3.7 3.1 L (3.6-5.0) mmol/L Chloride 117.5 H 121.7 H (98-107) mmol/L Carbon Dioxide 26 23 (22-30) mmol/L BUN 30 H 28 H (9-20) mg/dL Creatinine 1.1 1.0 (0.8-1.5) mg/dL Glucose 415 H 74 L (75-100) mg/dL Calcium 7.5 L 7.7 L (8.4-10.2) mg/dL - Imaging and Cardiology EKG: report reviewed (Sinus tachycardia)
--- NOTE | 2020-02-14 10:54 | Progress Note ---
Assessment and Plan Severe Sepsis (POA) COVID-19 infection Bilateral pneumonia: Acute hypoxic Respiratory failure on HFOT type 2 diabetes mellitus Acute toxic-metabolic encephalopathy Dementia - continue to wean supplemental oxygen for target O2 sats > 92% - Awake Proning per facility protocol and Lateral decubitus positioning as tolerated by patient - Fluid conservative measures as tolerated by hemodynamics and renal function - Bronchodilators with pulmonary hygiene per RT - Accuchecks with glycemic control per SSI (Target blood glucose of 140-180 mg/dL; avoid hypoglycemia) - Avoid benzodiazepines, reduce the possibility of delirium - prn analgesia per CPOT score - Maintenance of sleep-wake cycle, avoid delirium - Avoid nephrotoxins, closely monitor renal function - s/p Empiric antibiotics( Ceftriaxone and Azithromycin for CAP ) - Stress ulcer ( while on high flow oxygen adn steroids) & VTE prophylaxis ( Enoxaparin Famotidine) - Mobility protocol, off loading and skin assessment for pressure ulcer prevention - Monitor hemodynamics closely - Supportive transfusions as indicated to keep HgB >7g/dL - Fall precautions - Modified diet with aspiration precautions, needs assistance with feeding - Chronic home medications as clinically indicated COVID SPECIFIC INTERVENTIONS - Airborne, contact isolation for COVID per facility protocols - s/p Remdesivir - taper systemic steroids - S/p Tocilizumab IV x1 - Continue to trend inflammatory markers per facility protocol - On weight based Enoxaparin - Continue all supportive care - Contact tracing and testing of his contacts - Awaiting consent for COVID convalescent plasma therapy (Primary to obtain consent from family) The high probability of a clinically significant, sudden or life-threatening deterioration of the [respiratory & neurologic] system(s) required my full and direct attention, intervention and personal management. The aggregate critical care time was [33] minutes without overlap. Time includes spent on; [x] Data Review and interpretation [x] Patient assessment and monitoring of vital signs [x] Documentation [x] Medication orders and management Subjective Date of service: 02/14/20 Principal diagnosis: Severe Sepsis; COVID-19; Hari PNA; Ac. hypoxemic Resp failure; DM II Interval history: Patient is seen today for: Severe Sepsis; COVID-19 infection; Bilateral pneumonia; Acute hypoxemic Respiratory failure; DM II; Acute toxic-met encephalopathy; Dementia Seen and examined at bedside; 24 hour events reviewed; nursing and respiratory care staff consulted; no adverse overnight events reported to me; resting peacefully in bed; alert; remains on supplemental oxygen at 80% FiO2 via the vapotherm system; No N/V/F/C Objective Vital Signs - 12hr 02/13/20 02/13/20 02/14/20 22:50 23:23 03:22 Temperature 97.7 F Pulse Rate 74 Respiratory 16 Rate Blood Pressure 89/44 O2 Sat by Pulse 93 95 99 Oximetry 02/14/20 02/14/20 02/14/20 05:59 08:00 08:09 Temperature 99.0 F Pulse Rate 87 Respiratory 16 Rate Blood Pressure 139/73 O2 Sat by Pulse 92 94 100 Oximetry 02/14/20 02/14/20 10:05 10:06 Temperature Pulse Rate 86 Respiratory Rate Blood Pressure 110/65 110/65 O2 Sat by Pulse Oximetry Constitutional: no acute distress, asleep, other (elderly looking obese male with mildly increased resp effort at rest) Eyes: non-icteric ENT: oropharynx moist Neck: supple, no JVD, other (large neck circumference) Effort: mildly labored Ascultation: Bilateral: diminished breath sounds Percussion: Bilateral: not dull Cardiovascular: regular rate and rhythm, other (S1,S2) Gastrointestinal: normoactive bowel sounds, soft, non-tender, non-distended (protuberant) Integumentary: normal Extremities: no cyanosis, no edema, pulses normal, no ischemia or petechiae Neurologic: non-focal exam (grossly, moving all extremities), pupils equal and round, CN II-XII normal, unable to assess Psychiatric: other (mood andf affect flat) CBC and BMP: 02/11/20 13:47 02/15/20 05:47 ABG, PT/INR, D-dimer: ABG ABG pH 7.440 pH Units (7.350-7.450) 02/08/20 14:00 ABG pCO2 35.9 mm Hg 02/08/20 14:00 ABG pO2 65.3 mm Hg (80.0-90.0) L 02/08/20 14:00 ABG O2 Saturation 94.1 % (95.0-99.0) L 02/08/20 14:00 PT/INR, D-dimer PT 13.9 Sec. (12.2-14.9) 01/29/20 17:03 INR 1.09 (0.87-1.13) 01/29/20 17:03 D-Dimer 154.77 ng/mlDDU (0-234) 02/10/20 12:30 Abnormal lab findings: Abnormal Labs 01/29/20 01/29/20 01/29/20 17:03 17:03 17:03 WBC 3.6 L Hgb Hct MCV 96 H MCH 33 H RDW Lymph % (Auto) Lymph # 0.5 L Seg Neutrophils % 79.6 H Seg Neuts % (Manual) Lymphocytes % (Manual) Nucleated RBC % Seg Neutrophils # Seg Neutrophils # Man Lymphocytes # (Manual) D-Dimer 2573.78 H ABG pH ABG pO2 ABG HCO3 ABG O2 Saturation ABG Base Excess ABG Hemoglobin Oxyhemoglobin Sodium Potassium Chloride Carbon Dioxide BUN Glucose 240 H POC Glucose Hemoglobin A1c Calcium Phosphorus Magnesium Ferritin AST 76 H Lactate Dehydrogenase C-Reactive Protein Total Protein Albumin 3.0 L Coronavirus (PCR) 01/29/20 01/29/20 01/29/20 18:33 18:33 23:28 WBC Hgb Hct MCV MCH RDW Lymph % (Auto) Lymph # Seg Neutrophils % Seg Neuts % (Manual) Lymphocytes % (Manual) Nucleated RBC % Seg Neutrophils # Seg Neutrophils # Man Lymphocytes # (Manual) D-Dimer ABG pH ABG pO2 ABG HCO3 ABG O2 Saturation ABG Base Excess ABG Hemoglobin Oxyhemoglobin Sodium Potassium Chloride Carbon Dioxide BUN Glucose 230 H POC Glucose 253 H Hemoglobin A1c Calcium Phosphorus Magnesium Ferritin > 2000.0 H AST Lactate Dehydrogenase 930 H C-Reactive Protein 10.20 H Total Protein Albumin Coronavirus (PCR) 01/29/20 01/30/20 01/30/20 Unknown 05:41 05:41 WBC Hgb 11.7 L Hct 35.2 L MCV MCH RDW Lymph % (Auto) 8.1 L Lymph # 0.4 L Seg Neutrophils % 85.8 H Seg Neuts % (Manual) Lymphocytes % (Manual) Nucleated RBC % Seg Neutrophils # Seg Neutrophils # Man Lymphocytes # (Manual) D-Dimer ABG pH ABG pO2 ABG HCO3 ABG O2 Saturation ABG Base Excess ABG Hemoglobin Oxyhemoglobin Sodium Potassium Chloride Carbon Dioxide 19 L BUN Glucose 242 H POC Glucose Hemoglobin A1c Calcium 7.7 L Phosphorus Magnesium Ferritin AST 79 H Lactate Dehydrogenase C-Reactive Protein Total Protein Albumin 2.9 L Coronavirus (PCR) Positive A 01/30/20 01/30/20 01/30/20 05:41 07:55 12:54 WBC Hgb Hct MCV MCH RDW Lymph % (Auto) Lymph # Seg Neutrophils % Seg Neuts % (Manual) Lymphocytes % (Manual) Nucleated RBC % Seg Neutrophils # Seg Neutrophils # Man Lymphocytes # (Manual) D-Dimer ABG pH ABG pO2 ABG HCO3 ABG O2 Saturation ABG Base Excess ABG Hemoglobin Oxyhemoglobin Sodium Potassium Chloride Carbon Dioxide BUN Glucose POC Glucose 262 H 232 H Hemoglobin A1c 7.3 H Calcium Phosphorus Magnesium Ferritin AST Lactate Dehydrogenase C-Reactive Protein Total Protein Albumin Coronavirus (PCR) 01/30/20 01/30/20 01/31/20 16:07 21:15 08:42 WBC Hgb Hct MCV MCH RDW Lymph % (Auto) Lymph # Seg Neutrophils % Seg Neuts % (Manual) Lymphocytes % (Manual) Nucleated RBC % Seg Neutrophils # Seg Neutrophils # Man Lymphocytes # (Manual) D-Dimer ABG pH ABG pO2 ABG HCO3 ABG O2 Saturation ABG Base Excess ABG Hemoglobin Oxyhemoglobin Sodium Potassium Chloride Carbon Dioxide BUN Glucose POC Glucose 211 H 285 H 328 H Hemoglobin A1c Calcium Phosphorus Magnesium Ferritin AST Lactate Dehydrogenase C-Reactive Protein Total Protein Albumin Coronavirus (PCR) 01/31/20 01/31/20 01/31/20 12:44 12:44 12:44 WBC Hgb Hct MCV MCH RDW Lymph % (Auto) Lymph # Seg Neutrophils % Seg Neuts % (Manual) Lymphocytes % (Manual) Nucleated RBC % Seg Neutrophils # Seg Neutrophils # Man Lymphocytes # (Manual) D-Dimer 795.52 H ABG pH ABG pO2 ABG HCO3 ABG O2 Saturation ABG Base Excess ABG Hemoglobin Oxyhemoglobin Sodium Potassium Chloride Carbon Dioxide BUN Glucose 384 H POC Glucose Hemoglobin A1c Calcium Phosphorus Magnesium Ferritin > 2000.0 H AST Lactate Dehydrogenase 1393 H C-Reactive Protein 5.80 H Total Protein Albumin Coronavirus (PCR) 01/31/20 01/31/20 02/01/20 16:36 23:46 08:00 WBC Hgb Hct MCV MCH RDW Lymph % (Auto) Lymph # Seg Neutrophils % Seg Neuts % (Manual) Lymphocytes % (Manual) Nucleated RBC % Seg Neutrophils # Seg Neutrophils # Man Lymphocytes # (Manual) D-Dimer ABG pH ABG pO2 ABG HCO3 ABG O2 Saturation ABG Base Excess ABG Hemoglobin Oxyhemoglobin Sodium Potassium Chloride Carbon Dioxide BUN Glucose POC Glucose 384 H 322 H 287 H Hemoglobin A1c Calcium Phosphorus Magnesium Ferritin AST Lactate Dehydrogenase C-Reactive Protein Total Protein Albumin Coronavirus (PCR) 02/01/20 02/01/20 02/01/20 12:48 16:53 23:25 WBC Hgb Hct MCV MCH RDW Lymph % (Auto) Lymph # Seg Neutrophils % Seg Neuts % (Manual) Lymphocytes % (Manual) Nucleated RBC % Seg Neutrophils # Seg Neutrophils # Man Lymphocytes # (Manual) D-Dimer ABG pH ABG pO2 ABG HCO3 ABG O2 Saturation ABG Base Excess ABG Hemoglobin Oxyhemoglobin Sodium Potassium Chloride Carbon Dioxide BUN Glucose POC Glucose 309 H 362 H 264 H Hemoglobin A1c Calcium Phosphorus Magnesium Ferritin AST Lactate Dehydrogenase C-Reactive Protein Total Protein Albumin Coronavirus (PCR) 02/02/20 02/02/20 02/02/20 05:31 05:31 05:31 WBC Hgb Hct MCV MCH RDW Lymph % (Auto) Lymph # Seg Neutrophils % Seg Neuts % (Manual) Lymphocytes % (Manual) Nucleated RBC % Seg Neutrophils # Seg Neutrophils # Man Lymphocytes # (Manual) D-Dimer 416.36 H ABG pH ABG pO2 ABG HCO3 ABG O2 Saturation ABG Base Excess ABG Hemoglobin Oxyhemoglobin Sodium Potassium Chloride 107.2 H Carbon Dioxide BUN 25 H Glucose 304 H POC Glucose Hemoglobin A1c Calcium 8.2 L Phosphorus Magnesium Ferritin > 2000.0 H AST Lactate Dehydrogenase C-Reactive Protein Total Protein Albumin Coronavirus (PCR) 02/02/20 02/02/20 02/02/20 05:31 09:14 11:57 WBC Hgb Hct MCV MCH RDW Lymph % (Auto) Lymph # Seg Neutrophils % Seg Neuts % (Manual) Lymphocytes % (Manual) Nucleated RBC % Seg Neutrophils # Seg Neutrophils # Man Lymphocytes # (Manual) D-Dimer ABG pH ABG pO2 ABG HCO3 ABG O2 Saturation ABG Base Excess ABG Hemoglobin Oxyhemoglobin Sodium Potassium Chloride Carbon Dioxide BUN Glucose POC Glucose 334 H 429 H Hemoglobin A1c Calcium Phosphorus Magnesium Ferritin AST Lactate Dehydrogenase 1297 H C-Reactive Protein 2.20 H Total Protein Albumin Coronavirus (PCR) 02/02/20 02/02/20 02/02/20 12:44 16:35 22:55 WBC Hgb Hct MCV MCH RDW Lymph % (Auto) Lymph # Seg Neutrophils % Seg Neuts % (Manual) Lymphocytes % (Manual) Nucleated RBC % Seg Neutrophils # Seg Neutrophils # Man Lymphocytes # (Manual) D-Dimer ABG pH 7.466 H ABG pO2 60.9 L ABG HCO3 ABG O2 Saturation 93.6 L ABG Base Excess -2.7 L ABG Hemoglobin 11.8 L Oxyhemoglobin 91.4 L Sodium Potassium Chloride Carbon Dioxide BUN Glucose POC Glucose 300 H 339 H Hemoglobin A1c Calcium Phosphorus Magnesium Ferritin AST Lactate Dehydrogenase C-Reactive Protein Total Protein Albumin Coronavirus (PCR) 02/03/20 02/03/20 02/03/20 01:06 06:09 06:09 WBC Hgb Hct MCV MCH RDW Lymph % (Auto) Lymph # Seg Neutrophils % Seg Neuts % (Manual) 92.0 H Lymphocytes % (Manual) 3.0 L Nucleated RBC % 2.0 H Seg Neutrophils # Seg Neutrophils # Man Lymphocytes # (Manual) 0.3 L D-Dimer ABG pH ABG pO2 ABG HCO3 ABG O2 Saturation ABG Base Excess ABG Hemoglobin Oxyhemoglobin Sodium Potassium Chloride Carbon Dioxide BUN 27 H Glucose 348 H POC Glucose Hemoglobin A1c Calcium 8.1 L Phosphorus Magnesium 2.50 H 2.50 H Ferritin AST Lactate Dehydrogenase C-Reactive Protein Total Protein 5.4 L Albumin 3.0 L Coronavirus (PCR) 02/03/20 02/03/20 02/03/20 08:42 11:50 16:18 WBC Hgb Hct MCV MCH RDW Lymph % (Auto) Lymph # Seg Neutrophils % Seg Neuts % (Manual) Lymphocytes % (Manual) Nucleated RBC % Seg Neutrophils # Seg Neutrophils # Man Lymphocytes # (Manual) D-Dimer ABG pH ABG pO2 ABG HCO3 ABG O2 Saturation ABG Base Excess ABG Hemoglobin Oxyhemoglobin Sodium Potassium Chloride Carbon Dioxide BUN Glucose POC Glucose 355 H 345 H 382 H Hemoglobin A1c Calcium Phosphorus Magnesium Ferritin AST Lactate Dehydrogenase C-Reactive Protein Total Protein Albumin Coronavirus (PCR) 02/03/20 02/03/20 02/04/20 22:00 22:04 06:06 WBC Hgb Hct MCV MCH RDW Lymph % (Auto) Lymph # Seg Neutrophils % Seg Neuts % (Manual) Lymphocytes % (Manual) Nucleated RBC % Seg Neutrophils # Seg Neutrophils # Man Lymphocytes # (Manual) D-Dimer ABG pH 7.505 H ABG pO2 59.1 L ABG HCO3 19.1 L ABG O2 Saturation 93.0 L ABG Base Excess -2.4 L ABG Hemoglobin 13.3 L Oxyhemoglobin 91.1 L Sodium Potassium Chloride Carbon Dioxide BUN Glucose POC Glucose 309 H Hemoglobin A1c Calcium Phosphorus Magnesium Ferritin 4214.0 H AST Lactate Dehydrogenase C-Reactive Protein Total Protein Albumin Coronavirus (PCR) 02/04/20 02/04/20 02/04/20 06:06 06:06 06:06 WBC Hgb Hct MCV 95 H MCH RDW Lymph % (Auto) 4.3 L Lymph # 0.5 L Seg Neutrophils % 87.5 H Seg Neuts % (Manual) Lymphocytes % (Manual) Nucleated RBC % Seg Neutrophils # 9.3 H Seg Neutrophils # Man Lymphocytes # (Manual) D-Dimer ABG pH ABG pO2 ABG HCO3 ABG O2 Saturation ABG Base Excess ABG Hemoglobin Oxyhemoglobin Sodium Potassium Chloride Carbon Dioxide 21 L BUN 30 H Glucose 393 H POC Glucose Hemoglobin A1c Calcium 7.8 L Phosphorus Magnesium 2.70 H Ferritin AST Lactate Dehydrogenase 919 H C-Reactive Protein Total Protein Albumin Coronavirus (PCR) 02/04/20 02/04/20 02/04/20 08:57 13:12 17:45 WBC Hgb Hct MCV MCH RDW Lymph % (Auto) Lymph # Seg Neutrophils % Seg Neuts % (Manual) Lymphocytes % (Manual) Nucleated RBC % Seg Neutrophils # Seg Neutrophils # Man Lymphocytes # (Manual) D-Dimer ABG pH ABG pO2 ABG HCO3 ABG O2 Saturation ABG Base Excess ABG Hemoglobin Oxyhemoglobin Sodium Potassium Chloride Carbon Dioxide BUN Glucose POC Glucose 353 H 364 H 292 H Hemoglobin A1c Calcium Phosphorus Magnesium Ferritin AST Lactate Dehydrogenase C-Reactive Protein Total Protein Albumin Coronavirus (PCR) 02/04/20 02/05/20 02/05/20 22:36 08:44 12:53 WBC Hgb Hct MCV MCH RDW Lymph % (Auto) Lymph # Seg Neutrophils % Seg Neuts % (Manual) Lymphocytes % (Manual) Nucleated RBC % Seg Neutrophils # Seg Neutrophils # Man Lymphocytes # (Manual) D-Dimer ABG pH ABG pO2 ABG HCO3 ABG O2 Saturation ABG Base Excess ABG Hemoglobin Oxyhemoglobin Sodium Potassium Chloride Carbon Dioxide BUN Glucose POC Glucose 255 H 313 H 346 H Hemoglobin A1c Calcium Phosphorus Magnesium Ferritin AST Lactate Dehydrogenase C-Reactive Protein Total Protein Albumin Coronavirus (PCR) 02/05/20 02/05/20 02/06/20 16:55 22:38 01:04 WBC Hgb Hct MCV MCH RDW Lymph % (Auto) Lymph # Seg Neutrophils % Seg Neuts % (Manual) Lymphocytes % (Manual) Nucleated RBC % Seg Neutrophils # Seg Neutrophils # Man Lymphocytes # (Manual) D-Dimer ABG pH ABG pO2 ABG HCO3 ABG O2 Saturation ABG Base Excess ABG Hemoglobin Oxyhemoglobin Sodium Potassium Chloride Carbon Dioxide BUN Glucose POC Glucose 270 H 106 H 122 H Hemoglobin A1c Calcium Phosphorus Magnesium Ferritin AST Lactate Dehydrogenase C-Reactive Protein Total Protein Albumin Coronavirus (PCR) 02/06/20 02/06/20 02/06/20 09:21 12:27 15:20 WBC Hgb Hct MCV MCH RDW Lymph % (Auto) Lymph # Seg Neutrophils % Seg Neuts % (Manual) Lymphocytes % (Manual) Nucleated RBC % Seg Neutrophils # Seg Neutrophils # Man Lymphocytes # (Manual) D-Dimer 328.02 H ABG pH ABG pO2 ABG HCO3 ABG O2 Saturation ABG Base Excess ABG Hemoglobin Oxyhemoglobin Sodium Potassium Chloride Carbon Dioxide BUN Glucose POC Glucose 227 H 295 H Hemoglobin A1c Calcium Phosphorus Magnesium Ferritin AST Lactate Dehydrogenase C-Reactive Protein Total Protein Albumin Coronavirus (PCR) 02/06/20 02/06/20 02/06/20 15:20 15:20 16:50 WBC Hgb Hct MCV MCH RDW Lymph % (Auto) Lymph # Seg Neutrophils % Seg Neuts % (Manual) Lymphocytes % (Manual) Nucleated RBC % Seg Neutrophils # Seg Neutrophils # Man Lymphocytes # (Manual) D-Dimer ABG pH ABG pO2 ABG HCO3 ABG O2 Saturation ABG Base Excess ABG Hemoglobin Oxyhemoglobin Sodium Potassium Chloride Carbon Dioxide BUN Glucose 311 H POC Glucose 258 H Hemoglobin A1c Calcium Phosphorus Magnesium Ferritin < 2000.0 H AST Lactate Dehydrogenase 719 H C-Reactive Protein Total Protein Albumin Coronavirus (PCR) 02/06/20 02/07/20 02/07/20 21:23 08:22 10:51 WBC Hgb Hct MCV MCH RDW Lymph % (Auto) Lymph # Seg Neutrophils % Seg Neuts % (Manual) Lymphocytes % (Manual) Nucleated RBC % Seg Neutrophils # Seg Neutrophils # Man Lymphocytes # (Manual) D-Dimer ABG pH ABG pO2 ABG HCO3 ABG O2 Saturation ABG Base Excess ABG Hemoglobin Oxyhemoglobin Sodium Potassium Chloride Carbon Dioxide BUN Glucose POC Glucose 334 H 281 H 309 H Hemoglobin A1c Calcium Phosphorus Magnesium Ferritin AST Lactate Dehydrogenase C-Reactive Protein Total Protein Albumin Coronavirus (PCR) 02/07/20 02/07/20 02/08/20 16:27 22:40 07:44 WBC Hgb Hct MCV MCH RDW Lymph % (Auto) Lymph # Seg Neutrophils % Seg Neuts % (Manual) Lymphocytes % (Manual) Nucleated RBC % Seg Neutrophils # Seg Neutrophils # Man Lymphocytes # (Manual) D-Dimer ABG pH ABG pO2 ABG HCO3 ABG O2 Saturation ABG Base Excess ABG Hemoglobin Oxyhemoglobin Sodium Potassium Chloride Carbon Dioxide BUN Glucose POC Glucose 288 H 278 H 267 H Hemoglobin A1c Calcium Phosphorus Magnesium Ferritin AST Lactate Dehydrogenase C-Reactive Protein Total Protein Albumin Coronavirus (PCR) 02/08/20 02/08/20 02/08/20 10:46 10:46 10:46 WBC Hgb Hct MCV 98 H MCH RDW Lymph % (Auto) Lymph # Seg Neutrophils % Seg Neuts % (Manual) 97.0 H Lymphocytes % (Manual) 0 L Nucleated RBC % Seg Neutrophils # Seg Neutrophils # Man 10.2 H Lymphocytes # (Manual) 0.0 L D-Dimer 261.46 H ABG pH ABG pO2 ABG HCO3 ABG O2 Saturation ABG Base Excess ABG Hemoglobin Oxyhemoglobin Sodium 148 H Potassium 3.5 L Chloride 112.2 H Carbon Dioxide BUN 36 H Glucose 356 H POC Glucose Hemoglobin A1c Calcium 8.3 L Phosphorus Magnesium Ferritin AST Lactate Dehydrogenase C-Reactive Protein Total Protein Albumin Coronavirus (PCR) 02/08/20 02/08/20 02/08/20 10:46 10:46 12:22 WBC Hgb Hct MCV MCH RDW Lymph % (Auto) Lymph # Seg Neutrophils % Seg Neuts % (Manual) Lymphocytes % (Manual) Nucleated RBC % Seg Neutrophils # Seg Neutrophils # Man Lymphocytes # (Manual) D-Dimer ABG pH ABG pO2 ABG HCO3 ABG O2 Saturation ABG Base Excess ABG Hemoglobin Oxyhemoglobin Sodium Potassium Chloride Carbon Dioxide BUN Glucose 351 H POC Glucose 358 H Hemoglobin A1c Calcium Phosphorus Magnesium Ferritin 1611.0 H AST Lactate Dehydrogenase 671 H C-Reactive Protein Total Protein Albumin Coronavirus (PCR) 02/08/20 02/08/20 02/09/20 14:00 17:02 08:45 WBC Hgb Hct MCV MCH RDW Lymph % (Auto) Lymph # Seg Neutrophils % Seg Neuts % (Manual) Lymphocytes % (Manual) Nucleated RBC % Seg Neutrophils # Seg Neutrophils # Man Lymphocytes # (Manual) D-Dimer ABG pH ABG pO2 65.3 L ABG HCO3 ABG O2 Saturation 94.1 L ABG Base Excess ABG Hemoglobin 12.8 L Oxyhemoglobin 92.3 L Sodium Potassium Chloride Carbon Dioxide BUN Glucose POC Glucose 331 H 160 H Hemoglobin A1c Calcium Phosphorus Magnesium Ferritin AST Lactate Dehydrogenase C-Reactive Protein Total Protein Albumin Coronavirus (PCR) 02/09/20 02/09/20 02/09/20 12:27 17:22 23:11 WBC Hgb Hct MCV MCH RDW Lymph % (Auto) Lymph # Seg Neutrophils % Seg Neuts % (Manual) Lymphocytes % (Manual) Nucleated RBC % Seg Neutrophils # Seg Neutrophils # Man Lymphocytes # (Manual) D-Dimer ABG pH ABG pO2 ABG HCO3 ABG O2 Saturation ABG Base Excess ABG Hemoglobin Oxyhemoglobin Sodium Potassium Chloride Carbon Dioxide BUN Glucose POC Glucose 262 H 237 H 140 H Hemoglobin A1c Calcium Phosphorus Magnesium Ferritin AST Lactate Dehydrogenase C-Reactive Protein Total Protein Albumin Coronavirus (PCR) 02/10/20 02/10/20 02/10/20 08:30 12:00 12:30 WBC Hgb Hct MCV MCH RDW Lymph % (Auto) Lymph # Seg Neutrophils % Seg Neuts % (Manual) Lymphocytes % (Manual) Nucleated RBC % Seg Neutrophils # Seg Neutrophils # Man Lymphocytes # (Manual) D-Dimer ABG pH ABG pO2 ABG HCO3 ABG O2 Saturation ABG Base Excess ABG Hemoglobin Oxyhemoglobin Sodium Potassium Chloride Carbon Dioxide BUN Glucose 330 H POC Glucose 216 H 252 H Hemoglobin A1c Calcium Phosphorus Magnesium Ferritin AST Lactate Dehydrogenase 642 H C-Reactive Protein Total Protein Albumin Coronavirus (PCR) 02/10/20 02/10/20 02/10/20 12:30 16:32 23:38 WBC Hgb Hct MCV MCH RDW Lymph % (Auto) Lymph # Seg Neutrophils % Seg Neuts % (Manual) Lymphocytes % (Manual) Nucleated RBC % Seg Neutrophils # Seg Neutrophils # Man Lymphocytes # (Manual) D-Dimer ABG pH ABG pO2 ABG HCO3 ABG O2 Saturation ABG Base Excess ABG Hemoglobin Oxyhemoglobin Sodium Potassium Chloride Carbon Dioxide BUN Glucose POC Glucose 245 H 196 H Hemoglobin A1c Calcium Phosphorus Magnesium Ferritin 1728.0 H AST Lactate Dehydrogenase C-Reactive Protein Total Protein Albumin Coronavirus (PCR) 07/02/11/20 02/11/20 08:07 11:41 13:47 WBC Hgb Hct MCV 98 H MCH RDW 15.7 H Lymph % (Auto) Lymph # Seg Neutrophils % Seg Neuts % (Manual) Lymphocytes % (Manual) Nucleated RBC % Seg Neutrophils # Seg Neutrophils # Man Lymphocytes # (Manual) D-Dimer ABG pH ABG pO2 ABG HCO3 ABG O2 Saturation ABG Base Excess ABG Hemoglobin Oxyhemoglobin Sodium Potassium Chloride Carbon Dioxide BUN Glucose POC Glucose 300 H 286 H Hemoglobin A1c Calcium Phosphorus Magnesium Ferritin AST Lactate Dehydrogenase C-Reactive Protein Total Protein Albumin Coronavirus (PCR) 02/11/20 02/11/20 02/11/20 13:47 17:17 21:17 WBC Hgb Hct MCV MCH RDW Lymph % (Auto) Lymph # Seg Neutrophils % Seg Neuts % (Manual) Lymphocytes % (Manual) Nucleated RBC % Seg Neutrophils # Seg Neutrophils # Man Lymphocytes # (Manual) D-Dimer ABG pH ABG pO2 ABG HCO3 ABG O2 Saturation ABG Base Excess ABG Hemoglobin Oxyhemoglobin Sodium 158 H D Potassium Chloride 119.7 H Carbon Dioxide BUN 40 H Glucose 287 H POC Glucose 288 H 283 H Hemoglobin A1c Calcium 7.9 L Phosphorus Magnesium Ferritin AST Lactate Dehydrogenase C-Reactive Protein Total Protein Albumin Coronavirus (PCR) 02/12/20 02/12/20 02/12/20 06:01 08:37 10:58 WBC Hgb Hct MCV MCH RDW Lymph % (Auto) Lymph # Seg Neutrophils % Seg Neuts % (Manual) Lymphocytes % (Manual) Nucleated RBC % Seg Neutrophils # Seg Neutrophils # Man Lymphocytes # (Manual) D-Dimer ABG pH ABG pO2 ABG HCO3 ABG O2 Saturation ABG Base Excess ABG Hemoglobin Oxyhemoglobin Sodium Potassium Chloride Carbon Dioxide BUN Glucose POC Glucose 273 H 313 H 288 H Hemoglobin A1c Calcium Phosphorus Magnesium Ferritin AST Lactate Dehydrogenase C-Reactive Protein Total Protein Albumin Coronavirus (PCR) 02/12/20 02/12/20 02/12/20 16:24 22:23 Unknown WBC Hgb Hct MCV MCH RDW Lymph % (Auto) Lymph # Seg Neutrophils % Seg Neuts % (Manual) Lymphocytes % (Manual) Nucleated RBC % Seg Neutrophils # Seg Neutrophils # Man Lymphocytes # (Manual) D-Dimer ABG pH ABG pO2 ABG HCO3 ABG O2 Saturation ABG Base Excess ABG Hemoglobin Oxyhemoglobin Sodium Potassium Chloride Carbon Dioxide BUN Glucose POC Glucose 192 H 145 H Hemoglobin A1c Calcium Phosphorus Magnesium Ferritin AST Lactate Dehydrogenase C-Reactive Protein Total Protein Albumin Coronavirus (PCR) Positive A 02/13/20 02/13/20 02/13/20 00:32 09:06 11:22 WBC Hgb Hct MCV MCH RDW Lymph % (Auto) Lymph # Seg Neutrophils % Seg Neuts % (Manual) Lymphocytes % (Manual) Nucleated RBC % Seg Neutrophils # Seg Neutrophils # Man Lymphocytes # (Manual) D-Dimer ABG pH ABG pO2 ABG HCO3 ABG O2 Saturation ABG Base Excess ABG Hemoglobin Oxyhemoglobin Sodium 162 H* Potassium 3.2 L Chloride 125.4 H Carbon Dioxide BUN 32 H Glucose 132 H POC Glucose 221 H 319 H Hemoglobin A1c Calcium 7.6 L Phosphorus Magnesium Ferritin AST Lactate Dehydrogenase C-Reactive Protein Total Protein Albumin Coronavirus (PCR) 02/13/20 02/13/20 02/13/20 14:33 16:18 23:35 WBC Hgb Hct MCV MCH RDW Lymph % (Auto) Lymph # Seg Neutrophils % Seg Neuts % (Manual) Lymphocytes % (Manual) Nucleated RBC % Seg Neutrophils # Seg Neutrophils # Man Lymphocytes # (Manual) D-Dimer ABG pH ABG pO2 ABG HCO3 ABG O2 Saturation ABG Base Excess ABG Hemoglobin Oxyhemoglobin Sodium 154 H Potassium Chloride 117.5 H Carbon Dioxide BUN 30 H Glucose 415 H POC Glucose 351 H 182 H Hemoglobin A1c Calcium 7.5 L Phosphorus Magnesium Ferritin AST Lactate Dehydrogenase C-Reactive Protein Total Protein Albumin Coronavirus (PCR) 02/14/20 05:25 WBC Hgb Hct MCV MCH RDW Lymph % (Auto) Lymph # Seg Neutrophils % Seg Neuts % (Manual) Lymphocytes % (Manual) Nucleated RBC % Seg Neutrophils # Seg Neutrophils # Man Lymphocytes # (Manual) D-Dimer ABG pH ABG pO2 ABG HCO3 ABG O2 Saturation ABG Base Excess ABG Hemoglobin Oxyhemoglobin Sodium 156 H Potassium 3.1 L Chloride 121.7 H Carbon Dioxide BUN 28 H Glucose 74 L POC Glucose Hemoglobin A1c Calcium 7.7 L Phosphorus 2.00 L Magnesium Ferritin AST Lactate Dehydrogenase C-Reactive Protein Total Protein Albumin Coronavirus (PCR) Chest x-ray: image reviewed (L>R bilateral pulmonary infiltrates) Allied health notes reviewed: nursing
[2020-02-14 13:29] LABS: Bilirubin,Urine NEG (Negative); Blood,Urine LG (Negative); Color,Urine Red (Yellow); Mucus,Urine 2+ /HPF; Protein,Urine >2000 mg dL mg/dL (Negative); RBC,Urine > 182.0 /HPF (0.0-6.0); Urobilinogen,Urine < 2.0 mg/dL (<2.0)
--- NOTE | 2020-02-14 16:19 | Progress Note ---
Assessment and Plan - Patient Problems (1) Abnormal ECG Current Visit: Yes Status: Acute Plan to address problem: Cardiology following. Patient with ventricular arrhythmia not at this particular time. (2) Acute respiratory failure with hypoxia Current Visit: Yes Status: Acute Plan to address problem: Acute hypoxic respiratory failure secondary to bilateral pneumonia. Kovic pneumonia. Inflammatory markers elevated. Patient treated with Rocephin and azithromycin for now. (3) Bilateral pneumonia Current Visit: Yes Status: Acute Qualifiers: Lung location: unspecified part of lung Plan to address problem: Bilateral pneumonia COVID-19. Patient inflammatory markers high continue to keep sats above 92%. Reduce Advair. ID following evaluated for convalescent plasma. We will follow inflammatory markers as well. (4) COVID-19 Current Visit: Yes Status: Acute Plan to address problem: COVID-19 positive continue with decimeter dexamethasone. Follow inflammatory markers. 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 Subjective Principal diagnosis: Severe Sepsis; COVID-19; Hari PNA; Ac. hypoxemic Resp failure; DM II Interval history: 89-year-old male with history of diabetes presented 6 2:20 weeks of generalized weakness shortness of breath cough. Patient was found to be Kovic positive. Had increased inflammatory markers. Now with advanced dementia confused treated with acute toxic encephalopathy. Severe hypoxemia. On high flow O2. Encephalopathic. Objective - Constitutional Vitals: Vital Signs - 12hr 02/14/20 02/14/20 02/14/20 05:59 08:00 08:09 Temperature 99.0 F Pulse Rate 87 Respiratory 16 Rate Blood Pressure 139/73 O2 Sat by Pulse 92 94 100 Oximetry 02/14/20 02/14/20 02/14/20 10:05 10:06 11:45 Temperature 96.3 F L Pulse Rate 86 72 Respiratory 20 Rate Blood Pressure 110/65 110/65 117/69 O2 Sat by Pulse 91 Oximetry 02/14/20 14:34 Temperature Pulse Rate Respiratory Rate Blood Pressure O2 Sat by Pulse 91 Oximetry General appearance: Present: no acute distress, well-nourished - EENT Eyes: PERRL, EOM intact ENT: hearing intact, clear oral mucosa Ears: bilateral: normal - Neck Neck: supple, normal ROM - Respiratory Respiratory effort: normal Respiratory: bilateral: diminished, rhonchi - Breasts Breasts: normal - Cardiovascular Rhythm: regular Heart Sounds: Present: S1 & S2. Absent: gallop, rub Extremities: pulses intact, No edema, normal color, Full ROM - Gastrointestinal General gastrointestinal: Present: soft, non-tender, non-distended, hypoactive bowel sounds - Genitourinary Male genitourinary: normal - Integumentary Integumentary: clear, warm, dry - Musculoskeletal Musculoskeletal: generalized weakness - Neurologic Neurologic: moves all extremities - Psychiatric Psychiatric: other (Encephalopathic.) - Labs CBC & Chem 7: 02/11/20 13:47 02/14/20 05:25 Labs: Abnormal lab results 02/13/20 02/14/20 02/14/20 Range/Units 23:35 05:25 11:54 Sodium 156 H (137-145) mmol/L Potassium 3.1 L (3.6-5.0) mmol/L Chloride 121.7 H (98-107) mmol/L BUN 28 H (9-20) mg/dL Glucose 74 L (75-100) mg/dL POC Glucose 182 H 120 H (70-105) Calcium 7.7 L (8.4-10.2) mg/dL Phosphorus 2.00 L (2.5-4.5) mg/dL - Imaging and cardiology Chest x-ray: image reviewed CT Scan - head: report reviewed, image reviewed HEART Score - HEART Score Troponin: Troponin T 0.014 ng/mL (0.00-0.029) 01/29/20 17:03
[2020-02-14] MEDS: DEXTROSE 5% IN WATER 1,000 ML IV SCH (16:45)
[2020-02-14] MEDS: INSULIN GLARGINE 100 UNITS/ML SUB-Q SCH (22:12)
[2020-02-15 07:06] LABS: BUN/Creatinine Ratio 28; Blood Urea Nitrogen 22 mg/dL (9-20); Calcium 7.5 mg/dL (8.4-10.2); Hemolysis Index 6
[2020-02-15] MEDS: INSULIN LISPRO 100 UNIT/ML SUB-Q SCH ×4 (07:30→22:03)
[2020-02-15] MEDS: INSULIN REGULAR, HUMAN 100 UNITS/1 ML SUB-Q SCH ×6 (07:30→17:14)
[2020-02-15] MEDS: FAMOTIDINE 20 MG TAB PO SCH ×2 (11:05→22:00)
[2020-02-15] MEDS: PRAZOSIN 1 MG CAP PO SCH ×2 (11:05→22:00)
[2020-02-15] MEDS: METOPROLOL TARTRATE 50 MG TAB PO SCH (11:06)
[2020-02-15] MEDS: methylPREDNISolone Sod Succinate 40 MG/1 ML INJ IV SCH (11:06)
[2020-02-15] MEDS: ZINC SULFATE 220 MG CAP PO SCH (11:06)
[2020-02-15] MEDS: LORazepam 2 MG/ML VIAL IV PRN (11:06)
[2020-02-15] MEDS: DEXTROSE 5% IN WATER 1,000 ML IV SCH (11:44)
--- NOTE | 2020-02-15 12:53 | Progress Note ---
Assessment and Plan 1. Hypernatremia: Secondary to dehydration. Ur studies results noted. Continue IV D5W, Sodium level is improving. Monitor Sodium level. 2. FEN: Monitor lytes and volume status. 3. Acute hypoxic Respiratory failure: On HFNC O2. Cont nebs and Solumedrol. Followed by Pulmonary. 4. Bilateral pneumonia: S/p Rocephin and azithromycin. COVID-19 positive. Follow Inflammatory markers. Followed by ID. 5. Acute toxic metabolic encephalopathy. 6. Elevated d-dimer. 7. Type 2 diabetes mellitus. - Subjective: Patient was seen and examined at the bedside. - General Appearance General appearance: well-developed, well-nourished, on HFNC O2 HEENT: ATNC Neck: trachea midline Respiratory: Clear to Ascultation Heart: regular, S1S2, no murmurs Gastrointestinal: soft, normoactive bowel sounds, not tender Integumentary: no rash, warm and dry Neurologic: alert, moving extremities, not following command : condom catheter Subjective Date of service: 02/15/20 Principal diagnosis: COVID Objective - Vital Signs Vital signs: Vital Signs - 12hr 02/15/20 02/15/20 04:09 06:43 Temperature 98.1 F Pulse Rate 67 Respiratory 16 Rate Blood Pressure 101/48 O2 Sat by Pulse 96 89 Oximetry - Lab 02/11/20 13:47 02/15/20 05:47 Most recent lab results ABG pH 7.440 pH Units (7.350-7.450) 02/08/20 14:00 ABG pCO2 35.9 mm Hg 02/08/20 14:00 ABG pO2 65.3 mm Hg (80.0-90.0) L 02/08/20 14:00 ABG HCO3 23.8 mmol/L (20.0-26.0) 02/08/20 14:00 ABG O2 Saturation 94.1 % (95.0-99.0) L 02/08/20 14:00 Calcium 7.5 mg/dL (8.4-10.2) L 02/15/20 05:47 Phosphorus 2.50 mg/dL (2.5-4.5) D 02/15/20 05:47 Magnesium 2.70 mg/dL (1.7-2.3) H 02/04/20 06:06 Medications & Allergies - Medications Allergies/Adverse Reactions: Allergies No Known Allergies Allergy (Unverified 01/29/20 18:36) Home Medications: Home Medications Medication Instructions Recorded Confirmed Last Taken Type AtorvaSTATin [Lipitor] 40 mg PO QHS 01/31/20 01/31/20 Unknown History Terazosin [Hytrin] 1 mg PO BID 01/31/20 01/31/20 Unknown History glipiZIDE [Glucotrol] 5 mg PO BID 01/31/20 01/31/20 Unknown History metFORMIN [Glucophage] 500 mg PO BID 01/31/20 01/31/20 Unknown History Active Medications: Generic Name Dose Route Start Last Admin Trade Name Freq PRN Reason Stop Dose Admin Acetaminophen 650 mg 01/29/20 20:46 Tylenol PO Q4H PRN Pain MILD(1-3)/Fever >100.5/GALINDO Lipase/Protease/Amylase 1 each 02/10/20 09:[address] 10,500 Unit FEEDTUBE PRN PRN For Clogged Feeding Tube Atorvastatin Calcium 40 mg 02/02/20 22:00 02/14/20 22:15 Lipitor PO 40 mg QHS JUNE Administration Famotidine 20 mg 01/29/20 22:00 02/15/20 11:05 Pepcid PO 20 mg BID JUNE Administration Hydromorphone HCl 0.5 mg 01/29/20 20:48 02/13/20 05:50 Dilaudid IV 0.5 mg Q3H PRN Administration Pain , Severe (7-10) Dextrose 1,000 mls @ 75 mls/hr 02/13/20 10:00 02/15/20 11:44 D5w IV 100 mls/hr DIRECT JUNE Administration Insulin Glargine 20 units 02/13/20 22:00 02/14/20 22:12 Lantus SUB-Q 20 units QHS [facility] Administration Insulin Human Lispro 0 unit 01/29/20 22:00 02/15/20 07:30 Humalog SUB-Q Not [facility] Protocol Insulin Human Regular 5 units 02/04/20 11:30 02/15/20 07:30 Humulin R SUB-Q Not Given AC [facility] Insulin Human Regular 0 units 02/13/20 11:30 02/15/20 07:30 Humulin R SUB-Q Not Given [facility] Protocol Lorazepam 1 mg 02/02/20 07:55 02/15/20 11:06 Ativan IV 1 mg Q4H PRN Administration Anxiety Methylprednisolone Sodium Succinate 20 mg 02/12/20 16:27 02/15/20 11:06 Solu-Medrol IV 20 mg Q24HR JUNE Administration Metoclopramide HCl 10 mg 01/29/20 20:48 Reglan IV Q6H PRN Nausea And Vomiting Metoprolol Tartrate 50 mg 02/08/20 22:00 02/15/20 11:06 Metoprolol PO 50 mg BID JUNE Administration Ondansetron HCl 4 mg 01/29/20 20:46 01/29/20 23:28 Zofran IV 4 mg Q8H PRN Administration Nausea And Vomiting Oxycodone/Acetaminophen 1 tab 01/29/20 20:48 02/10/20 23:53 Percocet 5/325 PO 1 tab Q6H PRN Administration Pain, Moderate (4-6) Prazosin HCl 1 mg 02/02/20 10:00 02/15/20 11:05 Prazosin PO 1 mg BID JUNE Administration Simple Syrup 15 ml 02/10/20 09:27 Simple Syrup FEEDTUBE PRN PRN Hypoglycemia Simple Syrup 30 ml 02/10/20 09:27 Simple Syrup FEEDTUBE PRN PRN Hypoglycemia Sodium Bicarbonate 325 mg 02/10/20 09:27 Sodium Bicarbonate FEEDTUBE PRN PRN For Clogged Feeding Tube Sodium Chloride 10 ml 01/29/20 22:00 02/15/20 11:05 Sodium Chloride Flush Syringe 10 Ml IV 10 ml BID JUNE Administration Sodium Chloride 10 ml 01/29/20 20:46 Sodium Chloride Flush Syringe 10 Ml IV PRN PRN LINE FLUSH Zinc Sulfate 220 mg 02/03/20 10:00 02/15/20 11:06 Zinc Sulfate PO 220 mg QDAY JUNE Administration
--- NOTE | 2020-02-15 15:46 | Progress Note ---
Assessment and Plan - Patient Problems (1) Abnormal ECG Current Visit: Yes Status: Acute Plan to address problem: Cardiology following. Patient with ventricular arrhythmia not at this particular time. (2) Acute respiratory failure with hypoxia Current Visit: Yes Status: Acute Plan to address problem: Acute hypoxic respiratory failure secondary to bilateral pneumonia. covid 19 pneumonia. Inflammatory markers elevated. Patient treated with Rocephin and azithromycin for now. Prognosis guarded. (3) Bilateral pneumonia Current Visit: Yes Status: Acute Qualifiers: Lung location: unspecified part of lung Plan to address problem: Bilateral pneumonia COVID-19. Patient inflammatory markers high continue to keep sats above 92%. Reduce Advair. ID following evaluated for convalescent plasma. We will follow inflammatory markers as well. (4) COVID-19 Current Visit: Yes Status: Acute Plan to address problem: COVID-19 positive continue with decimeter dexamethasone. Follow inflammatory markers. 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 Increase Lantus to 25 units. History Interval history: 89-year-old male with history of diabetes presented 6 2:20 weeks of generalized weakness shortness of breath cough. Patient was found to be covid positive. Had increased inflammatory markers. Now with advanced dementia confused treated with acute toxic encephalopathy. Severe hypoxemia. On high flow O2. Encephalopathic. Hospitalist Physical - Constitutional Vitals: Temp Pulse Resp BP Pulse Ox 97.9 F 75 20 115/55 90 02/15/20 11:57 02/15/20 11:57 02/15/20 11:57 02/15/20 11:57 02/15/20 11:57 General appearance: Present: no acute distress, well-nourished - EENT Eyes: Present: PERRL - Respiratory Respiratory: bilateral: diminished - Cardiovascular Rhythm: regular - Extremities Extremities: pulses intact, pulses symmetrical Extremity abnormal: edema - Abdominal General gastrointestinal: soft, non-tender, normal bowel sounds - Neurologic Neurologic: focal deficits HEART Score - HEART Score Troponin: Troponin T 0.014 ng/mL (0.00-0.029) 01/29/20 17:03 Results - Labs CBC & Chem 7: 02/11/20 13:47 02/15/20 05:47 Labs: Laboratory Last Values WBC 10.2 K/mm3 (4.5-11.0) 02/11/20 13:47 RBC 4.47 M/mm3 (3.65-5.03) 02/11/20 13:47 Hgb 13.9 gm/dl (11.8-15.2) 02/11/20 13:47 Hct 43.8 % (35.5-45.6) 02/11/20 13:47 MCV 98 fl (84-94) H 02/11/20 13:47 MCH 31 pg (28-32) 02/11/20 13:47 MCHC 32 % (32-34) 02/11/20 13:47 RDW 15.7 % (13.2-15.2) H 02/11/20 13:47 Plt Count 168 K/mm3 (140-440) 02/11/20 13:47 Lymph % (Auto) 4.3 % (13.4-35.0) L 02/04/20 06:06 [place] % (Auto) 7.0 % (0.0-7.3) 02/04/20 06:06 Eos % (Auto) 1.0 % (0.0-4.3) 02/04/20 06:06 Baso % (Auto) 0.2 % (0.0-1.8) 02/04/20 06:06 Lymph # 0.5 K/mm3 (1.2-5.4) L 02/04/20 06:06 [place] # 0.7 K/mm3 (0.0-0.8) 02/04/20 06:06 Eos # 0.1 K/mm3 (0.0-0.4) 02/04/20 06:06 Baso # 0.0 K/mm3 (0.0-0.1) 02/04/20 06:06 Add Manual Diff Complete 02/08/20 10:46 Total Counted 100 02/08/20 10:46 Seg Neutrophils % Crop Adjuster 02/08/20 10:46 Seg Neuts % (Manual) 97.0 % (40.0-70.0) H 02/08/20 10:46 Band Neutrophils % 1.0 % 02/08/20 10:46 Lymphocytes % (Manual) 0 % (13.4-35.0) L 02/08/20 10:46 Reactive Lymphs % (Man) 0 % 02/08/20 10:46 Monocytes % (Manual) 1.0 % (0.0-7.3) 02/08/20 10:46 Eosinophils % (Manual) 0 % (0.0-4.3) 02/08/20 10:46 Basophils % (Manual) 0 % (0.0-1.8) 02/08/20 10:46 Metamyelocytes % 0 % 02/08/20 10:46 Myelocytes % 1.0 % 02/08/20 10:46 Promyelocytes % 0 % 02/08/20 10:46 Blast Cells % 0 % 02/08/20 10:46 Nucleated RBC % Not Reportable 02/08/20 10:46 Seg Neutrophils # 9.3 K/mm3 (1.8-7.7) H 02/04/20 06:06 Seg Neutrophils # Man 10.2 K/mm3 (1.8-7.7) H 02/08/20 10:46 Band Neutrophils # 0.1 K/mm3 02/08/20 10:46 Lymphocytes # (Manual) 0.0 K/mm3 (1.2-5.4) L 02/08/20 10:46 Abs React Lymphs (Man) 0.0 K/mm3 02/08/20 10:46 Monocytes # (Manual) 0.1 K/mm3 (0.0-0.8) 02/08/20 10:46 Eosinophils # (Manual) 0.0 K/mm3 (0.0-0.4) 02/08/20 10:46 Basophils # (Manual) 0.0 K/mm3 (0.0-0.1) 02/08/20 10:46 Metamyelocytes # 0.0 K/mm3 02/08/20 10:46 Myelocytes # 0.1 K/mm3 02/08/20 10:46 Promyelocytes # 0.0 K/mm3 02/08/20 10:46 Blast Cells # 0.0 K/mm3 02/08/20 10:46 WBC Morphology Not Reportable 02/08/20 10:46 Hypersegmented Neuts Not Reportable 02/08/20 10:46 Hyposegmented Neuts Not Reportable 02/08/20 10:46 Hypogranular Neuts Not Reportable 02/08/20 10:46 Smudge Cells Not Reportable 02/08/20 10:46 Toxic Granulation Not Reportable 02/08/20 10:46 Toxic Vacuolation Not Reportable 02/08/20 10:46 Dohle Bodies Not Reportable 02/08/20 10:46 Pelger-Huet Anomaly Not Reportable 02/08/20 10:46 Howard Rods Not Reportable 02/08/20 10:46 Platelet Estimate Consistent w auto 02/08/20 10:46 Clumped Platelets Not Reportable 02/08/20 10:46 Plt Clumps, EDTA Not Reportable 02/08/20 10:46 Large Platelets Not Reportable 02/08/20 10:46 Giant Platelets Not Reportable 02/08/20 10:46 Platelet Satelliting Not Reportable 02/08/20 10:46 Plt Morphology Comment Not Reportable 02/08/20 10:46 RBC Morphology Normal 02/08/20 10:46 Dimorphic RBCs Not Reportable 02/08/20 10:46 Polychromasia Not Reportable 02/08/20 10:46 Hypochromasia Not Reportable 02/08/20 10:46 Poikilocytosis Not Reportable 02/08/20 10:46 Anisocytosis Not Reportable 02/08/20 10:46 Microcytosis Not Reportable 02/08/20 10:46 Macrocytosis Not Reportable 02/08/20 10:46 Spherocytes Not Reportable 02/08/20 10:46 Pappenheimer Bodies Not Reportable 02/08/20 10:46 Sickle Cells Not Reportable 02/08/20 10:46 Target Cells Not Reportable 02/08/20 10:46 Tear Drop Cells Not Reportable 02/08/20 10:46 Ovalocytes Not Reportable 02/08/20 10:46 Helmet Cells Not Reportable 02/08/20 10:46 [place] Bodies Not Reportable 02/08/20 10:46 [place] Rings Not Reportable 02/08/20 10:46 [place] Cells Not Reportable 02/08/20 10:46 Bite Cells Not Reportable 02/08/20 10:46 Crenated Cell Not Reportable 02/08/20 10:46 Elliptocytes Not Reportable 02/08/20 10:46 Acanthocytes (Spur) Not Reportable 02/08/20 10:46 Rouleaux Not Reportable 02/08/20 10:46 Hemoglobin C Crystals Not Reportable 02/08/20 10:46 Schistocytes Not Reportable 02/08/20 10:46 Malaria parasites Not Reportable 02/08/20 10:46 Delta Bodies Not Reportable 02/08/20 10:46 Hem Pathologist Commnt No 02/08/20 10:46 PT 13.9 Sec. (12.2-14.9) 01/29/20 17:03 INR 1.09 (0.87-1.13) 01/29/20 17:03 D-Dimer 154.77 ng/mlDDU (0-234) 02/10/20 12:30 ABG pH 7.440 pH Units (7.350-7.450) 02/08/20 14:00 ABG pCO2 35.9 mm Hg 02/08/20 14:00 ABG pO2 65.3 mm Hg (80.0-90.0) L 02/08/20 14:00 ABG HCO3 23.8 mmol/L (20.0-26.0) 02/08/20 14:00 ABG O2 Saturation 94.1 % (95.0-99.0) L 02/08/20 14:00 ABG O2 Content 19.7 (0.0-44) 02/08/20 14:00 ABG Base Excess 0.2 mmol/L (-2.0-3.0) 02/08/20 14:00 ABG Hemoglobin 12.8 gm/dl (14.0-18.0) L 02/08/20 14:00 ABG Carboxyhemoglobin 1.5 % (0.0-5.0) 02/08/20 14:00 ABG Methemoglobin 0.4 % (0.0-1.5) 02/08/20 14:00 Oxyhemoglobin 92.3 % (95.0-99.0) L 02/08/20 14:00 FiO2 60 % 02/08/20 14:00 Sodium 149 mmol/L (137-145) H 02/15/20 05:47 Potassium 3.6 mmol/L (3.6-5.0) 02/15/20 05:47 Chloride 115.1 mmol/L (98-107) H 02/15/20 05:47 Carbon Dioxide 25 mmol/L (22-30) 02/15/20 05:47 Anion Gap 13 mmol/L 02/15/20 05:47 BUN 22 mg/dL (9-20) H 02/15/20 05:47 Creatinine 0.8 mg/dL (0.8-1.5) 02/15/20 05:47 Estimated GFR > 60 ml/min 02/15/20 05:47 BUN/Creatinine Ratio 28 % 02/15/20 05:47 Glucose 74 mg/dL (75-100) L 02/15/20 05:47 POC Glucose 259 (70-105) H 02/15/20 12:08 Hemoglobin A1c 7.3 % (4-6) H 01/30/20 05:41 Osmolality 343 Mosm/kg 02/13/20 14:33 Calcium 7.5 mg/dL (8.4-10.2) L 02/15/20 05:47 Phosphorus 2.50 mg/dL (2.5-4.5) D 02/15/20 05:47 Magnesium 2.70 mg/dL (1.7-2.3) H 02/04/20 06:06 Ferritin 1728.0 ng/mL (13.0-400.0) H 02/10/20 12:30 Total Bilirubin 0.60 mg/dL (0.1-1.2) 02/03/20 06:09 AST 24 units/L (5-40) 02/03/20 06:09 ALT 27 units/L (7-56) 02/03/20 06:09 Alkaline Phosphatase 73 units/L (35-129) 02/03/20 06:09 Lactate Dehydrogenase 642 units/L (91-180) H 02/10/20 12:30 Troponin T 0.014 ng/mL (0.00-0.029) 01/29/20 17:03 C-Reactive Protein 0.30 mg/dL (0.00-1.30) 02/10/20 12:30 NT-Pro-B Natriuret Pep 497.5 pg/mL (0-900) 01/29/20 17:03 Total Protein 5.4 g/dL (6.3-8.2) L 02/03/20 06:09 Albumin 3.0 g/dL (3.9-5) L 02/03/20 06:09 Albumin/Globulin Ratio 1.3 % 02/03/20 06:09 Procalcitonin 0.08 ng/mL (<0.15) 02/06/20 15:20 TSH 0.800 mlU/mL (0.270-4.200) 02/04/20 06:06 Urine Color Red (Yellow) 02/13/20 09:43 Urine Turbidity Cloudy (Clear) 02/13/20 09:43 Urine pH 6.0 (5.0-7.0) 02/13/20 09:43 Ur Specific [place] 1.023 (1.003-1.030) 02/13/20 09:43 Urine Protein >2000 mg dl mg/dL (Negative) 02/13/20 09:43 Urine Glucose (UA) >=500 mg/dL (Negative) 02/13/20 09:43 Urine Ketones Neg mg/dL (Negative) 02/13/20 09:43 Urine Blood Lg (Negative) 02/13/20 09:43 Urine Nitrite Pos (Negative) 02/13/20 09:43 Urine Bilirubin Neg (Negative) 02/13/20 09:43 Urine Urobilinogen < 2.0 mg/dL (<2.0) 02/13/20 09:43 Ur Leukocyte Esterase Mod (Negative) 02/13/20 09:43 Urine WBC (Auto) 4.0 /HPF (0.0-6.0) 02/13/20 09:43 Urine RBC (Auto) > 182.0 /HPF (0.0-6.0) 02/13/20 09:43 U Epithel Cells (Auto) 7.0 /HPF (0-13.0) 02/13/20 09:43 Urine WBC Clumps 3+ /HPF 02/13/20 09:43 Urine Mucus 2+ /HPF 02/13/20 09:43 Urine Osmolality 847 Mosm/kg 02/13/20 09:43 Coronavirus (PCR) Positive (Negative) A 02/12/20 Unknown Blood Type O POSITIVE 02/07/20 19:19 Antibody Screen Negative 02/07/20 19:19 Moy/IV: Voiding Method Incontinent IV Catheter Type [Right Wrist] INT / Saline Lock IV Catheter Type [Left INT / Saline Lock Antecubital] IV Catheter Type [Left] Peripheral IV Active Medications - Current Medications Current Medications: Generic Name Dose Route Start Last Admin Trade Name Freq PRN Reason Stop Dose Admin Acetaminophen 650 mg 01/29/20 20:46 Tylenol PO Q4H PRN Pain MILD(1-3)/Fever >100.5/GALINDO Lipase/Protease/Amylase 1 each 02/10/20 09:[address] 10,500 Unit FEEDTUBE PRN PRN For Clogged Feeding Tube Atorvastatin Calcium 40 mg 02/02/20 22:00 02/14/20 22:15 Lipitor PO 40 mg QHS JUNE Administration Famotidine 20 mg 01/29/20 22:00 02/15/20 11:05 Pepcid PO 20 mg BID JUNE Administration Hydromorphone HCl 0.5 mg 01/29/20 20:48 02/13/20 05:50 Dilaudid IV 0.5 mg Q3H PRN Administration Pain , Severe (7-10) Dextrose 1,000 mls @ 75 mls/hr 02/13/20 10:00 02/15/20 11:44 D5w IV 100 mls/hr DIRECT JUNE Administration Insulin Glargine 20 units 02/13/20 22:00 02/14/20 22:12 Lantus SUB-Q 20 units QHS JUNE Administration Insulin Human Lispro 0 unit 01/29/20 22:00 02/15/20 13:32 Humalog SUB-Q 4 unit ACHS JUNE Administration Protocol Insulin Human Regular 5 units 02/04/20 11:30 02/15/20 13:30 Humulin R SUB-Q 5 units AC JUNE Administration Insulin Human Regular 0 units 02/13/20 11:30 02/15/20 13:31 Humulin R SUB-Q 4 units ACHS JUNE Administration Protocol Lorazepam 1 mg 02/02/20 07:55 02/15/20 11:06 Ativan IV 1 mg Q4H PRN Administration Anxiety Methylprednisolone Sodium Succinate 20 mg 02/12/20 16:27 02/15/20 11:06 Solu-Medrol IV 20 mg Q24HR JUNE Administration Metoclopramide HCl 10 mg 01/29/20 20:48 Reglan IV Q6H PRN Nausea And Vomiting Metoprolol Tartrate 50 mg 02/08/20 22:00 02/15/20 11:06 Metoprolol PO 50 mg BID JUNE Administration Ondansetron HCl 4 mg 01/29/20 20:46 01/29/20 23:28 Zofran IV 4 mg Q8H PRN Administration Nausea And Vomiting Oxycodone/Acetaminophen 1 tab 01/29/20 20:48 02/10/20 23:53 Percocet 5/325 PO 1 tab Q6H PRN Administration Pain, Moderate (4-6) Prazosin HCl 1 mg 02/02/20 10:00 02/15/20 11:05 Prazosin PO 1 mg BID JUNE Administration Simple Syrup 15 ml 02/10/20 09:27 Simple Syrup FEEDTUBE PRN PRN Hypoglycemia Simple Syrup 30 ml 02/10/20 09:27 Simple Syrup FEEDTUBE PRN PRN Hypoglycemia Sodium Bicarbonate 325 mg 02/10/20 09:27 Sodium Bicarbonate FEEDTUBE PRN PRN For Clogged Feeding Tube Sodium Chloride 10 ml 01/29/20 22:00 02/15/20 11:05 Sodium Chloride Flush Syringe 10 Ml IV 10 ml BID JUNE Administration Sodium Chloride 10 ml 01/29/20 20:46 Sodium Chloride Flush Syringe 10 Ml IV PRN PRN LINE FLUSH Zinc Sulfate 220 mg 02/03/20 10:00 02/15/20 11:06 Zinc Sulfate PO 220 mg QDAY JUNE Administration Nutrition/Malnutrition Assess - Dietary Evaluation Nutrition/Malnutrition Findings: Nutrition Notes Start: 02/05/20 08:24 Freq: Status: Active Protocol: Document 02/14/20 13:35 LM (Rec: 02/14/20 13:41 LM [email or web address]) Nutrition Notes Initial or Follow up Reassessment Current Diagnosis Diabetes,Sepsis Other Pertinent Diagnosis Pneu, COVID-19 (+) Current Diet pureed w/ thin liq Labs/Tests Na 156 K 3.1 BUN 28 POC glu 120 Pertinent Medications Solu-Medrol Zinc Height 5 ft 11 in Weight 101 kg [place] Body Weight (kg) 78.18 BMI 31.0 Weight Status Obese Subjective/Other Information Pt ate 100% of breakfast per chart. Percent of energy/protein needs met: 100%/83% Burn Absent Trauma Absent GI Symptoms None Current % PO Good (75-100%) Minimum of two criteria No Energy Intake (severe) < or equal to 50% Estimated Energy Requirement > or equal to 5 days #1 Nutrition Diagnosis Inadequate oral intake As Evidenced by Signs and Symptoms pt ate 100% of breakfast Diagnosis Progress(for reassessment Improved documentation) Is patient on ventilator? No Is Patient Ambulatory and/or Out of Bed No REE-([facility]-confined to bed) 2055.696 Kcal/Kg value to use for calculation 17 Approximate Energy Requirements Using 1717 kcal/Kg Calculation Used for Recommendations Kcal/kg Additional Notes Protein needs are 92-109g (1-1 .2g/kg Adjusted wt 91.5kg) Fluid needs are 1ml/kcal Nutrition Intervention Change Diet Order: continue pureed Add Supplement/Snack (indicate name/kcal Glucerna daily /protein ) Provides kCal: 220 Provides Protein (gm) 10 Goal #1 Meet at least 80% of kcal and protein needs Anticipated Discharge Needs: Unable to determine at this time Follow-Up By: 02/19/20 Additional Comments F/U for intakes
[2020-02-15] MEDS ORDERED: INSULIN GLARGINE 100 UNITS/ML SUB-Q SCH (22:00)
[2020-02-16] MEDS: METOPROLOL TARTRATE 50 MG TAB PO SCH ×2 (00:01→10:50)
[2020-02-16] MEDS: INSULIN REGULAR, HUMAN 100 UNITS/1 ML SUB-Q SCH ×7 (00:03→22:58)
[2020-02-16] MEDS: INSULIN LISPRO 100 UNIT/ML SUB-Q SCH ×3 (08:30→17:36)
[2020-02-16] MEDS: FAMOTIDINE 20 MG TAB PO SCH ×2 (10:40→22:57)
[2020-02-16] MEDS: ZINC SULFATE 220 MG CAP PO SCH (10:41)
[2020-02-16] MEDS: methylPREDNISolone Sod Succinate 40 MG/1 ML INJ IV SCH (10:41)
[2020-02-16] MEDS: PRAZOSIN 1 MG CAP PO SCH (10:51)
--- NOTE | 2020-02-16 11:36 | Progress Note ---
Assessment and Plan Cultures: Blood cultures no growth Assessment: 89 years old male with history of diabetes mellitus, admitted on 01/29/2020 due to 2-week history of generalized weakness, mild cough, dyspnea on exertion: #Sepsis: present on admission with fever, hypoxia; source COVID-19 infection. #COVID-19 pneumonia: elevated biomarkers. 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 Completed 5 days of Remdesivir, completed Actemra 01/31/2020. #Acute hypoxemic respiratory failure: Remains on high flow. Recommendations: Continue steroid taper on solumedrol 20 mg IV q12h Awaiting convalescent plasma monitor markers every 2 days continue with anticoagulation given the severe hypoxia and elevated d-dimer Elda Khan MD Infectious Diseases [employer] [facility], [facility] ([facility]) M [phone] O [phone] Subjective Date of service: 02/16/20 Principal diagnosis: COVID Interval history: Remains on high flow O2 65 Objective - Exam Narrative Exam: Limited given conservation of PPE - Constitutional Vitals: Vital Signs Temp Pulse Resp BP Pulse Ox 97.3 F L 77 20 116/55 92 02/16/20 05:58 02/16/20 10:51 02/16/20 05:58 02/16/20 10:51 02/16/20 08:00 Temperature -Last 24 Hours Temperature 97.3 F Temperature 97.4 F Temperature 97.0 F Temperature 97.9 F - Labs CBC & Chem 7: 02/11/20 13:47 02/15/20 05:47 Labs: Abnormal lab results 02/15/20 02/15/20 02/15/20 Range/Units 12:08 16:22 23:29 POC Glucose 259 H 245 H 114 H (70-105) 02/16/20 Range/Units 11:39 POC Glucose 196 H (70-105)
[2020-02-16] MEDS: LORazepam 2 MG/ML VIAL IV PRN ×2 (13:29→23:00)
[2020-02-16] MEDS: DEXTROSE 5% IN WATER 1,000 ML IV SCH (13:32)
[2020-02-16 14:24] LABS: C-Reactive Protein 1.2 mg/dL (0.00-1.30)
--- NOTE | 2020-02-16 14:33 | Progress Note ---
Assessment and Plan Severe Sepsis (POA) COVID-19 infection Bilateral pneumonia: Acute hypoxic Respiratory failure on HFOT type 2 diabetes mellitus Acute toxic-metabolic encephalopathy Dementia - continue to wean supplemental oxygen for target O2 sats > 92% - continue encouraging awake Proning per facility protocol and Lateral decubitus positioning as tolerated by patient - Fluid conservative measures as tolerated by hemodynamics and renal function - Bronchodilators with pulmonary hygiene per RT - Accuchecks with glycemic control per SSI (Target blood glucose of 140-180 mg/dL; avoid hypoglycemia) - Avoid benzodiazepines, reduce the possibility of delirium - prn analgesia per CPOT score - Maintenance of sleep-wake cycle, avoid delirium - Avoid nephrotoxins, closely monitor renal function - s/p Empiric antibiotics( Ceftriaxone and Azithromycin for CAP ) - Stress ulcer ( while on high flow oxygen adn steroids) & VTE prophylaxis ( Enoxaparin Famotidine) - Mobility protocol, off loading and skin assessment for pressure ulcer pr evention - Monitor hemodynamics closely - Supportive transfusions as indicated to keep HgB >7g/dL - Fall precautions - Modified diet with aspiration precautions, needs assistance with feeding - Chronic home medications as clinically indicated COVID SPECIFIC INTERVENTIONS - Airborne, contact isolation for COVID per facility protocols - s/p Remdesivir - taper systemic steroids - S/p Tocilizumab IV x1 - Continue to trend inflammatory markers per facility protocol - On weight based Enoxaparin - Continue all supportive care - Contact tracing and testing of his contacts - Awaiting consent for COVID convalescent plasma therapy (Primary to obtain consent from family) The high probability of a clinically significant, sudden or life-threatening deterioration of the [respiratory & neurologic] system(s) required my full and direct attention, intervention and personal management. The aggregate critical care time was [32] minutes without overlap. Time includes spent on; [x] Data Review and interpretation [x] Patient assessment and monitoring of vital signs [x] Documentation [x] Medication orders and management Subjective Date of service: 02/16/20 Principal diagnosis: Severe Sepsis; COVID-19; Hari PNA; Ac. hypoxemic Resp failure; DM II Interval history: Patient is seen today for: Severe Sepsis; COVID-19 infection; Bilateral pneumonia; Acute hypoxemic Respiratory failure; DM II; Acute toxic-met encephalopathy; Dementia Seen and examined at bedside; 24 hour events reviewed; nursing and respiratory care staff consulted; no adverse overnight events reported to me; resting peacefully in bed; FiO2 down to 65%; No N/V/F/C Objective Vital Signs - 12hr 02/16/20 02/16/20 02/16/20 05:58 08:00 10:50 Temperature 97.3 F L Pulse Rate 74 77 Respiratory 20 Rate Blood Pressure 120/69 116/55 O2 Sat by Pulse 93 92 Oximetry 02/16/20 02/16/20 10:51 11:25 Temperature 97.7 F Pulse Rate 77 72 Respiratory Rate Blood Pressure 116/55 124/57 O2 Sat by Pulse 93 Oximetry Constitutional: no acute distress, asleep, other (elderly looking obese male with mildly increased resp effort at rest) Eyes: non-icteric ENT: oropharynx moist Neck: supple, no JVD, other (large neck circumference) Effort: mildly labored Ascultation: Bilateral: diminished breath sounds, rhonchi Percussion: Bilateral: not dull Cardiovascular: regular rate and rhythm, other (S1,S2) Gastrointestinal: normoactive bowel sounds, soft, non-tender, non-distended (protuberant) Integumentary: normal Extremities: no cyanosis, no edema, pulses normal, no ischemia or petechiae Neurologic: non-focal exam (grossly, moving all extremities), pupils equal and round, CN II-XII normal, unable to assess Psychiatric: other (mood andf affect flat) CBC and BMP: 02/17/20 09:03 02/17/20 07:13 ABG, PT/INR, D-dimer: ABG ABG pH 7.440 pH Units (7.350-7.450) 02/08/20 14:00 ABG pCO2 35.9 mm Hg 02/08/20 14:00 ABG pO2 65.3 mm Hg (80.0-90.0) L 02/08/20 14:00 ABG O2 Saturation 94.1 % (95.0-99.0) L 02/08/20 14:00 PT/INR, D-dimer PT 13.9 Sec. (12.2-14.9) 01/29/20 17:03 INR 1.09 (0.87-1.13) 01/29/20 17:03 D-Dimer 454.59 ng/mlDDU (0-234) H 02/16/20 13:47 Abnormal lab findings: Abnormal Labs 01/29/20 01/29/20 01/29/20 17:03 17:03 17:03 WBC 3.6 L Hgb Hct MCV 96 H MCH 33 H RDW Lymph % (Auto) Lymph # 0.5 L Seg Neutrophils % 79.6 H Seg Neuts % (Manual) Lymphocytes % (Manual) Nucleated RBC % Seg Neutrophils # Seg Neutrophils # Man Lymphocytes # (Manual) D-Dimer 2573.78 H ABG pH ABG pO2 ABG HCO3 ABG O2 Saturation ABG Base Excess ABG Hemoglobin Oxyhemoglobin Sodium Potassium Chloride Carbon Dioxide BUN Glucose 240 H POC Glucose Hemoglobin A1c Calcium Phosphorus Magnesium Ferritin AST 76 H Lactate Dehydrogenase C-Reactive Protein Total Protein Albumin 3.0 L Coronavirus (PCR) 01/29/20 01/29/20 01/29/20 18:33 18:33 23:28 WBC Hgb Hct MCV MCH RDW Lymph % (Auto) Lymph # Seg Neutrophils % Seg Neuts % (Manual) Lymphocytes % (Manual) Nucleated RBC % Seg Neutrophils # Seg Neutrophils # Man Lymphocytes # (Manual) D-Dimer ABG pH ABG pO2 ABG HCO3 ABG O2 Saturation ABG Base Excess ABG Hemoglobin Oxyhemoglobin Sodium Potassium Chloride Carbon Dioxide BUN Glucose 230 H POC Glucose 253 H Hemoglobin A1c Calcium Phosphorus Magnesium Ferritin > 2000.0 H AST Lactate Dehydrogenase 930 H C-Reactive Protein 10.20 H Total Protein Albumin Coronavirus (PCR) 01/29/20 01/30/20 01/30/20 Unknown 05:41 05:41 WBC Hgb 11.7 L Hct 35.2 L MCV MCH RDW Lymph % (Auto) 8.1 L Lymph # 0.4 L Seg Neutrophils % 85.8 H Seg Neuts % (Manual) Lymphocytes % (Manual) Nucleated RBC % Seg Neutrophils # Seg Neutrophils # Man Lymphocytes # (Manual) D-Dimer ABG pH ABG pO2 ABG HCO3 ABG O2 Saturation ABG Base Excess ABG Hemoglobin Oxyhemoglobin Sodium Potassium Chloride Carbon Dioxide 19 L BUN Glucose 242 H POC Glucose Hemoglobin A1c Calcium 7.7 L Phosphorus Magnesium Ferritin AST 79 H Lactate Dehydrogenase C-Reactive Protein Total Protein Albumin 2.9 L Coronavirus (PCR) Positive A 01/30/20 01/30/20 01/30/20 05:41 07:55 12:54 WBC Hgb Hct MCV MCH RDW Lymph % (Auto) Lymph # Seg Neutrophils % Seg Neuts % (Manual) Lymphocytes % (Manual) Nucleated RBC % Seg Neutrophils # Seg Neutrophils # Man Lymphocytes # (Manual) D-Dimer ABG pH ABG pO2 ABG HCO3 ABG O2 Saturation ABG Base Excess ABG Hemoglobin Oxyhemoglobin Sodium Potassium Chloride Carbon Dioxide BUN Glucose POC Glucose 262 H 232 H Hemoglobin A1c 7.3 H Calcium Phosphorus Magnesium Ferritin AST Lactate Dehydrogenase C-Reactive Protein Total Protein Albumin Coronavirus (PCR) 01/30/20 01/30/20 01/31/20 16:07 21:15 08:42 WBC Hgb Hct MCV MCH RDW Lymph % (Auto) Lymph # Seg Neutrophils % Seg Neuts % (Manual) Lymphocytes % (Manual) Nucleated RBC % Seg Neutrophils # Seg Neutrophils # Man Lymphocytes # (Manual) D-Dimer ABG pH ABG pO2 ABG HCO3 ABG O2 Saturation ABG Base Excess ABG Hemoglobin Oxyhemoglobin Sodium Potassium Chloride Carbon Dioxide BUN Glucose POC Glucose 211 H 285 H 328 H Hemoglobin A1c Calcium Phosphorus Magnesium Ferritin AST Lactate Dehydrogenase C-Reactive Protein Total Protein Albumin Coronavirus (PCR) 01/31/20 01/31/20 01/31/20 12:44 12:44 12:44 WBC Hgb Hct MCV MCH RDW Lymph % (Auto) Lymph # Seg Neutrophils % Seg Neuts % (Manual) Lymphocytes % (Manual) Nucleated RBC % Seg Neutrophils # Seg Neutrophils # Man Lymphocytes # (Manual) D-Dimer 795.52 H ABG pH ABG pO2 ABG HCO3 ABG O2 Saturation ABG Base Excess ABG Hemoglobin Oxyhemoglobin Sodium Potassium Chloride Carbon Dioxide BUN Glucose 384 H POC Glucose Hemoglobin A1c Calcium Phosphorus Magnesium Ferritin > 2000.0 H AST Lactate Dehydrogenase 1393 H C-Reactive Protein 5.80 H Total Protein Albumin Coronavirus (PCR) 01/31/20 01/31/20 02/01/20 16:36 23:46 08:00 WBC Hgb Hct MCV MCH RDW Lymph % (Auto) Lymph # Seg Neutrophils % Seg Neuts % (Manual) Lymphocytes % (Manual) Nucleated RBC % Seg Neutrophils # Seg Neutrophils # Man Lymphocytes # (Manual) D-Dimer ABG pH ABG pO2 ABG HCO3 ABG O2 Saturation ABG Base Excess ABG Hemoglobin Oxyhemoglobin Sodium Potassium Chloride Carbon Dioxide BUN Glucose POC Glucose 384 H 322 H 287 H Hemoglobin A1c Calcium Phosphorus Magnesium Ferritin AST Lactate Dehydrogenase C-Reactive Protein Total Protein Albumin Coronavirus (PCR) 02/01/20 02/01/20 02/01/20 12:48 16:53 23:25 WBC Hgb Hct MCV MCH RDW Lymph % (Auto) Lymph # Seg Neutrophils % Seg Neuts % (Manual) Lymphocytes % (Manual) Nucleated RBC % Seg Neutrophils # Seg Neutrophils # Man Lymphocytes # (Manual) D-Dimer ABG pH ABG pO2 ABG HCO3 ABG O2 Saturation ABG Base Excess ABG Hemoglobin Oxyhemoglobin Sodium Potassium Chloride Carbon Dioxide BUN Glucose POC Glucose 309 H 362 H 264 H Hemoglobin A1c Calcium Phosphorus Magnesium Ferritin AST Lactate Dehydrogenase C-Reactive Protein Total Protein Albumin Coronavirus (PCR) 02/02/20 02/02/20 02/02/20 05:31 05:31 05:31 WBC Hgb Hct MCV MCH RDW Lymph % (Auto) Lymph # Seg Neutrophils % Seg Neuts % (Manual) Lymphocytes % (Manual) Nucleated RBC % Seg Neutrophils # Seg Neutrophils # Man Lymphocytes # (Manual) D-Dimer 416.36 H ABG pH ABG pO2 ABG HCO3 ABG O2 Saturation ABG Base Excess ABG Hemoglobin Oxyhemoglobin Sodium Potassium Chloride 107.2 H Carbon Dioxide BUN 25 H Glucose 304 H POC Glucose Hemoglobin A1c Calcium 8.2 L Phosphorus Magnesium Ferritin > 2000.0 H AST Lactate Dehydrogenase C-Reactive Protein Total Protein Albumin Coronavirus (PCR) 02/02/20 02/02/20 02/02/20 05:31 09:14 11:57 WBC Hgb Hct MCV MCH RDW Lymph % (Auto) Lymph # Seg Neutrophils % Seg Neuts % (Manual) Lymphocytes % (Manual) Nucleated RBC % Seg Neutrophils # Seg Neutrophils # Man Lymphocytes # (Manual) D-Dimer ABG pH ABG pO2 ABG HCO3 ABG O2 Saturation ABG Base Excess ABG Hemoglobin Oxyhemoglobin Sodium Potassium Chloride Carbon Dioxide BUN Glucose POC Glucose 334 H 429 H Hemoglobin A1c Calcium Phosphorus Magnesium Ferritin AST Lactate Dehydrogenase 1297 H C-Reactive Protein 2.20 H Total Protein Albumin Coronavirus (PCR) 02/02/20 02/02/20 02/02/20 12:44 16:35 22:55 WBC Hgb Hct MCV MCH RDW Lymph % (Auto) Lymph # Seg Neutrophils % Seg Neuts % (Manual) Lymphocytes % (Manual) Nucleated RBC % Seg Neutrophils # Seg Neutrophils # Man Lymphocytes # (Manual) D-Dimer ABG pH 7.466 H ABG pO2 60.9 L ABG HCO3 ABG O2 Saturation 93.6 L ABG Base Excess -2.7 L ABG Hemoglobin 11.8 L Oxyhemoglobin 91.4 L Sodium Potassium Chloride Carbon Dioxide BUN Glucose POC Glucose 300 H 339 H Hemoglobin A1c Calcium Phosphorus Magnesium Ferritin AST Lactate Dehydrogenase C-Reactive Protein Total Protein Albumin Coronavirus (PCR) 02/03/20 02/03/20 02/03/20 01:06 06:09 06:09 WBC Hgb Hct MCV MCH RDW Lymph % (Auto) Lymph # Seg Neutrophils % Seg Neuts % (Manual) 92.0 H Lymphocytes % (Manual) 3.0 L Nucleated RBC % 2.0 H Seg Neutrophils # Seg Neutrophils # Man Lymphocytes # (Manual) 0.3 L D-Dimer ABG pH ABG pO2 ABG HCO3 ABG O2 Saturation ABG Base Excess ABG Hemoglobin Oxyhemoglobin Sodium Potassium Chloride Carbon Dioxide BUN 27 H Glucose 348 H POC Glucose Hemoglobin A1c Calcium 8.1 L Phosphorus Magnesium 2.50 H 2.50 H Ferritin AST Lactate Dehydrogenase C-Reactive Protein Total Protein 5.4 L Albumin 3.0 L Coronavirus (PCR) 02/03/20 02/03/20 02/03/20 08:42 11:50 16:18 WBC Hgb Hct MCV MCH RDW Lymph % (Auto) Lymph # Seg Neutrophils % Seg Neuts % (Manual) Lymphocytes % (Manual) Nucleated RBC % Seg Neutrophils # Seg Neutrophils # Man Lymphocytes # (Manual) D-Dimer ABG pH ABG pO2 ABG HCO3 ABG O2 Saturation ABG Base Excess ABG Hemoglobin Oxyhemoglobin Sodium Potassium Chloride Carbon Dioxide BUN Glucose POC Glucose 355 H 345 H 382 H Hemoglobin A1c Calcium Phosphorus Magnesium Ferritin AST Lactate Dehydrogenase C-Reactive Protein Total Protein Albumin Coronavirus (PCR) 02/03/20 02/03/20 02/04/20 22:00 22:04 06:06 WBC Hgb Hct MCV MCH RDW Lymph % (Auto) Lymph # Seg Neutrophils % Seg Neuts % (Manual) Lymphocytes % (Manual) Nucleated RBC % Seg Neutrophils # Seg Neutrophils # Man Lymphocytes # (Manual) D-Dimer ABG pH 7.505 H ABG pO2 59.1 L ABG HCO3 19.1 L ABG O2 Saturation 93.0 L ABG Base Excess -2.4 L ABG Hemoglobin 13.3 L Oxyhemoglobin 91.1 L Sodium Potassium Chloride Carbon Dioxide BUN Glucose POC Glucose 309 H Hemoglobin A1c Calcium Phosphorus Magnesium Ferritin 4214.0 H AST Lactate Dehydrogenase C-Reactive Protein Total Protein Albumin Coronavirus (PCR) 02/04/20 02/04/20 02/04/20 06:06 06:06 06:06 WBC Hgb Hct MCV 95 H MCH RDW Lymph % (Auto) 4.3 L Lymph # 0.5 L Seg Neutrophils % 87.5 H Seg Neuts % (Manual) Lymphocytes % (Manual) Nucleated RBC % Seg Neutrophils # 9.3 H Seg Neutrophils # Man Lymphocytes # (Manual) D-Dimer ABG pH ABG pO2 ABG HCO3 ABG O2 Saturation ABG Base Excess ABG Hemoglobin Oxyhemoglobin Sodium Potassium Chloride Carbon Dioxide 21 L BUN 30 H Glucose 393 H POC Glucose Hemoglobin A1c Calcium 7.8 L Phosphorus Magnesium 2.70 H Ferritin AST Lactate Dehydrogenase 919 H C-Reactive Protein Total Protein Albumin Coronavirus (PCR) 02/04/20 02/04/20 02/04/20 08:57 13:12 17:45 WBC Hgb Hct MCV MCH RDW Lymph % (Auto) Lymph # Seg Neutrophils % Seg Neuts % (Manual) Lymphocytes % (Manual) Nucleated RBC % Seg Neutrophils # Seg Neutrophils # Man Lymphocytes # (Manual) D-Dimer ABG pH ABG pO2 ABG HCO3 ABG O2 Saturation ABG Base Excess ABG Hemoglobin Oxyhemoglobin Sodium Potassium Chloride Carbon Dioxide BUN Glucose POC Glucose 353 H 364 H 292 H Hemoglobin A1c Calcium Phosphorus Magnesium Ferritin AST Lactate Dehydrogenase C-Reactive Protein Total Protein Albumin Coronavirus (PCR) 02/04/20 02/05/20 02/05/20 22:36 08:44 12:53 WBC Hgb Hct MCV MCH RDW Lymph % (Auto) Lymph # Seg Neutrophils % Seg Neuts % (Manual) Lymphocytes % (Manual) Nucleated RBC % Seg Neutrophils # Seg Neutrophils # Man Lymphocytes # (Manual) D-Dimer ABG pH ABG pO2 ABG HCO3 ABG O2 Saturation ABG Base Excess ABG Hemoglobin Oxyhemoglobin Sodium Potassium Chloride Carbon Dioxide BUN Glucose POC Glucose 255 H 313 H 346 H Hemoglobin A1c Calcium Phosphorus Magnesium Ferritin AST Lactate Dehydrogenase C-Reactive Protein Total Protein Albumin Coronavirus (PCR) 02/05/20 02/05/20 02/06/20 16:55 22:38 01:04 WBC Hgb Hct MCV MCH RDW Lymph % (Auto) Lymph # Seg Neutrophils % Seg Neuts % (Manual) Lymphocytes % (Manual) Nucleated RBC % Seg Neutrophils # Seg Neutrophils # Man Lymphocytes # (Manual) D-Dimer ABG pH ABG pO2 ABG HCO3 ABG O2 Saturation ABG Base Excess ABG Hemoglobin Oxyhemoglobin Sodium Potassium Chloride Carbon Dioxide BUN Glucose POC Glucose 270 H 106 H 122 H Hemoglobin A1c Calcium Phosphorus Magnesium Ferritin AST Lactate Dehydrogenase C-Reactive Protein Total Protein Albumin Coronavirus (PCR) 02/06/20 02/06/20 02/06/20 09:21 12:27 15:20 WBC Hgb Hct MCV MCH RDW Lymph % (Auto) Lymph # Seg Neutrophils % Seg Neuts % (Manual) Lymphocytes % (Manual) Nucleated RBC % Seg Neutrophils # Seg Neutrophils # Man Lymphocytes # (Manual) D-Dimer 328.02 H ABG pH ABG pO2 ABG HCO3 ABG O2 Saturation ABG Base Excess ABG Hemoglobin Oxyhemoglobin Sodium Potassium Chloride Carbon Dioxide BUN Glucose POC Glucose 227 H 295 H Hemoglobin A1c Calcium Phosphorus Magnesium Ferritin AST Lactate Dehydrogenase C-Reactive Protein Total Protein Albumin Coronavirus (PCR) 02/06/20 02/06/20 02/06/20 15:20 15:20 16:50 WBC Hgb Hct MCV MCH RDW Lymph % (Auto) Lymph # Seg Neutrophils % Seg Neuts % (Manual) Lymphocytes % (Manual) Nucleated RBC % Seg Neutrophils # Seg Neutrophils # Man Lymphocytes # (Manual) D-Dimer ABG pH ABG pO2 ABG HCO3 ABG O2 Saturation ABG Base Excess ABG Hemoglobin Oxyhemoglobin Sodium Potassium Chloride Carbon Dioxide BUN Glucose 311 H POC Glucose 258 H Hemoglobin A1c Calcium Phosphorus Magnesium Ferritin < 2000.0 H AST Lactate Dehydrogenase 719 H C-Reactive Protein Total Protein Albumin Coronavirus (PCR) 02/06/20 02/07/20 02/07/20 21:23 08:22 10:51 WBC Hgb Hct MCV MCH RDW Lymph % (Auto) Lymph # Seg Neutrophils % Seg Neuts % (Manual) Lymphocytes % (Manual) Nucleated RBC % Seg Neutrophils # Seg Neutrophils # Man Lymphocytes # (Manual) D-Dimer ABG pH ABG pO2 ABG HCO3 ABG O2 Saturation ABG Base Excess ABG Hemoglobin Oxyhemoglobin Sodium Potassium Chloride Carbon Dioxide BUN Glucose POC Glucose 334 H 281 H 309 H Hemoglobin A1c Calcium Phosphorus Magnesium Ferritin AST Lactate Dehydrogenase C-Reactive Protein Total Protein Albumin Coronavirus (PCR) 02/07/20 02/07/20 02/08/20 16:27 22:40 07:44 WBC Hgb Hct MCV MCH RDW Lymph % (Auto) Lymph # Seg Neutrophils % Seg Neuts % (Manual) Lymphocytes % (Manual) Nucleated RBC % Seg Neutrophils # Seg Neutrophils # Man Lymphocytes # (Manual) D-Dimer ABG pH ABG pO2 ABG HCO3 ABG O2 Saturation ABG Base Excess ABG Hemoglobin Oxyhemoglobin Sodium Potassium Chloride Carbon Dioxide BUN Glucose POC Glucose 288 H 278 H 267 H Hemoglobin A1c Calcium Phosphorus Magnesium Ferritin AST Lactate Dehydrogenase C-Reactive Protein Total Protein Albumin Coronavirus (PCR) 02/08/20 02/08/20 02/08/20 10:46 10:46 10:46 WBC Hgb Hct MCV 98 H MCH RDW Lymph % (Auto) Lymph # Seg Neutrophils % Seg Neuts % (Manual) 97.0 H Lymphocytes % (Manual) 0 L Nucleated RBC % Seg Neutrophils # Seg Neutrophils # Man 10.2 H Lymphocytes # (Manual) 0.0 L D-Dimer 261.46 H ABG pH ABG pO2 ABG HCO3 ABG O2 Saturation ABG Base Excess ABG Hemoglobin Oxyhemoglobin Sodium 148 H Potassium 3.5 L Chloride 112.2 H Carbon Dioxide BUN 36 H Glucose 356 H POC Glucose Hemoglobin A1c Calcium 8.3 L Phosphorus Magnesium Ferritin AST Lactate Dehydrogenase C-Reactive Protein Total Protein Albumin Coronavirus (PCR) 02/08/20 02/08/20 02/08/20 10:46 10:46 12:22 WBC Hgb Hct MCV MCH RDW Lymph % (Auto) Lymph # Seg Neutrophils % Seg Neuts % (Manual) Lymphocytes % (Manual) Nucleated RBC % Seg Neutrophils # Seg Neutrophils # Man Lymphocytes # (Manual) D-Dimer ABG pH ABG pO2 ABG HCO3 ABG O2 Saturation ABG Base Excess ABG Hemoglobin Oxyhemoglobin Sodium Potassium Chloride Carbon Dioxide BUN Glucose 351 H POC Glucose 358 H Hemoglobin A1c Calcium Phosphorus Magnesium Ferritin 1611.0 H AST Lactate Dehydrogenase 671 H C-Reactive Protein Total Protein Albumin Coronavirus (PCR) 02/08/20 02/08/20 02/09/20 14:00 17:02 08:45 WBC Hgb Hct MCV MCH RDW Lymph % (Auto) Lymph # Seg Neutrophils % Seg Neuts % (Manual) Lymphocytes % (Manual) Nucleated RBC % Seg Neutrophils # Seg Neutrophils # Man Lymphocytes # (Manual) D-Dimer ABG pH ABG pO2 65.3 L ABG HCO3 ABG O2 Saturation 94.1 L ABG Base Excess ABG Hemoglobin 12.8 L Oxyhemoglobin 92.3 L Sodium Potassium Chloride Carbon Dioxide BUN Glucose POC Glucose 331 H 160 H Hemoglobin A1c Calcium Phosphorus Magnesium Ferritin AST Lactate Dehydrogenase C-Reactive Protein Total Protein Albumin Coronavirus (PCR) 02/09/20 02/09/20 02/09/20 12:27 17:22 23:11 WBC Hgb Hct MCV MCH RDW Lymph % (Auto) Lymph # Seg Neutrophils % Seg Neuts % (Manual) Lymphocytes % (Manual) Nucleated RBC % Seg Neutrophils # Seg Neutrophils # Man Lymphocytes # (Manual) D-Dimer ABG pH ABG pO2 ABG HCO3 ABG O2 Saturation ABG Base Excess ABG Hemoglobin Oxyhemoglobin Sodium Potassium Chloride Carbon Dioxide BUN Glucose POC Glucose 262 H 237 H 140 H Hemoglobin A1c Calcium Phosphorus Magnesium Ferritin AST Lactate Dehydrogenase C-Reactive Protein Total Protein Albumin Coronavirus (PCR) 02/10/20 02/10/20 02/10/20 08:30 12:00 12:30 WBC Hgb Hct MCV MCH RDW Lymph % (Auto) Lymph # Seg Neutrophils % Seg Neuts % (Manual) Lymphocytes % (Manual) Nucleated RBC % Seg Neutrophils # Seg Neutrophils # Man Lymphocytes # (Manual) D-Dimer ABG pH ABG pO2 ABG HCO3 ABG O2 Saturation ABG Base Excess ABG Hemoglobin Oxyhemoglobin Sodium Potassium Chloride Carbon Dioxide BUN Glucose 330 H POC Glucose 216 H 252 H Hemoglobin A1c Calcium Phosphorus Magnesium Ferritin AST Lactate Dehydrogenase 642 H C-Reactive Protein Total Protein Albumin Coronavirus (PCR) 02/10/20 02/10/20 02/10/20 12:30 16:32 23:38 WBC Hgb Hct MCV MCH RDW Lymph % (Auto) Lymph # Seg Neutrophils % Seg Neuts % (Manual) Lymphocytes % (Manual) Nucleated RBC % Seg Neutrophils # Seg Neutrophils # Man Lymphocytes # (Manual) D-Dimer ABG pH ABG pO2 ABG HCO3 ABG O2 Saturation ABG Base Excess ABG Hemoglobin Oxyhemoglobin Sodium Potassium Chloride Carbon Dioxide BUN Glucose POC Glucose 245 H 196 H Hemoglobin A1c Calcium Phosphorus Magnesium Ferritin 1728.0 H AST Lactate Dehydrogenase C-Reactive Protein Total Protein Albumin Coronavirus (PCR) 02/11/20 02/11/20 02/11/20 08:07 11:41 13:47 WBC Hgb Hct MCV 98 H MCH RDW 15.7 H Lymph % (Auto) Lymph # Seg Neutrophils % Seg Neuts % (Manual) Lymphocytes % (Manual) Nucleated RBC % Seg Neutrophils # Seg Neutrophils # Man Lymphocytes # (Manual) D-Dimer ABG pH ABG pO2 ABG HCO3 ABG O2 Saturation ABG Base Excess ABG Hemoglobin Oxyhemoglobin Sodium Potassium Chloride Carbon Dioxide BUN Glucose POC Glucose 300 H 286 H Hemoglobin A1c Calcium Phosphorus Magnesium Ferritin AST Lactate Dehydrogenase C-Reactive Protein Total Protein Albumin Coronavirus (PCR) 02/11/20 02/11/20 02/11/20 13:47 17:17 21:17 WBC Hgb Hct MCV MCH RDW Lymph % (Auto) Lymph # Seg Neutrophils % Seg Neuts % (Manual) Lymphocytes % (Manual) Nucleated RBC % Seg Neutrophils # Seg Neutrophils # Man Lymphocytes # (Manual) D-Dimer ABG pH ABG pO2 ABG HCO3 ABG O2 Saturation ABG Base Excess ABG Hemoglobin Oxyhemoglobin Sodium 158 H D Potassium Chloride 119.7 H Carbon Dioxide BUN 40 H Glucose 287 H POC Glucose 288 H 283 H Hemoglobin A1c Calcium 7.9 L Phosphorus Magnesium Ferritin AST Lactate Dehydrogenase C-Reactive Protein Total Protein Albumin Coronavirus (PCR) 02/12/20 02/12/20 02/12/20 06:01 08:37 10:58 WBC Hgb Hct MCV MCH RDW Lymph % (Auto) Lymph # Seg Neutrophils % Seg Neuts % (Manual) Lymphocytes % (Manual) Nucleated RBC % Seg Neutrophils # Seg Neutrophils # Man Lymphocytes # (Manual) D-Dimer ABG pH ABG pO2 ABG HCO3 ABG O2 Saturation ABG Base Excess ABG Hemoglobin Oxyhemoglobin Sodium Potassium Chloride Carbon Dioxide BUN Glucose POC Glucose 273 H 313 H 288 H Hemoglobin A1c Calcium Phosphorus Magnesium Ferritin AST Lactate Dehydrogenase C-Reactive Protein Total Protein Albumin Coronavirus (PCR) 02/12/20 02/12/20 02/12/20 16:24 22:23 Unknown WBC Hgb Hct MCV MCH RDW Lymph % (Auto) Lymph # Seg Neutrophils % Seg Neuts % (Manual) Lymphocytes % (Manual) Nucleated RBC % Seg Neutrophils # Seg Neutrophils # Man Lymphocytes # (Manual) D-Dimer ABG pH ABG pO2 ABG HCO3 ABG O2 Saturation ABG Base Excess ABG Hemoglobin Oxyhemoglobin Sodium Potassium Chloride Carbon Dioxide BUN Glucose POC Glucose 192 H 145 H Hemoglobin A1c Calcium Phosphorus Magnesium Ferritin AST Lactate Dehydrogenase C-Reactive Protein Total Protein Albumin Coronavirus (PCR) Positive A 02/13/20 02/13/2020 00:32 09:06 11:22 WBC Hgb Hct MCV MCH RDW Lymph % (Auto) Lymph # Seg Neutrophils % Seg Neuts % (Manual) Lymphocytes % (Manual) Nucleated RBC % Seg Neutrophils # Seg Neutrophils # Man Lymphocytes # (Manual) D-Dimer ABG pH ABG pO2 ABG HCO3 ABG O2 Saturation ABG Base Excess ABG Hemoglobin Oxyhemoglobin Sodium 162 H* Potassium 3.2 L Chloride 125.4 H Carbon Dioxide BUN 32 H Glucose 132 H POC Glucose 221 H 319 H Hemoglobin A1c Calcium 7.6 L Phosphorus Magnesium Ferritin AST Lactate Dehydrogenase C-Reactive Protein Total Protein Albumin Coronavirus (PCR) 02/13/20 02/13/20 02/13/20 14:33 16:18 23:35 WBC Hgb Hct MCV MCH RDW Lymph % (Auto) Lymph # Seg Neutrophils % Seg Neuts % (Manual) Lymphocytes % (Manual) Nucleated RBC % Seg Neutrophils # Seg Neutrophils # Man Lymphocytes # (Manual) D-Dimer ABG pH ABG pO2 ABG HCO3 ABG O2 Saturation ABG Base Excess ABG Hemoglobin Oxyhemoglobin Sodium 154 H Potassium Chloride 117.5 H Carbon Dioxide BUN 30 H Glucose 415 H POC Glucose 351 H 182 H Hemoglobin A1c Calcium 7.5 L Phosphorus Magnesium Ferritin AST Lactate Dehydrogenase C-Reactive Protein Total Protein Albumin Coronavirus (PCR) 02/14/20 02/14/20 02/14/20 05:25 11:54 17:39 WBC Hgb Hct MCV MCH RDW Lymph % (Auto) Lymph # Seg Neutrophils % Seg Neuts % (Manual) Lymphocytes % (Manual) Nucleated RBC % Seg Neutrophils # Seg Neutrophils # Man Lymphocytes # (Manual) D-Dimer ABG pH ABG pO2 ABG HCO3 ABG O2 Saturation ABG Base Excess ABG Hemoglobin Oxyhemoglobin Sodium 156 H Potassium 3.1 L Chloride 121.7 H Carbon Dioxide BUN 28 H Glucose 74 L POC Glucose 120 H 226 H Hemoglobin A1c Calcium 7.7 L Phosphorus 2.00 L Magnesium Ferritin AST Lactate Dehydrogenase C-Reactive Protein Total Protein Albumin Coronavirus (PCR) 02/14/20 02/15/20 02/15/20 22:05 05:47 12:08 WBC Hgb Hct MCV MCH RDW Lymph % (Auto) Lymph # Seg Neutrophils % Seg Neuts % (Manual) Lymphocytes % (Manual) Nucleated RBC % Seg Neutrophils # Seg Neutrophils # Man Lymphocytes # (Manual) D-Dimer ABG pH ABG pO2 ABG HCO3 ABG O2 Saturation ABG Base Excess ABG Hemoglobin Oxyhemoglobin Sodium 149 H Potassium Chloride 115.1 H Carbon Dioxide BUN 22 H Glucose 74 L POC Glucose 305 H 259 H Hemoglobin A1c Calcium 7.5 L Phosphorus Magnesium Ferritin AST Lactate Dehydrogenase C-Reactive Protein Total Protein Albumin Coronavirus (PCR) 02/15/20 02/15/20 02/16/20 16:22 23:29 11:39 WBC Hgb Hct MCV MCH RDW Lymph % (Auto) Lymph # Seg Neutrophils % Seg Neuts % (Manual) Lymphocytes % (Manual) Nucleated RBC % Seg Neutrophils # Seg Neutrophils # Man Lymphocytes # (Manual) D-Dimer ABG pH ABG pO2 ABG HCO3 ABG O2 Saturation ABG Base Excess ABG Hemoglobin Oxyhemoglobin Sodium Potassium Chloride Carbon Dioxide BUN Glucose POC Glucose 245 H 114 H 196 H Hemoglobin A1c Calcium Phosphorus Magnesium Ferritin AST Lactate Dehydrogenase C-Reactive Protein Total Protein Albumin Coronavirus (PCR) 02/16/20 02/16/20 13:47 13:47 WBC Hgb Hct MCV MCH RDW Lymph % (Auto) Lymph # Seg Neutrophils % Seg Neuts % (Manual) Lymphocytes % (Manual) Nucleated RBC % Seg Neutrophils # Seg Neutrophils # Man Lymphocytes # (Manual) D-Dimer 454.59 H ABG pH ABG pO2 ABG HCO3 ABG O2 Saturation ABG Base Excess ABG Hemoglobin Oxyhemoglobin Sodium Potassium Chloride Carbon Dioxide BUN Glucose POC Glucose Hemoglobin A1c Calcium Phosphorus Magnesium Ferritin AST Lactate Dehydrogenase 651 H C-Reactive Protein Total Protein Albumin Coronavirus (PCR) Allied health notes reviewed: nursing
--- NOTE | 2020-02-16 15:07 | Progress Note ---
Assessment and Plan - Patient Problems (1) Abnormal ECG Current Visit: Yes Status: Acute Plan to address problem: Cardiology following. Patient with ventricular arrhythmia not at this particular time. (2) Acute respiratory failure with hypoxia Current Visit: Yes Status: Acute Plan to address problem: Acute hypoxic respiratory failure secondary to COVID-19 pneumonia. Patient on Remdesivir steroid currently awaiting convalescent plasma. Seems to be stable with current dose of oxygen. (3) Bilateral pneumonia Current Visit: Yes Status: Acute Qualifiers: Lung location: unspecified part of lung Plan to address problem: Bilateral pneumonia secondary to COVID-19. Patient inflammatory markers high continue to keep sats above 92%. . ID following awaiting convalescent plasma. We will follow inflammatory markers every 2 days. (4) COVID-19 Current Visit: Yes Status: Acute Plan to address problem: COVID-19 positive continue with decimeter dexamethasone. Follow inflammatory markers. (5) DVT prophylaxis Current Visit: Yes Status: Acute (6) Pneumonia Current Visit: Yes Status: Acute Qualifiers: Pneumonia type: due to unspecified organism Laterality: bilateral Lung location: unspecified part of lung Qualified Code(s): J18.9 - Pneumonia, unspecified organism (7) T2DM (type 2 diabetes mellitus) Current Visit: Yes Status: Chronic Qualifiers: Diabetes mellitus long term acute care registered nurse insulin use: unspecified retirement insulin use status Plan to address problem: Suboptimal control. Increase Lantus to 25 units. Will increase Lantus to 28 units. Continue sliding scale insulin coverage. Subjective Date of service: 02/16/20 Principal diagnosis: Severe Sepsis; COVID-19; Hari PNA; Ac. hypoxemic Resp failure; DM II Interval history: 89-year-old male with history of diabetes presented 6 2:20 weeks of generalized weakness shortness of breath cough. Patient was found to be covid positive. Had increased inflammatory markers. Now with advanced dementia confused treated with acute toxic encephalopathy. Severe hypoxemia. On high flow O2. Encephalopathy has improved. Patient is eating some. Objective - Constitutional Vitals: Vital Signs - 12hr 02/16/20 02/16/20 02/16/20 05:58 08:00 10:50 Temperature 97.3 F L Pulse Rate 74 77 Respiratory 20 Rate Blood Pressure 120/69 116/55 O2 Sat by Pulse 93 92 Oximetry 02/16/20 02/16/20 10:51 11:25 Temperature 97.7 F Pulse Rate 77 72 Respiratory Rate Blood Pressure 116/55 124/57 O2 Sat by Pulse 93 Oximetry General appearance: Present: no acute distress - EENT Eyes: no conjunctival injection ENT: poor dentition (Confused), other - Neck Neck: supple, normal ROM - Respiratory Respiratory: bilateral: diminished (Poor inspiratory effort few rhonchi) - Cardiovascular Rhythm: regular Heart Sounds: Present: S1 & S2. Absent: gallop, rub Extremities: pulses intact, No edema, normal color, Full ROM - Gastrointestinal General gastrointestinal: Present: soft, non-tender, non-distended, normal bowel sounds - Musculoskeletal Musculoskeletal: generalized weakness - Neurologic Neurologic: moves all extremities - Psychiatric Psychiatric: other (Poor cognition) - Labs CBC & Chem 7: 02/11/20 13:47 02/15/20 05:47 Labs: Abnormal lab results 02/15/20 02/15/20 02/16/20 Range/Units 16:22 23:29 11:39 D-Dimer (0-234) ng/mlDDU POC Glucose 245 H 114 H 196 H (70-105) Ferritin (13.0-400.0) ng/mL Lactate Dehydrogenase (91-180) units/L 02/16/20 02/16/20 02/16/20 Range/Units 13:47 13:47 13:47 D-Dimer 454.59 H (0-234) ng/mlDDU POC Glucose (70-105) Ferritin 1573.0 H (13.0-400.0) ng/mL Lactate Dehydrogenase 651 H (91-180) units/L HEART Score - HEART Score Troponin: Troponin T 0.014 ng/mL (0.00-0.029) 01/29/20 17:03
--- NOTE | 2020-02-16 22:28 | Progress Note ---
Assessment and Plan 1. Hypernatremia: Secondary to dehydration. Ur studies results noted. Continue IV D5W, Sodium level is improving. Monitor Sodium level. No labs from today. 2. FEN: Monitor lytes and volume status. 3. Acute hypoxic Respiratory failure: On HFNC O2. Cont nebs and Solumedrol. Followed by Pulmonary. 4. Bilateral pneumonia: S/p Rocephin and azithromycin. COVID-19 positive. Follow Inflammatory markers. Followed by ID. 5. Acute toxic metabolic encephalopathy. 6. Elevated d-dimer. 7. Type 2 diabetes mellitus. - Subjective: Patient was seen and examined at the bedside. - General Appearance General appearance: well-developed, well-nourished, on HFNC O2 HEENT: ATNC Neck: trachea midline Respiratory: Clear to Ascultation Heart: regular, S1S2, no murmurs Gastrointestinal: soft, normoactive bowel sounds, not tender Integumentary: no rash, warm and dry Neurologic: alert, moving extremities, follows command, confused : condom catheter Subjective Date of service: 02/16/20 Principal diagnosis: COVID Objective - Vital Signs Vital signs: Vital Signs - 12hr 02/16/20 02/16/20 02/16/20 10:50 10:51 11:25 Temperature 97.7 F Pulse Rate 77 77 72 Respiratory Rate Blood Pressure 116/55 116/55 124/57 O2 Sat by Pulse 93 Oximetry 02/16/20 02/16/20 14:00 15:57 Temperature 97.3 F L Pulse Rate Respiratory 19 Rate Blood Pressure 112/46 O2 Sat by Pulse 94 93 Oximetry - Lab 02/11/20 13:47 02/15/20 05:47 Most recent lab results ABG pH 7.440 pH Units (7.350-7.450) 02/08/20 14:00 ABG pCO2 35.9 mm Hg 02/08/20 14:00 ABG pO2 65.3 mm Hg (80.0-90.0) L 02/08/20 14:00 ABG HCO3 23.8 mmol/L (20.0-26.0) 02/08/20 14:00 ABG O2 Saturation 94.1 % (95.0-99.0) L 02/08/20 14:00 Calcium 7.5 mg/dL (8.4-10.2) L 02/15/20 05:47 Phosphorus 2.50 mg/dL (2.5-4.5) D 02/15/20 05:47 Magnesium 2.70 mg/dL (1.7-2.3) H 02/04/20 06:06 Medications & Allergies - Medications Allergies/Adverse Reactions: Allergies No Known Allergies Allergy (Unverified 01/29/20 18:36) Home Medications: Home Medications Medication Instructions Recorded Confirmed Last Taken Type AtorvaSTATin [Lipitor] 40 mg PO QHS 01/31/20 01/31/20 Unknown History Terazosin [Hytrin] 1 mg PO BID 01/31/20 01/31/20 Unknown History glipiZIDE [Glucotrol] 5 mg PO BID 01/31/20 01/31/20 Unknown History metFORMIN [Glucophage] 500 mg PO BID 01/31/20 01/31/20 Unknown History Active Medications: Generic Name Dose Route Start Last Admin Trade Name Freq PRN Reason Stop Dose Admin Acetaminophen 650 mg 01/29/20 20:46 Tylenol PO Q4H PRN Pain MILD(1-3)/Fever >100.5/GALINDO Lipase/Protease/Amylase 1 each 02/10/20 09:27 Pancreaze 10,500 Unit FEEDTUBE PRN PRN For Clogged Feeding Tube Atorvastatin Calcium 40 mg 02/02/20 22:00 02/15/20 22:00 Lipitor PO 40 mg QHS JUNE Administration Famotidine 20 mg 01/29/20 22:00 02/16/20 10:40 Pepcid PO 20 mg BID JUNE Administration Hydromorphone HCl 0.5 mg 01/29/20 20:48 02/13/20 05:50 Dilaudid IV 0.5 mg Q3H PRN Administration Pain , Severe (7-10) Dextrose 1,000 mls @ 75 mls/hr 02/13/20 10:00 02/16/20 13:32 D5w IV 100 mls/hr DIRECT JUNE Administration Insulin Glargine 28 units 02/16/20 22:00 Lantus SUB-Q QHS JUNE Insulin Human Regular 0 units 02/13/20 11:30 02/16/20 17:52 Humulin R SUB-Q 6 units ACHS JUNE Administration Protocol Lorazepam 1 mg 02/02/20 07:55 02/16/20 13:29 Ativan IV 1 mg Q4H PRN Administration Anxiety Methylprednisolone Sodium Succinate 20 mg 02/12/20 16:27 02/16/20 10:41 Solu-Medrol IV 20 mg Q24HR JUNE Administration Metoclopramide HCl 10 mg 01/29/20 20:48 Reglan IV Q6H PRN Nausea And Vomiting Metoprolol Tartrate 50 mg 02/08/20 22:00 02/16/20 10:50 Metoprolol PO 50 mg BID JNUE Administration Ondansetron HCl 4 mg 01/29/20 20:46 01/29/20 23:28 Zofran IV 4 mg Q8H PRN Administration Nausea And Vomiting Oxycodone/Acetaminophen 1 tab 01/29/20 20:48 02/10/20 23:53 Percocet 5/325 PO 1 tab Q6H PRN Administration Pain, Moderate (4-6) Prazosin HCl 1 mg 02/02/20 10:00 02/16/20 10:51 Prazosin PO Not Given BID JUNE Simple Syrup 15 ml 02/10/20 09:27 Simple Syrup FEEDTUBE PRN PRN Hypoglycemia Simple Syrup 30 ml 02/10/20 09:27 Simple Syrup FEEDTUBE PRN PRN Hypoglycemia Sodium Bicarbonate 325 mg 02/10/20 09:27 Sodium Bicarbonate FEEDTUBE PRN PRN For Clogged Feeding Tube Sodium Chloride 10 ml 01/29/20 22:00 02/16/20 10:53 Sodium Chloride Flush Syringe 10 Ml IV 10 ml BID JUNE Administration Sodium Chloride 10 ml 01/29/20 20:46 Sodium Chloride Flush Syringe 10 Ml IV PRN PRN LINE FLUSH Zinc Sulfate 220 mg 02/03/20 10:00 02/16/20 10:41 Zinc Sulfate PO 220 mg QDAY JUNE Administration
[2020-02-16] MEDS: INSULIN GLARGINE 100 UNITS/ML SUB-Q SCH (22:57)
[2020-02-17] MEDS: PRAZOSIN 1 MG CAP PO SCH ×3 (05:41→21:37)
[2020-02-17] MEDS: METOPROLOL TARTRATE 50 MG TAB PO SCH ×3 (05:41→21:36)
[2020-02-17] MEDS: DEXTROSE 5% IN WATER 1,000 ML IV SCH (07:26)
[2020-02-17] MEDS: HYDROmorphone 1 MG/1 ML INJ IV PRN ×2 (07:26→22:30)
[2020-02-17] MEDS: INSULIN REGULAR, HUMAN 100 UNITS/1 ML SUB-Q SCH ×4 (08:14→21:36)
[2020-02-17 08:16] LABS: BUN/Creatinine Ratio 12; Blood Urea Nitrogen 12 mg/dL (9-20); Calcium 7.6 mg/dL (8.4-10.2); Hemolysis Index 40
[2020-02-17 09:17] LABS: Basophils % (Auto) 0.4 % (0.0-1.8); Eosinophils % (Auto) 0.4 % (0.0-4.3); Hematocrit 36.2 % (35.5-45.6); Hemoglobin 11.8 gm/dl (11.8-15.2); Lymphocytes # (Auto) 0.4 K/mm3 (1.2-5.4); Lymphocytes % (Auto) 7.1 % (13.4-35.0); Mean Corpuscular HGB Conc 33 % (32-34); Mean Corpuscular Volume 99 fl (84-94); Monocytes # (Auto) 0.2 K/mm3 (0.0-0.8); Monocytes % (Auto) 2.9 % (0.0-7.3); Red Blood Count 3.68 M/mm3 (3.65-5.03); Red Cell Distribution Width 15.9 % (13.2-15.2)
[2020-02-17 09:19] LABS: Platelet Count 65 K/mm3 (140-440)
[2020-02-17] MEDS: FAMOTIDINE 20 MG TAB PO SCH ×2 (10:14→21:37)
[2020-02-17] MEDS: ZINC SULFATE 220 MG CAP PO SCH (10:14)
[2020-02-17] MEDS: methylPREDNISolone Sod Succinate 40 MG/1 ML INJ IV SCH (10:14)
[2020-02-17] MEDS: K-PHOS NEUTRAL 250 MG TAB PO SCH ×2 (13:30→16:00)
--- NOTE | 2020-02-17 14:03 | Progress Note ---
Assessment and Plan Severe Sepsis (POA) COVID-19 infection Bilateral pneumonia: Acute hypoxic Respiratory failure on HFOT type 2 diabetes mellitus Acute toxic-metabolic encephalopathy Dementia - continue to wean supplemental oxygen for target O2 sats > 92% - continue encouraging awake Proning per facility protocol and Lateral decubitus positioning as tolerated by patient - Fluid conservative measures as tolerated by hemodynamics and renal function - Bronchodilators with pulmonary hygiene per RT - Accuchecks with glycemic control per SSI (Target blood glucose of 140-180 mg/dL; avoid hypoglycemia) - Avoid benzodiazepines, reduce the possibility of delirium - prn analgesia per CPOT score - Maintenance of sleep-wake cycle, avoid delirium - Avoid nephrotoxins, closely monitor renal function - s/p Empiric antibiotics( Ceftriaxone and Azithromycin for CAP ) - Stress ulcer ( while on high flow oxygen adn steroids) & VTE prophylaxis ( Enoxaparin Famotidine) - Mobility protocol, off loading and skin assessment for pressure ulcer pr evention - Monitor hemodynamics closely - Supportive transfusions as indicated to keep HgB >7g/dL - Fall precautions - Modified diet with aspiration precautions, needs assistance with feeding - Chronic home medications as clinically indicated COVID SPECIFIC INTERVENTIONS - Airborne, contact isolation for COVID per facility protocols - s/p Remdesivir - taper systemic steroids - S/p Tocilizumab IV x1 - Continue to trend inflammatory markers per facility protocol - On weight based Enoxaparin - Continue all supportive care - Contact tracing and testing of his contacts - Awaiting consent for COVID convalescent plasma therapy (Primary to obtain consent from family) The high probability of a clinically significant, sudden or life-threatening deterioration of the [respiratory & neurologic] system(s) required my full and direct attention, intervention and personal management. The aggregate critical care time was [32] minutes without overlap. Time includes spent on; [x] Data Review and interpretation [x] Patient assessment and monitoring of vital signs [x] Documentation [x] Medication orders and management Subjective Date of service: 02/17/20 Principal diagnosis: Severe Sepsis; COVID-19; Hari PNA; Ac. hypoxemic Resp failure; DM II Interval history: Patient is seen today for: Severe Sepsis; COVID-19 infection; Bilateral pneumonia; Acute hypoxemic Respiratory failure; DM II; Acute toxic-met encephalopathy; Dementia Seen and examined at bedside; 24 hour events reviewed; nursing and respiratory care staff consulted; no adverse overnight events reported to me; resting peacefully in bed; Objective Vital Signs - 12hr 02/17/20 02/17/20 02/17/20 05:18 08:00 10:15 Temperature 98.3 F Pulse Rate 80 86 Respiratory 20 Rate Blood Pressure 141/76 118/51 O2 Sat by Pulse 90 98 Oximetry 02/17/20 11:19 Temperature Pulse Rate 84 Respiratory 20 Rate Blood Pressure 120/76 O2 Sat by Pulse 97 Oximetry Constitutional: no acute distress, asleep, other (elderly looking obese male wit h mildly increased resp effort at rest) Eyes: non-icteric ENT: oropharynx moist Neck: supple, no JVD, other (large neck circumference) Effort: mildly labored Ascultation: Bilateral: diminished breath sounds, rhonchi Percussion: Bilateral: not dull Cardiovascular: regular rate and rhythm, other (S1,S2) Gastrointestinal: normoactive bowel sounds, soft, non-tender, non-distended (protuberant) Integumentary: normal Extremities: no cyanosis, no edema, pulses normal, no ischemia or petechiae Neurologic: non-focal exam (grossly, moving all extremities), pupils equal and round, CN II-XII normal, unable to assess Psychiatric: other (mood andf affect flat) CBC and BMP: 02/17/20 09:03 02/17/20 07:13 ABG, PT/INR, D-dimer: ABG ABG pH 7.440 pH Units (7.350-7.450) 02/08/20 14:00 ABG pCO2 35.9 mm Hg 02/08/20 14:00 ABG pO2 65.3 mm Hg (80.0-90.0) L 02/08/20 14:00 ABG O2 Saturation 94.1 % (95.0-99.0) L 02/08/20 14:00 PT/INR, D-dimer PT 13.9 Sec. (12.2-14.9) 01/29/20 17:03 INR 1.09 (0.87-1.13) 01/29/20 17:03 D-Dimer 454.59 ng/mlDDU (0-234) H 02/16/20 13:47 Abnormal lab findings: Abnormal Labs 01/29/20 01/29/20 01/29/20 17:03 17:03 17:03 WBC 3.6 L Hgb Hct MCV 96 H MCH 33 H RDW Plt Count Lymph % (Auto) Lymph # 0.5 L Seg Neutrophils % 79.6 H Seg Neuts % (Manual) Lymphocytes % (Manual) Nucleated RBC % Seg Neutrophils # Seg Neutrophils # Man Lymphocytes # (Manual) D-Dimer 2573.78 H ABG pH ABG pO2 ABG HCO3 ABG O2 Saturation ABG Base Excess ABG Hemoglobin Oxyhemoglobin Sodium Potassium Chloride Carbon Dioxide BUN Glucose 240 H POC Glucose Hemoglobin A1c Calcium Phosphorus Magnesium Ferritin AST 76 H Lactate Dehydrogenase C-Reactive Protein Total Protein Albumin 3.0 L Coronavirus (PCR) 01/29/20 01/29/20 01/29/20 18:33 18:33 23:28 WBC Hgb Hct MCV MCH RDW Plt Count Lymph % (Auto) Lymph # Seg Neutrophils % Seg Neuts % (Manual) Lymphocytes % (Manual) Nucleated RBC % Seg Neutrophils # Seg Neutrophils # Man Lymphocytes # (Manual) D-Dimer ABG pH ABG pO2 ABG HCO3 ABG O2 Saturation ABG Base Excess ABG Hemoglobin Oxyhemoglobin Sodium Potassium Chloride Carbon Dioxide BUN Glucose 230 H POC Glucose 253 H Hemoglobin A1c Calcium Phosphorus Magnesium Ferritin > 2000.0 H AST Lactate Dehydrogenase 930 H C-Reactive Protein 10.20 H Total Protein Albumin Coronavirus (PCR) 01/29/20 01/30/20 01/30/20 Unknown 05:41 05:41 WBC Hgb 11.7 L Hct 35.2 L MCV MCH RDW Plt Count Lymph % (Auto) 8.1 L Lymph # 0.4 L Seg Neutrophils % 85.8 H Seg Neuts % (Manual) Lymphocytes % (Manual) Nucleated RBC % Seg Neutrophils # Seg Neutrophils # Man Lymphocytes # (Manual) D-Dimer ABG pH ABG pO2 ABG HCO3 ABG O2 Saturation ABG Base Excess ABG Hemoglobin Oxyhemoglobin Sodium Potassium Chloride Carbon Dioxide 19 L BUN Glucose 242 H POC Glucose Hemoglobin A1c Calcium 7.7 L Phosphorus Magnesium Ferritin AST 79 H Lactate Dehydrogenase C-Reactive Protein Total Protein Albumin 2.9 L Coronavirus (PCR) Positive A 01/30/20 01/30/20 01/30/20 05:41 07:55 12:54 WBC Hgb Hct MCV MCH RDW Plt Count Lymph % (Auto) Lymph # Seg Neutrophils % Seg Neuts % (Manual) Lymphocytes % (Manual) Nucleated RBC % Seg Neutrophils # Seg Neutrophils # Man Lymphocytes # (Manual) D-Dimer ABG pH ABG pO2 ABG HCO3 ABG O2 Saturation ABG Base Excess ABG Hemoglobin Oxyhemoglobin Sodium Potassium Chloride Carbon Dioxide BUN Glucose POC Glucose 262 H 232 H Hemoglobin A1c 7.3 H Calcium Phosphorus Magnesium Ferritin AST Lactate Dehydrogenase C-Reactive Protein Total Protein Albumin Coronavirus (PCR) 01/30/20 01/30/20 01/31/20 16:07 21:15 08:42 WBC Hgb Hct MCV MCH RDW Plt Count Lymph % (Auto) Lymph # Seg Neutrophils % Seg Neuts % (Manual) Lymphocytes % (Manual) Nucleated RBC % Seg Neutrophils # Seg Neutrophils # Man Lymphocytes # (Manual) D-Dimer ABG pH ABG pO2 ABG HCO3 ABG O2 Saturation ABG Base Excess ABG Hemoglobin Oxyhemoglobin Sodium Potassium Chloride Carbon Dioxide BUN Glucose POC Glucose 211 H 285 H 328 H Hemoglobin A1c Calcium Phosphorus Magnesium Ferritin AST Lactate Dehydrogenase C-Reactive Protein Total Protein Albumin Coronavirus (PCR) 01/31/20 01/31/20 01/31/20 12:44 12:44 12:44 WBC Hgb Hct MCV MCH RDW Plt Count Lymph % (Auto) Lymph # Seg Neutrophils % Seg Neuts % (Manual) Lymphocytes % (Manual) Nucleated RBC % Seg Neutrophils # Seg Neutrophils # Man Lymphocytes # (Manual) D-Dimer 795.52 H ABG pH ABG pO2 ABG HCO3 ABG O2 Saturation ABG Base Excess ABG Hemoglobin Oxyhemoglobin Sodium Potassium Chloride Carbon Dioxide BUN Glucose 384 H POC Glucose Hemoglobin A1c Calcium Phosphorus Magnesium Ferritin > 2000.0 H AST Lactate Dehydrogenase 1393 H C-Reactive Protein 5.80 H Total Protein Albumin Coronavirus (PCR) 01/31/20 01/31/20 02/01/20 16:36 23:46 08:00 WBC Hgb Hct MCV MCH RDW Plt Count Lymph % (Auto) Lymph # Seg Neutrophils % Seg Neuts % (Manual) Lymphocytes % (Manual) Nucleated RBC % Seg Neutrophils # Seg Neutrophils # Man Lymphocytes # (Manual) D-Dimer ABG pH ABG pO2 ABG HCO3 ABG O2 Saturation ABG Base Excess ABG Hemoglobin Oxyhemoglobin Sodium Potassium Chloride Carbon Dioxide BUN Glucose POC Glucose 384 H 322 H 287 H Hemoglobin A1c Calcium Phosphorus Magnesium Ferritin AST Lactate Dehydrogenase C-Reactive Protein Total Protein Albumin Coronavirus (PCR) 02/01/20 02/01/20 02/01/20 12:48 16:53 23:25 WBC Hgb Hct MCV MCH RDW Plt Count Lymph % (Auto) Lymph # Seg Neutrophils % Seg Neuts % (Manual) Lymphocytes % (Manual) Nucleated RBC % Seg Neutrophils # Seg Neutrophils # Man Lymphocytes # (Manual) D-Dimer ABG pH ABG pO2 ABG HCO3 ABG O2 Saturation ABG Base Excess ABG Hemoglobin Oxyhemoglobin Sodium Potassium Chloride Carbon Dioxide BUN Glucose POC Glucose 309 H 362 H 264 H Hemoglobin A1c Calcium Phosphorus Magnesium Ferritin AST Lactate Dehydrogenase C-Reactive Protein Total Protein Albumin Coronavirus (PCR) 02/02/20 02/02/20 02/02/20 05:31 05:31 05:31 WBC Hgb Hct MCV MCH RDW Plt Count Lymph % (Auto) Lymph # Seg Neutrophils % Seg Neuts % (Manual) Lymphocytes % (Manual) Nucleated RBC % Seg Neutrophils # Seg Neutrophils # Man Lymphocytes # (Manual) D-Dimer 416.36 H ABG pH ABG pO2 ABG HCO3 ABG O2 Saturation ABG Base Excess ABG Hemoglobin Oxyhemoglobin Sodium Potassium Chloride 107.2 H Carbon Dioxide BUN 25 H Glucose 304 H POC Glucose Hemoglobin A1c Calcium 8.2 L Phosphorus Magnesium Ferritin > 2000.0 H AST Lactate Dehydrogenase C-Reactive Protein Total Protein Albumin Coronavirus (PCR) 02/02/20 02/02/20 02/02/20 05:31 09:14 11:57 WBC Hgb Hct MCV MCH RDW Plt Count Lymph % (Auto) Lymph # Seg Neutrophils % Seg Neuts % (Manual) Lymphocytes % (Manual) Nucleated RBC % Seg Neutrophils # Seg Neutrophils # Man Lymphocytes # (Manual) D-Dimer ABG pH ABG pO2 ABG HCO3 ABG O2 Saturation ABG Base Excess ABG Hemoglobin Oxyhemoglobin Sodium Potassium Chloride Carbon Dioxide BUN Glucose POC Glucose 334 H 429 H Hemoglobin A1c Calcium Phosphorus Magnesium Ferritin AST Lactate Dehydrogenase 1297 H C-Reactive Protein 2.20 H Total Protein Albumin Coronavirus (PCR) 02/02/20 02/02/20 02/02/20 12:44 16:35 22:55 WBC Hgb Hct MCV MCH RDW Plt Count Lymph % (Auto) Lymph # Seg Neutrophils % Seg Neuts % (Manual) Lymphocytes % (Manual) Nucleated RBC % Seg Neutrophils # Seg Neutrophils # Man Lymphocytes # (Manual) D-Dimer ABG pH 7.466 H ABG pO2 60.9 L ABG HCO3 ABG O2 Saturation 93.6 L ABG Base Excess -2.7 L ABG Hemoglobin 11.8 L Oxyhemoglobin 91.4 L Sodium Potassium Chloride Carbon Dioxide BUN Glucose POC Glucose 300 H 339 H Hemoglobin A1c Calcium Phosphorus Magnesium Ferritin AST Lactate Dehydrogenase C-Reactive Protein Total Protein Albumin Coronavirus (PCR) 02/03/20 02/03/20 02/03/20 01:06 06:09 06:09 WBC Hgb Hct MCV MCH RDW Plt Count Lymph % (Auto) Lymph # Seg Neutrophils % Seg Neuts % (Manual) 92.0 H Lymphocytes % (Manual) 3.0 L Nucleated RBC % 2.0 H Seg Neutrophils # Seg Neutrophils # Man Lymphocytes # (Manual) 0.3 L D-Dimer ABG pH ABG pO2 ABG HCO3 ABG O2 Saturation ABG Base Excess ABG Hemoglobin Oxyhemoglobin Sodium Potassium Chloride Carbon Dioxide BUN 27 H Glucose 348 H POC Glucose Hemoglobin A1c Calcium 8.1 L Phosphorus Magnesium 2.50 H 2.50 H Ferritin AST Lactate Dehydrogenase C-Reactive Protein Total Protein 5.4 L Albumin 3.0 L Coronavirus (PCR) 02/03/20 02/03/20 02/03/20 08:42 11:50 16:18 WBC Hgb Hct MCV MCH RDW Plt Count Lymph % (Auto) Lymph # Seg Neutrophils % Seg Neuts % (Manual) Lymphocytes % (Manual) Nucleated RBC % Seg Neutrophils # Seg Neutrophils # Man Lymphocytes # (Manual) D-Dimer ABG pH ABG pO2 ABG HCO3 ABG O2 Saturation ABG Base Excess ABG Hemoglobin Oxyhemoglobin Sodium Potassium Chloride Carbon Dioxide BUN Glucose POC Glucose 355 H 345 H 382 H Hemoglobin A1c Calcium Phosphorus Magnesium Ferritin AST Lactate Dehydrogenase C-Reactive Protein Total Protein Albumin Coronavirus (PCR) 02/03/20 02/03/20 02/04/20 22:00 22:04 06:06 WBC Hgb Hct MCV MCH RDW Plt Count Lymph % (Auto) Lymph # Seg Neutrophils % Seg Neuts % (Manual) Lymphocytes % (Manual) Nucleated RBC % Seg Neutrophils # Seg Neutrophils # Man Lymphocytes # (Manual) D-Dimer ABG pH 7.505 H ABG pO2 59.1 L ABG HCO3 19.1 L ABG O2 Saturation 93.0 L ABG Base Excess -2.4 L ABG Hemoglobin 13.3 L Oxyhemoglobin 91.1 L Sodium Potassium Chloride Carbon Dioxide BUN Glucose POC Glucose 309 H Hemoglobin A1c Calcium Phosphorus Magnesium Ferritin 4214.0 H AST Lactate Dehydrogenase C-Reactive Protein Total Protein Albumin Coronavirus (PCR) 02/04/20 02/04/20 02/04/20 06:06 06:06 06:06 WBC Hgb Hct MCV 95 H MCH RDW Plt Count Lymph % (Auto) 4.3 L Lymph # 0.5 L Seg Neutrophils % 87.5 H Seg Neuts % (Manual) Lymphocytes % (Manual) Nucleated RBC % Seg Neutrophils # 9.3 H Seg Neutrophils # Man Lymphocytes # (Manual) D-Dimer ABG pH ABG pO2 ABG HCO3 ABG O2 Saturation ABG Base Excess ABG Hemoglobin Oxyhemoglobin Sodium Potassium Chloride Carbon Dioxide 21 L BUN 30 H Glucose 393 H POC Glucose Hemoglobin A1c Calcium 7.8 L Phosphorus Magnesium 2.70 H Ferritin AST Lactate Dehydrogenase 919 H C-Reactive Protein Total Protein Albumin Coronavirus (PCR) 02/04/20 02/04/20 02/04/20 08:57 13:12 17:45 WBC Hgb Hct MCV MCH RDW Plt Count Lymph % (Auto) Lymph # Seg Neutrophils % Seg Neuts % (Manual) Lymphocytes % (Manual) Nucleated RBC % Seg Neutrophils # Seg Neutrophils # Man Lymphocytes # (Manual) D-Dimer ABG pH ABG pO2 ABG HCO3 ABG O2 Saturation ABG Base Excess ABG Hemoglobin Oxyhemoglobin Sodium Potassium Chloride Carbon Dioxide BUN Glucose POC Glucose 353 H 364 H 292 H Hemoglobin A1c Calcium Phosphorus Magnesium Ferritin AST Lactate Dehydrogenase C-Reactive Protein Total Protein Albumin Coronavirus (PCR) 02/04/20 02/05/20 02/05/20 22:36 08:44 12:53 WBC Hgb Hct MCV MCH RDW Plt Count Lymph % (Auto) Lymph # Seg Neutrophils % Seg Neuts % (Manual) Lymphocytes % (Manual) Nucleated RBC % Seg Neutrophils # Seg Neutrophils # Man Lymphocytes # (Manual) D-Dimer ABG pH ABG pO2 ABG HCO3 ABG O2 Saturation ABG Base Excess ABG Hemoglobin Oxyhemoglobin Sodium Potassium Chloride Carbon Dioxide BUN Glucose POC Glucose 255 H 313 H 346 H Hemoglobin A1c Calcium Phosphorus Magnesium Ferritin AST Lactate Dehydrogenase C-Reactive Protein Total Protein Albumin Coronavirus (PCR) 02/05/20 02/05/20 02/06/20 16:55 22:38 01:04 WBC Hgb Hct MCV MCH RDW Plt Count Lymph % (Auto) Lymph # Seg Neutrophils % Seg Neuts % (Manual) Lymphocytes % (Manual) Nucleated RBC % Seg Neutrophils # Seg Neutrophils # Man Lymphocytes # (Manual) D-Dimer ABG pH ABG pO2 ABG HCO3 ABG O2 Saturation ABG Base Excess ABG Hemoglobin Oxyhemoglobin Sodium Potassium Chloride Carbon Dioxide BUN Glucose POC Glucose 270 H 106 H 122 H Hemoglobin A1c Calcium Phosphorus Magnesium Ferritin AST Lactate Dehydrogenase C-Reactive Protein Total Protein Albumin Coronavirus (PCR) 02/06/20 02/06/20 02/06/20 09:21 12:27 15:20 WBC Hgb Hct MCV MCH RDW Plt Count Lymph % (Auto) Lymph # Seg Neutrophils % Seg Neuts % (Manual) Lymphocytes % (Manual) Nucleated RBC % Seg Neutrophils # Seg Neutrophils # Man Lymphocytes # (Manual) D-Dimer 328.02 H ABG pH ABG pO2 ABG HCO3 ABG O2 Saturation ABG Base Excess ABG Hemoglobin Oxyhemoglobin Sodium Potassium Chloride Carbon Dioxide BUN Glucose POC Glucose 227 H 295 H Hemoglobin A1c Calcium Phosphorus Magnesium Ferritin AST Lactate Dehydrogenase C-Reactive Protein Total Protein Albumin Coronavirus (PCR) 02/06/20 02/06/20 02/06/20 15:20 15:20 16:50 WBC Hgb Hct MCV MCH RDW Plt Count Lymph % (Auto) Lymph # Seg Neutrophils % Seg Neuts % (Manual) Lymphocytes % (Manual) Nucleated RBC % Seg Neutrophils # Seg Neutrophils # Man Lymphocytes # (Manual) D-Dimer ABG pH ABG pO2 ABG HCO3 ABG O2 Saturation ABG Base Excess ABG Hemoglobin Oxyhemoglobin Sodium Potassium Chloride Carbon Dioxide BUN Glucose 311 H POC Glucose 258 H Hemoglobin A1c Calcium Phosphorus Magnesium Ferritin < 2000.0 H AST Lactate Dehydrogenase 719 H C-Reactive Protein Total Protein Albumin Coronavirus (PCR) 02/06/20 02/07/20 02/07/20 21:23 08:22 10:51 WBC Hgb Hct MCV MCH RDW Plt Count Lymph % (Auto) Lymph # Seg Neutrophils % Seg Neuts % (Manual) Lymphocytes % (Manual) Nucleated RBC % Seg Neutrophils # Seg Neutrophils # Man Lymphocytes # (Manual) D-Dimer ABG pH ABG pO2 ABG HCO3 ABG O2 Saturation ABG Base Excess ABG Hemoglobin Oxyhemoglobin Sodium Potassium Chloride Carbon Dioxide BUN Glucose POC Glucose 334 H 281 H 309 H Hemoglobin A1c Calcium Phosphorus Magnesium Ferritin AST Lactate Dehydrogenase C-Reactive Protein Total Protein Albumin Coronavirus (PCR) 02/07/20 02/07/20 02/08/20 16:27 22:40 07:44 WBC Hgb Hct MCV MCH RDW Plt Count Lymph % (Auto) Lymph # Seg Neutrophils % Seg Neuts % (Manual) Lymphocytes % (Manual) Nucleated RBC % Seg Neutrophils # Seg Neutrophils # Man Lymphocytes # (Manual) D-Dimer ABG pH ABG pO2 ABG HCO3 ABG O2 Saturation ABG Base Excess ABG Hemoglobin Oxyhemoglobin Sodium Potassium Chloride Carbon Dioxide BUN Glucose POC Glucose 288 H 278 H 267 H Hemoglobin A1c Calcium Phosphorus Magnesium Ferritin AST Lactate Dehydrogenase C-Reactive Protein Total Protein Albumin Coronavirus (PCR) 02/08/20 02/08/20 02/08/20 10:46 10:46 10:46 WBC Hgb Hct MCV 98 H MCH RDW Plt Count Lymph % (Auto) Lymph # Seg Neutrophils % Seg Neuts % (Manual) 97.0 H Lymphocytes % (Manual) 0 L Nucleated RBC % Seg Neutrophils # Seg Neutrophils # Man 10.2 H Lymphocytes # (Manual) 0.0 L D-Dimer 261.46 H ABG pH ABG pO2 ABG HCO3 ABG O2 Saturation ABG Base Excess ABG Hemoglobin Oxyhemoglobin Sodium 148 H Potassium 3.5 L Chloride 112.2 H Carbon Dioxide BUN 36 H Glucose 356 H POC Glucose Hemoglobin A1c Calcium 8.3 L Phosphorus Magnesium Ferritin AST Lactate Dehydrogenase C-Reactive Protein Total Protein Albumin Coronavirus (PCR) 02/08/20 02/08/20 02/08/20 10:46 10:46 12:22 WBC Hgb Hct MCV MCH RDW Plt Count Lymph % (Auto) Lymph # Seg Neutrophils % Seg Neuts % (Manual) Lymphocytes % (Manual) Nucleated RBC % Seg Neutrophils # Seg Neutrophils # Man Lymphocytes # (Manual) D-Dimer ABG pH ABG pO2 ABG HCO3 ABG O2 Saturation ABG Base Excess ABG Hemoglobin Oxyhemoglobin Sodium Potassium Chloride Carbon Dioxide BUN Glucose 351 H POC Glucose 358 H Hemoglobin A1c Calcium Phosphorus Magnesium Ferritin 1611.0 H AST Lactate Dehydrogenase 671 H C-Reactive Protein Total Protein Albumin Coronavirus (PCR) 02/08/20 02/08/20 02/09/20 14:00 17:02 08:45 WBC Hgb Hct MCV MCH RDW Plt Count Lymph % (Auto) Lymph # Seg Neutrophils % Seg Neuts % (Manual) Lymphocytes % (Manual) Nucleated RBC % Seg Neutrophils # Seg Neutrophils # Man Lymphocytes # (Manual) D-Dimer ABG pH ABG pO2 65.3 L ABG HCO3 ABG O2 Saturation 94.1 L ABG Base Excess ABG Hemoglobin 12.8 L Oxyhemoglobin 92.3 L Sodium Potassium Chloride Carbon Dioxide BUN Glucose POC Glucose 331 H 160 H Hemoglobin A1c Calcium Phosphorus Magnesium Ferritin AST Lactate Dehydrogenase C-Reactive Protein Total Protein Albumin Coronavirus (PCR) 02/09/20 02/09/20 02/09/20 12:27 17:22 23:11 WBC Hgb Hct MCV MCH RDW Plt Count Lymph % (Auto) Lymph # Seg Neutrophils % Seg Neuts % (Manual) Lymphocytes % (Manual) Nucleated RBC % Seg Neutrophils # Seg Neutrophils # Man Lymphocytes # (Manual) D-Dimer ABG pH ABG pO2 ABG HCO3 ABG O2 Saturation ABG Base Excess ABG Hemoglobin Oxyhemoglobin Sodium Potassium Chloride Carbon Dioxide BUN Glucose POC Glucose 262 H 237 H 140 H Hemoglobin A1c Calcium Phosphorus Magnesium Ferritin AST Lactate Dehydrogenase C-Reactive Protein Total Protein Albumin Coronavirus (PCR) 02/10/20 02/10/20 02/10/20 08:30 12:00 12:30 WBC Hgb Hct MCV MCH RDW Plt Count Lymph % (Auto) Lymph # Seg Neutrophils % Seg Neuts % (Manual) Lymphocytes % (Manual) Nucleated RBC % Seg Neutrophils # Seg Neutrophils # Man Lymphocytes # (Manual) D-Dimer ABG pH ABG pO2 ABG HCO3 ABG O2 Saturation ABG Base Excess ABG Hemoglobin Oxyhemoglobin Sodium Potassium Chloride Carbon Dioxide BUN Glucose 330 H POC Glucose 216 H 252 H Hemoglobin A1c Calcium Phosphorus Magnesium Ferritin AST Lactate Dehydrogenase 642 H C-Reactive Protein Total Protein Albumin Coronavirus (PCR) 02/10/20 02/10/20 02/10/20 12:30 16:32 23:38 WBC Hgb Hct MCV MCH RDW Plt Count Lymph % (Auto) Lymph # Seg Neutrophils % Seg Neuts % (Manual) Lymphocytes % (Manual) Nucleated RBC % Seg Neutrophils # Seg Neutrophils # Man Lymphocytes # (Manual) D-Dimer ABG pH ABG pO2 ABG HCO3 ABG O2 Saturation ABG Base Excess ABG Hemoglobin Oxyhemoglobin Sodium Potassium Chloride Carbon Dioxide BUN Glucose POC Glucose 245 H 196 H Hemoglobin A1c Calcium Phosphorus Magnesium Ferritin 1728.0 H AST Lactate Dehydrogenase C-Reactive Protein Total Protein Albumin Coronavirus (PCR) 02/11/20 02/11/20 02/11/20 08:07 11:41 13:47 WBC Hgb Hct MCV 98 H MCH RDW 15.7 H Plt Count Lymph % (Auto) Lymph # Seg Neutrophils % Seg Neuts % (Manual) Lymphocytes % (Manual) Nucleated RBC % Seg Neutrophils # Seg Neutrophils # Man Lymphocytes # (Manual) D-Dimer ABG pH ABG pO2 ABG HCO3 ABG O2 Saturation ABG Base Excess ABG Hemoglobin Oxyhemoglobin Sodium Potassium Chloride Carbon Dioxide BUN Glucose POC Glucose 300 H 286 H Hemoglobin A1c Calcium Phosphorus Magnesium Ferritin AST Lactate Dehydrogenase C-Reactive Protein Total Protein Albumin Coronavirus (PCR) 02/11/20 02/11/20 02/11/20 13:47 17:17 21:17 WBC Hgb Hct MCV MCH RDW Plt Count Lymph % (Auto) Lymph # Seg Neutrophils % Seg Neuts % (Manual) Lymphocytes % (Manual) Nucleated RBC % Seg Neutrophils # Seg Neutrophils # Man Lymphocytes # (Manual) D-Dimer ABG pH ABG pO2 ABG HCO3 ABG O2 Saturation ABG Base Excess ABG Hemoglobin Oxyhemoglobin Sodium 158 H D Potassium Chloride 119.7 H Carbon Dioxide BUN 40 H Glucose 287 H POC Glucose 288 H 283 H Hemoglobin A1c Calcium 7.9 L Phosphorus Magnesium Ferritin AST Lactate Dehydrogenase C-Reactive Protein Total Protein Albumin Coronavirus (PCR) 02/12/20 02/12/20 02/12/20 06:01 08:37 10:58 WBC Hgb Hct MCV MCH RDW Plt Count Lymph % (Auto) Lymph # Seg Neutrophils % Seg Neuts % (Manual) Lymphocytes % (Manual) Nucleated RBC % Seg Neutrophils # Seg Neutrophils # Man Lymphocytes # (Manual) D-Dimer ABG pH ABG pO2 ABG HCO3 ABG O2 Saturation ABG Base Excess ABG Hemoglobin Oxyhemoglobin Sodium Potassium Chloride Carbon Dioxide BUN Glucose POC Glucose 273 H 313 H 288 H Hemoglobin A1c Calcium Phosphorus Magnesium Ferritin AST Lactate Dehydrogenase C-Reactive Protein Total Protein Albumin Coronavirus (PCR) 02/12/20 02/12/20 02/12/20 16:24 22:23 Unknown WBC Hgb Hct MCV MCH RDW Plt Count Lymph % (Auto) Lymph # Seg Neutrophils % Seg Neuts % (Manual) Lymphocytes % (Manual) Nucleated RBC % Seg Neutrophils # Seg Neutrophils # Man Lymphocytes # (Manual) D-Dimer ABG pH ABG pO2 ABG HCO3 ABG O2 Saturation ABG Base Excess ABG Hemoglobin Oxyhemoglobin Sodium Potassium Chloride Carbon Dioxide BUN Glucose POC Glucose 192 H 145 H Hemoglobin A1c Calcium Phosphorus Magnesium Ferritin AST Lactate Dehydrogenase C-Reactive Protein Total Protein Albumin Coronavirus (PCR) Positive A 02/13/20 02/13/20 02/13/20 00:32 09:06 11:22 WBC Hgb Hct MCV MCH RDW Plt Count Lymph % (Auto) Lymph # Seg Neutrophils % Seg Neuts % (Manual) Lymphocytes % (Manual) Nucleated RBC % Seg Neutrophils # Seg Neutrophils # Man Lymphocytes # (Manual) D-Dimer ABG pH ABG pO2 ABG HCO3 ABG O2 Saturation ABG Base Excess ABG Hemoglobin Oxyhemoglobin Sodium 162 H* Potassium 3.2 L Chloride 125.4 H Carbon Dioxide BUN 32 H Glucose 132 H POC Glucose 221 H 319 H Hemoglobin A1c Calcium 7.6 L Phosphorus Magnesium Ferritin AST Lactate Dehydrogenase C-Reactive Protein Total Protein Albumin Coronavirus (PCR) 02/13/20 02/13/20 02/13/20 14:33 16:18 23:35 WBC Hgb Hct MCV MCH RDW Plt Count Lymph % (Auto) Lymph # Seg Neutrophils % Seg Neuts % (Manual) Lymphocytes % (Manual) Nucleated RBC % Seg Neutrophils # Seg Neutrophils # Man Lymphocytes # (Manual) D-Dimer ABG pH ABG pO2 ABG HCO3 ABG O2 Saturation ABG Base Excess ABG Hemoglobin Oxyhemoglobin Sodium 154 H Potassium Chloride 117.5 H Carbon Dioxide BUN 30 H Glucose 415 H POC Glucose 351 H 182 H Hemoglobin A1c Calcium 7.5 L Phosphorus Magnesium Ferritin AST Lactate Dehydrogenase C-Reactive Protein Total Protein Albumin Coronavirus (PCR) 02/14/20 02/14/20 02/14/20 05:25 11:54 17:39 WBC Hgb Hct MCV MCH RDW Plt Count Lymph % (Auto) Lymph # Seg Neutrophils % Seg Neuts % (Manual) Lymphocytes % (Manual) Nucleated RBC % Seg Neutrophils # Seg Neutrophils # Man Lymphocytes # (Manual) D-Dimer ABG pH ABG pO2 ABG HCO3 ABG O2 Saturation ABG Base Excess ABG Hemoglobin Oxyhemoglobin Sodium 156 H Potassium 3.1 L Chloride 121.7 H Carbon Dioxide BUN 28 H Glucose 74 L POC Glucose 120 H 226 H Hemoglobin A1c Calcium 7.7 L Phosphorus 2.00 L Magnesium Ferritin AST Lactate Dehydrogenase C-Reactive Protein Total Protein Albumin Coronavirus (PCR) 02/14/20 02/15/20 02/15/20 22:05 05:47 12:08 WBC Hgb Hct MCV MCH RDW Plt Count Lymph % (Auto) Lymph # Seg Neutrophils % Seg Neuts % (Manual) Lymphocytes % (Manual) Nucleated RBC % Seg Neutrophils # Seg Neutrophils # Man Lymphocytes # (Manual) D-Dimer ABG pH ABG pO2 ABG HCO3 ABG O2 Saturation ABG Base Excess ABG Hemoglobin Oxyhemoglobin Sodium 149 H Potassium Chloride 115.1 H Carbon Dioxide BUN 22 H Glucose 74 L POC Glucose 305 H 259 H Hemoglobin A1c Calcium 7.5 L Phosphorus Magnesium Ferritin AST Lactate Dehydrogenase C-Reactive Protein Total Protein Albumin Coronavirus (PCR) 02/15/20 02/15/20 02/16/20 16:22 23:29 11:39 WBC Hgb Hct MCV MCH RDW Plt Count Lymph % (Auto) Lymph # Seg Neutrophils % Seg Neuts % (Manual) Lymphocytes % (Manual) Nucleated RBC % Seg Neutrophils # Seg Neutrophils # Man Lymphocytes # (Manual) D-Dimer ABG pH ABG pO2 ABG HCO3 ABG O2 Saturation ABG Base Excess ABG Hemoglobin Oxyhemoglobin Sodium Potassium Chloride Carbon Dioxide BUN Glucose POC Glucose 245 H 114 H 196 H Hemoglobin A1c Calcium Phosphorus Magnesium Ferritin AST Lactate Dehydrogenase C-Reactive Protein Total Protein Albumin Coronavirus (PCR) 02/16/20 02/16/20 02/16/20 13:47 13:47 13:47 WBC Hgb Hct MCV MCH RDW Plt Count Lymph % (Auto) Lymph # Seg Neutrophils % Seg Neuts % (Manual) Lymphocytes % (Manual) Nucleated RBC % Seg Neutrophils # Seg Neutrophils # Man Lymphocytes # (Manual) D-Dimer 454.59 H ABG pH ABG pO2 ABG HCO3 ABG O2 Saturation ABG Base Excess ABG Hemoglobin Oxyhemoglobin Sodium Potassium Chloride Carbon Dioxide BUN Glucose POC Glucose Hemoglobin A1c Calcium Phosphorus Magnesium Ferritin 1573.0 H AST Lactate Dehydrogenase 651 H C-Reactive Protein Total Protein Albumin Coronavirus (PCR) 02/16/20 02/16/20 02/17/20 16:12 22:06 07:13 WBC Hgb Hct MCV MCH RDW Plt Count Lymph % (Auto) Lymph # Seg Neutrophils % Seg Neuts % (Manual) Lymphocytes % (Manual) Nucleated RBC % Seg Neutrophils # Seg Neutrophils # Man Lymphocytes # (Manual) D-Dimer ABG pH ABG pO2 ABG HCO3 ABG O2 Saturation ABG Base Excess ABG Hemoglobin Oxyhemoglobin Sodium Potassium Chloride Carbon Dioxide 20 L BUN Glucose 74 L POC Glucose 304 H 179 H Hemoglobin A1c Calcium 7.6 L Phosphorus 2.20 L Magnesium Ferritin AST Lactate Dehydrogenase C-Reactive Protein Total Protein Albumin Coronavirus (PCR) 02/17/20 02/17/20 02/17/20 07:57 09:03 11:30 WBC Hgb Hct MCV 99 H MCH RDW 15.9 H Plt Count 65 L Lymph % (Auto) 7.1 L Lymph # 0.4 L Seg Neutrophils % 89.2 H Seg Neuts % (Manual) Lymphocytes % (Manual) Nucleated RBC % Seg Neutrophils # Seg Neutrophils # Man Lymphocytes # (Manual) D-Dimer ABG pH ABG pO2 ABG HCO3 ABG O2 Saturation ABG Base Excess ABG Hemoglobin Oxyhemoglobin Sodium Potassium Chloride Carbon Dioxide BUN Glucose POC Glucose 67 L 127 H Hemoglobin A1c Calcium Phosphorus Magnesium Ferritin AST Lactate Dehydrogenase C-Reactive Protein Total Protein Albumin Coronavirus (PCR) Allied health notes reviewed: nursing
--- NOTE | 2020-02-17 14:32 | Progress Note ---
Assessment and Plan - Patient Problems (1) Abnormal ECG Current Visit: Yes Status: Acute Plan to address problem: Cardiology following. Patient with ventricular arrhythmia not at this particular time. (2) Acute respiratory failure with hypoxia Current Visit: Yes Status: Acute Plan to address problem: Acute hypoxic respiratory failure secondary to COVID-19 pneumonia. Patient on Remdesivir steroid currently awaiting convalescent plasma. Seems to be stable with current dose of oxygen. (3) Bilateral pneumonia Current Visit: Yes Status: Acute Qualifiers: Lung location: unspecified part of lung Plan to address problem: Bilateral pneumonia secondary to COVID-19. Patient inflammatory markers high continue to keep sats above 92%. . ID following awaiting convalescent plasma. We will follow inflammatory markers every 2 days. (4) COVID-19 Current Visit: Yes Status: Acute Plan to address problem: COVID-19 positive continue with decimeter dexamethasone. Follow inflammatory markers. (5) DVT prophylaxis Current Visit: Yes Status: Acute Plan to address problem: Continue low-dose molecular weight heparin. 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 Accu-Chek 120. (8) Advance care planning Current Visit: Yes Status: Acute Plan to address problem: Patient will need placement. Orders have been in place. Subjective Date of service: 02/17/20 Principal diagnosis: Severe Sepsis; COVID-19; Hari PNA; Ac. hypoxemic Resp failure; DM II Interval history: Patient resting comfortably now. Patient advanced dementia had episodes of pulling patient also showed evidence of facial grimace at one time. There was question whether patient may be in pain and therefore we decided to treat patient's pain with 0.25 Dilaudid. Patient rested comfortably after that time. So while patient cannot give credible complaints of pain we did notice facial grimace and therefore will treat accordingly. Objective - Constitutional Vitals: Vital Signs - 12hr 02/17/20 02/17/20 02/17/20 05:18 08:00 10:15 Temperature 98.3 F Pulse Rate 80 86 Respiratory 20 Rate Blood Pressure 141/76 118/51 O2 Sat by Pulse 90 98 Oximetry 02/17/20 11:19 Temperature Pulse Rate 84 Respiratory 20 Rate Blood Pressure 120/76 O2 Sat by Pulse 97 Oximetry General appearance: Present: no acute distress, well-nourished - EENT Eyes: PERRL, EOM intact ENT: hearing intact, clear oral mucosa Ears: bilateral: normal - Neck Neck: supple, normal ROM - Respiratory Respiratory effort: normal Respiratory: bilateral: CTA - Breasts Breasts: normal - Cardiovascular Rhythm: regular Heart Sounds: Present: S1 & S2. Absent: gallop, rub Extremities: pulses intact, No edema, normal color, Full ROM - Gastrointestinal General gastrointestinal: Present: soft, non-tender, non-distended, normal bowel sounds - Genitourinary Male genitourinary: normal - Integumentary Integumentary: clear, warm, dry - Musculoskeletal Musculoskeletal: 1, strength equal bilaterally - Neurologic Neurologic: moves all extremities - Psychiatric Psychiatric: memory intact, appropriate mood/affect, intact judgment & insight - Labs CBC & Chem 7: 02/17/20 09:03 02/17/20 07:13 Labs: Abnormal lab results 02/16/20 02/16/20 02/16/20 Range/Units 13:47 16:12 22:06 MCV (84-94) fl RDW (13.2-15.2) % Plt Count (140-440) K/mm3 Lymph % (Auto) (13.4-35.0) % Lymph # (1.2-5.4) K/mm3 Seg Neutrophils % (40.0-70.0) % Carbon Dioxide (22-30) mmol/L Glucose (75-100) mg/dL POC Glucose 304 H 179 H (70-105) Calcium (8.4-10.2) mg/dL Phosphorus (2.5-4.5) mg/dL Ferritin 1573.0 H (13.0-400.0) ng/mL 02/17/20 02/17/20 02/17/20 Range/Units 07:13 07:57 09:03 MCV 99 H (84-94) fl RDW 15.9 H (13.2-15.2) % Plt Count 65 L (140-440) K/mm3 Lymph % (Auto) 7.1 L (13.4-35.0) % Lymph # 0.4 L (1.2-5.4) K/mm3 Seg Neutrophils % 89.2 H (40.0-70.0) % Carbon Dioxide 20 L (22-30) mmol/L Glucose 74 L (75-100) mg/dL POC Glucose 67 L (70-105) Calcium 7.6 L (8.4-10.2) mg/dL Phosphorus 2.20 L (2.5-4.5) mg/dL Ferritin (13.0-400.0) ng/mL 02/17/20 Range/Units 11:30 MCV (84-94) fl RDW (13.2-15.2) % Plt Count (140-440) K/mm3 Lymph % (Auto) (13.4-35.0) % Lymph # (1.2-5.4) K/mm3 Seg Neutrophils % (40.0-70.0) % Carbon Dioxide (22-30) mmol/L Glucose (75-100) mg/dL POC Glucose 127 H (70-105) Calcium (8.4-10.2) mg/dL Phosphorus (2.5-4.5) mg/dL Ferritin (13.0-400.0) ng/mL HEART Score - HEART Score Troponin: Troponin T 0.014 ng/mL (0.00-0.029) 01/29/20 17:03
[2020-02-17] MEDS ORDERED: K-LYTE 25 MEQ TABLET EFF PO ONE (17:00)
[2020-02-17] MEDS ORDERED: K-PHOS NEUTRAL 250 MG TAB PO ONE (17:01)
--- NOTE | 2020-02-17 17:02 | Progress Note ---
Assessment and Plan 1. Hypernatremia: Secondary to dehydration. Ur studies results noted. Continue IV D5W, Sodium level is better. Monitor Sodium level. No labs from today. 2. FEN: Replete Phos. Monitor lytes and volume status. 3. Acute hypoxic Respiratory failure: On HFNC O2. Cont nebs and Solumedrol. Followed by Pulmonary. 4. Bilateral pneumonia: S/p Rocephin and azithromycin. COVID-19 positive. Follow Inflammatory markers. Followed by ID. 5. Acute toxic metabolic encephalopathy. 6. Elevated d-dimer. 7. Type 2 diabetes mellitus. - Subjective: Patient was seen and examined at the bedside. - General Appearance General appearance: well-developed, well-nourished, on HFNC O2 HEENT: ATNC Neck: trachea midline Respiratory: Clear to Ascultation Heart: regular, S1S2, no murmurs Gastrointestinal: soft, normoactive bowel sounds, not tender Integumentary: no rash, warm and dry Neurologic: somnolent, moving extremities, confused : condom catheter Subjective Date of service: 02/17/20 Principal diagnosis: Severe Sepsis; COVID-19; Hari PNA; Ac. hypoxemic Resp failure; DM II Objective - Vital Signs Vital signs: Vital Signs - 12hr 02/17/20 02/17/20 02/17/20 05:18 08:00 10:15 Temperature 98.3 F Pulse Rate 80 86 Respiratory 20 Rate Blood Pressure 141/76 118/51 O2 Sat by Pulse 90 98 Oximetry 02/17/20 02/17/20 11:19 14:00 Temperature Pulse Rate 84 Respiratory 20 Rate Blood Pressure 120/76 O2 Sat by Pulse 97 96 Oximetry - Lab 02/17/20 09:03 02/17/20 07:13 Most recent lab results ABG pH 7.440 pH Units (7.350-7.450) 02/08/20 14:00 ABG pCO2 35.9 mm Hg 02/08/20 14:00 ABG pO2 65.3 mm Hg (80.0-90.0) L 02/08/20 14:00 ABG HCO3 23.8 mmol/L (20.0-26.0) 02/08/20 14:00 ABG O2 Saturation 94.1 % (95.0-99.0) L 02/08/20 14:00 Calcium 7.6 mg/dL (8.4-10.2) L 02/17/20 07:13 Phosphorus 2.20 mg/dL (2.5-4.5) L 02/17/20 07:13 Magnesium 2.70 mg/dL (1.7-2.3) H 02/04/20 06:06 Medications & Allergies - Medications Allergies/Adverse Reactions: Allergies No Known Allergies Allergy (Unverified 01/29/20 18:36) Home Medications: Home Medications Medication Instructions Recorded Confirmed Last Taken Type AtorvaSTATin [Lipitor] 40 mg PO QHS 01/31/20 01/31/20 Unknown History Terazosin [Hytrin] 1 mg PO BID 01/31/20 01/31/20 Unknown History glipiZIDE [Glucotrol] 5 mg PO BID 01/31/20 01/31/20 Unknown History metFORMIN [Glucophage] 500 mg PO BID 01/31/20 01/31/20 Unknown History Active Medications: Generic Name Dose Route Start Last Admin Trade Name Freq PRN Reason Stop Dose Admin Acetaminophen 650 mg 01/29/20 20:46 Tylenol PO Q4H PRN Pain MILD(1-3)/Fever >100.5/GALINDO Lipase/Protease/Amylase 1 each 02/10/20 09:27 Pancreaze 10,500 Unit FEEDTUBE PRN PRN For Clogged Feeding Tube Atorvastatin Calcium 40 mg 02/02/20 22:00 02/16/20 22:58 Lipitor PO 40 mg QHS JUNE Administration Famotidine 20 mg 01/29/20 22:00 02/17/20 10:14 Pepcid PO 20 mg BID JUNE Administration Hydromorphone HCl 0.5 mg 01/29/20 20:48 02/17/20 07:26 Dilaudid IV 0.5 mg Q3H PRN Administration Pain , Severe (7-10) Dextrose 1,000 mls @ 75 mls/hr 02/13/20 10:00 02/17/20 07:26 D5w IV 100 mls/hr DIRECT JUNE Administration Insulin Glargine 28 units 02/16/20 22:00 02/16/20 22:57 Lantus SUB-Q 28 units QHS JUNE Administration Insulin Human Regular 0 units 02/13/20 11:30 02/17/20 13:29 Humulin R SUB-Q Not Given ACHS JUNE Protocol Lorazepam 1 mg 02/02/20 07:55 02/16/20 23:00 Ativan IV 1 mg Q4H PRN Administration Anxiety Methylprednisolone Sodium Succinate 20 mg 02/12/20 16:27 02/17/20 10:14 Solu-Medrol IV 20 mg Q24HR JUNE Administration Metoclopramide HCl 10 mg 01/29/20 20:48 Reglan IV Q6H PRN Nausea And Vomiting Metoprolol Tartrate 50 mg 02/08/20 22:00 02/17/20 10:15 Metoprolol PO 50 mg BID JUNE Administration Ondansetron HCl 4 mg 01/29/20 20:46 01/29/20 23:28 Zofran IV 4 mg Q8H PRN Administration Nausea And Vomiting Oxycodone/Acetaminophen 1 tab 01/29/20 20:48 02/10/20 23:53 Percocet 5/325 PO 1 tab Q6H PRN Administration Pain, Moderate (4-6) Prazosin HCl 1 mg 02/02/20 10:00 02/17/20 10:15 Prazosin PO Not Given BID JUNE Simple Syrup 15 ml 02/10/20 09:27 Simple Syrup FEEDTUBE PRN PRN Hypoglycemia Simple Syrup 30 ml 02/10/20 09:27 Simple Syrup FEEDTUBE PRN PRN Hypoglycemia Sodium Bicarbonate 325 mg 02/10/20 09:27 Sodium Bicarbonate FEEDTUBE PRN PRN For Clogged Feeding Tube Sodium Chloride 10 ml 01/29/20 22:00 02/17/20 10:16 Sodium Chloride Flush Syringe 10 Ml IV 10 ml BID JUNE Administration Sodium Chloride 10 ml 01/29/20 20:46 Sodium Chloride Flush Syringe 10 Ml IV PRN PRN LINE FLUSH Zinc Sulfate 220 mg 02/03/20 10:00 02/17/20 10:14 Zinc Sulfate PO 220 mg QDAY JUNE Administration
[2020-02-17] MEDS: INSULIN GLARGINE 100 UNITS/ML SUB-Q SCH (21:35)
[2020-02-18] MEDS: DEXTROSE 5% IN WATER 1,000 ML IV SCH (03:00)
[2020-02-18] MEDS: INSULIN REGULAR, HUMAN 100 UNITS/1 ML SUB-Q SCH ×3 (08:50→18:12)
[2020-02-18] MEDS: methylPREDNISolone Sod Succinate 40 MG/1 ML INJ IV SCH (09:30)
[2020-02-18] MEDS: FAMOTIDINE 20 MG TAB PO SCH (09:30)
[2020-02-18] MEDS: PRAZOSIN 1 MG CAP PO SCH (09:30)
[2020-02-18] MEDS: ZINC SULFATE 220 MG CAP PO SCH (09:30)
[2020-02-18] MEDS: METOPROLOL TARTRATE 50 MG TAB PO SCH (09:30)
[2020-02-18 10:06] LABS: BUN/Creatinine Ratio 12; Blood Urea Nitrogen 11 mg/dL (9-20); Calcium 7.4 mg/dL (8.4-10.2); Hemolysis Index 14
--- NOTE | 2020-02-18 11:00 | Progress Note ---
Assessment and Plan 1. Hypernatremia: Secondary to dehydration. Ur studies results noted. Continue IV D5W, Sodium level is better. Monitor Sodium level. 2. FEN: Replete Phos. Monitor lytes and volume status. 3. Acute hypoxic Respiratory failure: Was on HFNC O2. Cont nebs and Solumedrol. Followed by Pulmonary. 4. Bilateral pneumonia: S/p Rocephin and azithromycin. COVID-19 positive. Follow Inflammatory markers. Followed by ID. 5. Acute toxic metabolic encephalopathy. 6. Elevated d-dimer. 7. Type 2 diabetes mellitus. - Subjective: Patient was seen and examined at the bedside. - General Appearance General appearance: well-developed, well-nourished HEENT: ATNC Neck: trachea midline Respiratory: Clear to Ascultation Heart: regular, S1S2, no murmurs Gastrointestinal: soft, normoactive bowel sounds, not tender Integumentary: no rash, warm and dry Neurologic: somnolent, moving extremities : condom catheter Subjective Date of service: 02/18/20 Principal diagnosis: Severe Sepsis; COVID-19; Hari PNA; Ac. hypoxemic Resp failu re; DM II Objective - Vital Signs Vital signs: Vital Signs - 12hr 02/18/20 02/18/20 02/18/20 02:30 04:19 09:30 Temperature 98.1 F Pulse Rate 89 92 H Respiratory 20 Rate Blood Pressure 132/70 130/57 O2 Sat by Pulse 82 L 82 L Oximetry - Lab 02/17/20 09:03 02/18/20 09:32 Most recent lab results ABG pH 7.440 pH Units (7.350-7.450) 02/08/20 14:00 ABG pCO2 35.9 mm Hg 02/08/20 14:00 ABG pO2 65.3 mm Hg (80.0-90.0) L 02/08/20 14:00 ABG HCO3 23.8 mmol/L (20.0-26.0) 02/08/20 14:00 ABG O2 Saturation 94.1 % (95.0-99.0) L 02/08/20 14:00 Calcium 7.4 mg/dL (8.4-10.2) L 02/18/20 09:32 Phosphorus 2.20 mg/dL (2.5-4.5) L 02/18/20 09:32 Magnesium 2.70 mg/dL (1.7-2.3) H 02/04/20 06:06 Medications & Allergies - Medications Allergies/Adverse Reactions: Allergies No Known Allergies Allergy (Unverified 01/29/20 18:36) Home Medications: Home Medications Medication Instructions Recorded Confirmed Last Taken Type AtorvaSTATin [Lipitor] 40 mg PO QHS 01/31/20 01/31/20 Unknown History Terazosin [Hytrin] 1 mg PO BID 01/31/20 01/31/20 Unknown History glipiZIDE [Glucotrol] 5 mg PO BID 01/31/20 01/31/20 Unknown History metFORMIN [Glucophage] 500 mg PO BID 01/31/20 01/31/20 Unknown History Active Medications: Generic Name Dose Route Start Last Admin Trade Name Freq PRN Reason Stop Dose Admin Acetaminophen 650 mg 01/29/20 20:46 Tylenol PO Q4H PRN Pain MILD(1-3)/Fever >100.5/GALINDO Lipase/Protease/Amylase 1 each 02/10/20 09:27 Pancreaze 10,500 Unit FEEDTUBE PRN PRN For Clogged Feeding Tube Atorvastatin Calcium 40 mg 02/02/20 22:00 02/17/20 21:36 Lipitor PO 40 mg QHS JUNE Administration Famotidine 20 mg 01/29/20 22:00 02/18/20 09:30 Pepcid PO 20 mg BID JUNE Administration Hydromorphone HCl 0.5 mg 01/29/20 20:48 02/17/20 22:30 Dilaudid IV 0.5 mg Q3H PRN Administration Pain , Severe (7-10) Dextrose 1,000 mls @ 75 mls/hr 02/13/20 10:00 02/18/20 03:00 D5w IV 100 mls/hr DIRECT JUNE Administration Insulin Glargine 28 units 02/16/20 22:00 02/17/20 21:35 Lantus SUB-Q 28 units QHS JUNE Administration Insulin Human Regular 0 units 02/13/20 11:30 02/18/20 08:50 Humulin R SUB-Q Not Given ACHS [facility] Protocol Lorazepam 1 mg 02/02/20 07:55 02/16/20 23:00 Ativan IV 1 mg Q4H PRN Administration Anxiety Methylprednisolone Sodium Succinate 20 mg 02/12/20 16:27 02/18/20 09:30 Solu-Medrol IV 20 mg Q24HR JUNE Administration Metoclopramide HCl 10 mg 01/29/20 20:48 Reglan IV Q6H PRN Nausea And Vomiting Metoprolol Tartrate 50 mg 02/08/20 22:00 02/18/20 09:30 Metoprolol PO 50 mg BID JUNE Administration Ondansetron HCl 4 mg 01/29/20 20:46 01/29/20 23:28 Zofran IV 4 mg Q8H PRN Administration Nausea And Vomiting Oxycodone/Acetaminophen 1 tab 01/29/20 20:48 02/10/20 23:53 Percocet 5/325 PO 1 tab Q6H PRN Administration Pain, Moderate (4-6) Prazosin HCl 1 mg 02/02/20 10:00 02/18/20 09:30 Prazosin PO 1 mg BID JUNE Administration Simple Syrup 15 ml 02/10/20 09:27 Simple Syrup FEEDTUBE PRN PRN Hypoglycemia Simple Syrup 30 ml 02/10/20 09:27 Simple Syrup FEEDTUBE PRN PRN Hypoglycemia Sodium Bicarbonate 325 mg 02/10/20 09:27 Sodium Bicarbonate FEEDTUBE PRN PRN For Clogged Feeding Tube Sodium Chloride 10 ml 01/29/20 22:00 02/18/20 09:31 Sodium Chloride Flush Syringe 10 Ml IV 10 ml BID JUNE Administration Sodium Chloride 10 ml 01/29/20 20:46 Sodium Chloride Flush Syringe 10 Ml IV PRN PRN LINE FLUSH Zinc Sulfate 220 mg 02/03/20 10:00 02/18/20 09:30 Zinc Sulfate PO 220 mg QDAY JUNE Administration
[2020-02-18] MEDS: K-PHOS NEUTRAL 250 MG TAB PO SCH (13:13)
--- NOTE | 2020-02-18 14:09 | Progress Note ---
Assessment and Plan Patient sleeping and he on Vapotherm, FIO2 65% and O2 saturation 95%. Patient afebrile. No leukocytosis. Chest xray 02/08/20 reported There is some improvement in pulmonary opacities on the right and slight worsening on the left. Repeating chest xray. - Patient Problems (1) Acute respiratory failure with hypoxia Current Visit: Yes Status: Acute Plan to address problem: Continue Vapotherm 65%. Continue Solumedrol. Continue Lovenox. Continue famotidine. (2) Bilateral pneumonia Current Visit: Yes Status: Acute Qualifiers: Lung location: unspecified part of lung Plan to address problem: Antibiotics as per infectious diseases. (3) COVID-19 Current Visit: Yes Status: Acute Plan to address problem: On vapotherm, FIO2 65%. Continue Solumedrol. Continue Lovenox. Continue famotidine. Management as per infectious diseases. (4) Elevated d-dimer Current Visit: Yes Status: Acute Plan to address problem: Patient treated with S/C Lovenox 100mg S/C q 12 hours. (5) T2DM (type 2 diabetes mellitus) Current Visit: Yes Status: Chronic Qualifiers: Diabetes mellitus terminal manager insulin use: unspecified terminal manager insulin use status Plan to address problem: Management as per primary care. Subjective Date of service: 02/18/20 Principal diagnosis: Severe Sepsis; COVID-19; Hari PNA; Ac. hypoxemic Resp failure; DM II Interval history: Patient sleeping and he on Vapotherm, FIO2 65% and O2 saturation 95%. Patient afebrile. No leukocytosis. Chest xray 02/08/20 reported There is some improvement in pulmonary opacities on the right and slight worsening on the left. Repeating chest xray. Objective Vital Signs - 12hr 02/18/20 02/18/20 02/18/20 02:30 04:19 09:29 Temperature 98.1 F Pulse Rate 89 Respiratory 20 Rate Blood Pressure 132/70 130/57 O2 Sat by Pulse 82 L 82 L Oximetry 02/18/20 02/18/20 09:30 10:25 Temperature 97.9 F Pulse Rate 92 H 83 Respiratory 20 Rate Blood Pressure 130/57 74/41 O2 Sat by Pulse 90 Oximetry Constitutional: no acute distress, asleep, other (elderly looking obese male with mildly increased resp effort at rest) Eyes: non-icteric ENT: oropharynx moist Neck: supple, no JVD, other (large neck circumference) Effort: mildly labored Ascultation: Bilateral: diminished breath sounds, rhonchi Percussion: Bilateral: not dull Cardiovascular: regular rate and rhythm, other (S1,S2) Gastrointestinal: normoactive bowel sounds, soft, non-tender, non-distended (protuberant) Integumentary: normal Extremities: no cyanosis, no edema, pulses normal, no ischemia or petechiae Neurologic: non-focal exam (grossly, moving all extremities), pupils equal and round, CN II-XII normal, unable to assess Psychiatric: other (mood andf affect flat) CBC and BMP: 02/17/20 09:03 02/19/20 05:38 ABG, PT/INR, D-dimer: ABG ABG pH 7.440 pH Units (7.350-7.450) 02/08/20 14:00 ABG pCO2 35.9 mm Hg 02/08/20 14:00 ABG pO2 65.3 mm Hg (80.0-90.0) L 02/08/20 14:00 ABG O2 Saturation 94.1 % (95.0-99.0) L 02/08/20 14:00 PT/INR, D-dimer PT 13.9 Sec. (12.2-14.9) 01/29/20 17:03 INR 1.09 (0.87-1.13) 01/29/20 17:03 D-Dimer 454.59 ng/mlDDU (0-234) H 02/16/20 13:47 Abnormal lab findings: Abnormal Labs 01/29/20 01/29/20 01/29/20 17:03 17:03 17:03 WBC 3.6 L Hgb Hct MCV 96 H MCH 33 H RDW Plt Count Lymph % (Auto) Lymph # 0.5 L Seg Neutrophils % 79.6 H Seg Neuts % (Manual) Lymphocytes % (Manual) Nucleated RBC % Seg Neutrophils # Seg Neutrophils # Man Lymphocytes # (Manual) D-Dimer 2573.78 H ABG pH ABG pO2 ABG HCO3 ABG O2 Saturation ABG Base Excess ABG Hemoglobin Oxyhemoglobin Sodium Potassium Chloride Carbon Dioxide BUN Glucose 240 H POC Glucose Hemoglobin A1c Calcium Phosphorus Magnesium Ferritin AST 76 H Lactate Dehydrogenase C-Reactive Protein Total Protein Albumin 3.0 L Coronavirus (PCR) 01/29/20 01/29/20 01/29/20 18:33 18:33 23:28 WBC Hgb Hct MCV MCH RDW Plt Count Lymph % (Auto) Lymph # Seg Neutrophils % Seg Neuts % (Manual) Lymphocytes % (Manual) Nucleated RBC % Seg Neutrophils # Seg Neutrophils # Man Lymphocytes # (Manual) D-Dimer ABG pH ABG pO2 ABG HCO3 ABG O2 Saturation ABG Base Excess ABG Hemoglobin Oxyhemoglobin Sodium Potassium Chloride Carbon Dioxide BUN Glucose 230 H POC Glucose 253 H Hemoglobin A1c Calcium Phosphorus Magnesium Ferritin > 2000.0 H AST Lactate Dehydrogenase 930 H C-Reactive Protein 10.20 H Total Protein Albumin Coronavirus (PCR) 01/29/20 01/30/20 01/30/20 Unknown 05:41 05:41 WBC Hgb 11.7 L Hct 35.2 L MCV MCH RDW Plt Count Lymph % (Auto) 8.1 L Lymph # 0.4 L Seg Neutrophils % 85.8 H Seg Neuts % (Manual) Lymphocytes % (Manual) Nucleated RBC % Seg Neutrophils # Seg Neutrophils # Man Lymphocytes # (Manual) D-Dimer ABG pH ABG pO2 ABG HCO3 ABG O2 Saturation ABG Base Excess ABG Hemoglobin Oxyhemoglobin Sodium Potassium Chloride Carbon Dioxide 19 L BUN Glucose 242 H POC Glucose Hemoglobin A1c Calcium 7.7 L Phosphorus Magnesium Ferritin AST 79 H Lactate Dehydrogenase C-Reactive Protein Total Protein Albumin 2.9 L Coronavirus (PCR) Positive A 01/30/20 01/30/20 01/30/20 05:41 07:55 12:54 WBC Hgb Hct MCV MCH RDW Plt Count Lymph % (Auto) Lymph # Seg Neutrophils % Seg Neuts % (Manual) Lymphocytes % (Manual) Nucleated RBC % Seg Neutrophils # Seg Neutrophils # Man Lymphocytes # (Manual) D-Dimer ABG pH ABG pO2 ABG HCO3 ABG O2 Saturation ABG Base Excess ABG Hemoglobin Oxyhemoglobin Sodium Potassium Chloride Carbon Dioxide BUN Glucose POC Glucose 262 H 232 H Hemoglobin A1c 7.3 H Calcium Phosphorus Magnesium Ferritin AST Lactate Dehydrogenase C-Reactive Protein Total Protein Albumin Coronavirus (PCR) 01/30/20 01/30/20 01/31/20 16:07 21:15 08:42 WBC Hgb Hct MCV MCH RDW Plt Count Lymph % (Auto) Lymph # Seg Neutrophils % Seg Neuts % (Manual) Lymphocytes % (Manual) Nucleated RBC % Seg Neutrophils # Seg Neutrophils # Man Lymphocytes # (Manual) D-Dimer ABG pH ABG pO2 ABG HCO3 ABG O2 Saturation ABG Base Excess ABG Hemoglobin Oxyhemoglobin Sodium Potassium Chloride Carbon Dioxide BUN Glucose POC Glucose 211 H 285 H 328 H Hemoglobin A1c Calcium Phosphorus Magnesium Ferritin AST Lactate Dehydrogenase C-Reactive Protein Total Protein Albumin Coronavirus (PCR) 01/31/20 01/31/20 01/31/20 12:44 12:44 12:44 WBC Hgb Hct MCV MCH RDW Plt Count Lymph % (Auto) Lymph # Seg Neutrophils % Seg Neuts % (Manual) Lymphocytes % (Manual) Nucleated RBC % Seg Neutrophils # Seg Neutrophils # Man Lymphocytes # (Manual) D-Dimer 795.52 H ABG pH ABG pO2 ABG HCO3 ABG O2 Saturation ABG Base Excess ABG Hemoglobin Oxyhemoglobin Sodium Potassium Chloride Carbon Dioxide BUN Glucose 384 H POC Glucose Hemoglobin A1c Calcium Phosphorus Magnesium Ferritin > 2000.0 H AST Lactate Dehydrogenase 1393 H C-Reactive Protein 5.80 H Total Protein Albumin Coronavirus (PCR) 01/31/20 01/31/20 02/01/20 16:36 23:46 08:00 WBC Hgb Hct MCV MCH RDW Plt Count Lymph % (Auto) Lymph # Seg Neutrophils % Seg Neuts % (Manual) Lymphocytes % (Manual) Nucleated RBC % Seg Neutrophils # Seg Neutrophils # Man Lymphocytes # (Manual) D-Dimer ABG pH ABG pO2 ABG HCO3 ABG O2 Saturation ABG Base Excess ABG Hemoglobin Oxyhemoglobin Sodium Potassium Chloride Carbon Dioxide BUN Glucose POC Glucose 384 H 322 H 287 H Hemoglobin A1c Calcium Phosphorus Magnesium Ferritin AST Lactate Dehydrogenase C-Reactive Protein Total Protein Albumin Coronavirus (PCR) 02/01/20 02/01/20 02/01/20 12:48 16:53 23:25 WBC Hgb Hct MCV MCH RDW Plt Count Lymph % (Auto) Lymph # Seg Neutrophils % Seg Neuts % (Manual) Lymphocytes % (Manual) Nucleated RBC % Seg Neutrophils # Seg Neutrophils # Man Lymphocytes # (Manual) D-Dimer ABG pH ABG pO2 ABG HCO3 ABG O2 Saturation ABG Base Excess ABG Hemoglobin Oxyhemoglobin Sodium Potassium Chloride Carbon Dioxide BUN Glucose POC Glucose 309 H 362 H 264 H Hemoglobin A1c Calcium Phosphorus Magnesium Ferritin AST Lactate Dehydrogenase C-Reactive Protein Total Protein Albumin Coronavirus (PCR) 07/11/1802/02/20 02/02/20 05:31 05:31 05:31 WBC Hgb Hct MCV MCH RDW Plt Count Lymph % (Auto) Lymph # Seg Neutrophils % Seg Neuts % (Manual) Lymphocytes % (Manual) Nucleated RBC % Seg Neutrophils # Seg Neutrophils # Man Lymphocytes # (Manual) D-Dimer 416.36 H ABG pH ABG pO2 ABG HCO3 ABG O2 Saturation ABG Base Excess ABG Hemoglobin Oxyhemoglobin Sodium Potassium Chloride 107.2 H Carbon Dioxide BUN 25 H Glucose 304 H POC Glucose Hemoglobin A1c Calcium 8.2 L Phosphorus Magnesium Ferritin > 2000.0 H AST Lactate Dehydrogenase C-Reactive Protein Total Protein Albumin Coronavirus (PCR) 02/02/20 02/02/20 02/02/20 05:31 09:14 11:57 WBC Hgb Hct MCV MCH RDW Plt Count Lymph % (Auto) Lymph # Seg Neutrophils % Seg Neuts % (Manual) Lymphocytes % (Manual) Nucleated RBC % Seg Neutrophils # Seg Neutrophils # Man Lymphocytes # (Manual) D-Dimer ABG pH ABG pO2 ABG HCO3 ABG O2 Saturation ABG Base Excess ABG Hemoglobin Oxyhemoglobin Sodium Potassium Chloride Carbon Dioxide BUN Glucose POC Glucose 334 H 429 H Hemoglobin A1c Calcium Phosphorus Magnesium Ferritin AST Lactate Dehydrogenase 1297 H C-Reactive Protein 2.20 H Total Protein Albumin Coronavirus (PCR) 02/02/20 02/02/20 02/02/20 12:44 16:35 22:55 WBC Hgb Hct MCV MCH RDW Plt Count Lymph % (Auto) Lymph # Seg Neutrophils % Seg Neuts % (Manual) Lymphocytes % (Manual) Nucleated RBC % Seg Neutrophils # Seg Neutrophils # Man Lymphocytes # (Manual) D-Dimer ABG pH 7.466 H ABG pO2 60.9 L ABG HCO3 ABG O2 Saturation 93.6 L ABG Base Excess -2.7 L ABG Hemoglobin 11.8 L Oxyhemoglobin 91.4 L Sodium Potassium Chloride Carbon Dioxide BUN Glucose POC Glucose 300 H 339 H Hemoglobin A1c Calcium Phosphorus Magnesium Ferritin AST Lactate Dehydrogenase C-Reactive Protein Total Protein Albumin Coronavirus (PCR) 02/03/20 02/03/20 02/03/20 01:06 06:09 06:09 WBC Hgb Hct MCV MCH RDW Plt Count Lymph % (Auto) Lymph # Seg Neutrophils % Seg Neuts % (Manual) 92.0 H Lymphocytes % (Manual) 3.0 L Nucleated RBC % 2.0 H Seg Neutrophils # Seg Neutrophils # Man Lymphocytes # (Manual) 0.3 L D-Dimer ABG pH ABG pO2 ABG HCO3 ABG O2 Saturation ABG Base Excess ABG Hemoglobin Oxyhemoglobin Sodium Potassium Chloride Carbon Dioxide BUN 27 H Glucose 348 H POC Glucose Hemoglobin A1c Calcium 8.1 L Phosphorus Magnesium 2.50 H 2.50 H Ferritin AST Lactate Dehydrogenase C-Reactive Protein Total Protein 5.4 L Albumin 3.0 L Coronavirus (PCR) 02/03/20 02/03/20 02/03/20 08:42 11:50 16:18 WBC Hgb Hct MCV MCH RDW Plt Count Lymph % (Auto) Lymph # Seg Neutrophils % Seg Neuts % (Manual) Lymphocytes % (Manual) Nucleated RBC % Seg Neutrophils # Seg Neutrophils # Man Lymphocytes # (Manual) D-Dimer ABG pH ABG pO2 ABG HCO3 ABG O2 Saturation ABG Base Excess ABG Hemoglobin Oxyhemoglobin Sodium Potassium Chloride Carbon Dioxide BUN Glucose POC Glucose 355 H 345 H 382 H Hemoglobin A1c Calcium Phosphorus Magnesium Ferritin AST Lactate Dehydrogenase C-Reactive Protein Total Protein Albumin Coronavirus (PCR) 02/03/20 02/03/20 02/04/20 22:00 22:04 06:06 WBC Hgb Hct MCV MCH RDW Plt Count Lymph % (Auto) Lymph # Seg Neutrophils % Seg Neuts % (Manual) Lymphocytes % (Manual) Nucleated RBC % Seg Neutrophils # Seg Neutrophils # Man Lymphocytes # (Manual) D-Dimer ABG pH 7.505 H ABG pO2 59.1 L ABG HCO3 19.1 L ABG O2 Saturation 93.0 L ABG Base Excess -2.4 L ABG Hemoglobin 13.3 L Oxyhemoglobin 91.1 L Sodium Potassium Chloride Carbon Dioxide BUN Glucose POC Glucose 309 H Hemoglobin A1c Calcium Phosphorus Magnesium Ferritin 4214.0 H AST Lactate Dehydrogenase C-Reactive Protein Total Protein Albumin Coronavirus (PCR) 02/04/20 02/04/20 02/04/20 06:06 06:06 06:06 WBC Hgb Hct MCV 95 H MCH RDW Plt Count Lymph % (Auto) 4.3 L Lymph # 0.5 L Seg Neutrophils % 87.5 H Seg Neuts % (Manual) Lymphocytes % (Manual) Nucleated RBC % Seg Neutrophils # 9.3 H Seg Neutrophils # Man Lymphocytes # (Manual) D-Dimer ABG pH ABG pO2 ABG HCO3 ABG O2 Saturation ABG Base Excess ABG Hemoglobin Oxyhemoglobin Sodium Potassium Chloride Carbon Dioxide 21 L BUN 30 H Glucose 393 H POC Glucose Hemoglobin A1c Calcium 7.8 L Phosphorus Magnesium 2.70 H Ferritin AST Lactate Dehydrogenase 919 H C-Reactive Protein Total Protein Albumin Coronavirus (PCR) 02/04/20 02/04/20 02/04/20 08:57 13:12 17:45 WBC Hgb Hct MCV MCH RDW Plt Count Lymph % (Auto) Lymph # Seg Neutrophils % Seg Neuts % (Manual) Lymphocytes % (Manual) Nucleated RBC % Seg Neutrophils # Seg Neutrophils # Man Lymphocytes # (Manual) D-Dimer ABG pH ABG pO2 ABG HCO3 ABG O2 Saturation ABG Base Excess ABG Hemoglobin Oxyhemoglobin Sodium Potassium Chloride Carbon Dioxide BUN Glucose POC Glucose 353 H 364 H 292 H Hemoglobin A1c Calcium Phosphorus Magnesium Ferritin AST Lactate Dehydrogenase C-Reactive Protein Total Protein Albumin Coronavirus (PCR) 02/04/20 02/05/20 02/05/20 22:36 08:44 12:53 WBC Hgb Hct MCV MCH RDW Plt Count Lymph % (Auto) Lymph # Seg Neutrophils % Seg Neuts % (Manual) Lymphocytes % (Manual) Nucleated RBC % Seg Neutrophils # Seg Neutrophils # Man Lymphocytes # (Manual) D-Dimer ABG pH ABG pO2 ABG HCO3 ABG O2 Saturation ABG Base Excess ABG Hemoglobin Oxyhemoglobin Sodium Potassium Chloride Carbon Dioxide BUN Glucose POC Glucose 255 H 313 H 346 H Hemoglobin A1c Calcium Phosphorus Magnesium Ferritin AST Lactate Dehydrogenase C-Reactive Protein Total Protein Albumin Coronavirus (PCR) 02/05/20 02/05/20 02/06/20 16:55 22:38 01:04 WBC Hgb Hct MCV MCH RDW Plt Count Lymph % (Auto) Lymph # Seg Neutrophils % Seg Neuts % (Manual) Lymphocytes % (Manual) Nucleated RBC % Seg Neutrophils # Seg Neutrophils # Man Lymphocytes # (Manual) D-Dimer ABG pH ABG pO2 ABG HCO3 ABG O2 Saturation ABG Base Excess ABG Hemoglobin Oxyhemoglobin Sodium Potassium Chloride Carbon Dioxide BUN Glucose POC Glucose 270 H 106 H 122 H Hemoglobin A1c Calcium Phosphorus Magnesium Ferritin AST Lactate Dehydrogenase C-Reactive Protein Total Protein Albumin Coronavirus (PCR) 02/06/20 02/06/20 02/06/20 09:21 12:27 15:20 WBC Hgb Hct MCV MCH RDW Plt Count Lymph % (Auto) Lymph # Seg Neutrophils % Seg Neuts % (Manual) Lymphocytes % (Manual) Nucleated RBC % Seg Neutrophils # Seg Neutrophils # Man Lymphocytes # (Manual) D-Dimer 328.02 H ABG pH ABG pO2 ABG HCO3 ABG O2 Saturation ABG Base Excess ABG Hemoglobin Oxyhemoglobin Sodium Potassium Chloride Carbon Dioxide BUN Glucose POC Glucose 227 H 295 H Hemoglobin A1c Calcium Phosphorus Magnesium Ferritin AST Lactate Dehydrogenase C-Reactive Protein Total Protein Albumin Coronavirus (PCR) 02/06/20 02/06/20 02/06/20 15:20 15:20 16:50 WBC Hgb Hct MCV MCH RDW Plt Count Lymph % (Auto) Lymph # Seg Neutrophils % Seg Neuts % (Manual) Lymphocytes % (Manual) Nucleated RBC % Seg Neutrophils # Seg Neutrophils # Man Lymphocytes # (Manual) D-Dimer ABG pH ABG pO2 ABG HCO3 ABG O2 Saturation ABG Base Excess ABG Hemoglobin Oxyhemoglobin Sodium Potassium Chloride Carbon Dioxide BUN Glucose 311 H POC Glucose 258 H Hemoglobin A1c Calcium Phosphorus Magnesium Ferritin < 2000.0 H AST Lactate Dehydrogenase 719 H C-Reactive Protein Total Protein Albumin Coronavirus (PCR) 02/06/20 02/07/20 02/07/20 21:23 08:22 10:51 WBC Hgb Hct MCV MCH RDW Plt Count Lymph % (Auto) Lymph # Seg Neutrophils % Seg Neuts % (Manual) Lymphocytes % (Manual) Nucleated RBC % Seg Neutrophils # Seg Neutrophils # Man Lymphocytes # (Manual) D-Dimer ABG pH ABG pO2 ABG HCO3 ABG O2 Saturation ABG Base Excess ABG Hemoglobin Oxyhemoglobin Sodium Potassium Chloride Carbon Dioxide BUN Glucose POC Glucose 334 H 281 H 309 H Hemoglobin A1c Calcium Phosphorus Magnesium Ferritin AST Lactate Dehydrogenase C-Reactive Protein Total Protein Albumin Coronavirus (PCR) 02/07/20 02/07/20 02/08/20 16:27 22:40 07:44 WBC Hgb Hct MCV MCH RDW Plt Count Lymph % (Auto) Lymph # Seg Neutrophils % Seg Neuts % (Manual) Lymphocytes % (Manual) Nucleated RBC % Seg Neutrophils # Seg Neutrophils # Man Lymphocytes # (Manual) D-Dimer ABG pH ABG pO2 ABG HCO3 ABG O2 Saturation ABG Base Excess ABG Hemoglobin Oxyhemoglobin Sodium Potassium Chloride Carbon Dioxide BUN Glucose POC Glucose 288 H 278 H 267 H Hemoglobin A1c Calcium Phosphorus Magnesium Ferritin AST Lactate Dehydrogenase C-Reactive Protein Total Protein Albumin Coronavirus (PCR) 02/08/20 02/08/20 02/08/20 10:46 10:46 10:46 WBC Hgb Hct MCV 98 H MCH RDW Plt Count Lymph % (Auto) Lymph # Seg Neutrophils % Seg Neuts % (Manual) 97.0 H Lymphocytes % (Manual) 0 L Nucleated RBC % Seg Neutrophils # Seg Neutrophils # Man 10.2 H Lymphocytes # (Manual) 0.0 L D-Dimer 261.46 H ABG pH ABG pO2 ABG HCO3 ABG O2 Saturation ABG Base Excess ABG Hemoglobin Oxyhemoglobin Sodium 148 H Potassium 3.5 L Chloride 112.2 H Carbon Dioxide BUN 36 H Glucose 356 H POC Glucose Hemoglobin A1c Calcium 8.3 L Phosphorus Magnesium Ferritin AST Lactate Dehydrogenase C-Reactive Protein Total Protein Albumin Coronavirus (PCR) 02/08/20 02/08/20 02/08/20 10:46 10:46 12:22 WBC Hgb Hct MCV MCH RDW Plt Count Lymph % (Auto) Lymph # Seg Neutrophils % Seg Neuts % (Manual) Lymphocytes % (Manual) Nucleated RBC % Seg Neutrophils # Seg Neutrophils # Man Lymphocytes # (Manual) D-Dimer ABG pH ABG pO2 ABG HCO3 ABG O2 Saturation ABG Base Excess ABG Hemoglobin Oxyhemoglobin Sodium Potassium Chloride Carbon Dioxide BUN Glucose 351 H POC Glucose 358 H Hemoglobin A1c Calcium Phosphorus Magnesium Ferritin 1611.0 H AST Lactate Dehydrogenase 671 H C-Reactive Protein Total Protein Albumin Coronavirus (PCR) 02/08/20 02/08/20 02/09/20 14:00 17:02 08:45 WBC Hgb Hct MCV MCH RDW Plt Count Lymph % (Auto) Lymph # Seg Neutrophils % Seg Neuts % (Manual) Lymphocytes % (Manual) Nucleated RBC % Seg Neutrophils # Seg Neutrophils # Man Lymphocytes # (Manual) D-Dimer ABG pH ABG pO2 65.3 L ABG HCO3 ABG O2 Saturation 94.1 L ABG Base Excess ABG Hemoglobin 12.8 L Oxyhemoglobin 92.3 L Sodium Potassium Chloride Carbon Dioxide BUN Glucose POC Glucose 331 H 160 H Hemoglobin A1c Calcium Phosphorus Magnesium Ferritin AST Lactate Dehydrogenase C-Reactive Protein Total Protein Albumin Coronavirus (PCR) 02/09/20 02/09/20 02/09/20 12:27 17:22 23:11 WBC Hgb Hct MCV MCH RDW Plt Count Lymph % (Auto) Lymph # Seg Neutrophils % Seg Neuts % (Manual) Lymphocytes % (Manual) Nucleated RBC % Seg Neutrophils # Seg Neutrophils # Man Lymphocytes # (Manual) D-Dimer ABG pH ABG pO2 ABG HCO3 ABG O2 Saturation ABG Base Excess ABG Hemoglobin Oxyhemoglobin Sodium Potassium Chloride Carbon Dioxide BUN Glucose POC Glucose 262 H 237 H 140 H Hemoglobin A1c Calcium Phosphorus Magnesium Ferritin AST Lactate Dehydrogenase C-Reactive Protein Total Protein Albumin Coronavirus (PCR) 02/10/20 02/10/20 02/10/20 08:30 12:00 12:30 WBC Hgb Hct MCV MCH RDW Plt Count Lymph % (Auto) Lymph # Seg Neutrophils % Seg Neuts % (Manual) Lymphocytes % (Manual) Nucleated RBC % Seg Neutrophils # Seg Neutrophils # Man Lymphocytes # (Manual) D-Dimer ABG pH ABG pO2 ABG HCO3 ABG O2 Saturation ABG Base Excess ABG Hemoglobin Oxyhemoglobin Sodium Potassium Chloride Carbon Dioxide BUN Glucose 330 H POC Glucose 216 H 252 H Hemoglobin A1c Calcium Phosphorus Magnesium Ferritin AST Lactate Dehydrogenase 642 H C-Reactive Protein Total Protein Albumin Coronavirus (PCR) 02/10/20 02/10/20 02/10/20 12:30 16:32 23:38 WBC Hgb Hct MCV MCH RDW Plt Count Lymph % (Auto) Lymph # Seg Neutrophils % Seg Neuts % (Manual) Lymphocytes % (Manual) Nucleated RBC % Seg Neutrophils # Seg Neutrophils # Man Lymphocytes # (Manual) D-Dimer ABG pH ABG pO2 ABG HCO3 ABG O2 Saturation ABG Base Excess ABG Hemoglobin Oxyhemoglobin Sodium Potassium Chloride Carbon Dioxide BUN Glucose POC Glucose 245 H 196 H Hemoglobin A1c Calcium Phosphorus Magnesium Ferritin 1728.0 H AST Lactate Dehydrogenase C-Reactive Protein Total Protein Albumin Coronavirus (PCR) 02/11/20 02/11/20 02/11/20 08:07 11:41 13:47 WBC Hgb Hct MCV 98 H MCH RDW 15.7 H Plt Count Lymph % (Auto) Lymph # Seg Neutrophils % Seg Neuts % (Manual) Lymphocytes % (Manual) Nucleated RBC % Seg Neutrophils # Seg Neutrophils # Man Lymphocytes # (Manual) D-Dimer ABG pH ABG pO2 ABG HCO3 ABG O2 Saturation ABG Base Excess ABG Hemoglobin Oxyhemoglobin Sodium Potassium Chloride Carbon Dioxide BUN Glucose POC Glucose 300 H 286 H Hemoglobin A1c Calcium Phosphorus Magnesium Ferritin AST Lactate Dehydrogenase C-Reactive Protein Total Protein Albumin Coronavirus (PCR) 02/11/20 02/11/2002/10/20 13:47 17:17 21:17 WBC Hgb Hct MCV MCH RDW Plt Count Lymph % (Auto) Lymph # Seg Neutrophils % Seg Neuts % (Manual) Lymphocytes % (Manual) Nucleated RBC % Seg Neutrophils # Seg Neutrophils # Man Lymphocytes # (Manual) D-Dimer ABG pH ABG pO2 ABG HCO3 ABG O2 Saturation ABG Base Excess ABG Hemoglobin Oxyhemoglobin Sodium 158 H D Potassium Chloride 119.7 H Carbon Dioxide BUN 40 H Glucose 287 H POC Glucose 288 H 283 H Hemoglobin A1c Calcium 7.9 L Phosphorus Magnesium Ferritin AST Lactate Dehydrogenase C-Reactive Protein Total Protein Albumin Coronavirus (PCR) 02/12/20 02/12/20 02/12/20 06:01 08:37 10:58 WBC Hgb Hct MCV MCH RDW Plt Count Lymph % (Auto) Lymph # Seg Neutrophils % Seg Neuts % (Manual) Lymphocytes % (Manual) Nucleated RBC % Seg Neutrophils # Seg Neutrophils # Man Lymphocytes # (Manual) D-Dimer ABG pH ABG pO2 ABG HCO3 ABG O2 Saturation ABG Base Excess ABG Hemoglobin Oxyhemoglobin Sodium Potassium Chloride Carbon Dioxide BUN Glucose POC Glucose 273 H 313 H 288 H Hemoglobin A1c Calcium Phosphorus Magnesium Ferritin AST Lactate Dehydrogenase C-Reactive Protein Total Protein Albumin Coronavirus (PCR) 02/12/20 02/12/20 02/12/20 16:24 22:23 Unknown WBC Hgb Hct MCV MCH RDW Plt Count Lymph % (Auto) Lymph # Seg Neutrophils % Seg Neuts % (Manual) Lymphocytes % (Manual) Nucleated RBC % Seg Neutrophils # Seg Neutrophils # Man Lymphocytes # (Manual) D-Dimer ABG pH ABG pO2 ABG HCO3 ABG O2 Saturation ABG Base Excess ABG Hemoglobin Oxyhemoglobin Sodium Potassium Chloride Carbon Dioxide BUN Glucose POC Glucose 192 H 145 H Hemoglobin A1c Calcium Phosphorus Magnesium Ferritin AST Lactate Dehydrogenase C-Reactive Protein Total Protein Albumin Coronavirus (PCR) Positive A 02/13/20 02/13/20 02/13/20 00:32 09:06 11:22 WBC Hgb Hct MCV MCH RDW Plt Count Lymph % (Auto) Lymph # Seg Neutrophils % Seg Neuts % (Manual) Lymphocytes % (Manual) Nucleated RBC % Seg Neutrophils # Seg Neutrophils # Man Lymphocytes # (Manual) D-Dimer ABG pH ABG pO2 ABG HCO3 ABG O2 Saturation ABG Base Excess ABG Hemoglobin Oxyhemoglobin Sodium 162 H* Potassium 3.2 L Chloride 125.4 H Carbon Dioxide BUN 32 H Glucose 132 H POC Glucose 221 H 319 H Hemoglobin A1c Calcium 7.6 L Phosphorus Magnesium Ferritin AST Lactate Dehydrogenase C-Reactive Protein Total Protein Albumin Coronavirus (PCR) 02/13/20 02/13/20 02/13/20 14:33 16:18 23:35 WBC Hgb Hct MCV MCH RDW Plt Count Lymph % (Auto) Lymph # Seg Neutrophils % Seg Neuts % (Manual) Lymphocytes % (Manual) Nucleated RBC % Seg Neutrophils # Seg Neutrophils # Man Lymphocytes # (Manual) D-Dimer ABG pH ABG pO2 ABG HCO3 ABG O2 Saturation ABG Base Excess ABG Hemoglobin Oxyhemoglobin Sodium 154 H Potassium Chloride 117.5 H Carbon Dioxide BUN 30 H Glucose 415 H POC Glucose 351 H 182 H Hemoglobin A1c Calcium 7.5 L Phosphorus Magnesium Ferritin AST Lactate Dehydrogenase C-Reactive Protein Total Protein Albumin Coronavirus (PCR) 02/14/20 02/14/20 02/14/20 05:25 11:54 17:39 WBC Hgb Hct MCV MCH RDW Plt Count Lymph % (Auto) Lymph # Seg Neutrophils % Seg Neuts % (Manual) Lymphocytes % (Manual) Nucleated RBC % Seg Neutrophils # Seg Neutrophils # Man Lymphocytes # (Manual) D-Dimer ABG pH ABG pO2 ABG HCO3 ABG O2 Saturation ABG Base Excess ABG Hemoglobin Oxyhemoglobin Sodium 156 H Potassium 3.1 L Chloride 121.7 H Carbon Dioxide BUN 28 H Glucose 74 L POC Glucose 120 H 226 H Hemoglobin A1c Calcium 7.7 L Phosphorus 2.00 L Magnesium Ferritin AST Lactate Dehydrogenase C-Reactive Protein Total Protein Albumin Coronavirus (PCR) 02/14/20 02/15/20 02/15/20 22:05 05:47 12:08 WBC Hgb Hct MCV MCH RDW Plt Count Lymph % (Auto) Lymph # Seg Neutrophils % Seg Neuts % (Manual) Lymphocytes % (Manual) Nucleated RBC % Seg Neutrophils # Seg Neutrophils # Man Lymphocytes # (Manual) D-Dimer ABG pH ABG pO2 ABG HCO3 ABG O2 Saturation ABG Base Excess ABG Hemoglobin Oxyhemoglobin Sodium 149 H Potassium Chloride 115.1 H Carbon Dioxide BUN 22 H Glucose 74 L POC Glucose 305 H 259 H Hemoglobin A1c Calcium 7.5 L Phosphorus Magnesium Ferritin AST Lactate Dehydrogenase C-Reactive Protein Total Protein Albumin Coronavirus (PCR) 02/15/20 02/15/20 02/16/20 16:22 23:29 11:39 WBC Hgb Hct MCV MCH RDW Plt Count Lymph % (Auto) Lymph # Seg Neutrophils % Seg Neuts % (Manual) Lymphocytes % (Manual) Nucleated RBC % Seg Neutrophils # Seg Neutrophils # Man Lymphocytes # (Manual) D-Dimer ABG pH ABG pO2 ABG HCO3 ABG O2 Saturation ABG Base Excess ABG Hemoglobin Oxyhemoglobin Sodium Potassium Chloride Carbon Dioxide BUN Glucose POC Glucose 245 H 114 H 196 H Hemoglobin A1c Calcium Phosphorus Magnesium Ferritin AST Lactate Dehydrogenase C-Reactive Protein Total Protein Albumin Coronavirus (PCR) 02/16/20 02/16/20 02/16/20 13:47 13:47 13:47 WBC Hgb Hct MCV MCH RDW Plt Count Lymph % (Auto) Lymph # Seg Neutrophils % Seg Neuts % (Manual) Lymphocytes % (Manual) Nucleated RBC % Seg Neutrophils # Seg Neutrophils # Man Lymphocytes # (Manual) D-Dimer 454.59 H ABG pH ABG pO2 ABG HCO3 ABG O2 Saturation ABG Base Excess ABG Hemoglobin Oxyhemoglobin Sodium Potassium Chloride Carbon Dioxide BUN Glucose POC Glucose Hemoglobin A1c Calcium Phosphorus Magnesium Ferritin 1573.0 H AST Lactate Dehydrogenase 651 H C-Reactive Protein Total Protein Albumin Coronavirus (PCR) 02/16/20 02/16/20 02/17/20 16:12 22:06 07:13 WBC Hgb Hct MCV MCH RDW Plt Count Lymph % (Auto) Lymph # Seg Neutrophils % Seg Neuts % (Manual) Lymphocytes % (Manual) Nucleated RBC % Seg Neutrophils # Seg Neutrophils # Man Lymphocytes # (Manual) D-Dimer ABG pH ABG pO2 ABG HCO3 ABG O2 Saturation ABG Base Excess ABG Hemoglobin Oxyhemoglobin Sodium Potassium Chloride Carbon Dioxide 20 L BUN Glucose 74 L POC Glucose 304 H 179 H Hemoglobin A1c Calcium 7.6 L Phosphorus 2.20 L Magnesium Ferritin AST Lactate Dehydrogenase C-Reactive Protein Total Protein Albumin Coronavirus (PCR) 02/17/20 02/17/20 02/17/20 07:57 09:03 11:30 WBC Hgb Hct MCV 99 H MCH RDW 15.9 H Plt Count 65 L Lymph % (Auto) 7.1 L Lymph # 0.4 L Seg Neutrophils % 89.2 H Seg Neuts % (Manual) Lymphocytes % (Manual) Nucleated RBC % Seg Neutrophils # Seg Neutrophils # Man Lymphocytes # (Manual) D-Dimer ABG pH ABG pO2 ABG HCO3 ABG O2 Saturation ABG Base Excess ABG Hemoglobin Oxyhemoglobin Sodium Potassium Chloride Carbon Dioxide BUN Glucose POC Glucose 67 L 127 H Hemoglobin A1c Calcium Phosphorus Magnesium Ferritin AST Lactate Dehydrogenase C-Reactive Protein Total Protein Albumin Coronavirus (PCR) 02/17/20 02/18/20 02/18/20 21:24 08:32 09:32 WBC Hgb Hct MCV MCH RDW Plt Count Lymph % (Auto) Lymph # Seg Neutrophils % Seg Neuts % (Manual) Lymphocytes % (Manual) Nucleated RBC % Seg Neutrophils # Seg Neutrophils # Man Lymphocytes # (Manual) D-Dimer ABG pH ABG pO2 ABG HCO3 ABG O2 Saturation ABG Base Excess ABG Hemoglobin Oxyhemoglobin Sodium Potassium Chloride Carbon Dioxide 21 L BUN Glucose 130 H POC Glucose 215 H 131 H Hemoglobin A1c Calcium 7.4 L Phosphorus 2.20 L Magnesium Ferritin AST Lactate Dehydrogenase C-Reactive Protein Total Protein Albumin Coronavirus (PCR) 02/18/20 12:30 WBC Hgb Hct MCV MCH RDW Plt Count Lymph % (Auto) Lymph # Seg Neutrophils % Seg Neuts % (Manual) Lymphocytes % (Manual) Nucleated RBC % Seg Neutrophils # Seg Neutrophils # Man Lymphocytes # (Manual) D-Dimer ABG pH ABG pO2 ABG HCO3 ABG O2 Saturation ABG Base Excess ABG Hemoglobin Oxyhemoglobin Sodium Potassium Chloride Carbon Dioxide BUN Glucose POC Glucose 271 H Hemoglobin A1c Calcium Phosphorus Magnesium Ferritin AST Lactate Dehydrogenase C-Reactive Protein Total Protein Albumin Coronavirus (PCR) Allied health notes reviewed: nursing
--- NOTE | 2020-02-18 14:23 | Progress Note ---
Assessment and Plan - Patient Problems (1) Abnormal ECG Current Visit: Yes Status: Acute Plan to address problem: Cardiology following. Patient with ventricular arrhythmia not at this particular time. (2) Acute respiratory failure with hypoxia Current Visit: Yes Status: Acute Plan to address problem: Still unable to wean patient from high flow O2 secondary to COVID-19 pneumonia. Awaiting convalescent plasma. Has Remdesivir dex (3) Bilateral pneumonia Current Visit: Yes Status: Acute Qualifiers: Lung location: unspecified part of lung Plan to address problem: Bilateral pneumonia secondary to COVID-19. Patient inflammatory markers high continue to keep sats above 92%. . ID following awaiting convalescent plasma. We will follow inflammatory markers every 2 days. (4) COVID-19 Current Visit: Yes Status: Acute Plan to address problem: COVID-19 positive continue with decimeter dexamethasone. Follow inflammatory markers. (5) DVT prophylaxis Current Visit: Yes Status: Acute Plan to address problem: Continue low-dose molecular weight heparin. (6) Pneumonia Current Visit: Yes Status: Acute Qualifiers: Pneumonia type: due to unspecified organism Laterality: bilateral Lung location: unspecified part of lung Qualified Code(s): J18.9 - Pneumonia, unspecified organism (7) T2DM (type 2 diabetes mellitus) Current Visit: Yes Status: Chronic Qualifiers: Diabetes mellitus shelter insulin use: unspecified shelter insulin use status Plan to address problem: Diabetes very well controlled. Accu-Chek 120. (8) Advance care planning Current Visit: Yes Status: Acute Plan to address problem: Patient will need placement. Orders have been in place. Subjective Date of service: 02/18/20 Principal diagnosis: Severe Sepsis; COVID-19; Hari PNA; Ac. hypoxemic Resp failure; DM II Interval history: Patient remains confused advanced dementia still on high flow O2 FiO2 100% satting at 94%. Spoke to family [phone] bud answered all questions to family satisfaction. Objective - Constitutional Vitals: Vital Signs - 12hr 02/18/20 02/18/20 02/18/20 02:30 04:19 09:29 Temperature 98.1 F Pulse Rate 89 Respiratory 20 Rate Blood Pressure 132/70 130/57 O2 Sat by Pulse 82 L 82 L Oximetry 02/18/20 02/18/20 09:30 10:25 Temperature 97.9 F Pulse Rate 92 H 83 Respiratory 20 Rate Blood Pressure 130/57 74/41 O2 Sat by Pulse 90 Oximetry General appearance: Present: no acute distress, well-nourished - Respiratory Respiratory effort: normal Respiratory: bilateral: diminished, rhonchi - Cardiovascular Rhythm: regular - Gastrointestinal General gastrointestinal: Present: soft, non-tender, non-distended, normal bowel sounds - Musculoskeletal Musculoskeletal: generalized weakness - Neurologic Neurologic: moves all extremities - Psychiatric Psychiatric: agitated, other (Extremely poor cognition.) - Labs CBC & Chem 7: 02/17/20 09:03 02/18/20 09:32 Labs: Abnormal lab results 02/17/20 02/18/20 02/18/20 Range/Units 21:24 08:32 09:32 Carbon Dioxide 21 L (22-30) mmol/L Glucose 130 H (75-100) mg/dL POC Glucose 215 H 131 H (70-105) Calcium 7.4 L (8.4-10.2) mg/dL Phosphorus 2.20 L (2.5-4.5) mg/dL 02/18/20 Range/Units 12:30 Carbon Dioxide (22-30) mmol/L Glucose (75-100) mg/dL POC Glucose 271 H (70-105) Calcium (8.4-10.2) mg/dL Phosphorus (2.5-4.5) mg/dL HEART Score - HEART Score Troponin: Troponin T 0.014 ng/mL (0.00-0.029) 01/29/20 17:03
--- NOTE | 2020-02-18 16:21 | Progress Note ---
Assessment and Plan Cultures: Blood cultures no growth Assessment: 89 years old male with history of diabetes mellitus, admitted on 01/29/2020 due to 2-week history of generalized weakness, mild cough, dyspnea on exertion: #Sepsis: present on admission with fever, hypoxia; source COVID-19 infection. #COVID-19 pneumonia: elevated biomarkers. 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 Completed 5 days of Remdesivir, completed Actemra 01/31/2020. #Acute hypoxemic respiratory failure: Remains on high flow. Recommendations: Continue steroid taper on solumedrol Awaiting convalescent plasma monitor markers every 2 days continue with anticoagulation given the severe hypoxia and elevated d-dimer GNeda Keller MD [facility] M: [phone] O: [phone] F: [phone] Subjective Date of service: 02/18/20 Principal diagnosis: Severe Sepsis; COVID-19; Hari PNA; Ac. hypoxemic Resp failure; DM II Interval history: Afebrile, HF NC 20/65% Objective - Exam Narrative Exam: Physical exam deferred due to PPE conservation strategy. Reviewed in chart. - Constitutional Vitals: Vital Signs Temp Pulse Resp BP Pulse Ox 98.4 F 86 20 114/56 96 02/18/20 14:00 02/18/20 14:00 02/18/20 14:00 02/18/20 14:00 02/18/20 16:12 Temperature -Last 24 Hours Temperature 98.4 F Temperature 97.9 F Temperature 98.1 F Temperature 98.2 F Temperature 97.6 F - Labs CBC & Chem 7: 02/17/20 09:03 02/18/20 09:32 Labs: Abnormal lab results 02/17/20 02/18/20 02/18/20 Range/Units 21:24 08:32 09:32 Carbon Dioxide 21 L (22-30) mmol/L Glucose 130 H (75-100) mg/dL POC Glucose 215 H 131 H (70-105) Calcium 7.4 L (8.4-10.2) mg/dL Phosphorus 2.20 L (2.5-4.5) mg/dL 02/18/20 Range/Units 12:30 Carbon Dioxide (22-30) mmol/L Glucose (75-100) mg/dL POC Glucose 271 H (70-105) Calcium (8.4-10.2) mg/dL Phosphorus (2.5-4.5) mg/dL
[2020-02-19] MEDS: K-PHOS NEUTRAL 250 MG TAB PO SCH ×3 (01:05→13:41)
[2020-02-19] MEDS: INSULIN REGULAR, HUMAN 100 UNITS/1 ML SUB-Q SCH ×3 (01:07→13:41)
[2020-02-19] MEDS: INSULIN GLARGINE 100 UNITS/ML SUB-Q SCH (01:08)
[2020-02-19] MEDS: FAMOTIDINE 20 MG TAB PO SCH ×2 (01:09→10:27)
[2020-02-19] MEDS: METOPROLOL TARTRATE 50 MG TAB PO SCH ×2 (01:09→10:25)
[2020-02-19] MEDS: PRAZOSIN 1 MG CAP PO SCH ×2 (01:10→10:25)
[2020-02-19 01:20] LABS: ABG PCO2 TNR mm Hg; ABG PH TNR pH Units (7.350-7.450)
[2020-02-19 01:21] LABS: ABG Base Excess TNR mmol/L (-2.0-3.0); ABG HCO3 TNR mmol/L (20.0-26.0); ABG Methemoglobin TNR % (0.0-1.5); ABG Oxygen Saturation TNR % (95.0-99.0); ABG PO2 TNR mm Hg (80.0-90.0)
[2020-02-19] MEDS: HYDROmorphone 1 MG/1 ML INJ IV PRN (05:15)
[2020-02-19 06:39] LABS: BUN/Creatinine Ratio 15; Blood Urea Nitrogen 15 mg/dL (9-20); Calcium 7.7 mg/dL (8.4-10.2); Hemolysis Index 80
--- NOTE | 2020-02-19 09:51 | XRay Report ---
CHEST 1 VIEW INDICATION: Follow up on Pneumonia.. COMPARISON: 02/08/2020 FINDINGS: Support devices: None. Heart: Within normal limits. Lungs/Pleura: There is poor inspiration but slight increase in the bilateral lung opacities is demons trated since the previous exam. The left lung is more affected. No pleural effusion or pneumothorax. Additional findings: None. IMPRESSION: Mild interval increase in the bilateral lung opacities, left greater than right. Signer Name: Robb Serna Jr, MD Signed: 02/19/2020 9:46 AM Workstation Name: [id number]
[2020-02-19] MEDS: ZINC SULFATE 220 MG CAP PO SCH (10:27)
[2020-02-19] MEDS: methylPREDNISolone Sod Succinate 40 MG/1 ML INJ IV SCH (10:28)
--- NOTE | 2020-02-19 13:40 | Discharge Summary ---
Providers - Providers Date of Admission: 01/29/20 17:53 Date of discharge: 02/19/20 Attending physician: DAVY MANNING 01/30/20 01:00 Consult to Physician [CONS] Routine Comment: Consulting Provider: SABRINA BENSON Physician Instructions: Reason For Exam: Covid positive 02/04/20 16:38 Consult to Physician [CONS] Routine Comment: Consulting Provider: JONI KENDALL Physician Instructions: Reason For Exam: acute respiratory failure 02/10/20 09:23 Speech Therapy Evaluation and Treat [CONS] Routine Reason For Exam: aspiration risk 02/10/20 09:27 Consult to Dietitian/Nutrition [CONS] Routine Physician Instructions: Assess nutrtn needs, initiate, modify, manage TF Reason For Exam: Reason for Consult: Write/Manage Tube Feeding Reason for Consult: Write/Manage Tube Feeding 02/13/20 09:18 Consult to Physician [CONS] Routine Comment: Consulting Provider: KAMRAN LANIER Physician Instructions: Reason For Exam: hypernatremia 02/18/20 07:08 Consult to Wound/ET Nurse [CONS] Routine Reason For Exam: wound eval posterior ears,sacrum Primary care physician: FULLER BRUSH WORKER Hospitalization Condition: Serious Pertinent studies: CXR Hospital course: 89 years old male with history of diabetes mellitus, admitted on 01/29/2020 due to 2-week history of generalized weakness, mild cough, dyspnea on exertion. Patient tested positive for COVID-19 recently. Patient's son also was positive for COVID-19 initially. Initial WBC 3.6. Hemoglobin 12.2. Platelets 142. D- dimer 2573. Ferritin 2000, CRP 10.2. LDH 930. Procalcitonin 0.18. AST 76. Chest x-ray showed bilateral interstitial infiltrateRepeat Cobin 19 test was positive during this admission. ID was consulted and patient was given empiric steroid with Solu-Medrol, treated with Remdesivir and also given Tocilizumab IV x1. But patient persistently was requiring high flow O2 and was difficult to w price off, I recommended convalescent plasma which was requested from my clinic but have not received it yet. Patient admissions also got complicated with hyponatremia which was treated with hypotonic fluid. Patient remained confused and intermittently agitated. Patient was referred to LTAC and he was accepted. Patient was then discharged to LTAC in stable condition. 01/29: Positive for COVID 19, follow inflammatory markers, start on iv solumedrol. Start Tocilizumab IV x1 01/30; Start Remdesivir, Continue Solu-Medrol 40 mg IV every 8 hours. follow inflammatory markers 01/31: cont Remdesivir day 2, Solu-Medrol 40 mg IV every 8 hours. follow inflammatory markers 02/01 patient is awake and alert, moderately short of breath, he denies any fever, chills, chest pain and has occasional dry cough. Denies nausea or abdominal pain. vital signs deteriorated this morning with worsening hypoxemia, now on nonrebreather Ventimask ID note reviewed, lab results reviewed 02/02 patient was not seen [id number] today, he is now on high flow nasal cannula, no acute events overnight and discussed with RN, lab results reviewed ID note reviewed 02/03: appears agitated, ferritin trended up. completed Remdesivir today. cont solumedrol iv q8h. transfer to [facility], patient on 100% FiO2 today 02/04 patient remains on 90% FiO2, appears very confused and unable to give any consent. Continue IV steroid, will try to get consent for convalescent plasma from family 02/05 patient on 70% Fio2 today, waiting on family consent for for convalescent plasma 02/06 spoke with patient's son directly and he is not willing to give consent for convalescent plasma and requested that his sister who lives in [place] will give the consent. Waiting on patient daughter to call back to give the consent. We will order for type and screen. Patient on 50% FiO2 today. 02/07: On 60% FiO2. obtained consent from daughter. requested for convalescent plasma 02/08: on 50% FiO2. requested for convalescent plasma - code [id number], waiting on shipment from [facility] 02/09: waiting on convalescent plasma - waiting on shipment from [facility], patient on 60% FiO2, remains confused 02/10: waiting on convalescent plasma from [facility]. Called daughter but didn't get any response - updated son 02/11: Patient remains on 6L o2. reordered covid 19. change iv fluid to d5 1/2 NS for hypernatremia 02/12: Na 162 today, change fluid to d5w, nephrology consulted. waiting on co nvalescent plasma from [facility]. repeat covid test still positive 02/13-02/17: na level improved with hypotonic fluid, Cr stabilized. patient placed back on high flow O2. referral made for LTAC. Still waiting on convalescent plasma from [facility]. 02/18: discharge order placed for LTAC, patient remains on high flow O2 and restrained. Discussed plan of care thoroughly with patient's son by phone.. Patient will be transferred to LTAC as soon as bed available. Still waiting on convalescent plasma from my clinic. Discharge diagnosis and Mx: /Acute toxic encephalopathy -Likely due to severe hypoxia and COVID-19 infection with underlying dementia -Continue to monitor, provide supportive care -Haldol as needed, sitter in place, placed on restraint /Sepsis: present on admission with fever, hypoxia; source COVID-19 infection due to COVID-19 pneumonia: /Bilateral pneumonia s/p Rocephin and azithromycin ID consult requested Coronavirus positive cont Isolation Inflammatory markers are very high - con to follow / COVID-19 PNA COVID +ve 01/28 and 02/12 Patient exposed to his son who had coronavirus nasal cannula oxygen to keep O2 sat >94% Patient isolated, ID following follow inflammatory markers s/p Remdesivir x 5 days, S/p Tocilizumab IV x1 s/p Solu-Medrol 40 mg IV every 8 hours - now taper off ID now recommended for convalescent plasma -requested from [facility] /Acute hypoxic Respiratory failure -due to COVID-19 pneumonia - O2 sat drops with activity and on rest - cont nebs, supplemental O2 / Elevated d-dimer Lovenox initiated /Hyperlipidemia, cont statin /T2DM (type 2 diabetes mellitus) consistent carb diet, SSI Coverage for now /hypernatremia, due to lacking proper oral hydration -cont iv fluid /DVT prophylaxis Patient on Lovenox and GI prophylaxis Disposition: TO HOME OR SELFCARE Time spent for discharge: 34 minutes Core Measure Documentation - Palliative Care Palliative Care/ Comfort Measures: Not Applicable - Core Measures Any of the following diagnoses?: none Exam - Physical Exam Narrative exam: Constitutional:alert but confused Neck: supple Oral:no ulcer, dry Cardiovascular: s1 s2 positive Respiratory: mae rhonchi per NS GI: BS positive Musculoskeletal: no joint swelling Skin: No rash or abscess Psych: agitated Neurological: on restraint - Constitutional Vitals: Temp Pulse Resp BP Pulse Ox 98.0 F 90 20 106/74 96 02/19/20 10:19 02/19/20 04:39 02/19/20 10:19 02/19/20 10:19 02/19/20 10:19 Plan Activity: other (bedrest) Diet: other (pureed diet) Follow up with: PRIMARY CARE, [Primary Care Provider] - 3-5 Days Prescriptions: Ipratropium/Albuterol Sulfate [DUONEB *Not for PRN Use*] 1 ampul IH Q6HR #30 ampul.neb Enoxaparin Sodium [Lovenox] 100 mg SQ Q24H #30 syringe
--- NOTE | 2020-02-19 14:06 | Progress Note ---
Assessment and Plan 1. Hypernatremia: Secondary to dehydration. Sodium level is better. Stop IV D5W. Monitor Sodium level. 2. FEN: Monitor lytes and volume status. 3. Acute hypoxic Respiratory failure: On HFNC O2. Cont nebs and Solumedrol. Followed by Pulmonary. 4. Bilateral pneumonia: S/p Rocephin and azithromycin. COVID-19 positive. Follow Inflammatory markers. Followed by ID. 5. Acute toxic metabolic encephalopathy. 6. Elevated d-dimer. 7. Type 2 diabetes mellitus. Will sign off. Please call with any questions. - Subjective: Patient was seen and examined at the bedside. - General Appearance General appearance: well-developed, well-nourished, on HFNC O2, on restrains HEENT: ATNC Neck: trachea midline Respiratory: Clear to Ascultation Heart: regular, S1S2, no murmurs Gastrointestinal: soft, normoactive bowel sounds, not tender Integumentary: no rash, warm and dry Neurologic: somnolent : condom catheter Subjective Date of service: 02/19/20 Principal diagnosis: COVID Objective - Vital Signs Vital signs: Vital Signs - 12hr 02/19/20 02/19/20 02/19/20 04:39 08:00 10:19 Temperature 98.5 F 98.0 F Pulse Rate 90 Respiratory 20 20 Rate Blood Pressure 149/86 106/74 O2 Sat by Pulse 85 91 96 Oximetry - Lab 02/17/20 09:03 02/19/20 05:38 Most recent lab results ABG pH TNR 02/19/20 00:40 ABG pCO2 TNR 02/19/20 00:40 ABG pO2 TNR 02/19/20 00:40 ABG HCO3 TNR 02/19/20 00:40 ABG O2 Saturation TNR 02/19/20 00:40 Calcium 7.7 mg/dL (8.4-10.2) L 02/19/20 05:38 Phosphorus 2.80 mg/dL (2.5-4.5) D 02/19/20 05:38 Magnesium 2.70 mg/dL (1.7-2.3) H 02/04/20 06:06 Medications & Allergies - Medications Allergies/Adverse Reactions: Allergies No Known Allergies Allergy (Unverified 01/29/20 18:36) Home Medications: Home Medications Medication Instructions Recorded Confirmed Last Taken Type AtorvaSTATin [Lipitor] 40 mg PO QHS 01/31/20 01/31/20 Unknown History Terazosin [Hytrin] 1 mg PO BID 01/31/20 01/31/20 Unknown History Enoxaparin Sodium [Lovenox] 100 mg SQ Q24H #30 syringe 02/19/20 Unknown Rx Famotidine [Pepcid] 20 mg PO BID tablet 02/19/20 Unknown Rx Insulin Glargine [Lantus VIAL] 28 units SUB-Q QHS units 02/19/20 Unknown Rx Insulin Regular, Human [HumuLIN R] 0 units SUB-Q ACHS units 02/19/20 Unknown Rx Ipratropium/Albuterol Sulfate 1 ampul IH Q6HR #30 ampul.neb 02/19/20 Unknown Rx [DUONEB *Not for PRN Use*] Phosphorus #1 [K-Phos Neutral] 500 mg PO TID tablet 02/19/20 Unknown Rx Zinc Sulfate 220 mg PO QDAY capsule 02/19/20 Unknown Rx Active Medications: Generic Name Dose Route Start Last Admin Trade Name Freq PRN Reason Stop Dose Admin Acetaminophen 650 mg 01/29/20 20:46 Tylenol PO Q4H PRN Pain MILD(1-3)/Fever >100.5/GALINDO Lipase/Protease/Amylase 1 each 02/10/20 09:27 Pancrefaraz Negrete 10,500 Unit FEEDTUBE PRN PRN For Clogged Feeding Tube Atorvastatin Calcium 40 mg 02/02/20 22:00 02/19/20 01:08 Lipitor PO 40 mg QHS JUNE Administration Famotidine 20 mg 01/29/20 22:00 02/19/20 10:27 Pepcid PO 20 mg BID JUNE Administration Hydromorphone HCl 0.5 mg 01/29/20 20:48 02/19/20 05:15 Dilaudid IV 0.5 mg Q3H PRN Administration Pain , Severe (7-10) Dextrose 1,000 mls @ 75 mls/hr 02/13/20 10:00 02/18/20 03:00 D5w IV 100 mls/hr DIRECT JUNE Administration Insulin Glargine 28 units 02/16/20 22:00 02/19/20 01:08 Lantus SUB-Q 28 units QHS JUNE Administration Insulin Human Regular 0 units 02/13/20 11:30 02/19/20 13:41 Humulin R SUB-Q Not Given ACHS [facility] Protocol Lorazepam 1 mg 02/02/20 07:55 02/16/20 23:00 Ativan IV 1 mg Q4H PRN Administration Anxiety Methylprednisolone Sodium Succinate 20 mg 02/12/20 16:27 02/19/20 10:28 Solu-Medrol IV 20 mg Q24HR JUNE Administration Metoclopramide HCl 10 mg 01/29/20 20:48 Reglan IV Q6H PRN Nausea And Vomiting Metoprolol Tartrate 50 mg 02/08/20 22:00 02/19/20 10:25 Metoprolol PO Not Given BID [facility] Ondansetron HCl 4 mg 01/29/20 20:46 01/29/20 23:28 Zofran IV 4 mg Q8H PRN Administration Nausea And Vomiting Oxycodone/Acetaminophen 1 tab 01/29/20 20:48 02/10/20 23:53 Percocet 5/325 PO 1 tab Q6H PRN Administration Pain, Moderate (4-6) Prazosin HCl 1 mg 02/02/20 10:00 02/19/20 10:25 Prazosin PO Not Given BID JUNE Simple Syrup 15 ml 02/10/20 09:27 Simple Syrup FEEDTUBE PRN PRN Hypoglycemia Simple Syrup 30 ml 02/10/20 09:27 Simple Syrup FEEDTUBE PRN PRN Hypoglycemia Sodium Bicarbonate 325 mg 02/10/20 09:27 Sodium Bicarbonate FEEDTUBE PRN PRN For Clogged Feeding Tube Sodium Chloride 10 ml 01/29/20 22:00 02/19/20 10:27 Sodium Chloride Flush Syringe 10 Ml IV 10 ml BID JUNE Administration Sodium Chloride 10 ml 01/29/20 20:46 Sodium Chloride Flush Syringe 10 Ml IV PRN PRN LINE FLUSH Sodium Phosphate 500 mg 02/18/20 14:00 02/19/20 13:41 K-Phos Neutral PO 500 mg TID JUNE Administration Zinc Sulfate 220 mg 02/03/20 10:00 02/19/20 10:27 Zinc Sulfate PO 220 mg QDAY JUNE Administration
--- NOTE | 2020-02-19 14:18 | Progress Note ---
Assessment and Plan Cultures: Blood cultures no growth Assessment: 89 years old male with history of diabetes mellitus, admitted on 01/29/2020 due to 2-week history of generalized weakness, mild cough, dyspnea on exertion: #Sepsis: present on admission with fever, hypoxia; source COVID-19 infection. #COVID-19 pneumonia: elevated biomarkers. 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 Completed 5 days of Remdesivir, completed Actemra 01/31/2020. #Acute hypoxemic respiratory failure: Remains on high flow. Recommendations: Continue steroid taper on solumedrol Awaiting convalescent plasma monitor markers every 2 days continue with anticoagulation given the severe hypoxia and elevated d-dimer GNeda Keller MD [facility] M: [phone] O: [phone] F: [phone] Subjective Date of service: 02/19/20 Principal diagnosis: COVID Interval history: Afebrile, currently on high flow nasal cannula 20 L/min 80% FiO2 Objective - Exam Narrative Exam: Physical exam deferred due to PPE conservation strategy. Reviewed in chart. - Constitutional Vitals: Vital Signs Temp Pulse Resp BP Pulse Ox 98.0 F 90 20 106/74 96 02/19/20 10:19 02/19/20 04:39 02/19/20 10:19 02/19/20 10:19 02/19/20 10:19 Temperature -Last 24 Hours Temperature 98.0 F Temperature 98.5 F Temperature 98.1 F Temperature 98.0 F - Labs CBC & Chem 7: 02/17/20 09:03 02/19/20 05:38 Labs: Abnormal lab results 02/18/20 02/18/20 02/19/20 Range/Units 18:15 22:55 05:38 Sodium 136 L (137-145) mmol/L Carbon Dioxide 18 L (22-30) mmol/L Glucose 116 H (75-100) mg/dL POC Glucose 327 H 252 H (70-105) Calcium 7.7 L (8.4-10.2) mg/dL
--- NOTE | 2020-02-19 14:26 | Progress Note ---
Assessment and Plan Patient awake and he resting on Vapotherm, FIO2 80% and O2 saturation 92%. Patients O2 requirement are still high. Patient afebrile. No leukocytosis. Chest xray 02/08/20 reported There is some improvement in pulmonary opacities on the right and slight worsening on the left. Repeat chest xray 02/19/20 reported Mild interval increase in the bilateral lung opacities, left greater than right. Antibiotics as per infectious diseases. - Patient Problems (1) Acute respiratory failure with hypoxia Current Visit: Yes Status: Acute Plan to address problem: Continue Vapotherm 80%. Continue Solumedrol. Continue Lovenox. Continue famotidine. (2) Bilateral pneumonia Current Visit: Yes Status: Acute Qualifiers: Lung location: unspecified part of lung Plan to address problem: Antibiotics as per infectious diseases. (3) COVID-19 Current Visit: Yes Status: Acute Plan to address problem: On vapotherm, FIO2 80%. Continue Solumedrol. Continue Lovenox. Continue famotidine. Management as per infectious diseases. (4) Elevated d-dimer Current Visit: Yes Status: Acute Plan to address problem: Patient treated with S/C Lovenox 100mg S/C q 12 hours. 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 Subjective Date of service: 02/19/20 Principal diagnosis: COVID Interval history: Patient awake and he resting on Vapotherm, FIO2 80% and O2 saturation 92%. Patients O2 requirement are still high. Patient afebrile. No leukocytosis. Chest xray 02/08/20 reported There is some improvement in pulmonary opacities on the right and slight worsening on the left. Repeat chest xray 02/19/20 reported Mild interval increase in the bilateral lung opacities, left greater than right. Antibiotics as per infectious diseases. Objective Vital Signs - 12hr 02/19/20 02/19/20 02/19/20 04:39 08:00 10:19 Temperature 98.5 F 98.0 F Pulse Rate 90 Respiratory 20 20 Rate Blood Pressure 149/86 106/74 O2 Sat by Pulse 85 91 96 Oximetry Constitutional: no acute distress, alert Eyes: non-icteric ENT: oropharynx moist Neck: supple, no JVD, other (large neck circumference) Effort: mildly labored Ascultation: Bilateral: diminished breath sounds, rhonchi Percussion: Bilateral: not dull Cardiovascular: regular rate and rhythm, other (S1,S2) Gastrointestinal: normoactive bowel sounds, soft, non-tender, non-distended (protuberant) Integumentary: normal Extremities: no cyanosis, no edema, pulses normal, no ischemia or petechiae Neurologic: non-focal exam (grossly, moving all extremities), pupils equal and round, CN II-XII normal, unable to assess Psychiatric: other (mood andf affect flat) CBC and BMP: 02/17/20 09:03 02/19/20 05:38 ABG, PT/INR, D-dimer: ABG ABG pH TNR 02/19/20 00:40 ABG pCO2 TNR 02/19/20 00:40 ABG pO2 TNR 02/19/20 00:40 ABG O2 Saturation TNR 02/19/20 00:40 PT/INR, D-dimer PT 13.9 Sec. (12.2-14.9) 01/29/20 17:03 INR 1.09 (0.87-1.13) 01/29/20 17:03 D-Dimer 454.59 ng/mlDDU (0-234) H 02/16/20 13:47 Abnormal lab findings: Abnormal Labs 01/29/20 01/29/20 01/29/20 17:03 17:03 17:03 WBC 3.6 L Hgb Hct MCV 96 H MCH 33 H RDW Plt Count Lymph % (Auto) Lymph # 0.5 L Seg Neutrophils % 79.6 H Seg Neuts % (Manual) Lymphocytes % (Manual) Nucleated RBC % Seg Neutrophils # Seg Neutrophils # Man Lymphocytes # (Manual) D-Dimer 2573.78 H ABG pH ABG pO2 ABG HCO3 ABG O2 Saturation ABG Base Excess ABG Hemoglobin Oxyhemoglobin Sodium Potassium Chloride Carbon Dioxide BUN Glucose 240 H POC Glucose Hemoglobin A1c Calcium Phosphorus Magnesium Ferritin AST 76 H Lactate Dehydrogenase C-Reactive Protein Total Protein Albumin 3.0 L Coronavirus (PCR) 01/29/20 01/29/20 01/29/20 18:33 18:33 23:28 WBC Hgb Hct MCV MCH RDW Plt Count Lymph % (Auto) Lymph # Seg Neutrophils % Seg Neuts % (Manual) Lymphocytes % (Manual) Nucleated RBC % Seg Neutrophils # Seg Neutrophils # Man Lymphocytes # (Manual) D-Dimer ABG pH ABG pO2 ABG HCO3 ABG O2 Saturation ABG Base Excess ABG Hemoglobin Oxyhemoglobin Sodium Potassium Chloride Carbon Dioxide BUN Glucose 230 H POC Glucose 253 H Hemoglobin A1c Calcium Phosphorus Magnesium Ferritin > 2000.0 H AST Lactate Dehydrogenase 930 H C-Reactive Protein 10.20 H Total Protein Albumin Coronavirus (PCR) 01/29/20 01/30/20 01/30/20 Unknown 05:41 05:41 WBC Hgb 11.7 L Hct 35.2 L MCV MCH RDW Plt Count Lymph % (Auto) 8.1 L Lymph # 0.4 L Seg Neutrophils % 85.8 H Seg Neuts % (Manual) Lymphocytes % (Manual) Nucleated RBC % Seg Neutrophils # Seg Neutrophils # Man Lymphocytes # (Manual) D-Dimer ABG pH ABG pO2 ABG HCO3 ABG O2 Saturation ABG Base Excess ABG Hemoglobin Oxyhemoglobin Sodium Potassium Chloride Carbon Dioxide 19 L BUN Glucose 242 H POC Glucose Hemoglobin A1c Calcium 7.7 L Phosphorus Magnesium Ferritin AST 79 H Lactate Dehydrogenase C-Reactive Protein Total Protein Albumin 2.9 L Coronavirus (PCR) Positive A 01/30/20 01/30/20 01/30/20 05:41 07:55 12:54 WBC Hgb Hct MCV MCH RDW Plt Count Lymph % (Auto) Lymph # Seg Neutrophils % Seg Neuts % (Manual) Lymphocytes % (Manual) Nucleated RBC % Seg Neutrophils # Seg Neutrophils # Man Lymphocytes # (Manual) D-Dimer ABG pH ABG pO2 ABG HCO3 ABG O2 Saturation ABG Base Excess ABG Hemoglobin Oxyhemoglobin Sodium Potassium Chloride Carbon Dioxide BUN Glucose POC Glucose 262 H 232 H Hemoglobin A1c 7.3 H Calcium Phosphorus Magnesium Ferritin AST Lactate Dehydrogenase C-Reactive Protein Total Protein Albumin Coronavirus (PCR) 01/30/20 01/30/20 01/31/20 16:07 21:15 08:42 WBC Hgb Hct MCV MCH RDW Plt Count Lymph % (Auto) Lymph # Seg Neutrophils % Seg Neuts % (Manual) Lymphocytes % (Manual) Nucleated RBC % Seg Neutrophils # Seg Neutrophils # Man Lymphocytes # (Manual) D-Dimer ABG pH ABG pO2 ABG HCO3 ABG O2 Saturation ABG Base Excess ABG Hemoglobin Oxyhemoglobin Sodium Potassium Chloride Carbon Dioxide BUN Glucose POC Glucose 211 H 285 H 328 H Hemoglobin A1c Calcium Phosphorus Magnesium Ferritin AST Lactate Dehydrogenase C-Reactive Protein Total Protein Albumin Coronavirus (PCR) 01/31/20 01/31/20 01/31/20 12:44 12:44 12:44 WBC Hgb Hct MCV MCH RDW Plt Count Lymph % (Auto) Lymph # Seg Neutrophils % Seg Neuts % (Manual) Lymphocytes % (Manual) Nucleated RBC % Seg Neutrophils # Seg Neutrophils # Man Lymphocytes # (Manual) D-Dimer 795.52 H ABG pH ABG pO2 ABG HCO3 ABG O2 Saturation ABG Base Excess ABG Hemoglobin Oxyhemoglobin Sodium Potassium Chloride Carbon Dioxide BUN Glucose 384 H POC Glucose Hemoglobin A1c Calcium Phosphorus Magnesium Ferritin > 2000.0 H AST Lactate Dehydrogenase 1393 H C-Reactive Protein 5.80 H Total Protein Albumin Coronavirus (PCR) 01/31/20 01/31/20 02/01/20 16:36 23:46 08:00 WBC Hgb Hct MCV MCH RDW Plt Count Lymph % (Auto) Lymph # Seg Neutrophils % Seg Neuts % (Manual) Lymphocytes % (Manual) Nucleated RBC % Seg Neutrophils # Seg Neutrophils # Man Lymphocytes # (Manual) D-Dimer ABG pH ABG pO2 ABG HCO3 ABG O2 Saturation ABG Base Excess ABG Hemoglobin Oxyhemoglobin Sodium Potassium Chloride Carbon Dioxide BUN Glucose POC Glucose 384 H 322 H 287 H Hemoglobin A1c Calcium Phosphorus Magnesium Ferritin AST Lactate Dehydrogenase C-Reactive Protein Total Protein Albumin Coronavirus (PCR) 02/01/20 02/01/20 02/01/20 12:48 16:53 23:25 WBC Hgb Hct MCV MCH RDW Plt Count Lymph % (Auto) Lymph # Seg Neutrophils % Seg Neuts % (Manual) Lymphocytes % (Manual) Nucleated RBC % Seg Neutrophils # Seg Neutrophils # Man Lymphocytes # (Manual) D-Dimer ABG pH ABG pO2 ABG HCO3 ABG O2 Saturation ABG Base Excess ABG Hemoglobin Oxyhemoglobin Sodium Potassium Chloride Carbon Dioxide BUN Glucose POC Glucose 309 H 362 H 264 H Hemoglobin A1c Calcium Phosphorus Magnesium Ferritin AST Lactate Dehydrogenase C-Reactive Protein Total Protein Albumin Coronavirus (PCR) 02/02/20 02/02/20 02/02/20 05:31 05:31 05:31 WBC Hgb Hct MCV MCH RDW Plt Count Lymph % (Auto) Lymph # Seg Neutrophils % Seg Neuts % (Manual) Lymphocytes % (Manual) Nucleated RBC % Seg Neutrophils # Seg Neutrophils # Man Lymphocytes # (Manual) D-Dimer 416.36 H ABG pH ABG pO2 ABG HCO3 ABG O2 Saturation ABG Base Excess ABG Hemoglobin Oxyhemoglobin Sodium Potassium Chloride 107.2 H Carbon Dioxide BUN 25 H Glucose 304 H POC Glucose Hemoglobin A1c Calcium 8.2 L Phosphorus Magnesium Ferritin > 2000.0 H AST Lactate Dehydrogenase C-Reactive Protein Total Protein Albumin Coronavirus (PCR) 02/02/20 02/02/20 02/02/20 05:31 09:14 11:57 WBC Hgb Hct MCV MCH RDW Plt Count Lymph % (Auto) Lymph # Seg Neutrophils % Seg Neuts % (Manual) Lymphocytes % (Manual) Nucleated RBC % Seg Neutrophils # Seg Neutrophils # Man Lymphocytes # (Manual) D-Dimer ABG pH ABG pO2 ABG HCO3 ABG O2 Saturation ABG Base Excess ABG Hemoglobin Oxyhemoglobin Sodium Potassium Chloride Carbon Dioxide BUN Glucose POC Glucose 334 H 429 H Hemoglobin A1c Calcium Phosphorus Magnesium Ferritin AST Lactate Dehydrogenase 1297 H C-Reactive Protein 2.20 H Total Protein Albumin Coronavirus (PCR) 02/02/20 02/02/20 02/02/20 12:44 16:35 22:55 WBC Hgb Hct MCV MCH RDW Plt Count Lymph % (Auto) Lymph # Seg Neutrophils % Seg Neuts % (Manual) Lymphocytes % (Manual) Nucleated RBC % Seg Neutrophils # Seg Neutrophils # Man Lymphocytes # (Manual) D-Dimer ABG pH 7.466 H ABG pO2 60.9 L ABG HCO3 ABG O2 Saturation 93.6 L ABG Base Excess -2.7 L ABG Hemoglobin 11.8 L Oxyhemoglobin 91.4 L Sodium Potassium Chloride Carbon Dioxide BUN Glucose POC Glucose 300 H 339 H Hemoglobin A1c Calcium Phosphorus Magnesium Ferritin AST Lactate Dehydrogenase C-Reactive Protein Total Protein Albumin Coronavirus (PCR) 02/03/20 02/03/20 02/03/20 01:06 06:09 06:09 WBC Hgb Hct MCV MCH RDW Plt Count Lymph % (Auto) Lymph # Seg Neutrophils % Seg Neuts % (Manual) 92.0 H Lymphocytes % (Manual) 3.0 L Nucleated RBC % 2.0 H Seg Neutrophils # Seg Neutrophils # Man Lymphocytes # (Manual) 0.3 L D-Dimer ABG pH ABG pO2 ABG HCO3 ABG O2 Saturation ABG Base Excess ABG Hemoglobin Oxyhemoglobin Sodium Potassium Chloride Carbon Dioxide BUN 27 H Glucose 348 H POC Glucose Hemoglobin A1c Calcium 8.1 L Phosphorus Magnesium 2.50 H 2.50 H Ferritin AST Lactate Dehydrogenase C-Reactive Protein Total Protein 5.4 L Albumin 3.0 L Coronavirus (PCR) 02/03/20 02/03/20 02/03/20 08:42 11:50 16:18 WBC Hgb Hct MCV MCH RDW Plt Count Lymph % (Auto) Lymph # Seg Neutrophils % Seg Neuts % (Manual) Lymphocytes % (Manual) Nucleated RBC % Seg Neutrophils # Seg Neutrophils # Man Lymphocytes # (Manual) D-Dimer ABG pH ABG pO2 ABG HCO3 ABG O2 Saturation ABG Base Excess ABG Hemoglobin Oxyhemoglobin Sodium Potassium Chloride Carbon Dioxide BUN Glucose POC Glucose 355 H 345 H 382 H Hemoglobin A1c Calcium Phosphorus Magnesium Ferritin AST Lactate Dehydrogenase C-Reactive Protein Total Protein Albumin Coronavirus (PCR) 02/03/20 02/03/20 02/04/20 22:00 22:04 06:06 WBC Hgb Hct MCV MCH RDW Plt Count Lymph % (Auto) Lymph # Seg Neutrophils % Seg Neuts % (Manual) Lymphocytes % (Manual) Nucleated RBC % Seg Neutrophils # Seg Neutrophils # Man Lymphocytes # (Manual) D-Dimer ABG pH 7.505 H ABG pO2 59.1 L ABG HCO3 19.1 L ABG O2 Saturation 93.0 L ABG Base Excess -2.4 L ABG Hemoglobin 13.3 L Oxyhemoglobin 91.1 L Sodium Potassium Chloride Carbon Dioxide BUN Glucose POC Glucose 309 H Hemoglobin A1c Calcium Phosphorus Magnesium Ferritin 4214.0 H AST Lactate Dehydrogenase C-Reactive Protein Total Protein Albumin Coronavirus (PCR) 02/04/20 02/04/20 02/04/20 06:06 06:06 06:06 WBC Hgb Hct MCV 95 H MCH RDW Plt Count Lymph % (Auto) 4.3 L Lymph # 0.5 L Seg Neutrophils % 87.5 H Seg Neuts % (Manual) Lymphocytes % (Manual) Nucleated RBC % Seg Neutrophils # 9.3 H Seg Neutrophils # Man Lymphocytes # (Manual) D-Dimer ABG pH ABG pO2 ABG HCO3 ABG O2 Saturation ABG Base Excess ABG Hemoglobin Oxyhemoglobin Sodium Potassium Chloride Carbon Dioxide 21 L BUN 30 H Glucose 393 H POC Glucose Hemoglobin A1c Calcium 7.8 L Phosphorus Magnesium 2.70 H Ferritin AST Lactate Dehydrogenase 919 H C-Reactive Protein Total Protein Albumin Coronavirus (PCR) 02/04/20 02/04/20 02/04/20 08:57 13:12 17:45 WBC Hgb Hct MCV MCH RDW Plt Count Lymph % (Auto) Lymph # Seg Neutrophils % Seg Neuts % (Manual) Lymphocytes % (Manual) Nucleated RBC % Seg Neutrophils # Seg Neutrophils # Man Lymphocytes # (Manual) D-Dimer ABG pH ABG pO2 ABG HCO3 ABG O2 Saturation ABG Base Excess ABG Hemoglobin Oxyhemoglobin Sodium Potassium Chloride Carbon Dioxide BUN Glucose POC Glucose 353 H 364 H 292 H Hemoglobin A1c Calcium Phosphorus Magnesium Ferritin AST Lactate Dehydrogenase C-Reactive Protein Total Protein Albumin Coronavirus (PCR) 02/04/20 02/05/20 02/05/20 22:36 08:44 12:53 WBC Hgb Hct MCV MCH RDW Plt Count Lymph % (Auto) Lymph # Seg Neutrophils % Seg Neuts % (Manual) Lymphocytes % (Manual) Nucleated RBC % Seg Neutrophils # Seg Neutrophils # Man Lymphocytes # (Manual) D-Dimer ABG pH ABG pO2 ABG HCO3 ABG O2 Saturation ABG Base Excess ABG Hemoglobin Oxyhemoglobin Sodium Potassium Chloride Carbon Dioxide BUN Glucose POC Glucose 255 H 313 H 346 H Hemoglobin A1c Calcium Phosphorus Magnesium Ferritin AST Lactate Dehydrogenase C-Reactive Protein Total Protein Albumin Coronavirus (PCR) 02/05/20 02/05/20 02/06/20 16:55 22:38 01:04 WBC Hgb Hct MCV MCH RDW Plt Count Lymph % (Auto) Lymph # Seg Neutrophils % Seg Neuts % (Manual) Lymphocytes % (Manual) Nucleated RBC % Seg Neutrophils # Seg Neutrophils # Man Lymphocytes # (Manual) D-Dimer ABG pH ABG pO2 ABG HCO3 ABG O2 Saturation ABG Base Excess ABG Hemoglobin Oxyhemoglobin Sodium Potassium Chloride Carbon Dioxide BUN Glucose POC Glucose 270 H 106 H 122 H Hemoglobin A1c Calcium Phosphorus Magnesium Ferritin AST Lactate Dehydrogenase C-Reactive Protein Total Protein Albumin Coronavirus (PCR) 02/06/20 02/06/20 02/06/20 09:21 12:27 15:20 WBC Hgb Hct MCV MCH RDW Plt Count Lymph % (Auto) Lymph # Seg Neutrophils % Seg Neuts % (Manual) Lymphocytes % (Manual) Nucleated RBC % Seg Neutrophils # Seg Neutrophils # Man Lymphocytes # (Manual) D-Dimer 328.02 H ABG pH ABG pO2 ABG HCO3 ABG O2 Saturation ABG Base Excess ABG Hemoglobin Oxyhemoglobin Sodium Potassium Chloride Carbon Dioxide BUN Glucose POC Glucose 227 H 295 H Hemoglobin A1c Calcium Phosphorus Magnesium Ferritin AST Lactate Dehydrogenase C-Reactive Protein Total Protein Albumin Coronavirus (PCR) 02/06/20 02/06/20 02/06/20 15:20 15:20 16:50 WBC Hgb Hct MCV MCH RDW Plt Count Lymph % (Auto) Lymph # Seg Neutrophils % Seg Neuts % (Manual) Lymphocytes % (Manual) Nucleated RBC % Seg Neutrophils # Seg Neutrophils # Man Lymphocytes # (Manual) D-Dimer ABG pH ABG pO2 ABG HCO3 ABG O2 Saturation ABG Base Excess ABG Hemoglobin Oxyhemoglobin Sodium Potassium Chloride Carbon Dioxide BUN Glucose 311 H POC Glucose 258 H Hemoglobin A1c Calcium Phosphorus Magnesium Ferritin < 2000.0 H AST Lactate Dehydrogenase 719 H C-Reactive Protein Total Protein Albumin Coronavirus (PCR) 02/06/20 02/07/20 02/07/20 21:23 08:22 10:51 WBC Hgb Hct MCV MCH RDW Plt Count Lymph % (Auto) Lymph # Seg Neutrophils % Seg Neuts % (Manual) Lymphocytes % (Manual) Nucleated RBC % Seg Neutrophils # Seg Neutrophils # Man Lymphocytes # (Manual) D-Dimer ABG pH ABG pO2 ABG HCO3 ABG O2 Saturation ABG Base Excess ABG Hemoglobin Oxyhemoglobin Sodium Potassium Chloride Carbon Dioxide BUN Glucose POC Glucose 334 H 281 H 309 H Hemoglobin A1c Calcium Phosphorus Magnesium Ferritin AST Lactate Dehydrogenase C-Reactive Protein Total Protein Albumin Coronavirus (PCR) 02/07/20 02/07/20 02/08/20 16:27 22:40 07:44 WBC Hgb Hct MCV MCH RDW Plt Count Lymph % (Auto) Lymph # Seg Neutrophils % Seg Neuts % (Manual) Lymphocytes % (Manual) Nucleated RBC % Seg Neutrophils # Seg Neutrophils # Man Lymphocytes # (Manual) D-Dimer ABG pH ABG pO2 ABG HCO3 ABG O2 Saturation ABG Base Excess ABG Hemoglobin Oxyhemoglobin Sodium Potassium Chloride Carbon Dioxide BUN Glucose POC Glucose 288 H 278 H 267 H Hemoglobin A1c Calcium Phosphorus Magnesium Ferritin AST Lactate Dehydrogenase C-Reactive Protein Total Protein Albumin Coronavirus (PCR) 02/08/20 02/08/20 02/08/20 10:46 10:46 10:46 WBC Hgb Hct MCV 98 H MCH RDW Plt Count Lymph % (Auto) Lymph # Seg Neutrophils % Seg Neuts % (Manual) 97.0 H Lymphocytes % (Manual) 0 L Nucleated RBC % Seg Neutrophils # Seg Neutrophils # Man 10.2 H Lymphocytes # (Manual) 0.0 L D-Dimer 261.46 H ABG pH ABG pO2 ABG HCO3 ABG O2 Saturation ABG Base Excess ABG Hemoglobin Oxyhemoglobin Sodium 148 H Potassium 3.5 L Chloride 112.2 H Carbon Dioxide BUN 36 H Glucose 356 H POC Glucose Hemoglobin A1c Calcium 8.3 L Phosphorus Magnesium Ferritin AST Lactate Dehydrogenase C-Reactive Protein Total Protein Albumin Coronavirus (PCR) 02/08/20 02/08/20 02/08/20 10:46 10:46 12:22 WBC Hgb Hct MCV MCH RDW Plt Count Lymph % (Auto) Lymph # Seg Neutrophils % Seg Neuts % (Manual) Lymphocytes % (Manual) Nucleated RBC % Seg Neutrophils # Seg Neutrophils # Man Lymphocytes # (Manual) D-Dimer ABG pH ABG pO2 ABG HCO3 ABG O2 Saturation ABG Base Excess ABG Hemoglobin Oxyhemoglobin Sodium Potassium Chloride Carbon Dioxide BUN Glucose 351 H POC Glucose 358 H Hemoglobin A1c Calcium Phosphorus Magnesium Ferritin 1611.0 H AST Lactate Dehydrogenase 671 H C-Reactive Protein Total Protein Albumin Coronavirus (PCR) 02/08/20 02/08/20 02/09/20 14:00 17:02 08:45 WBC Hgb Hct MCV MCH RDW Plt Count Lymph % (Auto) Lymph # Seg Neutrophils % Seg Neuts % (Manual) Lymphocytes % (Manual) Nucleated RBC % Seg Neutrophils # Seg Neutrophils # Man Lymphocytes # (Manual) D-Dimer ABG pH ABG pO2 65.3 L ABG HCO3 ABG O2 Saturation 94.1 L ABG Base Excess ABG Hemoglobin 12.8 L Oxyhemoglobin 92.3 L Sodium Potassium Chloride Carbon Dioxide BUN Glucose POC Glucose 331 H 160 H Hemoglobin A1c Calcium Phosphorus Magnesium Ferritin AST Lactate Dehydrogenase C-Reactive Protein Total Protein Albumin Coronavirus (PCR) 02/09/20 02/09/20 02/09/20 12:27 17:22 23:11 WBC Hgb Hct MCV MCH RDW Plt Count Lymph % (Auto) Lymph # Seg Neutrophils % Seg Neuts % (Manual) Lymphocytes % (Manual) Nucleated RBC % Seg Neutrophils # Seg Neutrophils # Man Lymphocytes # (Manual) D-Dimer ABG pH ABG pO2 ABG HCO3 ABG O2 Saturation ABG Base Excess ABG Hemoglobin Oxyhemoglobin Sodium Potassium Chloride Carbon Dioxide BUN Glucose POC Glucose 262 H 237 H 140 H Hemoglobin A1c Calcium Phosphorus Magnesium Ferritin AST Lactate Dehydrogenase C-Reactive Protein Total Protein Albumin Coronavirus (PCR) 02/10/20 02/10/20 02/10/20 08:30 12:00 12:30 WBC Hgb Hct MCV MCH RDW Plt Count Lymph % (Auto) Lymph # Seg Neutrophils % Seg Neuts % (Manual) Lymphocytes % (Manual) Nucleated RBC % Seg Neutrophils # Seg Neutrophils # Man Lymphocytes # (Manual) D-Dimer ABG pH ABG pO2 ABG HCO3 ABG O2 Saturation ABG Base Excess ABG Hemoglobin Oxyhemoglobin Sodium Potassium Chloride Carbon Dioxide BUN Glucose 330 H POC Glucose 216 H 252 H Hemoglobin A1c Calcium Phosphorus Magnesium Ferritin AST Lactate Dehydrogenase 642 H C-Reactive Protein Total Protein Albumin Coronavirus (PCR) 02/10/20 02/10/20 02/10/20 12:30 16:32 23:38 WBC Hgb Hct MCV MCH RDW Plt Count Lymph % (Auto) Lymph # Seg Neutrophils % Seg Neuts % (Manual) Lymphocytes % (Manual) Nucleated RBC % Seg Neutrophils # Seg Neutrophils # Man Lymphocytes # (Manual) D-Dimer ABG pH ABG pO2 ABG HCO3 ABG O2 Saturation ABG Base Excess ABG Hemoglobin Oxyhemoglobin Sodium Potassium Chloride Carbon Dioxide BUN Glucose POC Glucose 245 H 196 H Hemoglobin A1c Calcium Phosphorus Magnesium Ferritin 1728.0 H AST Lactate Dehydrogenase C-Reactive Protein Total Protein Albumin Coronavirus (PCR) 02/11/20 02/11/20 02/11/20 08:07 11:41 13:47 WBC Hgb Hct MCV 98 H MCH RDW 15.7 H Plt Count Lymph % (Auto) Lymph # Seg Neutrophils % Seg Neuts % (Manual) Lymphocytes % (Manual) Nucleated RBC % Seg Neutrophils # Seg Neutrophils # Man Lymphocytes # (Manual) D-Dimer ABG pH ABG pO2 ABG HCO3 ABG O2 Saturation ABG Base Excess ABG Hemoglobin Oxyhemoglobin Sodium Potassium Chloride Carbon Dioxide BUN Glucose POC Glucose 300 H 286 H Hemoglobin A1c Calcium Phosphorus Magnesium Ferritin AST Lactate Dehydrogenase C-Reactive Protein Total Protein Albumin Coronavirus (PCR) 02/11/20 02/11/20 02/11/20 13:47 17:17 21:17 WBC Hgb Hct MCV MCH RDW Plt Count Lymph % (Auto) Lymph # Seg Neutrophils % Seg Neuts % (Manual) Lymphocytes % (Manual) Nucleated RBC % Seg Neutrophils # Seg Neutrophils # Man Lymphocytes # (Manual) D-Dimer ABG pH ABG pO2 ABG HCO3 ABG O2 Saturation ABG Base Excess ABG Hemoglobin Oxyhemoglobin Sodium 158 H D Potassium Chloride 119.7 H Carbon Dioxide BUN 40 H Glucose 287 H POC Glucose 288 H 283 H Hemoglobin A1c Calcium 7.9 L Phosphorus Magnesium Ferritin AST Lactate Dehydrogenase C-Reactive Protein Total Protein Albumin Coronavirus (PCR) 02/12/20 02/12/20 02/12/20 06:01 08:37 10:58 WBC Hgb Hct MCV MCH RDW Plt Count Lymph % (Auto) Lymph # Seg Neutrophils % Seg Neuts % (Manual) Lymphocytes % (Manual) Nucleated RBC % Seg Neutrophils # Seg Neutrophils # Man Lymphocytes # (Manual) D-Dimer ABG pH ABG pO2 ABG HCO3 ABG O2 Saturation ABG Base Excess ABG Hemoglobin Oxyhemoglobin Sodium Potassium Chloride Carbon Dioxide BUN Glucose POC Glucose 273 H 313 H 288 H Hemoglobin A1c Calcium Phosphorus Magnesium Ferritin AST Lactate Dehydrogenase C-Reactive Protein Total Protein Albumin Coronavirus (PCR) 02/12/20 02/12/20 02/12/20 16:24 22:23 Unknown WBC Hgb Hct MCV MCH RDW Plt Count Lymph % (Auto) Lymph # Seg Neutrophils % Seg Neuts % (Manual) Lymphocytes % (Manual) Nucleated RBC % Seg Neutrophils # Seg Neutrophils # Man Lymphocytes # (Manual) D-Dimer ABG pH ABG pO2 ABG HCO3 ABG O2 Saturation ABG Base Excess ABG Hemoglobin Oxyhemoglobin Sodium Potassium Chloride Carbon Dioxide BUN Glucose POC Glucose 192 H 145 H Hemoglobin A1c Calcium Phosphorus Magnesium Ferritin AST Lactate Dehydrogenase C-Reactive Protein Total Protein Albumin Coronavirus (PCR) Positive A 02/13/20 02/13/20 02/13/20 00:32 09:06 11:22 WBC Hgb Hct MCV MCH RDW Plt Count Lymph % (Auto) Lymph # Seg Neutrophils % Seg Neuts % (Manual) Lymphocytes % (Manual) Nucleated RBC % Seg Neutrophils # Seg Neutrophils # Man Lymphocytes # (Manual) D-Dimer ABG pH ABG pO2 ABG HCO3 ABG O2 Saturation ABG Base Excess ABG Hemoglobin Oxyhemoglobin Sodium 162 H* Potassium 3.2 L Chloride 125.4 H Carbon Dioxide BUN 32 H Glucose 132 H POC Glucose 221 H 319 H Hemoglobin A1c Calcium 7.6 L Phosphorus Magnesium Ferritin AST Lactate Dehydrogenase C-Reactive Protein Total Protein Albumin Coronavirus (PCR) 02/13/20 02/13/20 02/13/20 14:33 16:18 23:35 WBC Hgb Hct MCV MCH RDW Plt Count Lymph % (Auto) Lymph # Seg Neutrophils % Seg Neuts % (Manual) Lymphocytes % (Manual) Nucleated RBC % Seg Neutrophils # Seg Neutrophils # Man Lymphocytes # (Manual) D-Dimer ABG pH ABG pO2 ABG HCO3 ABG O2 Saturation ABG Base Excess ABG Hemoglobin Oxyhemoglobin Sodium 154 H Potassium Chloride 117.5 H Carbon Dioxide BUN 30 H Glucose 415 H POC Glucose 351 H 182 H Hemoglobin A1c Calcium 7.5 L Phosphorus Magnesium Ferritin AST Lactate Dehydrogenase C-Reactive Protein Total Protein Albumin Coronavirus (PCR) 02/14/20 02/14/20 02/14/20 05:25 11:54 17:39 WBC Hgb Hct MCV MCH RDW Plt Count Lymph % (Auto) Lymph # Seg Neutrophils % Seg Neuts % (Manual) Lymphocytes % (Manual) Nucleated RBC % Seg Neutrophils # Seg Neutrophils # Man Lymphocytes # (Manual) D-Dimer ABG pH ABG pO2 ABG HCO3 ABG O2 Saturation ABG Base Excess ABG Hemoglobin Oxyhemoglobin Sodium 156 H Potassium 3.1 L Chloride 121.7 H Carbon Dioxide BUN 28 H Glucose 74 L POC Glucose 120 H 226 H Hemoglobin A1c Calcium 7.7 L Phosphorus 2.00 L Magnesium Ferritin AST Lactate Dehydrogenase C-Reactive Protein Total Protein Albumin Coronavirus (PCR) 02/14/20 02/15/20 02/15/20 22:05 05:47 12:08 WBC Hgb Hct MCV MCH RDW Plt Count Lymph % (Auto) Lymph # Seg Neutrophils % Seg Neuts % (Manual) Lymphocytes % (Manual) Nucleated RBC % Seg Neutrophils # Seg Neutrophils # Man Lymphocytes # (Manual) D-Dimer ABG pH ABG pO2 ABG HCO3 ABG O2 Saturation ABG Base Excess ABG Hemoglobin Oxyhemoglobin Sodium 149 H Potassium Chloride 115.1 H Carbon Dioxide BUN 22 H Glucose 74 L POC Glucose 305 H 259 H Hemoglobin A1c Calcium 7.5 L Phosphorus Magnesium Ferritin AST Lactate Dehydrogenase C-Reactive Protein Total Protein Albumin Coronavirus (PCR) 02/15/20 02/15/20 02/16/20 16:22 23:29 11:39 WBC Hgb Hct MCV MCH RDW Plt Count Lymph % (Auto) Lymph # Seg Neutrophils % Seg Neuts % (Manual) Lymphocytes % (Manual) Nucleated RBC % Seg Neutrophils # Seg Neutrophils # Man Lymphocytes # (Manual) D-Dimer ABG pH ABG pO2 ABG HCO3 ABG O2 Saturation ABG Base Excess ABG Hemoglobin Oxyhemoglobin Sodium Potassium Chloride Carbon Dioxide BUN Glucose POC Glucose 245 H 114 H 196 H Hemoglobin A1c Calcium Phosphorus Magnesium Ferritin AST Lactate Dehydrogenase C-Reactive Protein Total Protein Albumin Coronavirus (PCR) 02/16/20 02/16/20 02/16/20 13:47 13:47 13:47 WBC Hgb Hct MCV MCH RDW Plt Count Lymph % (Auto) Lymph # Seg Neutrophils % Seg Neuts % (Manual) Lymphocytes % (Manual) Nucleated RBC % Seg Neutrophils # Seg Neutrophils # Man Lymphocytes # (Manual) D-Dimer 454.59 H ABG pH ABG pO2 ABG HCO3 ABG O2 Saturation ABG Base Excess ABG Hemoglobin Oxyhemoglobin Sodium Potassium Chloride Carbon Dioxide BUN Glucose POC Glucose Hemoglobin A1c Calcium Phosphorus Magnesium Ferritin 1573.0 H AST Lactate Dehydrogenase 651 H C-Reactive Protein Total Protein Albumin Coronavirus (PCR) 02/16/20 02/16/20 02/17/20 16:12 22:06 07:13 WBC Hgb Hct MCV MCH RDW Plt Count Lymph % (Auto) Lymph # Seg Neutrophils % Seg Neuts % (Manual) Lymphocytes % (Manual) Nucleated RBC % Seg Neutrophils # Seg Neutrophils # Man Lymphocytes # (Manual) D-Dimer ABG pH ABG pO2 ABG HCO3 ABG O2 Saturation ABG Base Excess ABG Hemoglobin Oxyhemoglobin Sodium Potassium Chloride Carbon Dioxide 20 L BUN Glucose 74 L POC Glucose 304 H 179 H Hemoglobin A1c Calcium 7.6 L Phosphorus 2.20 L Magnesium Ferritin AST Lactate Dehydrogenase C-Reactive Protein Total Protein Albumin Coronavirus (PCR) 02/17/20 02/17/20 02/17/20 07:57 09:03 11:30 WBC Hgb Hct MCV 99 H MCH RDW 15.9 H Plt Count 65 L Lymph % (Auto) 7.1 L Lymph # 0.4 L Seg Neutrophils % 89.2 H Seg Neuts % (Manual) Lymphocytes % (Manual) Nucleated RBC % Seg Neutrophils # Seg Neutrophils # Man Lymphocytes # (Manual) D-Dimer ABG pH ABG pO2 ABG HCO3 ABG O2 Saturation ABG Base Excess ABG Hemoglobin Oxyhemoglobin Sodium Potassium Chloride Carbon Dioxide BUN Glucose POC Glucose 67 L 127 H Hemoglobin A1c Calcium Phosphorus Magnesium Ferritin AST Lactate Dehydrogenase C-Reactive Protein Total Protein Albumin Coronavirus (PCR) 02/17/20 02/18/20 02/18/20 21:24 08:32 09:32 WBC Hgb Hct MCV MCH RDW Plt Count Lymph % (Auto) Lymph # Seg Neutrophils % Seg Neuts % (Manual) Lymphocytes % (Manual) Nucleated RBC % Seg Neutrophils # Seg Neutrophils # Man Lymphocytes # (Manual) D-Dimer ABG pH ABG pO2 ABG HCO3 ABG O2 Saturation ABG Base Excess ABG Hemoglobin Oxyhemoglobin Sodium Potassium Chloride Carbon Dioxide 21 L BUN Glucose 130 H POC Glucose 215 H 131 H Hemoglobin A1c Calcium 7.4 L Phosphorus 2.20 L Magnesium Ferritin AST Lactate Dehydrogenase C-Reactive Protein Total Protein Albumin Coronavirus (PCR) 02/18/20 02/18/20 02/18/20 12:30 18:15 22:55 WBC Hgb Hct MCV MCH RDW Plt Count Lymph % (Auto) Lymph # Seg Neutrophils % Seg Neuts % (Manual) Lymphocytes % (Manual) Nucleated RBC % Seg Neutrophils # Seg Neutrophils # Man Lymphocytes # (Manual) D-Dimer ABG pH ABG pO2 ABG HCO3 ABG O2 Saturation ABG Base Excess ABG Hemoglobin Oxyhemoglobin Sodium Potassium Chloride Carbon Dioxide BUN Glucose POC Glucose 271 H 327 H 252 H Hemoglobin A1c Calcium Phosphorus Magnesium Ferritin AST Lactate Dehydrogenase C-Reactive Protein Total Protein Albumin Coronavirus (PCR) 02/19/20 05:38 WBC Hgb Hct MCV MCH RDW Plt Count Lymph % (Auto) Lymph # Seg Neutrophils % Seg Neuts % (Manual) Lymphocytes % (Manual) Nucleated RBC % Seg Neutrophils # Seg Neutrophils # Man Lymphocytes # (Manual) D-Dimer ABG pH ABG pO2 ABG HCO3 ABG O2 Saturation ABG Base Excess ABG Hemoglobin Oxyhemoglobin Sodium 136 L Potassium Chloride Carbon Dioxide 18 L BUN Glucose 116 H POC Glucose Hemoglobin A1c Calcium 7.7 L Phosphorus Magnesium Ferritin AST Lactate Dehydrogenase C-Reactive Protein Total Protein Albumin Coronavirus (PCR) Chest x-ray: report reviewed, image reviewed Additional Studies: CHEST 1 VIEW 02/19/20 INDICATION: Follow up on Pneumonia.. COMPARISON: 02/08/2020 FINDINGS: Support devices: None. Heart: Within normal limits. Lungs/Pleura: There is poor inspiration but slight increase in the bilateral lung opacities is demonstrated since the previous exam. The left lung is more affected. No pleural effusion or pneumothorax. Additional findings: None. IMPRESSION: Mild interval increase in the bilateral lung opacities, left greater than right. Allied health notes reviewed: nursing
[2020-02-20] MEDS: INSULIN REGULAR, HUMAN 100 UNITS/1 ML SUB-Q SCH ×2 (00:18→07:45)
[2020-02-20] MEDS: LORazepam 2 MG/ML VIAL IV PRN (00:25)
[2020-02-20] MEDS: FAMOTIDINE 20 MG TAB PO SCH ×2 (00:26→10:40)
[2020-02-20] MEDS: METOPROLOL TARTRATE 50 MG TAB PO SCH ×2 (00:26→10:40)
[2020-02-20] MEDS: PRAZOSIN 1 MG CAP PO SCH (00:26)
[2020-02-20] MEDS: INSULIN GLARGINE 100 UNITS/ML SUB-Q SCH (00:27)
[2020-02-20 05:02] VITALS: BP 90/44
[2020-02-20] MEDS: methylPREDNISolone Sod Succinate 40 MG/1 ML INJ IV SCH (10:40)
[2020-02-20] MEDS: ZINC SULFATE 220 MG CAP PO SCH (10:40)
--- NOTE | 2020-02-20 13:26 | Progress Note ---
Assessment and Plan Patient sleeping and he on Vapotherm, FIO2 65% and O2 saturation 95%. Patient afebrile. No leukocytosis. Chest xray 02/08/20 reported There is some improvement in pulmonary opacities on the right and slight worsening on the left. Repeating chest xray. - Patient Problems (1) Acute respiratory failure with hypoxia Current Visit: Yes Status: Acute Plan to address problem: Continue Vapotherm 65%. Continue Solumedrol. Continue Lovenox. Continue famotidine. (2) Bilateral pneumonia Current Visit: Yes Status: Acute Qualifiers: Lung location: unspecified part of lung Plan to address problem: Antibiotics as per infectious diseases. (3) COVID-19 Current Visit: Yes Status: Acute Plan to address problem: On vapotherm, FIO2 65%. Continue Solumedrol. Continue Lovenox. Continue famotidine. Management as per infectious diseases. (4) Elevated d-dimer Current Visit: Yes Status: Acute Plan to address problem: Patient treated with S/C Lovenox 100mg S/C q 12 hours. 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 Subjective Date of service: 02/20/20 Principal diagnosis: COVID Interval history: Patient sleeping and he on Vapotherm, FIO2 65% and O2 saturation 95%. Patient afebrile. No leukocytosis. Chest xray 02/08/20 reported There is some improvement in pulmonary opacities on the right and slight worsening on the left. Repeating chest xray. Objective Vital Signs - 12hr 02/20/20 02/20/20 02/20/20 02:48 04:17 08:47 Temperature 98.8 F Pulse Rate 95 H Respiratory 18 Rate Blood Pressure 90/44 O2 Sat by Pulse 95 80 L 91 Oximetry Constitutional: no acute distress, asleep, other (elderly looking obese male with mildly increased resp effort at rest) Eyes: non-icteric ENT: oropharynx moist Neck: supple, no JVD, other (large neck circumference) Effort: mildly labored Ascultation: Bilateral: diminished breath sounds, rhonchi Percussion: Bilateral: not dull Cardiovascular: regular rate and rhythm, other (S1,S2) Gastrointestinal: normoactive bowel sounds, soft, non-tender, non-distended (protuberant) Integumentary: normal Extremities: no cyanosis, no edema, pulses normal, no ischemia or petechiae Neurologic: non-focal exam (grossly, moving all extremities), pupils equal and round, CN II-XII normal, unable to assess Psychiatric: other (mood andf affect flat) CBC and BMP: 02/17/20 09:03 02/19/20 05:38 ABG, PT/INR, D-dimer: ABG ABG pH TNR 02/19/20 00:40 ABG pCO2 TNR 02/19/20 00:40 ABG pO2 TNR 02/19/20 00:40 ABG O2 Saturation TNR 02/19/20 00:40 PT/INR, D-dimer PT 13.9 Sec. (12.2-14.9) 01/29/20 17:03 INR 1.09 (0.87-1.13) 01/29/20 17:03 D-Dimer 454.59 ng/mlDDU (0-234) H 02/16/20 13:47 Abnormal lab findings: Abnormal Labs 01/29/20 01/29/20 01/29/20 17:03 17:03 17:03 WBC 3.6 L Hgb Hct MCV 96 H MCH 33 H RDW Plt Count Lymph % (Auto) Lymph # 0.5 L Seg Neutrophils % 79.6 H Seg Neuts % (Manual) Lymphocytes % (Manual) Nucleated RBC % Seg Neutrophils # Seg Neutrophils # Man Lymphocytes # (Manual) D-Dimer 2573.78 H ABG pH ABG pO2 ABG HCO3 ABG O2 Saturation ABG Base Excess ABG Hemoglobin Oxyhemoglobin Sodium Potassium Chloride Carbon Dioxide BUN Glucose 240 H POC Glucose Hemoglobin A1c Calcium Phosphorus Magnesium Ferritin AST 76 H Lactate Dehydrogenase C-Reactive Protein Total Protein Albumin 3.0 L Coronavirus (PCR) 01/29/20 01/29/20 01/29/20 18:33 18:33 23:28 WBC Hgb Hct MCV MCH RDW Plt Count Lymph % (Auto) Lymph # Seg Neutrophils % Seg Neuts % (Manual) Lymphocytes % (Manual) Nucleated RBC % Seg Neutrophils # Seg Neutrophils # Man Lymphocytes # (Manual) D-Dimer ABG pH ABG pO2 ABG HCO3 ABG O2 Saturation ABG Base Excess ABG Hemoglobin Oxyhemoglobin Sodium Potassium Chloride Carbon Dioxide BUN Glucose 230 H POC Glucose 253 H Hemoglobin A1c Calcium Phosphorus Magnesium Ferritin > 2000.0 H AST Lactate Dehydrogenase 930 H C-Reactive Protein 10.20 H Total Protein Albumin Coronavirus (PCR) 01/29/20 01/30/20 01/30/20 Unknown 05:41 05:41 WBC Hgb 11.7 L Hct 35.2 L MCV MCH RDW Plt Count Lymph % (Auto) 8.1 L Lymph # 0.4 L Seg Neutrophils % 85.8 H Seg Neuts % (Manual) Lymphocytes % (Manual) Nucleated RBC % Seg Neutrophils # Seg Neutrophils # Man Lymphocytes # (Manual) D-Dimer ABG pH ABG pO2 ABG HCO3 ABG O2 Saturation ABG Base Excess ABG Hemoglobin Oxyhemoglobin Sodium Potassium Chloride Carbon Dioxide 19 L BUN Glucose 242 H POC Glucose Hemoglobin A1c Calcium 7.7 L Phosphorus Magnesium Ferritin AST 79 H Lactate Dehydrogenase C-Reactive Protein Total Protein Albumin 2.9 L Coronavirus (PCR) Positive A 01/30/20 01/30/20 01/30/20 05:41 07:55 12:54 WBC Hgb Hct MCV MCH RDW Plt Count Lymph % (Auto) Lymph # Seg Neutrophils % Seg Neuts % (Manual) Lymphocytes % (Manual) Nucleated RBC % Seg Neutrophils # Seg Neutrophils # Man Lymphocytes # (Manual) D-Dimer ABG pH ABG pO2 ABG HCO3 ABG O2 Saturation ABG Base Excess ABG Hemoglobin Oxyhemoglobin Sodium Potassium Chloride Carbon Dioxide BUN Glucose POC Glucose 262 H 232 H Hemoglobin A1c 7.3 H Calcium Phosphorus Magnesium Ferritin AST Lactate Dehydrogenase C-Reactive Protein Total Protein Albumin Coronavirus (PCR) 01/30/20 01/30/20 01/31/20 16:07 21:15 08:42 WBC Hgb Hct MCV MCH RDW Plt Count Lymph % (Auto) Lymph # Seg Neutrophils % Seg Neuts % (Manual) Lymphocytes % (Manual) Nucleated RBC % Seg Neutrophils # Seg Neutrophils # Man Lymphocytes # (Manual) D-Dimer ABG pH ABG pO2 ABG HCO3 ABG O2 Saturation ABG Base Excess ABG Hemoglobin Oxyhemoglobin Sodium Potassium Chloride Carbon Dioxide BUN Glucose POC Glucose 211 H 285 H 328 H Hemoglobin A1c Calcium Phosphorus Magnesium Ferritin AST Lactate Dehydrogenase C-Reactive Protein Total Protein Albumin Coronavirus (PCR) 01/31/20 01/31/20 01/31/20 12:44 12:44 12:44 WBC Hgb Hct MCV MCH RDW Plt Count Lymph % (Auto) Lymph # Seg Neutrophils % Seg Neuts % (Manual) Lymphocytes % (Manual) Nucleated RBC % Seg Neutrophils # Seg Neutrophils # Man Lymphocytes # (Manual) D-Dimer 795.52 H ABG pH ABG pO2 ABG HCO3 ABG O2 Saturation ABG Base Excess ABG Hemoglobin Oxyhemoglobin Sodium Potassium Chloride Carbon Dioxide BUN Glucose 384 H POC Glucose Hemoglobin A1c Calcium Phosphorus Magnesium Ferritin > 2000.0 H AST Lactate Dehydrogenase 1393 H C-Reactive Protein 5.80 H Total Protein Albumin Coronavirus (PCR) 01/31/20 01/31/20 02/01/20 16:36 23:46 08:00 WBC Hgb Hct MCV MCH RDW Plt Count Lymph % (Auto) Lymph # Seg Neutrophils % Seg Neuts % (Manual) Lymphocytes % (Manual) Nucleated RBC % Seg Neutrophils # Seg Neutrophils # Man Lymphocytes # (Manual) D-Dimer ABG pH ABG pO2 ABG HCO3 ABG O2 Saturation ABG Base Excess ABG Hemoglobin Oxyhemoglobin Sodium Potassium Chloride Carbon Dioxide BUN Glucose POC Glucose 384 H 322 H 287 H Hemoglobin A1c Calcium Phosphorus Magnesium Ferritin AST Lactate Dehydrogenase C-Reactive Protein Total Protein Albumin Coronavirus (PCR) 02/01/20 02/01/20 02/01/20 12:48 16:53 23:25 WBC Hgb Hct MCV MCH RDW Plt Count Lymph % (Auto) Lymph # Seg Neutrophils % Seg Neuts % (Manual) Lymphocytes % (Manual) Nucleated RBC % Seg Neutrophils # Seg Neutrophils # Man Lymphocytes # (Manual) D-Dimer ABG pH ABG pO2 ABG HCO3 ABG O2 Saturation ABG Base Excess ABG Hemoglobin Oxyhemoglobin Sodium Potassium Chloride Carbon Dioxide BUN Glucose POC Glucose 309 H 362 H 264 H Hemoglobin A1c Calcium Phosphorus Magnesium Ferritin AST Lactate Dehydrogenase C-Reactive Protein Total Protein Albumin Coronavirus (PCR) 02/02/20 02/02/20 02/02/20 05:31 05:31 05:31 WBC Hgb Hct MCV MCH RDW Plt Count Lymph % (Auto) Lymph # Seg Neutrophils % Seg Neuts % (Manual) Lymphocytes % (Manual) Nucleated RBC % Seg Neutrophils # Seg Neutrophils # Man Lymphocytes # (Manual) D-Dimer 416.36 H ABG pH ABG pO2 ABG HCO3 ABG O2 Saturation ABG Base Excess ABG Hemoglobin Oxyhemoglobin Sodium Potassium Chloride 107.2 H Carbon Dioxide BUN 25 H Glucose 304 H POC Glucose Hemoglobin A1c Calcium 8.2 L Phosphorus Magnesium Ferritin > 2000.0 H AST Lactate Dehydrogenase C-Reactive Protein Total Protein Albumin Coronavirus (PCR) 02/02/20 02/02/20 02/02/20 05:31 09:14 11:57 WBC Hgb Hct MCV MCH RDW Plt Count Lymph % (Auto) Lymph # Seg Neutrophils % Seg Neuts % (Manual) Lymphocytes % (Manual) Nucleated RBC % Seg Neutrophils # Seg Neutrophils # Man Lymphocytes # (Manual) D-Dimer ABG pH ABG pO2 ABG HCO3 ABG O2 Saturation ABG Base Excess ABG Hemoglobin Oxyhemoglobin Sodium Potassium Chloride Carbon Dioxide BUN Glucose POC Glucose 334 H 429 H Hemoglobin A1c Calcium Phosphorus Magnesium Ferritin AST Lactate Dehydrogenase 1297 H C-Reactive Protein 2.20 H Total Protein Albumin Coronavirus (PCR) 02/02/20 02/02/20 02/02/20 12:44 16:35 22:55 WBC Hgb Hct MCV MCH RDW Plt Count Lymph % (Auto) Lymph # Seg Neutrophils % Seg Neuts % (Manual) Lymphocytes % (Manual) Nucleated RBC % Seg Neutrophils # Seg Neutrophils # Man Lymphocytes # (Manual) D-Dimer ABG pH 7.466 H ABG pO2 60.9 L ABG HCO3 ABG O2 Saturation 93.6 L ABG Base Excess -2.7 L ABG Hemoglobin 11.8 L Oxyhemoglobin 91.4 L Sodium Potassium Chloride Carbon Dioxide BUN Glucose POC Glucose 300 H 339 H Hemoglobin A1c Calcium Phosphorus Magnesium Ferritin AST Lactate Dehydrogenase C-Reactive Protein Total Protein Albumin Coronavirus (PCR) 02/03/20 02/03/20 02/03/20 01:06 06:09 06:09 WBC Hgb Hct MCV MCH RDW Plt Count Lymph % (Auto) Lymph # Seg Neutrophils % Seg Neuts % (Manual) 92.0 H Lymphocytes % (Manual) 3.0 L Nucleated RBC % 2.0 H Seg Neutrophils # Seg Neutrophils # Man Lymphocytes # (Manual) 0.3 L D-Dimer ABG pH ABG pO2 ABG HCO3 ABG O2 Saturation ABG Base Excess ABG Hemoglobin Oxyhemoglobin Sodium Potassium Chloride Carbon Dioxide BUN 27 H Glucose 348 H POC Glucose Hemoglobin A1c Calcium 8.1 L Phosphorus Magnesium 2.50 H 2.50 H Ferritin AST Lactate Dehydrogenase C-Reactive Protein Total Protein 5.4 L Albumin 3.0 L Coronavirus (PCR) 02/03/20 02/03/20 02/03/20 08:42 11:50 16:18 WBC Hgb Hct MCV MCH RDW Plt Count Lymph % (Auto) Lymph # Seg Neutrophils % Seg Neuts % (Manual) Lymphocytes % (Manual) Nucleated RBC % Seg Neutrophils # Seg Neutrophils # Man Lymphocytes # (Manual) D-Dimer ABG pH ABG pO2 ABG HCO3 ABG O2 Saturation ABG Base Excess ABG Hemoglobin Oxyhemoglobin Sodium Potassium Chloride Carbon Dioxide BUN Glucose POC Glucose 355 H 345 H 382 H Hemoglobin A1c Calcium Phosphorus Magnesium Ferritin AST Lactate Dehydrogenase C-Reactive Protein Total Protein Albumin Coronavirus (PCR) 02/03/20 02/03/20 02/04/20 22:00 22:04 06:06 WBC Hgb Hct MCV MCH RDW Plt Count Lymph % (Auto) Lymph # Seg Neutrophils % Seg Neuts % (Manual) Lymphocytes % (Manual) Nucleated RBC % Seg Neutrophils # Seg Neutrophils # Man Lymphocytes # (Manual) D-Dimer ABG pH 7.505 H ABG pO2 59.1 L ABG HCO3 19.1 L ABG O2 Saturation 93.0 L ABG Base Excess -2.4 L ABG Hemoglobin 13.3 L Oxyhemoglobin 91.1 L Sodium Potassium Chloride Carbon Dioxide BUN Glucose POC Glucose 309 H Hemoglobin A1c Calcium Phosphorus Magnesium Ferritin 4214.0 H AST Lactate Dehydrogenase C-Reactive Protein Total Protein Albumin Coronavirus (PCR) 02/04/20 02/04/20 02/04/20 06:06 06:06 06:06 WBC Hgb Hct MCV 95 H MCH RDW Plt Count Lymph % (Auto) 4.3 L Lymph # 0.5 L Seg Neutrophils % 87.5 H Seg Neuts % (Manual) Lymphocytes % (Manual) Nucleated RBC % Seg Neutrophils # 9.3 H Seg Neutrophils # Man Lymphocytes # (Manual) D-Dimer ABG pH ABG pO2 ABG HCO3 ABG O2 Saturation ABG Base Excess ABG Hemoglobin Oxyhemoglobin Sodium Potassium Chloride Carbon Dioxide 21 L BUN 30 H Glucose 393 H POC Glucose Hemoglobin A1c Calcium 7.8 L Phosphorus Magnesium 2.70 H Ferritin AST Lactate Dehydrogenase 919 H C-Reactive Protein Total Protein Albumin Coronavirus (PCR) 02/04/20 02/04/20 02/04/20 08:57 13:12 17:45 WBC Hgb Hct MCV MCH RDW Plt Count Lymph % (Auto) Lymph # Seg Neutrophils % Seg Neuts % (Manual) Lymphocytes % (Manual) Nucleated RBC % Seg Neutrophils # Seg Neutrophils # Man Lymphocytes # (Manual) D-Dimer ABG pH ABG pO2 ABG HCO3 ABG O2 Saturation ABG Base Excess ABG Hemoglobin Oxyhemoglobin Sodium Potassium Chloride Carbon Dioxide BUN Glucose POC Glucose 353 H 364 H 292 H Hemoglobin A1c Calcium Phosphorus Magnesium Ferritin AST Lactate Dehydrogenase C-Reactive Protein Total Protein Albumin Coronavirus (PCR) 02/04/20 02/05/20 02/05/20 22:36 08:44 12:53 WBC Hgb Hct MCV MCH RDW Plt Count Lymph % (Auto) Lymph # Seg Neutrophils % Seg Neuts % (Manual) Lymphocytes % (Manual) Nucleated RBC % Seg Neutrophils # Seg Neutrophils # Man Lymphocytes # (Manual) D-Dimer ABG pH ABG pO2 ABG HCO3 ABG O2 Saturation ABG Base Excess ABG Hemoglobin Oxyhemoglobin Sodium Potassium Chloride Carbon Dioxide BUN Glucose POC Glucose 255 H 313 H 346 H Hemoglobin A1c Calcium Phosphorus Magnesium Ferritin AST Lactate Dehydrogenase C-Reactive Protein Total Protein Albumin Coronavirus (PCR) 02/05/20 02/05/20 02/06/20 16:55 22:38 01:04 WBC Hgb Hct MCV MCH RDW Plt Count Lymph % (Auto) Lymph # Seg Neutrophils % Seg Neuts % (Manual) Lymphocytes % (Manual) Nucleated RBC % Seg Neutrophils # Seg Neutrophils # Man Lymphocytes # (Manual) D-Dimer ABG pH ABG pO2 ABG HCO3 ABG O2 Saturation ABG Base Excess ABG Hemoglobin Oxyhemoglobin Sodium Potassium Chloride Carbon Dioxide BUN Glucose POC Glucose 270 H 106 H 122 H Hemoglobin A1c Calcium Phosphorus Magnesium Ferritin AST Lactate Dehydrogenase C-Reactive Protein Total Protein Albumin Coronavirus (PCR) 02/06/20 02/06/20 02/06/20 09:21 12:27 15:20 WBC Hgb Hct MCV MCH RDW Plt Count Lymph % (Auto) Lymph # Seg Neutrophils % Seg Neuts % (Manual) Lymphocytes % (Manual) Nucleated RBC % Seg Neutrophils # Seg Neutrophils # Man Lymphocytes # (Manual) D-Dimer 328.02 H ABG pH ABG pO2 ABG HCO3 ABG O2 Saturation ABG Base Excess ABG Hemoglobin Oxyhemoglobin Sodium Potassium Chloride Carbon Dioxide BUN Glucose POC Glucose 227 H 295 H Hemoglobin A1c Calcium Phosphorus Magnesium Ferritin AST Lactate Dehydrogenase C-Reactive Protein Total Protein Albumin Coronavirus (PCR) 02/06/20 02/06/20 02/06/20 15:20 15:20 16:50 WBC Hgb Hct MCV MCH RDW Plt Count Lymph % (Auto) Lymph # Seg Neutrophils % Seg Neuts % (Manual) Lymphocytes % (Manual) Nucleated RBC % Seg Neutrophils # Seg Neutrophils # Man Lymphocytes # (Manual) D-Dimer ABG pH ABG pO2 ABG HCO3 ABG O2 Saturation ABG Base Excess ABG Hemoglobin Oxyhemoglobin Sodium Potassium Chloride Carbon Dioxide BUN Glucose 311 H POC Glucose 258 H Hemoglobin A1c Calcium Phosphorus Magnesium Ferritin < 2000.0 H AST Lactate Dehydrogenase 719 H C-Reactive Protein Total Protein Albumin Coronavirus (PCR) 02/06/20 02/07/20 02/07/20 21:23 08:22 10:51 WBC Hgb Hct MCV MCH RDW Plt Count Lymph % (Auto) Lymph # Seg Neutrophils % Seg Neuts % (Manual) Lymphocytes % (Manual) Nucleated RBC % Seg Neutrophils # Seg Neutrophils # Man Lymphocytes # (Manual) D-Dimer ABG pH ABG pO2 ABG HCO3 ABG O2 Saturation ABG Base Excess ABG Hemoglobin Oxyhemoglobin Sodium Potassium Chloride Carbon Dioxide BUN Glucose POC Glucose 334 H 281 H 309 H Hemoglobin A1c Calcium Phosphorus Magnesium Ferritin AST Lactate Dehydrogenase C-Reactive Protein Total Protein Albumin Coronavirus (PCR) 02/07/20 02/07/20 02/08/20 16:27 22:40 07:44 WBC Hgb Hct MCV MCH RDW Plt Count Lymph % (Auto) Lymph # Seg Neutrophils % Seg Neuts % (Manual) Lymphocytes % (Manual) Nucleated RBC % Seg Neutrophils # Seg Neutrophils # Man Lymphocytes # (Manual) D-Dimer ABG pH ABG pO2 ABG HCO3 ABG O2 Saturation ABG Base Excess ABG Hemoglobin Oxyhemoglobin Sodium Potassium Chloride Carbon Dioxide BUN Glucose POC Glucose 288 H 278 H 267 H Hemoglobin A1c Calcium Phosphorus Magnesium Ferritin AST Lactate Dehydrogenase C-Reactive Protein Total Protein Albumin Coronavirus (PCR) 02/08/20 02/08/20 02/08/20 10:46 10:46 10:46 WBC Hgb Hct MCV 98 H MCH RDW Plt Count Lymph % (Auto) Lymph # Seg Neutrophils % Seg Neuts % (Manual) 97.0 H Lymphocytes % (Manual) 0 L Nucleated RBC % Seg Neutrophils # Seg Neutrophils # Man 10.2 H Lymphocytes # (Manual) 0.0 L D-Dimer 261.46 H ABG pH ABG pO2 ABG HCO3 ABG O2 Saturation ABG Base Excess ABG Hemoglobin Oxyhemoglobin Sodium 148 H Potassium 3.5 L Chloride 112.2 H Carbon Dioxide BUN 36 H Glucose 356 H POC Glucose Hemoglobin A1c Calcium 8.3 L Phosphorus Magnesium Ferritin AST Lactate Dehydrogenase C-Reactive Protein Total Protein Albumin Coronavirus (PCR) 02/08/20 02/08/20 02/08/20 10:46 10:46 12:22 WBC Hgb Hct MCV MCH RDW Plt Count Lymph % (Auto) Lymph # Seg Neutrophils % Seg Neuts % (Manual) Lymphocytes % (Manual) Nucleated RBC % Seg Neutrophils # Seg Neutrophils # Man Lymphocytes # (Manual) D-Dimer ABG pH ABG pO2 ABG HCO3 ABG O2 Saturation ABG Base Excess ABG Hemoglobin Oxyhemoglobin Sodium Potassium Chloride Carbon Dioxide BUN Glucose 351 H POC Glucose 358 H Hemoglobin A1c Calcium Phosphorus Magnesium Ferritin 1611.0 H AST Lactate Dehydrogenase 671 H C-Reactive Protein Total Protein Albumin Coronavirus (PCR) 02/08/20 02/08/20 02/09/20 14:00 17:02 08:45 WBC Hgb Hct MCV MCH RDW Plt Count Lymph % (Auto) Lymph # Seg Neutrophils % Seg Neuts % (Manual) Lymphocytes % (Manual) Nucleated RBC % Seg Neutrophils # Seg Neutrophils # Man Lymphocytes # (Manual) D-Dimer ABG pH ABG pO2 65.3 L ABG HCO3 ABG O2 Saturation 94.1 L ABG Base Excess ABG Hemoglobin 12.8 L Oxyhemoglobin 92.3 L Sodium Potassium Chloride Carbon Dioxide BUN Glucose POC Glucose 331 H 160 H Hemoglobin A1c Calcium Phosphorus Magnesium Ferritin AST Lactate Dehydrogenase C-Reactive Protein Total Protein Albumin Coronavirus (PCR) 02/09/20 02/09/20 02/09/20 12:27 17:22 23:11 WBC Hgb Hct MCV MCH RDW Plt Count Lymph % (Auto) Lymph # Seg Neutrophils % Seg Neuts % (Manual) Lymphocytes % (Manual) Nucleated RBC % Seg Neutrophils # Seg Neutrophils # Man Lymphocytes # (Manual) D-Dimer ABG pH ABG pO2 ABG HCO3 ABG O2 Saturation ABG Base Excess ABG Hemoglobin Oxyhemoglobin Sodium Potassium Chloride Carbon Dioxide BUN Glucose POC Glucose 262 H 237 H 140 H Hemoglobin A1c Calcium Phosphorus Magnesium Ferritin AST Lactate Dehydrogenase C-Reactive Protein Total Protein Albumin Coronavirus (PCR) 02/10/20 02/10/20 02/10/20 08:30 12:00 12:30 WBC Hgb Hct MCV MCH RDW Plt Count Lymph % (Auto) Lymph # Seg Neutrophils % Seg Neuts % (Manual) Lymphocytes % (Manual) Nucleated RBC % Seg Neutrophils # Seg Neutrophils # Man Lymphocytes # (Manual) D-Dimer ABG pH ABG pO2 ABG HCO3 ABG O2 Saturation ABG Base Excess ABG Hemoglobin Oxyhemoglobin Sodium Potassium Chloride Carbon Dioxide BUN Glucose 330 H POC Glucose 216 H 252 H Hemoglobin A1c Calcium Phosphorus Magnesium Ferritin AST Lactate Dehydrogenase 642 H C-Reactive Protein Total Protein Albumin Coronavirus (PCR) 02/10/20 02/10/20 02/10/20 12:30 16:32 23:38 WBC Hgb Hct MCV MCH RDW Plt Count Lymph % (Auto) Lymph # Seg Neutrophils % Seg Neuts % (Manual) Lymphocytes % (Manual) Nucleated RBC % Seg Neutrophils # Seg Neutrophils # Man Lymphocytes # (Manual) D-Dimer ABG pH ABG pO2 ABG HCO3 ABG O2 Saturation ABG Base Excess ABG Hemoglobin Oxyhemoglobin Sodium Potassium Chloride Carbon Dioxide BUN Glucose POC Glucose 245 H 196 H Hemoglobin A1c Calcium Phosphorus Magnesium Ferritin 1728.0 H AST Lactate Dehydrogenase C-Reactive Protein Total Protein Albumin Coronavirus (PCR) 02/11/20 02/11/20 02/11/20 08:07 11:41 13:47 WBC Hgb Hct MCV 98 H MCH RDW 15.7 H Plt Count Lymph % (Auto) Lymph # Seg Neutrophils % Seg Neuts % (Manual) Lymphocytes % (Manual) Nucleated RBC % Seg Neutrophils # Seg Neutrophils # Man Lymphocytes # (Manual) D-Dimer ABG pH ABG pO2 ABG HCO3 ABG O2 Saturation ABG Base Excess ABG Hemoglobin Oxyhemoglobin Sodium Potassium Chloride Carbon Dioxide BUN Glucose POC Glucose 300 H 286 H Hemoglobin A1c Calcium Phosphorus Magnesium Ferritin AST Lactate Dehydrogenase C-Reactive Protein Total Protein Albumin Coronavirus (PCR) 02/11/20 02/11/20 02/11/20 13:47 17:17 21:17 WBC Hgb Hct MCV MCH RDW Plt Count Lymph % (Auto) Lymph # Seg Neutrophils % Seg Neuts % (Manual) Lymphocytes % (Manual) Nucleated RBC % Seg Neutrophils # Seg Neutrophils # Man Lymphocytes # (Manual) D-Dimer ABG pH ABG pO2 ABG HCO3 ABG O2 Saturation ABG Base Excess ABG Hemoglobin Oxyhemoglobin Sodium 158 H D Potassium Chloride 119.7 H Carbon Dioxide BUN 40 H Glucose 287 H POC Glucose 288 H 283 H Hemoglobin A1c Calcium 7.9 L Phosphorus Magnesium Ferritin AST Lactate Dehydrogenase C-Reactive Protein Total Protein Albumin Coronavirus (PCR) 02/12/20 02/12/20 02/12/20 06:01 08:37 10:58 WBC Hgb Hct MCV MCH RDW Plt Count Lymph % (Auto) Lymph # Seg Neutrophils % Seg Neuts % (Manual) Lymphocytes % (Manual) Nucleated RBC % Seg Neutrophils # Seg Neutrophils # Man Lymphocytes # (Manual) D-Dimer ABG pH ABG pO2 ABG HCO3 ABG O2 Saturation ABG Base Excess ABG Hemoglobin Oxyhemoglobin Sodium Potassium Chloride Carbon Dioxide BUN Glucose POC Glucose 273 H 313 H 288 H Hemoglobin A1c Calcium Phosphorus Magnesium Ferritin AST Lactate Dehydrogenase C-Reactive Protein Total Protein Albumin Coronavirus (PCR) 02/12/20 02/12/20 02/12/20 16:24 22:23 Unknown WBC Hgb Hct MCV MCH RDW Plt Count Lymph % (Auto) Lymph # Seg Neutrophils % Seg Neuts % (Manual) Lymphocytes % (Manual) Nucleated RBC % Seg Neutrophils # Seg Neutrophils # Man Lymphocytes # (Manual) D-Dimer ABG pH ABG pO2 ABG HCO3 ABG O2 Saturation ABG Base Excess ABG Hemoglobin Oxyhemoglobin Sodium Potassium Chloride Carbon Dioxide BUN Glucose POC Glucose 192 H 145 H Hemoglobin A1c Calcium Phosphorus Magnesium Ferritin AST Lactate Dehydrogenase C-Reactive Protein Total Protein Albumin Coronavirus (PCR) Positive A 02/13/20 02/13/20 02/13/20 00:32 09:06 11:22 WBC Hgb Hct MCV MCH RDW Plt Count Lymph % (Auto) Lymph # Seg Neutrophils % Seg Neuts % (Manual) Lymphocytes % (Manual) Nucleated RBC % Seg Neutrophils # Seg Neutrophils # Man Lymphocytes # (Manual) D-Dimer ABG pH ABG pO2 ABG HCO3 ABG O2 Saturation ABG Base Excess ABG Hemoglobin Oxyhemoglobin Sodium 162 H* Potassium 3.2 L Chloride 125.4 H Carbon Dioxide BUN 32 H Glucose 132 H POC Glucose 221 H 319 H Hemoglobin A1c Calcium 7.6 L Phosphorus Magnesium Ferritin AST Lactate Dehydrogenase C-Reactive Protein Total Protein Albumin Coronavirus (PCR) 02/13/20 02/13/20 02/13/20 14:33 16:18 23:35 WBC Hgb Hct MCV MCH RDW Plt Count Lymph % (Auto) Lymph # Seg Neutrophils % Seg Neuts % (Manual) Lymphocytes % (Manual) Nucleated RBC % Seg Neutrophils # Seg Neutrophils # Man Lymphocytes # (Manual) D-Dimer ABG pH ABG pO2 ABG HCO3 ABG O2 Saturation ABG Base Excess ABG Hemoglobin Oxyhemoglobin Sodium 154 H Potassium Chloride 117.5 H Carbon Dioxide BUN 30 H Glucose 415 H POC Glucose 351 H 182 H Hemoglobin A1c Calcium 7.5 L Phosphorus Magnesium Ferritin AST Lactate Dehydrogenase C-Reactive Protein Total Protein Albumin Coronavirus (PCR) 02/14/20 02/14/20 02/14/20 05:25 11:54 17:39 WBC Hgb Hct MCV MCH RDW Plt Count Lymph % (Auto) Lymph # Seg Neutrophils % Seg Neuts % (Manual) Lymphocytes % (Manual) Nucleated RBC % Seg Neutrophils # Seg Neutrophils # Man Lymphocytes # (Manual) D-Dimer ABG pH ABG pO2 ABG HCO3 ABG O2 Saturation ABG Base Excess ABG Hemoglobin Oxyhemoglobin Sodium 156 H Potassium 3.1 L Chloride 121.7 H Carbon Dioxide BUN 28 H Glucose 74 L POC Glucose 120 H 226 H Hemoglobin A1c Calcium 7.7 L Phosphorus 2.00 L Magnesium Ferritin AST Lactate Dehydrogenase C-Reactive Protein Total Protein Albumin Coronavirus (PCR) 02/14/20 02/15/20 02/15/20 22:05 05:47 12:08 WBC Hgb Hct MCV MCH RDW Plt Count Lymph % (Auto) Lymph # Seg Neutrophils % Seg Neuts % (Manual) Lymphocytes % (Manual) Nucleated RBC % Seg Neutrophils # Seg Neutrophils # Man Lymphocytes # (Manual) D-Dimer ABG pH ABG pO2 ABG HCO3 ABG O2 Saturation ABG Base Excess ABG Hemoglobin Oxyhemoglobin Sodium 149 H Potassium Chloride 115.1 H Carbon Dioxide BUN 22 H Glucose 74 L POC Glucose 305 H 259 H Hemoglobin A1c Calcium 7.5 L Phosphorus Magnesium Ferritin AST Lactate Dehydrogenase C-Reactive Protein Total Protein Albumin Coronavirus (PCR) 02/15/20 02/15/20 02/16/20 16:22 23:29 11:39 WBC Hgb Hct MCV MCH RDW Plt Count Lymph % (Auto) Lymph # Seg Neutrophils % Seg Neuts % (Manual) Lymphocytes % (Manual) Nucleated RBC % Seg Neutrophils # Seg Neutrophils # Man Lymphocytes # (Manual) D-Dimer ABG pH ABG pO2 ABG HCO3 ABG O2 Saturation ABG Base Excess ABG Hemoglobin Oxyhemoglobin Sodium Potassium Chloride Carbon Dioxide BUN Glucose POC Glucose 245 H 114 H 196 H Hemoglobin A1c Calcium Phosphorus Magnesium Ferritin AST Lactate Dehydrogenase C-Reactive Protein Total Protein Albumin Coronavirus (PCR) 02/16/20 02/16/20 02/16/20 13:47 13:47 13:47 WBC Hgb Hct MCV MCH RDW Plt Count Lymph % (Auto) Lymph # Seg Neutrophils % Seg Neuts % (Manual) Lymphocytes % (Manual) Nucleated RBC % Seg Neutrophils # Seg Neutrophils # Man Lymphocytes # (Manual) D-Dimer 454.59 H ABG pH ABG pO2 ABG HCO3 ABG O2 Saturation ABG Base Excess ABG Hemoglobin Oxyhemoglobin Sodium Potassium Chloride Carbon Dioxide BUN Glucose POC Glucose Hemoglobin A1c Calcium Phosphorus Magnesium Ferritin 1573.0 H AST Lactate Dehydrogenase 651 H C-Reactive Protein Total Protein Albumin Coronavirus (PCR) 02/16/20 02/16/20 02/17/20 16:12 22:06 07:13 WBC Hgb Hct MCV MCH RDW Plt Count Lymph % (Auto) Lymph # Seg Neutrophils % Seg Neuts % (Manual) Lymphocytes % (Manual) Nucleated RBC % Seg Neutrophils # Seg Neutrophils # Man Lymphocytes # (Manual) D-Dimer ABG pH ABG pO2 ABG HCO3 ABG O2 Saturation ABG Base Excess ABG Hemoglobin Oxyhemoglobin Sodium Potassium Chloride Carbon Dioxide 20 L BUN Glucose 74 L POC Glucose 304 H 179 H Hemoglobin A1c Calcium 7.6 L Phosphorus 2.20 L Magnesium Ferritin AST Lactate Dehydrogenase C-Reactive Protein Total Protein Albumin Coronavirus (PCR) 02/17/20 02/17/20 02/17/20 07:57 09:03 11:30 WBC Hgb Hct MCV 99 H MCH RDW 15.9 H Plt Count 65 L Lymph % (Auto) 7.1 L Lymph # 0.4 L Seg Neutrophils % 89.2 H Seg Neuts % (Manual) Lymphocytes % (Manual) Nucleated RBC % Seg Neutrophils # Seg Neutrophils # Man Lymphocytes # (Manual) D-Dimer ABG pH ABG pO2 ABG HCO3 ABG O2 Saturation ABG Base Excess ABG Hemoglobin Oxyhemoglobin Sodium Potassium Chloride Carbon Dioxide BUN Glucose POC Glucose 67 L 127 H Hemoglobin A1c Calcium Phosphorus Magnesium Ferritin AST Lactate Dehydrogenase C-Reactive Protein Total Protein Albumin Coronavirus (PCR) 02/17/20 02/18/20 02/18/20 21:24 08:32 09:32 WBC Hgb Hct MCV MCH RDW Plt Count Lymph % (Auto) Lymph # Seg Neutrophils % Seg Neuts % (Manual) Lymphocytes % (Manual) Nucleated RBC % Seg Neutrophils # Seg Neutrophils # Man Lymphocytes # (Manual) D-Dimer ABG pH ABG pO2 ABG HCO3 ABG O2 Saturation ABG Base Excess ABG Hemoglobin Oxyhemoglobin Sodium Potassium Chloride Carbon Dioxide 21 L BUN Glucose 130 H POC Glucose 215 H 131 H Hemoglobin A1c Calcium 7.4 L Phosphorus 2.20 L Magnesium Ferritin AST Lactate Dehydrogenase C-Reactive Protein Total Protein Albumin Coronavirus (PCR) 02/18/20 02/18/20 02/18/20 12:30 18:15 22:55 WBC Hgb Hct MCV MCH RDW Plt Count Lymph % (Auto) Lymph # Seg Neutrophils % Seg Neuts % (Manual) Lymphocytes % (Manual) Nucleated RBC % Seg Neutrophils # Seg Neutrophils # Man Lymphocytes # (Manual) D-Dimer ABG pH ABG pO2 ABG HCO3 ABG O2 Saturation ABG Base Excess ABG Hemoglobin Oxyhemoglobin Sodium Potassium Chloride Carbon Dioxide BUN Glucose POC Glucose 271 H 327 H 252 H Hemoglobin A1c Calcium Phosphorus Magnesium Ferritin AST Lactate Dehydrogenase C-Reactive Protein Total Protein Albumin Coronavirus (PCR) 02/19/20 02/19/20 02/19/20 05:38 17:24 22:55 WBC Hgb Hct MCV MCH RDW Plt Count Lymph % (Auto) Lymph # Seg Neutrophils % Seg Neuts % (Manual) Lymphocytes % (Manual) Nucleated RBC % Seg Neutrophils # Seg Neutrophils # Man Lymphocytes # (Manual) D-Dimer ABG pH ABG pO2 ABG HCO3 ABG O2 Saturation ABG Base Excess ABG Hemoglobin Oxyhemoglobin Sodium 136 L Potassium Chloride Carbon Dioxide 18 L BUN Glucose 116 H POC Glucose 136 H 145 H Hemoglobin A1c Calcium 7.7 L Phosphorus Magnesium Ferritin AST Lactate Dehydrogenase C-Reactive Protein Total Protein Albumin Coronavirus (PCR) 02/20/20 08:05 WBC Hgb Hct MCV MCH RDW Plt Count Lymph % (Auto) Lymph # Seg Neutrophils % Seg Neuts % (Manual) Lymphocytes % (Manual) Nucleated RBC % Seg Neutrophils # Seg Neutrophils # Man Lymphocytes # (Manual) D-Dimer ABG pH ABG pO2 ABG HCO3 ABG O2 Saturation ABG Base Excess ABG Hemoglobin Oxyhemoglobin Sodium Potassium Chloride Carbon Dioxide BUN Glucose POC Glucose 116 H Hemoglobin A1c Calcium Phosphorus Magnesium Ferritin AST Lactate Dehydrogenase C-Reactive Protein Total Protein Albumin Coronavirus (PCR) Chest x-ray: report reviewed, image reviewed Additional Studies: CHEST 1 VIEW 02/19/20 INDICATION: Follow up on Pneumonia.. COMPARISON: 02/08/2020 FINDINGS: Support devices: None. Heart: Within normal limits. Lungs/Pleura: There is poor inspiration but slight increase in the bilateral lung opacities is demonstrated since the previous exam. The left lung is more affected. No pleural effusion or pneumothorax. Additional findings: None. IMPRESSION: Mild interval increase in the bilateral lung opacities, left greater than right. Allied health notes reviewed: nursing
--- NOTE | 2020-02-20 14:29 | Event Note ---
Date: 02/20/20 Patient was not discharged as [facility] didnot have a bed, patient was discharged today.
== END 2020-02-20 11:20 | DRG 871 ==
LOC: ED 14:45 → 3A 17:53 → IMCU 02-04 21:33 → 3A 02-07 18:13
PROVIDERS: ADMIT Internal Medicine; ATTEND Internal Medicine
PROC: 4A033R1 Measurement of Arterial Saturation, Peripheral, Percutaneous Approach (ICD-10-PCS; principal; 2020-01-29)
DX: A41.89 Other specified sepsis (principal); U07.1 COVID-19; J12.89 Other viral pneumonia; J96.01 Acute respiratory failure with hypoxia; G92 Toxic encephalopathy; E87.0 Hyperosmolality and hypernatremia; R65.20 Severe sepsis without septic shock; E11.9 Type 2 diabetes mellitus without complications; E78.5 Hyperlipidemia, unspecified; I10 Essential (primary) hypertension; F03.90 Unspecified dementia, unspecified severity, without behavioral disturbance, psychotic disturbance, mood disturbance, and anxiety; E86.0 Dehydration
CPT/HCPCS: 36415; 36600; 71045; 80048; 80053; 81001; 82728; 82803; 82947; 82962; 83036; 83615; 83735; 83880; 83930; 83935; 84100; 84145; 84443; 84484; 85007; 85025; 85027; 85379; 85610; 86140; 86850; 86900; 86901; 87040; 93005; 94760; 96365; 96372; 96375; G0378; A9270-GY; J0456; J0696; J1100; J1170; J1650; J1815; J2060; J2405; J2920; J2930; J7030; J7042; J7050; J7060; J7070; U0003-CS